=== PATIENT | female | born 1940 | race Caucasian/White ===

== ENCOUNTER → 2020-12-03 15:58 | Outpatient (BNVA) | payer MEDICARE, OTHER, SELFPAY | PROVIDERS: Referring Provider Family Medicine; Visit Provider Orthopaedic Surgery | DX: M25.512 Pain in left shoulder (principal) | CPT/HCPCS: 73030 ==

== ENCOUNTER → 2021-01-22 12:26 | Outpatient (BNVA) | payer MEDICARE, OTHER, SELFPAY | PROVIDERS: PCP Electrodiagnostic Medicine; Visit Provider Internal Medicine Cardiovascular Disease | DX: Z20.822 Contact with and (suspected) exposure to COVID-19 (principal); R06.02 Shortness of breath | CPT/HCPCS: 87635 ==

== ENCOUNTER 2021-01-28 08:43 | Day surgery (SDC) | payer MEDICARE, OTHER, SELFPAY ==
[2021-01-22 12:17] LABS: Basophils # 0.1 10^3/uL (0.0-0.1); Basophils % 0.9 %; Eosinophils # 0.4 10^3/uL (0.0-0.8); Eosinophils % 7.6 %; Hematocrit 35.2 % (37.0-47.0); Hemoglobin 11.7 g/dL (11.5-15.3); Lymphocytes # 2.1 10^3/uL (0.8-4.8); Lymphocytes % 36.1 %; Mean Corpuscular HGB Conc 33.2 g/dL (30.0-36.0); Mean Corpuscular Hemoglobin 31.9 pg (28.0-34.0); Mean Corpuscular Volume 95.9 fL (81-99); Mean Platelet Volume 9.9 fL (7.4-10.4); Monocytes # 0.6 10^3/uL (0.2-0.9); Monocytes % 9.5 %; Neutrophils # 2.66 10^3/uL (1.8-7.7); Neutrophils % 45.6 %; Nucleated Red Blood Cells % 0 %; Platelet Count 256 10^3/cmm (130-400); Red Blood Count 3.67 10^6/uL (4.1-5.3); Red Cell Distribution Width 11.5 % (12.1-15.1); White Blood Count 5.8 10^3/uL (4.0-10.0)
[2021-01-22 12:53] LABS: Anion Gap 11.4 (5-19); Blood Urea Nitrogen 22 mg/dL (8-23); Carbon Dioxide 28 mmol/L (22-29); Chloride 103 mmol/L (98-107); Glucose 218 mg/dL (65-115); Osmolality Calculated 296 mOsm/kg (285-295); Potassium 4.4 mmol/L (3.5-5.1); Sodium 138 mmol/L (136-145)
[2021-01-28] VITALS (28 sets, daily range): BP systolic 130–201; BP diastolic 60–89; PULSE 52–72; RESP 6–29; TEMP 36.9–37.1; O2SAT 97–100; BMI 30.2
--- NOTE | 2021-01-28 10:00 | XACV_ITS ---
Ht: 163 cm Wt: 80 kg BSA: 1.92 m2 Gender: Female : 1940 Any Known Allergies: No known allergies Exam Priority: Routine Procedure(s): Procedure Description: Diagnostic procedure Procedure Description: Right Heart Catheterization Procedure Description: O2 saturation Procedure Description: Coronary Angiography Conclusions 1. Right heart cathPulmonary capillary wedge pressure 5 mmHgPA mean 17 mmHgRV 27/-1 mean of 13 mmHgRA 5/3 mean of 2 mmHgNormal right and left side pressure rather patient is on dry sideNo step-off notedCardiac index 3.4 L/min meter squareCardiac output 6.35 L/minHigh cardiac output and index. 2. Indication for 3. left and right heart cath: Unexplained 4. shortness of breath despite of 5. medical optimization. Recommendations * Return to inpatient for close monitoring and routine cath care. * Risk factor modification for secondary prevention. Diagnostic RX Recommendation: medical therapy and/or counseling Pressures Phase:Rest AO : 159 / 80 ( 113 ) @ 6:12:00 AM RV : 27 / 0 / @ 6:58:00 AM PA : 27 / 11 ( 17 ) @ 6:56:00 AM RA : a wave = v wave = mean = 2 @ 6:59:00 AM a wave = v wave = mean = 4 @ 7:00:00 AM O2 Content Phase:Rest PA : O2 Content O2: 78.0 @ 6:56:00 AM Saturations Phase:Rest AO : 94 @ 6:12:00 AM RA : 73 @ 7:00:00 AM RV : 70 @ 6:59:00 AM PA : 78 @ 6:56:00 AM Cardiac Output Phase:Rest Dick : 6 @ 6:12:00 AM Dick Cardiac Index: 3 @ 6:12:00 AM Clinical Evaluation EBL: 5mL-10mL Procedural Details Procedure Consent Obtained. Pre-Procedure Time Out. Identified patient by full name and date of as verbalized by the patient/guarantor. Does the consent match the physician's order: Yes. Accurate & Complete Informed Consent: Yes. Inpatient/Outpatient History & Physical on Chart: Yes. If H&P is completed, is and addenduem needed: Yes; If yes, is the addendum complete: Yes. Visualize and Verify Site with Patient/Guarantor: N/A. Relevant Radiology Images available: Yes. Pre-op teaching completed and patient verbalized understanding. The risks, benefits, and alternatives of sedation and/or procedure were discussed by physician. The patient agrees to continue. Procedure started. Current Diagnosis : Chest Pain. [facility] Clinical Fraility Score: 3: Managing Well. Handle Sewer Indications: New Onset Angina. Chest Pain Symptom Assessment: Typical Angina Symptoms. Correct patient, site and procedure confirmed by cath team. Current diagnosis: Chest Pain. PERRLA. 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 Lungs clear x 5 lobes. IV Site on Arrival: 20 gauge in the left anticubital. IV Fluids: 0.9% NaCl at KVO. 0 mL infused prior to field laborer. Pre Procedural Pulses: bilateral dorsalis pedis was 3+. Pre Procedural Pulses: bilateral posterior tibial was 3+. Pre Procedural Pulses: bilateral radial was 3+. right groin was prepped with chloroprep then draped in the usual sterile fashion. right radial was prepped with chloroprep then draped in the usual sterile fashion. Baseline sample Acquired. HR: 68 BPM. Physician notified. Physician arrived. Physician scrubbed in. Immediate Pre-Procedure Time Out. Correct Patient: Yes; Correct Procedure: Yes; Correct Site: Yes; Correct Patient Position: Yes; Correct Supplies: Yes; Dried Flammable Prep: Yes; Blood Products Available: N/A;. Lidocaine 1% infiltrated to the right radial. Arterial access obtained. The family has been updated that we are starting the procedure and the patient is tolerating it well. A 5 [place] TIG catheter in over wire. Multiple views taken of left coronary artery. Catheter redirected to the RCA. Multiple views taken of right coronary artery. Catheter redirected to the LCA. Multiple views taken of left coronary artery. Catheter removed over the exchange wire. A 5 [place] Angled Pig catheter in over wire. Catheter removed over the exchange wire. Lidocaine 1% infiltrated to the right groin. Venous access obtained with a micropuncture set. wire unable to advance. wire and needle out. Sonia Irvin RT(R) was relieved by Anderson Baez RN, FIELD SERVICES DIRECTOR as monitoring person. [place] VIP catheter inserted. Oximetry samples were obtained. Normal venous range: 60-85%. Normal arterial range: 95-100%. Inventory is [place] XT .014 190cm Str. Guidewire. [place] wire inserted through the VIP swan for support. Anderson Baez RN, FIELD SERVICES DIRECTOR was relieved by RT Tony(R) as monitoring person. swan and wire out. [place] VIP catheter inserted. [place] out. TR band placed. Hemostasis obtained. A TR Band was successful obtaining hemostatsis at the Right Radial artery insertion site. A Suture was successful obtaining hemostatsis at the Right Femoral vein insertion site. Post Procedure: Pulses reassessed and unchanged. PERRLA. 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 No VTE prophylaxis required. Medication's Wasted: Lidocaine 1% = 10 mL. Medication's Wasted: Other = Hydralazine 10 mg. Total IV fluids: 250 mL. Medication's Wasted: Heparin = 1000 units. Complications: None. Post-op diagnosis: Normal Coronaries. Estimated blood loss: 5mL-10mL. Procedure completed. Patient transferred by bed to 1st floor. Vital chart was stopped. Procedure started. Access Site Site: Right Radial artery Sheath Size: 6 Fr Hemostasis Method: TR Band Hemostasis Success: Successful Site: Right Femoral vein Sheath Size: 8 Fr Hemostasis Method: Suture Hemostasis Success: Successful Procedure Medications Start: 10:53 AM Stop: 10:53 AM Medication: Versed Amount: 1 mg Route: I.V. Start: 10:53 AM Stop: 10:53 AM Medication: Fentanyl Amount: 50 mcg Route: I.V. Start: 10:54 AM Stop: 10:54 AM Medication: Hydralazine Amount: 10 mg Route: I.V. Start: 10:55 AM Stop: 10:55 AM Medication: 0.9% Saline Amount: 250 ml Route: I.V. bolus Start: 11:02 AM Stop: 11:02 AM Medication: Versed Amount: 1 mg Route: I.V. Start: 11:06 AM Stop: 11:06 AM Medication: Nitrogylcerin Amount: 200 mcg Route: I.A. Start: 11:14 AM Stop: 11:14 AM Medication: Versed 1 mg and Fentanyl 25 mcg Amount: 1 Route: I.V. Start: 11:30 AM Stop: 11:30 AM Medication: Versed 1 mg and Fentanyl 25 mcg Amount: 1 Route: I.V. Start: 11:10 AM Stop: 11:10 AM Medication: Heparin Amount: 5000 units Route: I.V. I, the attending physician, have reviewed and verified all procedure medications. Yes, all medications given per verbal order History/Risk Factors Hypertension: Yes Dyslipidemia: No Peripheral Arterial Disease (PAD): No Myocardial Infarction (VT): No Obesity: No Renal Disease: No Tobacco Use: Never Prior Interventions PCI: No CABG: No Valve Surgery: No Report Signatures Finalized by Jonatan Ogden MD on 02/04/2021 04:14 PM
[2021-01-28] MEDS: diphenhydrAMINE 50 mg Capsule PO (10:10)
--- NOTE | 2021-01-28 10:38 | W.PM.OPSFHP ---
Same Day Surgery H&P Indication for Procedure/HPI DATE OF PROCEDURE: January 28, 2021 CHIEF COMPLAINT/INDICATIONFOR SURGICAL PROCEDURE: Unexplained shortness of breath with chest pressure upon mild exertion PREOP DIAGNOSIS: Angina equivalent PLANNED PROCEDRUE: Operation Date: 01/28/21 10:00 Proposed Procedures p right Cardiac Catheterization 90625 R07.9(Right) - Jonatan Ogden MD 80-year-old female past medical history significant for labile hypertension with normal ejection fraction on echo and trace MR COLES can barely walk 50 feet before she has to sit down and catch her breath every time she moves. She says this is hindering her lifestyle. She has not been that short of breath in her life. She had a stress test in the past which did not show any significant disease however it was long time ago. She would not like to do another stress test as she think that it does not reveal anything on her. She think that she is continuously deteriorating. It is the reason patient has been scheduled for left and right heart cath for unexplained shortness of breath along with chest pressure upon mild exertion. Patient has been explained all risk benefit and alternative for the procedure. Patient has been explained the risk of conscious sedation, urgent emergent bypass, major minor bleed, stroke, arrhythmia and worse case scenario . She is a good candidate for DAPT. She would like to proceed with the test. 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 Medications/Allergies* Home Medications Medication Instructions Recorded Confirmed Type Lactobacillus acidophilus 100 mmu cells PO DAILY 12/19/20 12/19/20 History aspirin 81 mg tablet,delayed 81 mg PO DAILY 12/19/20 12/19/20 History release coenzyme Q10 100 mg capsule 100 mg PO DAILY 12/19/20 12/19/20 History fluticasone propionate 50 2 spray INTRANASAL DAILY 12/19/20 12/19/20 History mcg/actuation nasal spray,suspension hydralazine 10 mg tablet 10 mg PO BID PRN 12/19/20 12/19/20 History levothyroxine 50 mcg tablet 50 mcg PO DAILY 12/19/20 12/19/20 History pantoprazole 40 mg tablet,delayed 40 mg PO DAILY 12/19/20 12/19/20 History release pravastatin 40 mg tablet 40 mg PO DAILY 12/19/20 12/19/20 History tizanidine 2 mg tablet 2 mg PO Q8H PRN 12/19/20 12/19/20 History Allergies/Adverse Reactions Allergy/AdvReac Type Severity Reaction Status Date / Time No Known Allergies Allergy Verified 01/28/21 09:41 Current Medications: Generic Name Dose Route Start Last Admin Trade Name Freq PRN Reason Stop Dose Admin Sodium Chloride 1,000 mls @ 50 mls/hr 01/28/21 09:00 01/28/21 10:10 Sodium Chloride 0.9% IV 01/29/21 04:59 Not Given .Q20H ONE Pertinent History/Comorbid Conditions* Medical History (Updated 12/23/20 @ 20:24 by Jonatan Ogden MD) Chest pain Hypertension Shortness of Breath Family History (Updated 12/19/20 @ 14:47 by Rosanna Ludwig RN) Diabetes CAD (coronary artery disease) Hyperlipidemia Family history of premature coronary artery disease Lung disease Cancer Hypertension Stroke Denies family history of Dementia Psychiatric illness Anesthesia complication Bleeding disorder Social History Smoking and tobacco status: never smoked Alcohol intake: never Pertinent Exam Findings alert, oriented x 3, clear to auscultation bilaterally, regular rate & rhythm and operative site marked Conscious Sedation Assessment PATIENT ASSESSED PRIOR TO SEDATION, WITH NO CHANGE NOTED: Yes AIRWAY EVAL/ANESTHESIA PLAN: ASA II, Risks, benefits & alternatives of sedation and/or procedure discussed and Patient agrees to continue as planned Recommendations Surgery/Procedure today Coding Level of Care Code Acute Superintendent System Operation for Abdoulaye Meehan
== END 2021-01-28 18:27 | disposition home or self-care (01) ==
LOC: CCL 08:49 → CSU 12:08
PROVIDERS: PCP Electrodiagnostic Medicine; Visit Provider Internal Medicine Cardiovascular Disease
DX: R07.89 Other chest pain (principal); R06.02 Shortness of breath; Z79.82 Long term (current) use of aspirin; Z82.49 Family history of ischemic heart disease and other diseases of the circulatory system; Z83.3 Family history of diabetes mellitus
CPT/HCPCS: 36415; 80048; 85025; 93456; C1751; C1769; C1887; C1894; J0360; J1644; J2250; J3010; J3490; J7030; Q0163; Q9967

== ENCOUNTER 2021-02-04 13:31 | Outpatient (CLI) | payer MEDICARE, OTHER, SELFPAY ==
--- NOTE | 2021-02-04 13:44 | XRR_ITS ---
PROCEDURE INFORMATION: Exam: XR Chest Exam date and time: 02/04/2021 1:46 PM Age: 80 years old Clinical indication: Acute abdominal pain. Acute diverticulitis. TECHNIQUE: Imaging protocol: XR of the chest Views: 1 view. COMPARISON: No relevant prior studies available. FINDINGS: Lungs: There are possible clustered nodules at the lateral left base. No pulmonary consolidation. Pleural spaces: No pleural effusion. No pneumothorax. Heart/Mediastinum: The heart is enlarged. No gross evidence of pneumomediastinum. Bones/joints: Right shoulder hardware is incompletely visualized. No gross fracture. IMPRESSION: 1. There are possible clustered nodules at the lateral left base. Recommend CT chest to better characterize. 2. Cardiomegaly. PROCEDURE INFORMATION: Exam: XR Abdomen Exam date and time: 02/04/2021 1:46 PM Age: 80 years old Clinical indication: Acute abdominal pain. Acute diverticulitis. TECHNIQUE: Imaging protocol: XR of the abdomen. Views: 2 Views. Upright and supine views. COMPARISON: No relevant prior studies available. FINDINGS: There are dilated loops of small bowel in the mid abdomen that could reflect partial small bowel obstruction. Ileus is a consideration. No gross free intraperitoneal air. No portal venous gas is seen. The liver appears enlarged. XR/XR acute abdomen series 83415 IMPRESSION: 1. There are dilated loops of small bowel in the mid abdomen that could reflect partial small bowel obstruction. Ileus is a consideration. Consider CT abdomen and pelvis with oral and intravenous contrast to further assess. 2. The liver appears enlarged.
== END 2021-02-04 13:32 | disposition home or self-care (01) ==
PROVIDERS: PCP Electrodiagnostic Medicine; Visit Provider Electrodiagnostic Medicine
DX: K57.92 Diverticulitis of intestine, part unspecified, without perforation or abscess without bleeding (principal); R10.9 Unspecified abdominal pain; R16.0 Hepatomegaly, not elsewhere classified
CPT/HCPCS: 74022

== ENCOUNTER → 2021-02-05 11:56 | Outpatient (BNVA) | payer MEDICARE, OTHER, SELFPAY | PROVIDERS: PCP Electrodiagnostic Medicine; Visit Provider Nurse Practitioner Family | DX: I10 Essential (primary) hypertension (principal); R06.02 Shortness of breath | CPT/HCPCS: 80048 ==

== ENCOUNTER 2021-02-06 14:36 | Emergency (ER) | payer MEDICARE, OTHER, SELFPAY ==
[2021-02-06 14:38] VITALS: BP 150/86; PULSE 69; RESP 18; TEMP 36.2; O2SAT 99; BMI 29.3
--- NOTE | 2021-02-06 15:20 | CTR_ITS ---
PROCEDURE INFORMATION: Exam: CT Abdomen And Pelvis With Contrast Exam date and time: 02/06/2021 4:40 PM Age: 80 years old Clinical indication: Constipation; Abdominal pain; Prior surgery; Surgery type: Appy, hyst; Additional info: Abdominal pain/possible sbo TECHNIQUE: Imaging protocol: Computed tomography of the abdomen and pelvis with contrast. Radiation optimization: All CT scans at this facility use at least one of these dose optimization techniques: automated exposure control; mA and/or kV adjustment per patient size (includes targeted exams where dose is matched to clinical indication); or iterative reconstruction. Contrast material: VISI 320; Contrast volume: 95 ml; Contrast route: INTRAVENOUS (IV); COMPARISON: CR XR acute abdomen series [id number] 02/04/2021 1:58 PM RADIATION DOSE METRICS: Total DLP (mGy-cm): 1485.96 FINDINGS: Liver: Normal. No mass. Gallbladder and bile ducts: Normal. No calcified stones. No ductal dilation. Pancreas: Normal. No ductal dilation. Spleen: Normal. No splenomegaly. Adrenal glands: Normal. No mass. Kidneys and ureters: Normal. No hydronephrosis. Stomach and bowel: Scattered diverticulosis coli. Scattered mildly dilated small bowel loops with nonspecific pattern and appearance. In the right lower quadrant some of the small bowel loops are mildly thickened and edematous, best seen on axial series 2, image 56 and coronal image 43. Negative for bowel wall pneumatosis. Appendix: Appendectomy. Intraperitoneal space: Small free fluid in the pelvis. Negative for pneumoperitoneum. Vasculature: Mesenteric vasculature is patent. Lymph nodes: Unremarkable. No enlarged lymph nodes. Urinary bladder: Unremarkable as visualized. Reproductive: Hysterectomy. Bones/joints: Unremarkable. No acute fracture. Soft tissues: Unremarkable. CT/CT abdomen pelvis w con* [id number] IMPRESSION: 1. Nonspecific mildly edematous small bowel wall thickening in the right lower quadrant representing a nonspecific enteritis pattern. 2. Small bowel loops proximal to this region are mildly dilated potentially representing ileus or pseudo-obstruction pattern. Radiation Dose CTDIVOL = (mGy): DLP = 1485.96 (mGy-cm)
--- NOTE | 2021-02-06 16:46 | ED_ITS ---
HPI - Abdominal Pain General: Chief Complaint: Abdominal Pain Stated Complaint: POSS BOWEL BLOCKAGE/SENT BY DR CARPENTER Time Seen by Provider: 02/06/21 16:25 Source: patient and family (son) Mode of arrival: ambulatory Limitations: no limitations History of Present Illness: HPI narrative: Patient is an 80-year-old female who presents to the emergency department with lower abdominal pain of about 1 weeks duration. She has been constipated and has tried MiraLAX and Dulcolax but with little improvement. She went to see her primary care provider who asked her to come to the emergency department for evaluation of possible bowel obstruction. The patient states that she is having abdominal distention as well as the pain. She has some nausea but denies any vomiting. MD elicited complaint: abdominal pain Pertinent past history: constipation Onset (ago): week(s) (1) Pain Consistency: constant Location: Other (Lower abdomen) Severity: severe Quality: cramping Radiation: none Migration to: no migration Exacerbating factors: nothing Relieving factors: nothing Associated Symptoms: Reports change in bowel habits and nausea; Denies anorexia, belching, bloating, chills, coffee ground emesis, constipation, GI cramping, diarrhea, dyspepsia, dysuria, excessive flatus, fever(s), heartburn, hematochezia, hematuria, hematemesis, fecal incontinence, loose stools, melena, poor appetite, syncope and vomiting Review of Systems General: Reports: 10 or more systems reviewed and unremarkable except in HPI and below Const: Denies: fever(s) or chills Eyes: Denies: change in vision or blurry vision ENMT: Denies: throat pain, enlarged tonsils, odynophagia, hoarseness, mouth pain or swelling of lips/tongue Card: Denies: syncope Resp: Denies: dyspnea, productive cough or non-productive cough GI: Reports: nausea and change in bowel habits; Denies: vomiting, hematemesis, coffee ground emesis, heartburn, diarrhea, constipation, bloating, GI cramping, belching, excessive flatus, fecal incontinence, hematochezia or melena : Denies: dysuria or hematuria Musc: Denies: neck pain, back pain or extremity swelling Skin/Breast: Denies: rash, pruritus or erythema Neuro: Denies: headache(s), numbness in extremities or weakness in extremities Endo: Denies: polyuria, polydipsia or tired all the time PFSH ED PFSH: Medical History (Reviewed 02/06/21 @ 23:34 by Ximena Landin MD, [facility] [place]) Chest pain Hypertension Shortness of Breath Family History (Reviewed 02/06/21 @ 23:34 by Ximena Landin MD, [facility] [place]) Other CAD (coronary artery disease) Cancer Diabetes Family history of premature coronary artery disease Hyperlipidemia Hypertension Lung disease Stroke Denies family history of Dementia Psychiatric illness Anesthesia complication Bleeding disorder Social History (Reviewed 02/06/21 @ 23:34 by Ximena Landin MD, [facility] [place]) Smoking and tobacco status: never smoked Alcohol intake: never Physical Exam Const: COMMON NORMALS: no acute distress, average body habitus, patient oriented x3, no limitations, healthy appearing, alert and well nourished HENMT: COMMON NORMALS: normocephalic, atraumatic and moist oral mucous membranes HEAD & SCALP: normocephalic and atraumatic Eye: COMMON NORMALS: Equal, round and reactive pupils present, EOMs intact bilaterally, conjunctivae normal and no scleral icterus CONJUNCTIVA: Yes conjunctivae normal PUPIL: Yes Equal, round and reactive pupils present Neck/C-Spine: COMMON NORMALS: no meningeal signs and no JVD Resp: COMMON NORMALS: normal respiratory effort, No retractions, No use of accessory muscles, clear to auscultation bilaterally and percussion normal AUSCULTATION: clear to auscultation bilaterally PERCUSSION: percussion normal Cardio: COMMON NORMALS: no JVD, regular rate, regular rhythm, S1 normal heart sound present, S2 normal heart sound present, No gallops present (Cardio), No clicks present (Cardio), No murmurs present (Cardio), No rub (Cardio) and Peripheral pulses 2+ throughout RATE: regular rate RHYTHM: regular rhythm HEART SOUNDS: S1 normal heart sound present, S2 normal heart sound present and Murmur heart sound present PERIPHERAL PULSES: Peripheral pulses 2+ throughout GI: COMMON NORMALS: Soft to palpation, No hepatosplenomegaly present, no masses and no bruits INSPECTION: Yes abdominal distension (mild) AUSCULTATION: Yes Hyperactive bowel sounds present PALPATION: Yes Soft to palpation, Yes Tenderness to palpation present (GI) and Yes No hepatosplenomegaly present Extremity: COMMON NORMALS: normal to inspection, full ROM, capillary refill normal, no calf tenderness and no pedal edema Neuro: COMMON NORMALS: patient oriented x3 SENSORIUM/ORIENTATION: Yes alert MENINGEAL SIGNS: Yes no meningeal signs Skin: COMMON NORMALS: no rashes or lesions noted, no wounds, turgor normal, no jaundice, no petechiae and no mottling GENERAL SKIN EXAM: no rashes or lesions noted and turgor normal Course Reevaluation(s): Reevaluation #1: Discussed her lab and imaging findings with her. CT scan suggestive of right lower quadrant enteritis and she has ileus but no obvious obstruction. I do not think at this time she needs further evaluation or hospital admission and will be managed conservatively. She is asked to advance her diet slowly and to start with clear liquid diets today. She is given strong instructions to return for worsening distention, vomiting, worsening pain or any concerns. She voiced understanding and she is in agreement with the plan. Time: 18:56 Vital Signs: Vital signs: Vital Signs Temperature 97.2 F L 02/06/21 14:38 Pulse Rate 56 L 02/06/21 19:10 Respiratory Rate 16 02/06/21 19:10 Blood Pressure 142/68 02/06/21 19:10 Pulse Oximetry 97 02/06/21 19:10 MDM - Abdominal Pain MDM Narrative: Medical decision making narrative: 80-year-old female patient who came to the emergency department with concerns of a bowel obstruction. She has been constipated and has abdominal distention and pain. Evaluation in the emergency department was negative for obstruction but showed enteritis and ile us. She will be managed conservatively but is to return for any concerns. Medical Records: Attestation: I reviewed the patient's medical records. Lab Data: Attestation: I reviewed the patient's lab results. Labs: Lab Results 02/06/21 02/06/21 02/06/21 Range/Units 17:05 17:05 17:05 WBC 6.2 (4.0-10.0) 10^3/ uL RBC 3.84 L (4.1-5.3) 10^6/u L Hgb 12.1 (11.5-15.3) g/dL Hct 36.3 L (37.0-47.0) % MCV 94.5 (81-99) fL MCH 31.5 (28.0-34.0) pg MCHC 33.3 (30.0-36.0) g/dL RDW 12.0 L (12.1-15.1) % Plt Count 311 (130-400) 10^3/c mm MPV 9.7 (7.4-10.4) fL Neut % (Auto) 55.3 % Lymph % (Auto) 29.3 % [place] % (Auto) 9.9 % Eos % (Auto) 4.4 % Baso % (Auto) 0.6 % Neut # (Auto) 3.41 (1.8-7.7) 10^3/u L Lymph # (Auto) 1.8 (0.8-4.8) 10^3/u L [place] # (Auto) 0.6 (0.2-0.9) 10^3/u L Eos # (Auto) 0.3 (0.0-0.8) 10^3/u L Baso # (Auto) 0.0 (0.0-0.1) 10^3/u L Nucleated RBC % (a uto) 0 % Nucleated RBCs # 0.0 /100WBC Sodium 139 (136-145) mmol/L Potassium 4.0 (3.5-5.1) mmol/L Chloride 102 (98-107) mmol/L Carbon Dioxide 26 (22-29) mmol/L Anion Gap 15.0 (5-19) BUN 19 (8-23) mg/dL Creatinine 1.1 H (0.5-0.9) mg/dL GFR Calculation Not Reportable Glucose 83 (65-115) mg/dL Calculated Osmolal ity 289 (285-295) mOsm/k g Lactic Acid 1.3 (0.5-2.2) mmol/L Calcium 8.6 (8.5-10.5) mg/dL Total Bilirubin 0.5 (0.15-1.2) mg/dL AST 13 (0-32) U/L ALT 9 (0-33) U/L Alkaline Phosphata se 79 (35-105) IU/L Total Protein 7.1 (6.6-8.7) g/dL Albumin 4.1 (3.5-5.2) g/dL Globulin 3.0 (1.3-4.6) g/dL Lipase 15 (13-60) U/L Imaging Data ^: CT Abd/Pel: Attestation: I personally reviewed and interpreted this imaging study as follows: Radiologist's impression: [facility] [address] [place] [address] CT Scan Report Signed Patient: Zoila Brantley #: [id number] : 8Acct#:[id number] Age/Sex: 80 / FADM Date: 02/06/21 Loc: ERRoom/Bed: Attending Dr: Ordering Provider/Ordering MD: Colette Pineda Date of Service: 02/06/21 Procedure(s): CT abdomen pelvis w con* [id number] Accession Number(s): [id number] Report Number: [id number] PROCEDURE INFORMATION: Exam: CT Abdomen And Pelvis With Contrast Exam date and time: 02/06/2021 4:40 PM Age: 80 years old Clinical indication: Constipation; Abdominal pain; Prior surgery; Surgery type: Appy, hyst; Additional info: Abdominal pain/possible sbo TECHNIQUE: Imaging protocol: Computed tomography of the abdomen and pelvis with contrast. Radiation optimization: All CT scans at this facility use at least one of these dose optimization techniques: automated exposure control; mA and/or kV adjustment per patient size (includes targeted exams where dose is matched to clinical indication); or iterative reconstruction. Contrast material: VISI 320; Contrast volume: 95 ml; Contrast route: INTRAVENOUS (IV); COMPARISON: CR XR acute abdomen series [id number] 02/04/2021 1:58 PM RADIATION DOSE METRICS: Total DLP (mGy-cm): 1485.96 FINDINGS: Liver: Normal. No mass. Gallbladder and bile ducts: Normal. No calcified stones. No ductal dilation. Pancreas: Normal. No ductal dilation. Spleen: Normal. No splenomegaly. Adrenal glands: Normal. No mass. Kidneys and ureters: Normal. No hydronephrosis. Stomach and bowel: Scattered diverticulosis coli. Scattered mildly dilated small bowel loops with nonspecific pattern and appearance. In the right lower quadrant some of the small bowel loops are mildly thickened and edematous, best seen on axial series 2, image 56 and coronal image 43. Negative for bowel wall pneumatosis. Appendix: Appendectomy. Intraperitoneal space: Small free fluid in the pelvis. Negative for pneumoperitoneum. Vasculature: Mesenteric vasculature is patent. Lymph nodes: Unremarkable. No enlarged lymph nodes. Urinary bladder: Unremarkable as visualized. Reproductive: Hysterectomy. Bones/joints: Unremarkable. No acute fracture. Soft tissues: Unremarkable. CT/CT abdomen pelvis w con* [id number] IMPRESSION: 1. Nonspecific mildly edematous small bowel wall thickening in the right lower quadrant representing a nonspecific enteritis pattern. 2. Small bowel loops proximal to this region are mildly dilated potentially representing ileus or pseudo-obstruction pattern. Radiation Dose CTDIVOL = (mGy): DLP = 1485.96 (mGy-cm) Dictated By:Shyam Ratliff Signed By:Denise Ratliffigned Date/Time:02/06/211737 DD/ 36 Discharge Plan Discharge Patient Disposition: Home Clinical Impression: Enteritis, Ileus Condition: Stable Prescriptions: Continued pravastatin 40 mg tablet 40 mg PO BEDTIME RF: 0 levothyroxine 50 mcg tablet 50 mcg PO DAILY@07 RF: 0 coenzyme Q10 [Co Q-10] 100 mg capsule 100 mg PO BEDTIME RF: 0 pantoprazole 40 mg tablet,delayed release (DR/EC) 40 mg PO BEDTIME RF: 0 tizanidine 2 mg tablet 2 mg PO TID PRN (Reason: Muscle Spasm) RF: 0 aspirin [Adult Aspirin Regimen] 81 mg tablet,delayed release (DR/EC) 81 mg PO BEDTIME RF: 0 valsartan 80 mg tablet 80 mg PO DAILY Qty: 90 RF: 2 metronidazole 500 mg Tablet 500 mg PO TID RF: 0 Cipro 500 mg Tablet 500 mg PO BID RF: 0 valsartan-hydrochlorothiazide 80-12.5 mg tablet 1 tab PO BID RF: 0 Dulcolax (bisacodyl) 5 mg Tablet,Delayed Release (Dr/Ec) 5 - 10 mg PO PRN RF: 0 ipratropium bromide 21 mcg (0.03 %) spray,non-aerosol 2 spray INTRANASAL TID PRN (Reason: Nasal Congestion) RF: 0 acidophilus-pectin, citrus 100 million cell-10 mg Capsule 1 cap PO BEDTIME RF: 0 Discharge Orders: Discharge ED (Routine); Ordered 02/06/21 Ordered By: Ximena Landin Referrals: Efe Carpenter DO [Primary Care Provider] - 1-3 days Discharge Diet: Advance as tolerated and Clear Liquid Discharge Activity: Increase activity as tolerated Patient Instructions: Gastroenteritis (ED), Ileus (ED) Activity Restrictions/Additional Instructions: Return for any new or worsening symptoms. Follow-up with Dr. Carpenter within 3 days. I would like you to have a repeat CT scan done in at least 2 weeks to see if the inflammation in your colon has resolved. Continue clear liquid diet today and gradually advance your diet like we discussed. If you notice your abdomen getting more distended, or you start to vomit, or you have any concerns please return to be evaluated. 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
--- NOTE | 2021-02-06 17:08 | PC.PHAR ---
PT STATES SHE TAKES CARE OF HER OWN MEDICATIONS-PT BROUGHT IN HER MEDICATION BOTTLES-PT STATES SHE HASNT PICKED UP HER PLAIN VALSARTAN 80MG WRITTEN ON 02/05/21- PT STATES SHE HASNT BEEN TAKING VALSARTAN-[facility]Z FILLED 1 TAB BID-PT HAD WROTE ON LABEL TO TAKE 1 TAB QAM AND 1/2 AT HS BUT PT STATES SHE HASNT BEEN TAKING PT STATES SHE LAST TOOK THE ONE TAB BID BUT NOT TAKEN FOR 3-4 DAYS-
[2021-02-06 17:13] LABS: Basophils % 0.6 %; Eosinophils # 0.3 10^3/uL (0.0-0.8); Eosinophils % 4.4 %; Hematocrit 36.3 % (37.0-47.0); Hemoglobin 12.1 g/dL (11.5-15.3); Lymphocytes # 1.8 10^3/uL (0.8-4.8); Lymphocytes % 29.3 %; Mean Corpuscular HGB Conc 33.3 g/dL (30.0-36.0); Mean Corpuscular Hemoglobin 31.5 pg (28.0-34.0); Mean Corpuscular Volume 94.5 fL (81-99); Mean Platelet Volume 9.7 fL (7.4-10.4); Monocytes # 0.6 10^3/uL (0.2-0.9); Monocytes % 9.9 %; Neutrophils # 3.41 10^3/uL (1.8-7.7); Neutrophils % 55.3 %; Nucleated Red Blood Cells % 0 %; Platelet Count 311 10^3/cmm (130-400); Red Blood Count 3.84 10^6/uL (4.1-5.3); White Blood Count 6.2 10^3/uL (4.0-10.0)
[2021-02-06] MEDS: iodixanol 320 mg/mL 100mL Btl IV (17:25)
[2021-02-06 17:54] LABS: Lactic Sepsis W/Reflex 1.3 mmol/L (0.5-2.2)
[2021-02-06 18:07] LABS: Alanine Aminotransferase 9 U/L (0-33); Albumin Level 4.1 g/dL (3.5-5.2); Alkaline Phosphatase 79 IU/L (35-105); Aspartate Amino Transferase 13 U/L (0-32); Blood Urea Nitrogen 19 mg/dL (8-23); Calcium 8.6 mg/dL (8.5-10.5); Carbon Dioxide 26 mmol/L (22-29); Chloride 102 mmol/L (98-107); Glucose 83 mg/dL (65-115); Lipase 15 U/L (13-60); Osmolality Calculated 289 mOsm/kg (285-295); Sodium 139 mmol/L (136-145); Total Bilirubin 0.5 mg/dL (0.15-1.2); Total Protein 7.1 g/dL (6.6-8.7)
[2021-02-06 18:28] VITALS: BP 157/77; PULSE 55; RESP 16; O2SAT 94
[2021-02-06 19:10] VITALS: BP 142/68; PULSE 56; RESP 16; O2SAT 97
== END 2021-02-06 19:10 | disposition home or self-care (01) ==
PROVIDERS: Physician Assistant; Emergency Provider Family Medicine; PCP Electrodiagnostic Medicine
DX: K52.89 Other specified noninfective gastroenteritis and colitis (principal); Z79.82 Long term (current) use of aspirin; I10 Essential (primary) hypertension
CPT/HCPCS: 74177; 80053; 83605; 83690; 85025; 99284; Q9967

== ENCOUNTER 2021-02-18 11:17 | Outpatient (CLI) | payer MEDICARE, OTHER, SELFPAY ==
--- NOTE | 2021-02-18 11:47 | CT_ITS ---
WS: [id number] CT ABDOMEN AND PELVIS WITH CONTRAST HISTORY: ENTERITIS, DIVERTICULITIS, ACUTE, ABDOMINAL PAIN TECHNIQUE: Imaging performed of the abdomen and pelvis with IV contrast. Single phase imaging of the abdomen. Coronal and sagittal reformats are submitted. All CT scans at [facility] use at least one of these dose optimization techniques: automated exposure control; mA and/or kV adjustment per patient size (includes targeted exams where dose is matched to clinical indication); or iterativ e reconstruction. IV CONTRAST: Visipaque 320; 95 mL IV. Oral contrast: Yes. DLP: 1132.06 mGycm COMPARISON: 02/06/2021 Lower thorax: Lung bases are clear. Mild enlargement of the heart. No hiatal hernia. Liver/biliary system: Normal size with no intrahepatic dilatation. Gallbladder: Normal. No gallstones or wall thickening. No pericholecystic fluid. Pancreas: Normal. Spleen: Normal. Adrenal glands: Normal. Right kidney: Mildly prominent renal pelvis. Small extrarenal pelvis and probable parapelvic cysts. U reter is not dilated. Left kidney: Mildly prominent renal pelvis. No obstruction. There is an extrarenal pelvis. Aorta: Mild atherosclerosis with no aneurysm. Lymphadenopathy: None. Free fluid: None. GI tract: Previously described inflammation or wall thickening involving the distal small bowel has r esolved. The appendix is been removed. Cecum is mildly dilated and fluid-filled. There are a few scat tered diverticula in the descending and sigmoid colon without acute diverticulitis. Abdominal wall: 10 mm ventral abdominal wall hernia containing fat. Pelvis: No free fluid or adenopathy. Urinary bladder is well distended. Prior hysterectomy. Bones: Unremarkable. CT/CT abdomen pelvis w con* [id number] IMPRESSION: 1. Interval resolution of the small bowel enteritis and ileus. 2. No soft tissue masses or adenopathy identified. 3. No evidence for acute diverticulitis. 4. No adenopathy.
--- NOTE | 2021-02-18 11:47 | CT_ITS ---
WS: [id number] CT CHEST WITHOUT INTRAVENOUS CONTRAST HISTORY: LEFT LOWER LOBE PULMONARY NODULE TECHNIQUE: Contiguous 5 mm axial imaging performed on the thorax. Coronal and sagittal reformats are submitted. All CT scans at [facility] use at least one of these dose optimization techniq ues: automated exposure control; mA and/or kV adjustment per patient size (includes targeted exams wh ere dose is matched to clinical indication); or iterative reconstruction. CONTRAST: None DLP: 842.58 mGycm COMPARISON: 02/04/2021. Lungs and central airway: Mildly hyperexpanded lungs. Mild biapical pleural thickening and fibrosis. Benign granuloma at the LEFT apex. No pulmonary nodular mass or pneumonia. Pleura: Normal. No pleural effusion. Heart and pericardium: Mild cardiomegaly with no pericardial effusion. Mediastinum and elena: No mediastinum or hilar adenopathy. Vessels: Mild atherosclerosis aorta. No aneurysm. Normal size pulmonary artery. Chest wall and lower neck: No soft tissue masses. Upper abdomen: Small hiatal hernia. No adrenal mass. Osseous structures: Increase in thoracic kyphosis. Advanced degenerative disc disease at T6-7. CT/CT chest wo con [id number] IMPRESSION: 1. No pulmonary nodule identified. No abnormality noted at the LEFT lung base. 2. Mild biapical pleural thickening and scarring with fibrosis. 3. Mild cardiomegaly. 4. Mild atherosclerosis aorta.
[2021-02-18] MEDS: iohexol 300 mg/mL 50 mL Btl PO (11:49)
[2021-02-18] MEDS: iodixanol 320 mg/mL 100mL Btl IV (13:21)
== END 2021-02-18 11:18 | disposition home or self-care (01) ==
PROVIDERS: PCP Electrodiagnostic Medicine; Visit Provider Electrodiagnostic Medicine
DX: K52.9 Noninfective gastroenteritis and colitis, unspecified (principal); R10.9 Unspecified abdominal pain; K57.92 Diverticulitis of intestine, part unspecified, without perforation or abscess without bleeding; I70.0 Atherosclerosis of aorta; I51.7 Cardiomegaly
CPT/HCPCS: 71250; 74177; Q9967

== ENCOUNTER 2021-03-11 10:44 | Outpatient (CLI) | payer MEDICARE, SELFPAY ==
[2021-03-11 11:32] LABS: Basophils # 0.1 10^3/uL (0.0-0.1); Basophils % 1.2 %; Eosinophils # 0.3 10^3/uL (0.0-0.8); Hematocrit 36.7 % (37.0-47.0); Hemoglobin 12.2 g/dL (11.5-15.3); Lymphocytes # 1.9 10^3/uL (0.8-4.8); Lymphocytes % 38.9 %; Mean Corpuscular HGB Conc 33.2 g/dL (30.0-36.0); Mean Corpuscular Hemoglobin 31.6 pg (28.0-34.0); Mean Corpuscular Volume 95.1 fL (81-99); Mean Platelet Volume 10.6 fL (7.4-10.4); Monocytes # 0.4 10^3/uL (0.2-0.9); Monocytes % 8.8 %; Neutrophils # 2.14 10^3/uL (1.8-7.7); Neutrophils % 43.7 %; Nucleated Red Blood Cells % 0 %; Platelet Count 262 10^3/cmm (130-400); Red Blood Count 3.86 10^6/uL (4.1-5.3); Red Cell Distribution Width 11.9 % (12.1-15.1); White Blood Count 4.9 10^3/uL (4.0-10.0)
[2021-03-12 15:38] LABS: Alternaria Alternata (M6) Ige <0.10 kU/L; Alternaria Class 0; Bermuda Class 0; Bermuda Grass (G2) Ige <0.10 kU/L; Cat Dander (E1) Ige <0.10 kU/L; Cat Dander Class 0; Common Ragweed (Short) (W1) Ig <0.10 kU/L; D. Farinae Class 0; Dermatophagoides Class 0; Dermatophagoides Farinae (D2) <0.10 kU/L; Dermatophagoides Pteronyssinus <0.10 kU/L; Dog Dander (E5) Ige <0.10 kU/L; Dog Dander Class 0; Elm (T8) Ige <0.10 kU/L; Elm Class 0; English Plantain (W9) Ige <0.10 kU/L; English Plantain Class 0; House Dust (Greer) (H1) Ige <0.10 kU/L; House Dust (Hollister- Stier) <0.10 kU/L; House Dust Class 0; Immunoglobulin E 211 kU/L (<OR=114); Immunoglobulin E 216 kU/L (<OR=114); Johnson Grass (G10) Ige <0.10 kU/L; Johnson Grass Cl 0; June Grass Class 0; June Grass(Kentucky Blue) (G8) <0.10 kU/L; Lamb'S Quarters (Goose Foot) <0.10 kU/L; Lamb'S Quarters Class 0; Maple (Box Elder) (T1) Ige <0.10 kU/L; Maple Class 0; Meadow Fescue (G4) Ige <0.10 kU/L; Meadow Fescue Class 0; Mucor Racemosus Class 0; Oak (T7) Ige <0.10 kU/L; Oak Class 0; Orchard Grass (Cocksfoot) (G3) <0.10 kU/L; Penicillium Class 0; Penicillium Notatum (M1) Ige <0.10 kU/L; Perennial Rye Grass (G5) Ige <0.10 kU/L; Perennial Rye Grass Class 0; Ragweeed Class 0; Rough Marsh Elder (W16) Ige <0.10 kU/L; Rough Marsh Elder Class 0; Sweet Vernal Class 0; Sweet Vernal Grass (G1) Ige <0.10 kU/L; Timothy Grass (G6) Ige <0.10 kU/L; Timothy Grass Class 0
[2021-03-13 17:37] LABS: Aspergillus Fumigatus, Igg Ab, 15.1 mg/L (<=102)
== END 2021-03-11 10:45 | disposition home or self-care (01) ==
LOC: LAB 10:51
PROVIDERS: PCP Electrodiagnostic Medicine; Visit Provider Internal Medicine Pulmonary Disease
DX: R06.02 Shortness of breath (principal)
CPT/HCPCS: 36415; 82785; 85025; 86003

== ENCOUNTER → 2021-03-14 10:52 | Outpatient (BNVA) | payer MEDICARE, SELFPAY | PROVIDERS: PCP Electrodiagnostic Medicine; Visit Provider Internal Medicine Pulmonary Disease | DX: Z01.812 Encounter for preprocedural laboratory examination (principal); Z20.822 Contact with and (suspected) exposure to COVID-19 | CPT/HCPCS: 87635 ==

== ENCOUNTER 2021-03-19 13:41 | Outpatient (CLI) | payer MEDICARE, OTHER, SELFPAY ==
--- NOTE | 2021-03-19 14:26 | PFTS_ITS ---
Date of Study:03/19/21 Date of Dictation: MECHANICS: Forced vital capacity (FVC) is normal. Forced expiratory volume in one second (FEV1) is normal. FEV1/FVC is normal. FLOW VOLUME LOOP: Normal. LUNG VOLUMES: Total lung capacity (TLC) is normal. Residual volume (RV) is mildly reduced. DIFFUSING CAPACITY FOR CARBON MONOXIDE: Mildly reduced. INTERPRETATION: The postbronchodilator spirometry is normal. There is no significant postbronchodilator response. There is mild reduction of residual volume. Gas exchange (DLCO) is mildly reduced. MTDD
== END 2021-03-19 13:42 | disposition home or self-care (01) ==
LOC: RT 13:43
PROVIDERS: PCP Electrodiagnostic Medicine; Visit Provider Internal Medicine Pulmonary Disease
DX: R06.02 Shortness of breath (principal)
CPT/HCPCS: 94060; 94726; 94729; J7611

== ENCOUNTER → 2021-04-24 08:52 | Outpatient (BNVA) | payer MEDICARE, OTHER, SELFPAY | PROVIDERS: PCP Electrodiagnostic Medicine; Visit Provider Internal Medicine Rheumatology | DX: M19.90 Unspecified osteoarthritis, unspecified site (principal); M25.641 Stiffness of right hand, not elsewhere classified; M25.642 Stiffness of left hand, not elsewhere classified; Z79.899 Other long term (current) drug therapy; Z11.59 Encounter for screening for other viral diseases; Z11.1 Encounter for screening for respiratory tuberculosis; R05 Cough; J98.4 Other disorders of lung; R76.8 Other specified abnormal immunological findings in serum | CPT/HCPCS: 36415; 72040; 73130; 73630; 82306; 82565; 85651; 86140; 86160; 86162; 86235; 86255; 86376; 86431; 86480; 86704; 86803; 87340; 99204 ==

== ENCOUNTER 2021-04-24 12:46 | Outpatient (CLI) | payer MEDICARE, OTHER, SELFPAY ==
--- NOTE | 2021-04-24 13:02 | XR_ITS ---
WS: [id number] Left foot, 3 views, 04/24/2021 Clinical Data: Z79.899 - Other [facility] (current) drug therapy Comparison: None. Findings: No fractures or dislocations are seen. No bone destruction or erosion is noted. The joint spaces and soft tissues are normal. 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
--- NOTE | 2021-04-24 13:02 | XR_ITS ---
WS: [id number] Right hand, 3 views, 04/24/2021 Clinical Data: Z79.899 - Other [facility] (current) drug therapy Comparison: None. Findings: No fractures or dislocations are seen. The soft tissues are unremarkable. There is osteoa rthritis of the right second and third PIP joints of the hand. 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
--- NOTE | 2021-04-24 13:02 | XR_ITS ---
WS: [id number] Cervical spine, 3 views, 04/24/2021 Clinical Data: Z79.899 - Other group home (current) drug therapy Comparison: None. Findings: No compression fractures are seen. There is degenerative disc narrowing C3-C4, C4-C5, C5-C6 and C6-C7.Areas osteoarthritic spurring from C4 through C7. There is no prevertebral soft tissue swe lling. The odontoid is unremarkable. The soft tissues of the neck and the lung apices are normal. XR/XR cervical spine 3V* [id number] Impression: 1. Multilevel degenerative disc disease. 2. Multilevel osteoarthritis.
--- NOTE | 2021-04-24 13:02 | XR_ITS ---
WS: [id number] Right foot, 3 views, 04/24/2021 Clinical Data: Z79.899 - Other long-term (current) drug therapy Comparison: None. Findings: No fractures or dislocations are seen. No bone destruction or erosion is noted. The joint spaces and soft tissues are normal. XR/XR foot RT min 3V* [id number] Impression: Negative right foot.
--- NOTE | 2021-04-24 13:02 | XR_ITS ---
WS: [id number] Left hand, 3 views, 04/24/2021 Clinical Data: Z79.899 - Other longterm (current) drug therapy Comparison: None. Findings: No fractures or dislocations are seen. The soft tissues are unremarkable. There is minimal osteoarthr itis of the left second and third PIP joints of the hand. No periarticular demineralization or calcif ications are seen. XR/XR hand LT min 3V* [id number] Impression: Minimal osteoarthritis of the left second and third PIP joints of the hand.
[2021-04-24 15:15] LABS: Hepatitis B Core AB, Total Non-Reactive (Nonreactive); Hepatitis B Surface Antigen Non-Reactive (Nonreactive); Hepatitis C Virus Antibody Non-Reactive (Nonreactive)
[2021-04-24 15:30] LABS: Erythrocyte Sedimentation Rate 27 mm/hr (0-15)
[2021-04-24 15:53] LABS: C Reactive Protein 1.3 mg/L (0.0-4.9)
[2021-04-24 16:07] LABS: 25 Hydroxy Vitamin D 22 ng/mL (30-100)
[2021-04-25 12:16] LABS: COMPLEMENT COMPONENT C3C 140 mg/dL; COMPLEMENT COMPONENT C4C 26 mg/dL; Cyclic Citrullinated Peptide <16 UNITS
[2021-04-25 13:27] LABS: CENTROMERE B ANTIBODY <1.0 NEG AI (<1.0 NEG); COMPLEMENT, TOTAL (CH50) >60 U/mL (31-60); JO-1 ANTIBODY <1.0 NEG AI (<1.0 NEG); RNP ANTIBODY <1.0 NEG AI (<1.0 NEG); SCL-70 ANTIBODY <1.0 NEG AI (<1.0 NEG); SJOGREN'S ANTIBODY (SS-A) <1.0 NEG AI (<1.0 NEG); SM ANTIBODY <1.0 NEG AI (<1.0 NEG); SS-B <1.0 NEG AI (<1.0 NEG)
[2021-04-25 17:51] LABS: THYROID PEROXIDASE ANTIBODIES 1 IU/mL (<9)
[2021-04-26 12:46] LABS: ANA SCREEN, IFA NEGATIVE (NEGATIVE)
[2021-04-26 13:16] LABS: Quantiferon Mitogen 8.36 IU/mL; Quantiferon Nil 0.01 IU/mL; Quantiferon Plus TB1 0.01 IU/mL; Quantiferon Plus TB2 0.01 IU/mL; Quantiferon TB Gold NEGATIVE (NEGATIVE)
[2021-05-01 14:43] LABS: DNA AB (DS) CRITHIDIA,IFA NEGATIVE (NEGATIVE)
== END 2021-04-24 12:47 | disposition home or self-care (01) ==
PROVIDERS: PCP Electrodiagnostic Medicine; Visit Provider Internal Medicine Rheumatology
DX: M19.90 Unspecified osteoarthritis, unspecified site (principal); Z79.899 Other long term (current) drug therapy; R76.8 Other specified abnormal immunological findings in serum; Z11.59 Encounter for screening for other viral diseases; Z11.1 Encounter for screening for respiratory tuberculosis
CPT/HCPCS: 36415; 72040; 73130; 73630; 82306; 82565; 85651; 86140; 86160; 86162; 86235; 86255; 86376; 86431; 86480; 86704; 86803; 87340

== ENCOUNTER 2021-07-24 18:34 | Emergency (ER) | payer MEDICARE, OTHER, SELFPAY ==
[2021-07-24 19:20] VITALS: BP 178/90; PULSE 82; RESP 16; TEMP 37.3; O2SAT 99; BMI 29.5
--- NOTE | 2021-07-24 20:56 | W.ED.ABDPA2 ---
HPI - Abdominal Pain General: Chief Complaint: Abdominal Pain Stated Complaint: ADB Pain Time Seen by Provider: 07/24/21 20:30 History of Present Illness: HPI narrative: 81-year-old female comes in today with complaints of lower abdominal pain. Patient does have a history of diverticulitis. Patient feels that she may be having another bout of diverticulitis. Patient appears well. Patient appears in mild pain. Patient also has a history of hyperlipidemia, GERD, hypertension, and inflammatory arthritis. Review of Systems General: Reports: 10 or more systems reviewed and unremarkable except in HPI and below GI: Reports: abdominal pain PFSH ED PFSH: Medical History Chest pain Generalized anxiety disorder Hypertension Inflammatory arthritis Joint pain Restrictive airway disease Shortness of Breath Thyroid disease Surgical History History of appendectomy History of hysterectomy History of repair of rotator cuff Family History Other CAD (coronary artery disease) Cancer Diabetes Family history of premature coronary artery disease Hyperlipidemia Hypertension Lung disease Stroke Denies family history of Rheumatoid arthritis Lupus Dementia Psychiatric illness Chronic kidney disease (CKD) Anesthesia complication Bleeding disorder Social History Smoking and tobacco status: never smoked Second hand smoke exposure: Yes Smoking risk assessment/counseling performed?: Yes Alcohol intake: never Lives independently: Yes Household members: none Marital status: / service: No Current occupational status: employed and retired Current occupation: part-time at [employer] Pets and animals: Yes History of recent travel: No Current gender identity: Female Physical Exam Const: COMMON NORMALS: no acute distress and patient oriented x3 GENERAL APPEARANCE: cooperative HENMT: COMMON NORMALS: normocephalic, TM's normal bilaterally and Normal external nose present HEAD & SCALP: normal to inspection and normocephalic NOSE: Normal external nose present TYMPANIC MEMBRANE: TM's normal bilaterally MOUTH: Normal oral and palatal mucosa present Eye: GENERAL EYE: appearance normal, both eyes and all related structures Neck/C-Spine: COMMON NORMALS: full ROM Chest: COMMONS NORMALS: normal inspection of the chest Resp: COMMON NORMALS: normal respiratory effort EFFORT & INSPECTION: Yes able to speak in complete sentences Cardio: COMMON NORMALS: regular rate and regular rhythm RATE: regular rate RHYTHM: regular rhythm GI: COMMON NORMALS: Soft to palpation PALPATION: Yes Soft to palpation and Yes Tenderness to palpation present (GI) (Suprapubic) : COMMON NORMALS: Yes no CVA tenderness BLADDER/KIDNEY EXAM: Yes no CVA tenderness Back/Pelvis: COMMON NORMALS: no CVA tenderness and thoracic and lumbar spine normal to inspection Extremity: COMMON NORMALS: normal to inspection Neuro: COMMON NORMALS: patient oriented x3 and moves all extremities Psych: COMMON NORMALS: mental status grossly normal and cooperative Skin: COMMON NORMALS: no rashes or lesions noted GENERAL SKIN EXAM: no rashes or lesions noted Course Vital Signs: Vital signs: Vital Signs Temperature 99.2 F 07/24/21 19:20 Pulse Rate 82 07/24/21 19:20 Respiratory Rate 16 07/24/21 19:20 Blood Pressure 178/90 07/24/21 19:20 Pulse Oximetry 99 07/24/21 19:20 MDM - Abdominal Pain MDM Narrative: Medical decision making narrative: Patient comes in with lower abdominal pain. Patient been ill for about 2 days. Patient denies any fever or diarrhea or blood in stool. Patient reports mild nausea but no vomiting. On exam abdomen is soft with some tenderness in the suprapubic area. Vital signs were normal. Differential diagnosis includes but not limited to cystitis, diverticulitis, bowel obstruction. Laboratory values were unremarkable for CBC, patient did have some mild elevation in her AST and ALT and a little bit elevation in her lipase. Glucose was 177. And creatinine was 1.3 which seems to be in patient's normal range. I feel the liver enzymes probably are due to reactivity to the the diverticulitis which was noted on the CT scan. Patient will be placed on Cipro 500 twice a day for 7 days and Flagyl twice a day for 7 days. Patient was recommended to drink plenty of water with medications and to follow-up with primary care. Patient stated understanding and agreed to plan. Lab Data: Labs: Lab Results 07/24/21 07/24/21 07/24/21 Range/Units 21:08 21:08 21:19 WBC 8.9 (4.0-10.0) 10^3/ uL RBC 3.91 L (4.1-5.3) 10^6/u L Hgb 12.1 (11.5-15.3) g/dL Hct 37.0 (37.0-47.0) % MCV 94.6 (81-99) fl MCH 30.9 (28.0-34.0) pg MCHC 32.7 (30.0-36.0) g/dL RDW 11.7 L (12.1-15.1) % Plt Count 325 (130-400) 10^3/c mm MPV 10.2 (7.4-10.4) fL Neut % (Auto) 60.4 % Lymph % (Auto) 25.2 % Stafford % (Auto) 10.9 % Eos % (Auto) 2.4 % Baso % (Auto) 0.8 % Neut # (Auto) 5.37 (1.8-7.7) 10^3/u L Lymph # (Auto) 2.2 (0.8-4.8) 10^3/u L Stafford # (Auto) 1.0 H (0.2-0.9) 10^3/u L Eos # (Auto) 0.2 (0.0-0.8) 10^3/u L Baso # (Auto) 0.1 (0.0-0.1) 10^3/u L Nucleated RBC % (a uto) 0 % Nucleated RBCs # 0.0 /100WBC Sodium 138 (136-145) mmol/L Potassium 4.0 (3.5-5.1) mmol/L Chloride 101 (98-107) mmol/L Carbon Dioxide 26 (22-29) mmol/L Anion Gap 15.0 (5-19) BUN 22 (8-23) mg/dL Creatinine 1.3 H (0.5-0.9) mg/dL GFR Calculation Not Reportable Glucose 177 H (65-115) mg/dL Calculated Osmolal ity 294 (285-295) mOsm/k g Calcium 9.1 (8.5-10.5) mg/dL Total Bilirubin 0.3 (0.15-1.2) mg/dL AST 34 H (0-32) U/L ALT 41 H (0-33) U/L Alkaline Phosphata se 54 (35-105) IU/L Total Protein 7.6 (6.6-8.7) g/dL Albumin 4.3 (3.5-5.2) g/dL Globulin 3.3 (1.3-4.6) g/dL Lipase 109 H (13-60) U/L Urine Color Yellow (Yellow) Urine Appearance Clear (CLEAR) Urine pH 5 (5-7) Ur Specific Gravit y 1.015 (1.005-1.030) Urine Protein Neg (Negative) Urine Glucose (UA) 2+ H (Normal) Urine Ketones Negative (Negative) Urine Blood Neg (Negative) Urine Nitrate Negative (Negative) Urine Bilirubin Neg (Negative) Urine Urobilinogen Norm (Negative) mg/dL Ur Leukocyte Khushi ase Negative (Negative) Discharge Plan Discharge Patient Disposition: Home Clinical Impression: Diverticulitis Condition: Stable Prescriptions: New Cipro 500 mg tablet 500 mg PO BID Qty: 14 RF: 0 metronidazole 500 mg tablet 500 mg PO BID Qty: 14 RF: 0 No Action metronidazole 500 mg tablet 500 mg PO TID 7 Days Qty: 21 RF: 0 levothyroxine 50 mcg tablet 50 mcg PO DAILY@07 RF: 0 coenzyme Q10 [Co Q-10] 100 mg capsule 100 mg PO BEDTIME RF: 0 pantoprazole 40 mg tablet,delayed release (DR/EC) 40 mg PO BEDTIME RF: 0 tizanidine 2 mg tablet 2 mg PO TID PRN (Reason: Muscle Spasm) RF: 0 aspirin [Adult Aspirin Regimen] 81 mg tablet,delayed release (DR/EC) 81 mg PO BEDTIME RF: 0 valsartan 80 mg tablet 80 mg PO DAILY Qty: 90 RF: 2 acetaminophen [Tylenol] 325 mg capsule 650 mg PO QID PRNRF: 0 prednisone 10 mg tablet See Rx Instructions PO .COMPLEX PRNRF: 0 fenofibrate 160 mg tablet 160 mg PO DAILY RF: 0 cholecalciferol (vitamin D3) 50 mcg (2,000 unit) capsule 100 mcg PO DAILY RF: 0 montelukast [Singulair] 10 mg tablet 10 mg PO DAILY 90 Days Qty: 90 RF: 3 leflunomide [Arava] 10 mg tablet 10 mg PO DAILY Qty: 30 RF: 3 valsartan 40 mg tablet 40 mg PO DAILY Qty: 30 RF: 3 acidophilus-pectin, citrus 100 million cell-10 mg Capsule 1 cap PO BEDTIME RF: 0 Discharge Orders: Discharge ED (Routine); Ordered 07/24/21 Ordered By: Flaco Lee Referrals: Efe Carpenter DO [Primary Care Provider] - Discharge Diet: Usual diet Discharge Activity: Increase activity as tolerated Patient Instructions: Diverticulitis (ED), Opioid Safety Activity Restrictions/Additional Instructions: Home and rest. Take antibiotics as directed for the next 5 to 7 days. If you are much improved after 5 days you can stop the antibiotic. Avoid foods with husks, seeds and nuts. Do this until all symptoms have cleared. Return to the ER for uncontrolled pain, high fever, or significant amount of blood in stool. Follow-up with primary care in 1 week. Coding Level of Care Code ED Electrical Machinist for Abdoulaye Fwd Exam Comprehensive
[2021-07-24 21:17] LABS: Basophils # 0.1 10^3/uL (0.0-0.1); Basophils % 0.8 %; Eosinophils # 0.2 10^3/uL (0.0-0.8); Eosinophils % 2.4 %; Hemoglobin 12.1 g/dL (11.5-15.3); Lymphocytes # 2.2 10^3/uL (0.8-4.8); Lymphocytes % 25.2 %; Mean Corpuscular HGB Conc 32.7 g/dL (30.0-36.0); Mean Corpuscular Hemoglobin 30.9 pg (28.0-34.0); Mean Corpuscular Volume 94.6 fl (81-99); Mean Platelet Volume 10.2 fL (7.4-10.4); Monocytes % 10.9 %; Neutrophils # 5.37 10^3/uL (1.8-7.7); Neutrophils % 60.4 %; Nucleated Red Blood Cells % 0 %; Platelet Count 325 10^3/cmm (130-400); Red Blood Count 3.91 10^6/uL (4.1-5.3); Red Cell Distribution Width 11.7 % (12.1-15.1); White Blood Count 8.9 10^3/uL (4.0-10.0)
[2021-07-24 21:33] LABS: Add Urine Microscopic? NO; Charge for UA Resulting for Rev
[2021-07-24 21:34] LABS: Alanine Aminotransferase 41 U/L (0-33); Albumin Level 4.3 g/dL (3.5-5.2); Alkaline Phosphatase 54 IU/L (35-105); Aspartate Amino Transferase 34 U/L (0-32); Blood Urea Nitrogen 22 mg/dL (8-23); Calcium 9.1 mg/dL (8.5-10.5); Carbon Dioxide 26 mmol/L (22-29); Chloride 101 mmol/L (98-107); Globulin 3.3 g/dL (1.3-4.6); Glucose 177 mg/dL (65-115); Lipase 109 U/L (13-60); Osmolality Calculated 294 mOsm/kg (285-295); Sodium 138 mmol/L (136-145); Total Bilirubin 0.3 mg/dL (0.15-1.2); Total Protein 7.6 g/dL (6.6-8.7)
[2021-07-24 21:49] LABS: Bilirubin Urine Neg (Negative); Blood Urine Neg (Negative); Glucose Urine UA 2+ (Normal); Ketones Urine Negative (Negative); Leukocyte Esterase Urine Negative (Negative); Nitrate Urine Negative (Negative); Protein Urine Neg (Negative); Specific Gravity, Urine 1.015 (1.005-1.030); Urine Appearance Clear (CLEAR); Urine Color Yellow (Yellow); Urobilinogen Urine Norm (Negative); pH Urine 5 (5-7)
[2021-07-24] MEDS: sodium chloride 0.9% 500 ML 999 ML IV (21:51)
--- NOTE | 2021-07-24 22:31 | CTR_ITS ---
PROCEDURE INFORMATION: Exam: CT Abdomen And Pelvis With Contrast Exam date and time: 07/24/2021 10:31 PM Age: 81 years old Clinical indication: Abdominal pain; Localized; Lower; Prior surgery; Surgery type: Appy, hyst; Additional info: Abd pain, HX of diveritcultis TECHNIQUE: Imaging protocol: Computed tomography of the abdomen and pelvis with contrast. Contrast material: VISI 320; Contrast volume: 95 ml; Contrast route: INTRAVENOUS (IV); COMPARISON: CT abdomen pelvis w con* [id number] 02/18/2021 1:13 PM RADIATION DOSE METRICS: Total DLP (mGy-cm): 1470.34 FINDINGS: Liver: Normal. No mass. Gallbladder and bile ducts: Normal. No calcified stones. No ductal dilation. Pancreas: Normal. No ductal dilation. Spleen: Normal. No splenomegaly. Adrenal glands: Normal. No mass. Kidneys and ureters: Normal. No hydronephrosis. Stomach and bowel: Diverticulosis coli. Suspect mild inflammatory changes around the mid sigmoid colon region in the right pelvis with a segmental area of bowel wall thickening about 6 cm in length. Prominent, enlarged diverticulum of thickened sigmoid colon best seen on coronal image 24. Appendix: No evidence of appendicitis. Intraperitoneal space: No free intraperitoneal air. No intraperitoneal fluid collection. Vasculature: Unremarkable. No abdominal aortic aneurysm. Lymph nodes: Unremarkable. No enlarged lymph nodes. Urinary bladder: Unremarkable as visualized. Reproductive: Hysterectomy. Bones/joints: Unremarkable. No acute fracture. Soft tissues: Unremarkable. CT/CT abdomen pelvis w con* [id number] IMPRESSION: Acute sigmoid diverticulitis. Radiation Dose CTDIVOL = (mGy): DLP = 1470.34 (mGy-cm)
[2021-07-24] MEDS: iodixanol 320 mg/mL 100mL Btl IV (22:43)
[2021-07-24] MEDS: metroNIDAZOLE 500 MG Tablet PO (23:48)
[2021-07-24] MEDS: ciprofloxacin 500 mg Tablet PO (23:48)
== END 2021-07-24 23:54 | disposition home or self-care (01) ==
PROVIDERS: Emergency Medicine; Emergency Provider Nurse Practitioner Family; PCP Electrodiagnostic Medicine
DX: K57.92 Diverticulitis of intestine, part unspecified, without perforation or abscess without bleeding (principal); Z79.82 Long term (current) use of aspirin; I10 Essential (primary) hypertension; Z77.22 Contact with and (suspected) exposure to environmental tobacco smoke (acute) (chronic)
CPT/HCPCS: 74177; 80053; 81003; 83690; 85025; 96360; 99283; J7040; Q9967

== ENCOUNTER 2021-08-04 09:25 | Inpatient (IN) | payer MEDICARE, OTHER, SELFPAY ==
[2021-08-04] VITALS (11 sets, daily range): BP systolic 100–176; BP diastolic 61–98; PULSE 74–90; RESP 14–24; TEMP 36.9–37.4; O2SAT 92–95; BMI 28.5
--- NOTE | 2021-08-04 09:35 | ECG_ITS ---
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[id number] Requested By: Leo Tsai Order Number: [id number] Reading MD: Measurements Intervals [place] Rate: 82 P: 52 KS: 142 QRS: -62 QRSD: 122 T: -9 QT: 397 QTc: 465 Interpretive Statements SINUS RHYTHM RIGHT BUNDLE BRANCH BLOCK [120+ ms QRS DURATION, UPRIGHT V1, 40+ ms S IN I/aVL/V4/V5/V6] LEFT ANTERIOR FASCICULAR BLOCK [QRS AXIS <= -45, QR IN I, RS IN II] POSSIBLE SEPTAL MYOCARDIAL INFARCTION , OF INDETERMINATE AGE [30 ms Q WAVE IN V1/V2] MODERATE T-WAVE ABNORMALITY, CONSIDER LATERAL ISCHEMIA [-0.1+ mV T-WAVE IN I/aVL/V5/V6] No previous ECG available for comparison [email or web address]
--- NOTE | 2021-08-04 09:35 | XRR_ITS ---
PROCEDURE INFORMATION: Exam: XR Chest Exam date and time: 08/04/2021 9:35 AM Age: 81 years old Clinical indication: Cough and dyspnea; Patient HX: History--sob, cough, dehydrated for 1 week; Additional info: Dyspnea/cough TECHNIQUE: Imaging protocol: XR of the chest. Views: 1 view. COMPARISON: CT chest con [id number] 02/18/2021 1:09 PM FINDINGS: Lungs: Unremarkable. No consolidation. Pleural spaces: Unremarkable. No pleural effusion. No pneumothorax. Heart/Mediastinum: Unremarkable. No cardiomegaly. Bones/joints: The patient is status post right total shoulder arthroplasty. XR/XR chest 1V portable [id number] IMPRESSION: No evidence of active cardiopulmonary disease.
[2021-08-04 10:18] LABS: ABG PCO2 32.9 mmHg (35-45); ABG PH Result 7.45 (7.35-7.45); Alveolar-Arterial Oxygen Gradi 4.1 mmHg (5-10); Arterial Blood Gas Hematocrit 41.1 % (37-47); Base Excess ABG -0.2 mmol/L (-2.0-2.0); Blood Gas Allen Test Pos; Blood Gas Sample Site Radial, left; Blood Gas Sample Type Arterial; Carboxyhemoglobin 0.6 %THgb (0.4-20.1); Ionized Calcium Level - ABG 1.2 mmol/L (1.1-1.4); Oxygen Device ROOM AIR; Oxygen Saturation ABG 96.5; PO2 ABG 75.9 mmHg (80.0-100.0); Potassium Level - ABG 3.9 mmol/L (3.5-5.0); Total Hemoglobin 13.4 g/dL (12-16)
--- NOTE | 2021-08-04 10:19 | W.ED.GENADLT ---
Documented by User: TOM Lux 08/05/21 07:22 HPI - General Adult General: Chief complaint: Shortness of Breath/Dyspnea Stated complaint: SOB, LIMITED INTAKE, SENT BY PCP Time Seen by Provider: 08/04/21 09:28 History of Present Illness: HPI narrative: Patient is an 81-year-old female comes to the ED with fatigue, shortness of breath and diarrhea. Patient was seen here in the ED on July 24 and diagnosed with diverticulitis. She was stable for discharge and was sent home with a prescription for Flagyl and Cipro. She has completed her antibiotic prescriptions and was still having some mild abdominal pain, diarrhea and nausea. Her PCP then continued her prescription for Cipro and Flagyl for another 7 days. She is currently taking those antibiotics. She states that her abdominal pain has improved greatly. She says she has about 3-4 episodes of diarrhea today still. She currently feels very fatigued and gets short of breath and tired quickly when she is up and active. She reports having poor oral intake and says that she has not had much of an appetite and nothing tastes good to her. She feels very dehydrated. She says she is only really been able to eat some cottage cheese and mashed potatoes. Denies any fever, chills, emesis, chest pain, blood in the stool, constipation, dysuria or hematuria. Associated symptoms: Reports dyspnea and nausea; Deny chest pain, headache(s), rash, palpitations or vomiting Review of Systems Const: Reports: fatigue; Denies: fever(s) or chills Eyes: Denies: change in vision or eye discomfort ENMT: Denies: throat pain, odynophagia, nasal discharge or nasal congestion Card: Denies: chest pain, palpitations, edema, swelling of feet/ankles, dyspnea on exertion or orthopnea Resp: Reports: dyspnea; Denies: productive cough or non-productive cough GI: Reports: nausea and diarrhea; Denies: abdominal pain, vomiting, constipation or hematochezia : Denies: flank pain, dysuria or hematuria Musc: Denies: neck pain, back pain or extremity swelling Skin/Breast: Denies: rash or new lesions Neuro: Denies: headache(s), numbness in extremities or weakness in extremities PFS ED PFSH: Medical History Chest pain Generalized anxiety disorder Hypertension Inflammatory arthritis Joint pain Restrictive airway disease Shortness of Breath Thyroid disease Surgical History History of appendectomy History of hysterectomy History of repair of rotator cuff Family History Other CAD (coronary artery disease) Cancer Diabetes Family history of premature coronary artery disease Hyperlipidemia Hypertension Lung disease Stroke Denies family history of Rheumatoid arthritis Lupus Dementia Psychiatric illness Chronic kidney disease (CKD) Anesthesia complication Bleeding disorder Social History Smoking and tobacco status: never smoked Second hand smoke exposure: Yes Smoking risk assessment/counseling performed?: Yes Alcohol intake: never Lives independently: Yes Household members: none Marital status: / service: No Current occupational status: employed and retired Current occupation: part-time at [employer] Pets and animals: Yes History of recent travel: No Current gender identity: Female Physical Exam Const: COMMON NORMALS: no acute distress, patient oriented x3, healthy appearing and alert GENERAL APPEARANCE: cooperative and comfortable HENMT: COMMON NORMALS: normocephalic HEAD & SCALP: normocephalic MOUTH: moist mucous membranes abnormal Details: parched THROAT: posterior oropharynx normal and uvula midline Eye: COMMON NORMALS: Equal, round and reactive pupils present and conjunctivae normal CONJUNCTIVA: Yes conjunctivae normal PUPIL: Yes Equal, round and reactive pupils present Neck/C-Spine: COMMON NORMALS: supple GENERAL: Yes normal visual inspection Resp: COMMON NORMALS: normal respiratory effort, No retractions, No use of accessory muscles and clear to auscultation bilaterally AUSCULTATION: clear to auscultation bilaterally Cardio: COMMON NORMALS: regular rate, regular rhythm, S1 normal heart sound present, S2 normal heart sound present, No gallops present (Cardio), No clicks present (Cardio), No murmurs present (Cardio) and Peripheral pulses 2+ throughout RATE: regular rate RHYTHM: regular rhythm HEART SOUNDS: S1 normal heart sound present and S2 normal heart sound present PERIPHERAL PULSES: Peripheral pulses 2+ throughout GI: COMMON NORMALS: Normal to inspection, nondistended, normoactive bowel sounds present, Soft to palpation and no masses PALPATION: Yes Soft to palpation and Yes Tenderness to palpation present (GI) Details: LLQ (Mild tenderness upon deep palpation.) : COMMON NORMALS: Yes no CVA tenderness BLADDER/KIDNEY EXAM: Yes no CVA tenderness Back/Pelvis: COMMON NORMALS: no CVA tenderness Extremity: COMMON NORMALS: normal to inspection Neuro: COMMON NORMALS: patient oriented x3 and moves all extremities SENSORIUM/ORIENTATION: Yes alert Skin: GENERAL SKIN EXAM: dry skin Course Vital Signs: Vital signs: Vital Signs Temperature 99.5 F 08/05/21 04:05 Pulse Rate 76 08/05/21 04:05 Respiratory Rate 18 08/05/21 04:05 Blood Pressure 119/72 08/05/21 04:05 Pulse Oximetry 92 08/05/21 04:05 [facility] - General Adult Lab Data: Attestation: I reviewed the patient's lab results. Labs: Lab Results 08/04/21 08/04/21 08/04/21 02:45 10:07 10:46 WBC RBC Hgb Hct MCV MCH MCHC RDW Plt Count MPV Neut % (Auto) Lymph % (Auto) Alexander % (Auto) Eos % (Auto) Baso % (Auto) Neut # (Auto) Lymph # (Auto) Alexander # (Auto) Eos # (Auto) Baso # (Auto) Nucleated RBC % (a uto) Nucleated RBCs # D-Dimer Specimen Type Arterial Sample Site Radial, left ABG pH 7.45 (7.35-7.45) ABG pCO2 32.9 mmHg L mmHg (35-45) ABG pO2 75.9 mmHg L mmHg (80.0-100.0) ABG HCO3 23.0 mmol/L mmol/ L (22-26) ABG O2 Saturation 96.5 ABG Base Excess -0.2 mmol/L mmol/ L (-2.0-2.0) Sim Test Pos A-a O2 Gradient 4.1 mmHg L mmHg (5-10) Hematocrit 41.1 % % (37-47) Hgb O2 Saturation 96.0 % % (95-100) Carboxyhemoglobin 0.6 %THgb %THgb (0.4-20.1) Methemoglobin 0.0 % L % (0.4-1.5) Total Hemoglobin 13.4 g/dL g/dL (12-16) Sodium 139.0 mmol/L mmol /L (131-143) Potassium 3.9 mmol/L mmol/L (3.5-5.0) Glucose 203.0 mg/dL H mg/ dL (70-115) Ionized Calcium 1.2 mmol/L mmol/L (1.1-1.4) O2 Delivery Device Room air FiO2 21.0 % % Link Trainer Teacher ID Cakk Chloride Carbon Dioxide Anion Gap BUN Creatinine GFR Calculation Calculated Osmolal ity Lactic Acid Cancelled Calcium Total Bilirubin AST ALT Alkaline Phosphata se Creatine Kinase Troponin T Baselin e Troponin T [address] [place] Troponin T Troponin T Hi Sens 6Hr 283.4 ng/L H ng/L (0-10) Troponin T Hi Sens 6Hr Delta TNP Total Protein Albumin Globulin 08/04/21 08/04/21 08/04/21 10:46 10:46 10:46 WBC 5.3 10^3/uL 10^3/ uL (4.0-10.0) RBC 3.72 10^6/uL L 10 ^6/uL (4.1-5.3) Hgb 11.4 g/dL L g/dL (11.5-15.3) Hct 35.1 % L % (37.0-47.0) MCV 94.4 fl fl (81-99) MCH 30.6 pg pg (28.0-34.0) MCHC 32.5 g/dL g/dL (30.0-36.0) RDW 11.8 % L % (12.1-15.1) Plt Count 302 10^3/cmm 10^3 /cmm (130-400) MPV 9.6 fL fL (7.4-10.4) Neut % (Auto) 51.9 % % Lymph % (Auto) 27.8 % % Alexander % (Auto) 14.6 % % Eos % (Auto) 4.2 % % Baso % (Auto) 1.1 % % Neut # (Auto) 2.75 10^3/uL 10^3 /uL (1.8-7.7) Lymph # (Auto) 1.5 10^3/uL 10^3/ uL (0.8-4.8) Alexander # (Auto) 0.8 10^3/uL 10^3/ uL (0.2-0.9) Eos # (Auto) 0.2 10^3/uL 10^3/ uL (0.0-0.8) Baso # (Auto) 0.1 10^3/uL 10^3/ uL (0.0-0.1) Nucleated RBC % (a uto) 0 % % Nucleated RBCs # 0.0 /100WBC /100W BC D-Dimer Specimen Type Sample Site ABG pH ABG pCO2 ABG pO2 ABG HCO3 ABG O2 Saturation ABG Base Excess Sim Test A-a O2 Gradient Hematocrit Hgb O2 Saturation Carboxyhemoglobin Methemoglobin Total Hemoglobin Sodium Cancelled Potassium Cancelled Glucose Cancelled Ionized Calcium O2 Delivery Device FiO2 Link Trainer Teacher ID Chloride Cancelled Carbon Dioxide Cancelled Anion Gap Cancelled BUN Cancelled Creatinine Cancelled GFR Calculation Cancelled Calculated Osmolal ity Cancelled Lactic Acid Calcium Cancelled Total Bilirubin Cancelled AST Cancelled ALT Cancelled Alkaline Phosphata se Cancelled Creatine Kinase Cancelled Troponin T Baselin e Cancelled Troponin T [address] [place] Troponin T Troponin T Hi Sens 6Hr Troponin T Hi Sens 6Hr Delta Total Protein Cancelled Albumin Cancelled Globulin Cancelled 08/04/21 08/04/21 08/04/21 12:05 12:05 12:05 WBC RBC Hgb Hct MCV MCH MCHC RDW Plt Count MPV Neut % (Auto) Lymph % (Auto) Alexander % (Auto) Eos % (Auto) Baso % (Auto) Neut # (Auto) Lymph # (Auto) Alexander # (Auto) Eos # (Auto) Baso # (Auto) Nucleated RBC % (a uto) Nucleated RBCs # D-Dimer Specimen Type Sample Site ABG pH ABG pCO2 ABG pO2 ABG HCO3 ABG O2 Saturation ABG Base Excess Sim Test A-a O2 Gradient Hematocrit Hgb O2 Saturation Carboxyhemoglobin Methemoglobin Total Hemoglobin Sodium 139 mmol/L mmol/L (136-145) Potassium 4.3 mmol/L mmol/L (3.5-5.1) Glucose 126 mg/dL H mg/dL (65-115) Ionized Calcium O2 Delivery Device FiO2 Link Trainer Teacher ID Chloride 104 mmol/L mmol/L (98-107) Carbon Dioxide 25 mmol/L mmol/L (22-29) Anion Gap 14.3 (5-19) BUN 20 mg/dL mg/dL (8-23) Creatinine 1.4 mg/dL H mg/dL (0.5-0.9) GFR Calculation Not Reportable Calculated Osmolal ity 292 mOsm/kg mOsm/ kg (285-295) Lactic Acid 0.9 mmol/L mmol/L (0.5-2.2) Calcium 8.7 mg/dL mg/dL (8.5-10.5) Total Bilirubin 0.3 mg/dL mg/dL (0.15-1.2) AST 24 U/L U/L (0-32) ALT 17 U/L U/L (0-33) Alkaline Phosphata se 47 IU/L IU/L (35-105) Creatine Kinase 157 U/L U/L (26-192) Troponin T Baselin e 164 ng/L H* ng/L (0-10) Troponin T [address] [place] Troponin T Troponin T Hi Sens 6Hr Troponin T Hi Sens 6Hr Delta Total Protein 6.5 g/dL L g/dL (6.6-8.7) Albumin 3.9 g/dL g/dL (3.5-5.2) Globulin 2.6 g/dL g/dL (1.3-4.6) 08/04/21 08/04/21 12:05 14:08 WBC RBC Hgb Hct MCV MCH MCHC RDW Plt Count MPV Neut % (Auto) Lymph % (Auto) Alexander % (Auto) Eos % (Auto) Baso % (Auto) Neut # (Auto) Lymph # (Auto) Alexander # (Auto) Eos # (Auto) Baso # (Auto) Nucleated RBC % (a uto) Nucleated RBCs # D-Dimer 8.37 ug/mIFEU H u g/mIFEU (0-0.59) Specimen Type Sample Site ABG pH ABG pCO2 ABG pO2 ABG HCO3 ABG O2 Saturation ABG Base Excess Sim Test A-a O2 Gradient Hematocrit Hgb O2 Saturation Carboxyhemoglobin Methemoglobin Total Hemoglobin Sodium Potassium Glucose Ionized Calcium O2 Delivery Device FiO2 Link Trainer Teacher ID Chloride Carbon Dioxide Anion Gap BUN Creatinine GFR Calculation Calculated Osmolal ity Lactic Acid Calcium Total Bilirubin AST ALT Alkaline Phosphata se Creatine Kinase Troponin T Baselin e Troponin T [address] [place] 150.1 ng/L H ng/L (0-10) Delta Troponin T -13.9 ABS# L ABS# (0-10) Troponin T Hi Sens 6Hr Troponin T Hi Sens 6Hr Delta Total Protein Albumin Globulin Imaging Data^: CXR: Attestation: I personally reviewed and interpreted this imaging study as follows: Radiologist's impression: [facility] [address] [place] [address]. [place] [address] XRay Report Signed Patient: Zoila Brantley Unit #: [id number] : 1940 Age/Sex: 81 / F ADM Date: 08/04/21 Loc: ER Room/Bed: Attending Dr: Ordering Provider/Ordering MD: Leo Santiago DO Date of Service: 08/04/21 Procedure(s): XR chest 1V portable [id number] Accession Number(s): [id number] Report Number: [id number] PROCEDURE INFORMATION: Exam: XR Chest Exam date and time: 08/04/2021 9:35 AM Age: 81 years old Clinical indication: Cough and dyspnea; Patient HX: History--sob, cough, dehydrated for 1 week; Additional info: Dyspnea/cough TECHNIQUE: Imaging protocol: XR of the chest. Views: 1 view. COMPARISON: CT chest wo con [id number] 02/18/2021 1:09 PM FINDINGS: Lungs: Unremarkable. No consolidation. Pleural spaces: Unremarkable. No pleural effusion. No pneumothorax. Heart/Mediastinum: Unremarkable. No cardiomegaly. Bones/joints: The patient is status post right total shoulder arthroplasty. XR/XR chest 1V portable [id number] IMPRESSION: No evidence of active cardiopulmonary disease. Dictated By: Simon Rubalcava Signed By: Simon Rubalcava Signed Date/Time: 08/04/21 1033 DD/ 1032 CT Abd/Pel: Attestation: I personally reviewed and interpreted this imaging study as follows: Radiologist's impression: [facility] [address] [place] [address]. [place] [address] CT Scan Report Signed Patient: Zoila Brantley Unit #: [id number] : 1940 Age/Sex: 81 / F ADM Date: 08/04/21 Loc: ER Room/Bed: Attending Dr: Ordering Provider/Ordering MD: Jessie Graham Date of Service: 08/04/21 Procedure(s): CT abdomen pelvis w con* [id number] Accession Number(s): [id number] Report Number: [id number] WS: [id number] CT ABDOMEN PELVIS TECHNIQUE: Contrast-enhanced CT of the abdomen and pelvis with coronal and sagittal reformatted images. CLINICAL INFORMATION: abdominal pain LLQ, diarrhea, Nausea COMPARISON: July 24, 2021 DLP: 1335.[address] scans at [facility] use at least one of these dose optimization techniques: automated exposure control; mA and/or kV adjustment per patient size (includes targeted exams where dose is matched to clinical indication); or iterative reconstruction. FINDINGS: Again seen are inflammatory changes with thickening involving the sigmoid colon consistent with acute diverticulitis. This appears slightly improved but persistent compared to previous. No drainable fluid collections or abscess. Mild diffuse fatty infiltration of the liver. Normal portal vein and splenic vein. Lung bases are well aerated. Normal GE junction. Fatty atrophy of the pancreas. Adrenal glands are normal. Normal renal parenchymal enhancement. No hydronephrosis. Prominent renal pelvises bilaterally unchanged. Aortic calcification. Normal caliber abdominal aorta. Small fat-containing umbilical hernia. Prior hysterectomy. CT/CT abdomen pelvis w con* [id number] IMPRESSION: 1. Mild persistent acute sigmoid diverticulitis with slightly improved wall thickening compared to previous. 2. No drainable abscess or fluid collection. 3. Diffuse fatty infiltration of the liver. 4. No other significant changes from previous. Dictated By: Landon Vieira MD Signed By: Landon Vieira MD Signed Date/Time: 08/04/21 1318 DD/ 1306 EKG Data^: EKG 1: Attestation: I personally reviewed and interpreted this EKG as follows: EKG interpretation date: 08/04/21 EKG interpretation time: 10:25 Computer generated interpretation: Chest X-Ray 08/04/21 09:35 IMPRESSION: No evidence of active cardiopulmonary disease. Abdomen/Pelvis CT 08/04/21 11:06 IMPRESSION: 1. Mild persistent acute sigmoid diverticulitis with slightly improved wall thickening compared to previous. 2. No drainable abscess or fluid collection. 3. Diffuse fatty infiltration of the liver. 4. No other significant changes from previous. Chest CTA 08/04/21 14:06 IMPRESSION: There are extensive bilateral pulmonary artery emboli. There is linear opacification in the right middle lobe which extends to the pleura. This may represent atelectasis and/or infarct.Clinical correlation is advised. THIS REPORT CONTAINS FINDINGS THAT MAY BE CRITICAL TO PATIENT CARE. The findings were verbally communicated via telephone conference with JESSIE GRAHAM at 3:46 PM CDT on 08/04/2021. The findings were acknowledged and understood. Radiation Dose CTDIVOL = (mGy): DLP = 614.75 (mGy-cm) Sinus rhythm, 82 bpm, no ST segment elevation or depression seen. EKG 2: Attestation: I personally reviewed and interpreted this EKG as follows: EKG interpretation date: 08/04/21 EKG interpretation time: 11:36 Interpretation: Sinus rhythm, 79 bpm, no ST segment elevation or depression seen. Computer generated interpretation: Chest X-Ray 08/04/21 09:35 IMPRESSION: No evidence of active cardiopulmonary disease. Abdomen/Pelvis CT 08/04/21 11:06 IMPRESSION: 1. Mild persistent acute sigmoid diverticulitis with slightly improved wall thickening compared to previous. 2. No drainable abscess or fluid collection. 3. Diffuse fatty infiltration of the liver. 4. No other significant changes from previous. Chest CTA 08/04/21 14:06 IMPRESSION: There are extensive bilateral pulmonary artery emboli. There is linear opacification in the right middle lobe which extends to the pleura. This may represent atelectasis and/or infarct.Clinical correlation is advised. THIS REPORT CONTAINS FINDINGS THAT MAY BE CRITICAL TO PATIENT CARE. The findings were verbally communicated via telephone conference with JESSIE GRAHAM at 3:46 PM CDT on 08/04/2021. The findings were acknowledged and understood. Radiation Dose CTDIVOL = (mGy): DLP = 614.75 (mGy-cm) Discharge Plan Discharge Patient Disposition: Admitted As Inpatient Admit Provider: Jonatan Hanna Clinical Impression: Pulmonary embolism Condition: Stable Sign Out Sign Out Data: Patient Sign Out occurred on 08/04/21 at 16:24. Patient's care was discussed, and care was transferred from to Leo Santiago DO. Coding Level of Care Code ED [employer] Work[employer] for Chg Fwd Exam Comprehensive Documented by User: Leo Santiago DO 08/05/21 06:22 HPI - General Adult General: Chief complaint: Shortness of Breath/Dyspnea Stated complaint: SOB, LIMITED INTAKE, SENT BY PCP Time Seen by Provider: 08/04/21 09:28 History of Present Illness: HPI narrative: 81-year-old female first seen by PA. On July 24 she was seen here treated for diverticulitis. In follow-up for PCP continue to [facility]. On follow-up today she is markedly short of breath and having chest discomfort. She was referred here for further evaluation. She is not been having any fever. Onset (ago): week(s) Location: chest Radiation: non-radiation Severity: moderate Quality: aching Pain Consistency: constant Exacerbating factors: none Associated symptoms: Reports chest pain, cough, diaphoresis, dyspnea, malaise, nausea and short of breath; Deny confusion, decreased appetite, fevers/chills, headache(s), rash, palpitations, seizures, syncope, vomiting or weakness Treatments prior to arrival: none Review of Systems Const: Reports: malaise and diaphoresis ENMT: Denies: throat pain, ear or mastoid pain, nasal discharge or nasal congestion Card: Reports: chest pain; Denies: palpitations or syncope Resp: Reports: dyspnea GI: Reports: nausea; Denies: vomiting : Denies: flank pain, difficulty voiding, dysuria, urinary frequency or urinary urgency Skin/Breast: Denies: rash Neuro: Denies: headache(s) or confusion PFSH ED PFSH: Medical History Chest pain Generalized anxiety disorder Hypertension Inflammatory arthritis Joint pain Restrictive airway disease Shortness of Breath Thyroid disease Surgical History History of appendectomy History of hysterectomy History of repair of rotator cuff Family History Other CAD (coronary artery disease) Cancer Diabetes Family history of premature coronary artery disease Hyperlipidemia Hypertension Lung disease Stroke Denies family history of Rheumatoid arthritis Lupus Dementia Psychiatric illness Chronic kidney disease (CKD) Anesthesia complication Bleeding disorder Social History Smoking and tobacco status: never smoked Second hand smoke exposure: Yes Smoking risk assessment/counseling performed?: Yes Alcohol intake: never Lives independently: Yes Household members: none Marital status: / service: No Current occupational status: employed and retired Current occupation: part-time at [employer] Pets and animals: Yes History of recent travel: No Current gender identity: Female Physical Exam Const: COMMON NORMALS: no acute distress GENERAL APPEARANCE: cooperative and comfortable ORIENTATION/CONSCIOUSNESS: Yes awake, Yes oriented to person, Yes oriented to place and Yes oriented to time HENMT: COMMON NORMALS: normocephalic, atraumatic and hearing grossly normal bilaterally HEAD & SCALP: normocephalic and atraumatic Neck/C-Spine: COMMON NORMALS: full ROM, no lymphadenopathy, supple and no JVD Resp: EFFORT & INSPECTION: Yes tachypneic AUSCULTATION: rales and wheezes Cardio: COMMON NORMALS: no JVD, regular rate, regular rhythm and No murmurs present (Cardio) RATE: regular rate RHYTHM: regular rhythm GI: COMMON NORMALS: Soft to palpation and No hepatosplenomegaly present AUSCULTATION: Yes normoactive bowel sounds PALPATION: Yes Soft to palpation, No Tenderness to palpation present (GI), No Guarding due to palpation present (GI) and Yes No hepatosplenomegaly present Extremity: COMMON NORMALS: normal to inspection, capillary refill normal, no clubbing, cyanosis or edema, no calf tenderness and no pedal edema Neuro: SENSORIUM/ORIENTATION: Yes oriented to person, Yes oriented to place and Yes oriented to time Skin: COMMON NORMALS: no rashes or lesions noted GENERAL SKIN EXAM: no rashes or lesions noted Course Vital Signs: Vital signs: Vital Signs Temperature 99.5 F 08/05/21 04:05 Pulse Rate 76 08/05/21 04:05 Respiratory Rate 18 08/05/21 04:05 Blood Pressure 119/72 08/05/21 04:05 Pulse Oximetry 92 08/05/21 04:05 MDM - General Adult MDM Narrative: Medical decision making narrative: Think patient is rather have a PE load noted on the CTA. She is significantly hypoxic with any activities. At rest just a few liters will keep her in the low 90s but with any movement she desats into the 80s. We will put her on heparin and admit her to the hospital. Discussed with the patient as well hospitalist. Echocardiogram was done and there is some concern about abnormality in the a sending thoracic cord further imaging to be ordered. Lab Data: Labs: Lab Results 08/04/21 08/04/21 08/04/21 02:45 10:07 10:46 WBC RBC Hgb Hct MCV MCH MCHC RDW Plt Count MPV Neut % (Auto) Lymph % (Auto) Alexander % (Auto) Eos % (Auto) Baso % (Auto) Neut # (Auto) Lymph # (Auto) Alexander # (Auto) Eos # (Auto) Baso # (Auto) Nucleated RBC % (a uto) Nucleated RBCs # D-Dimer Specimen Type Arterial Sample Site Radial, left ABG pH 7.45 (7.35-7.45) ABG pCO2 32.9 mmHg L mmHg (35-45) ABG pO2 75.9 mmHg L mmHg (80.0-100.0) ABG HCO3 23.0 mmol/L mmol/ L (22-26) ABG O2 Saturation 96.5 ABG Base Excess -0.2 mmol/L mmol/ L (-2.0-2.0) Sim Test Pos A-a O2 Gradient 4.1 mmHg L mmHg (5-10) Hematocrit 41.1 % % (37-47) Hgb O2 Saturation 96.0 % % (95-100) Carboxyhemoglobin 0.6 %THgb %THgb (0.4-20.1) Methemoglobin 0.0 % L % (0.4-1.5) Total Hemoglobin 13.4 g/dL g/dL (12-16) Sodium 139.0 mmol/L mmol /L (131-143) Potassium 3.9 mmol/L mmol/L (3.5-5.0) Glucose 203.0 mg/dL H mg/ dL (70-115) Ionized Calcium 1.2 mmol/L mmol/L (1.1-1.4) O2 Delivery Device Room air FiO2 21.0 % % Link Trainer Teacher ID Cakk Chloride Carbon Dioxide Anion Gap BUN Creatinine GFR Calculation Calculated Osmolal ity Lactic Acid Cancelled Calcium Total Bilirubin AST ALT Alkaline Phosphata se Creatine Kinase Troponin T Baselin e Troponin T [address] [place] Troponin T Troponin T Hi Sens 6Hr 283.4 ng/L H ng/L (0-10) Troponin T Hi Sens 6Hr Delta TNP Total Protein Albumin Globulin 08/04/21 08/04/21 08/04/21 10:46 10:46 10:46 WBC 5.3 10^3/uL 10^3/ uL (4.0-10.0) RBC 3.72 10^6/uL L 10 ^6/uL (4.1-5.3) Hgb 11.4 g/dL L g/dL (11.5-15.3) Hct 35.1 % L % (37.0-47.0) MCV 94.4 fl fl (81-99) MCH 30.6 pg pg (28.0-34.0) MCHC 32.5 g/dL g/dL (30.0-36.0) RDW 11.8 % L % (12.1-15.1) Plt Count 302 10^3/cmm 10^3 /cmm (130-400) MPV 9.6 fL fL (7.4-10.4) Neut % (Auto) 51.9 % % Lymph % (Auto) 27.8 % % Alexander % (Auto) 14.6 % % Eos % (Auto) 4.2 % % Baso % (Auto) 1.1 % % Neut # (Auto) 2.75 10^3/uL 10^3 /uL (1.8-7.7) Lymph # (Auto) 1.5 10^3/uL 10^3/ uL (0.8-4.8) Alexander # (Auto) 0.8 10^3/uL 10^3/ uL (0.2-0.9) Eos # (Auto) 0.2 10^3/uL 10^3/ uL (0.0-0.8) Baso # (Auto) 0.1 10^3/uL 10^3/ uL (0.0-0.1) Nucleated RBC % (a uto) 0 % % Nucleated RBCs # 0.0 /100WBC /100W BC D-Dimer Specimen Type Sample Site ABG pH ABG pCO2 ABG pO2 ABG HCO3 ABG O2 Saturation ABG Base Excess Sim Test A-a O2 Gradient Hematocrit Hgb O2 Saturation Carboxyhemoglobin Methemoglobin Total Hemoglobin Sodium Cancelled Potassium Cancelled Glucose Cancelled Ionized Calcium O2 Delivery Device FiO2 Link Trainer Teacher ID Chloride Cancelled Carbon Dioxide Cancelled Anion Gap Cancelled BUN Cancelled Creatinine Cancelled GFR Calculation Cancelled Calculated Osmolal ity Cancelled Lactic Acid Calcium Cancelled Total Bilirubin Cancelled AST Cancelled ALT Cancelled Alkaline Phosphata se Cancelled Creatine Kinase Cancelled Troponin T Baselin e Cancelled Troponin T [address] [place] Troponin T Troponin T Hi Sens 6Hr Troponin T Hi Sens 6Hr Delta Total Protein Cancelled Albumin Cancelled Globulin Cancelled 08/04/21 08/04/21 08/04/21 12:05 12:05 12:05 WBC RBC Hgb Hct MCV MCH MCHC RDW Plt Count MPV Neut % (Auto) Lymph % (Auto) Alexander % (Auto) Eos % (Auto) Baso % (Auto) Neut # (Auto) Lymph # (Auto) Alexander # (Auto) Eos # (Auto) Baso # (Auto) Nucleated RBC % (a uto) Nucleated RBCs # D-Dimer Specimen Type Sample Site ABG pH ABG pCO2 ABG pO2 ABG HCO3 ABG O2 Saturation ABG Base Excess Sim Test A-a O2 Gradient Hematocrit Hgb O2 Saturation Carboxyhemoglobin Methemoglobin Total Hemoglobin Sodium 139 mmol/L mmol/L (136-145) Potassium 4.3 mmol/L mmol/L (3.5-5.1) Glucose 126 mg/dL H mg/dL (65-115) Ionized Calcium O2 Delivery Device FiO2 Link Trainer Teacher ID Chloride 104 mmol/L mmol/L (98-107) Carbon Dioxide 25 mmol/L mmol/L (22-29) Anion Gap 14.3 (5-19) BUN 20 mg/dL mg/dL (8-23) Creatinine 1.4 mg/dL H mg/dL (0.5-0.9) GFR Calculation Not Reportable Calculated Osmolal ity 292 mOsm/kg mOsm/ kg (285-295) Lactic Acid 0.9 mmol/L mmol/L (0.5-2.2) Calcium 8.7 mg/dL mg/dL (8.5-10.5) Total Bilirubin 0.3 mg/dL mg/dL (0.15-1.2) AST 24 U/L U/L (0-32) ALT 17 U/L U/L (0-33) Alkaline Phosphata se 47 IU/L IU/L (35-105) Creatine Kinase 157 U/L U/L (26-192) Troponin T Baselin e 164 ng/L H* ng/L (0-10) Troponin T 120 Min [place] Troponin T Troponin T Hi Sens 6Hr Troponin T Hi Sens 6Hr Delta Total Protein 6.5 g/dL L g/dL (6.6-8.7) Albumin 3.9 g/dL g/dL (3.5-5.2) Globulin 2.6 g/dL g/dL (1.3-4.6) 08/04/21 08/04/21 12:05 14:08 WBC RBC Hgb Hct MCV MCH MCHC RDW Plt Count MPV Neut % (Auto) Lymph % (Auto) Alexander % (Auto) Eos % (Auto) Baso % (Auto) Neut # (Auto) Lymph # (Auto) Alexander # (Auto) Eos # (Auto) Baso # (Auto) Nucleated RBC % (a uto) Nucleated RBCs # D-Dimer 8.37 ug/mIFEU H u g/mIFEU (0-0.59) Specimen Type Sample Site ABG pH ABG pCO2 ABG pO2 ABG HCO3 ABG O2 Saturation ABG Base Excess Sim Test A-a O2 Gradient Hematocrit Hgb O2 Saturation Carboxyhemoglobin Methemoglobin Total Hemoglobin Sodium Potassium Glucose Ionized Calcium O2 Delivery Device FiO2 Link Trainer Teacher ID Chloride Carbon Dioxide Anion Gap BUN Creatinine GFR Calculation Calculated Osmolal ity Lactic Acid Calcium Total Bilirubin AST ALT Alkaline Phosphata se Creatine Kinase Troponin T Baselin e Troponin T 120 Min [place] 150.1 ng/L H ng/L (0-10) Delta Troponin T -13.9 ABS# L ABS# (0-10) Troponin T Hi Sens 6Hr Troponin T Hi Sens 6Hr Delta Total Protein Albumin Globulin EKG Data^: EKG 1: Computer generated interpretation: Chest X-Ray 08/04/21 09:35 IMPRESSION: No evidence of active cardiopulmonary disease. Abdomen/Pelvis CT 08/04/21 11:06 IMPRESSION: 1. Mild persistent acute sigmoid diverticulitis with slightly improved wall thickening compared to previous. 2. No drainable abscess or fluid collection. 3. Diffuse fatty infiltration of the liver. 4. No other significant changes from previous. Chest CTA 08/04/21 14:06 IMPRESSION: There are extensive bilateral pulmonary artery emboli. There is linear opacification in the right middle lobe which extends to the pleura. This may represent atelectasis and/or infarct.Clinical correlation is advised. THIS REPORT CONTAINS FINDINGS THAT MAY BE CRITICAL TO PATIENT CARE. The findings were verbally communicated via telephone conference with JESSIE GRAHAM at 3:46 PM CDT on 08/04/2021. The findings were acknowledged and understood. Radiation Dose CTDIVOL = (mGy): DLP = 614.75 (mGy-cm) EKG 2: Computer generated interpretation: Chest X-Ray 08/04/21 09:35 IMPRESSION: No evidence of active cardiopulmonary disease. Abdomen/Pelvis CT 08/04/21 11:06 IMPRESSION: 1. Mild persistent acute sigmoid diverticulitis with slightly improved wall thickening compared to previous. 2. No drainable abscess or fluid collection. 3. Diffuse fatty infiltration of the liver. 4. No other significant changes from previous. Chest CTA 08/04/21 14:06
[2021-08-04 10:56] LABS: Basophils # 0.1 10^3/uL (0.0-0.1); Basophils % 1.1 %; Eosinophils # 0.2 10^3/uL (0.0-0.8); Eosinophils % 4.2 %; Hematocrit 35.1 % (37.0-47.0); Hemoglobin 11.4 g/dL (11.5-15.3); Lymphocytes # 1.5 10^3/uL (0.8-4.8); Lymphocytes % 27.8 %; Mean Corpuscular HGB Conc 32.5 g/dL (30.0-36.0); Mean Corpuscular Hemoglobin 30.6 pg (28.0-34.0); Mean Corpuscular Volume 94.4 fl (81-99); Mean Platelet Volume 9.6 fL (7.4-10.4); Monocytes # 0.8 10^3/uL (0.2-0.9); Monocytes % 14.6 %; Neutrophils # 2.75 10^3/uL (1.8-7.7); Neutrophils % 51.9 %; Nucleated Red Blood Cells % 0 %; Platelet Count 302 10^3/cmm (130-400); Red Blood Count 3.72 10^6/uL (4.1-5.3); Red Cell Distribution Width 11.8 % (12.1-15.1); White Blood Count 5.3 10^3/uL (4.0-10.0)
--- NOTE | 2021-08-04 10:57 | PC.PHAR ---
PT STATES SHE TAKES CARE OF HER OWN MEDICATIONS-PT STATES SHE HASNT TAKEN THE CIPRO 500MG,METRONIDAZOLE 500MG OR DICYCLOMINE 10MG SINCE Wednesday07/31/21-PT STATES SHE DOESNT TAKE PREDNISONE 10MG NOT EVEN PRN EXT MED HISTORY SHOWS LAST FILLED ON 04/24/21-PT STATES MONSTER WAS DCED PT STATES SHE HASNT TAKEN FOR A MONTH TO A MONTH AND A HALF-NOTES ARE MADE IN THE PHARMACY COMMENTS-PT STATES SHE THINKS THIS IS ALL THE MEDICATIONS SHE TAKES
[2021-08-04] MEDS: ondansetron 2 mg/ML SDV 2 mL 4 MG IVP (11:00)
[2021-08-04] MEDS: sodium chloride 0.9% 1,000 ML 999 ML IV ×2 (11:00→16:32)
--- NOTE | 2021-08-04 11:06 | CT_ITS ---
WS: [id number] CT ABDOMEN PELVIS TECHNIQUE: Contrast-enhanced CT of the abdomen and pelvis with coronal and sagittal reformatted image s. CLINICAL INFORMATION: abdominal pain LLQ, diarrhea, Nausea COMPARISON: July 24, 2021 DLP: 1335.[address] scans at [facility] use at least one of these dose optimization techniques: automated e xposure control; mA and/or kV adjustment per patient size (includes targeted exams where dose is matc hed to clinical indication); or iterative reconstruction. FINDINGS: Again seen are inflammatory changes with thickening involving the sigmoid colon consistent with acute diverticulitis. This appears slightly improved but persistent compared to previous. No drainable flu id collections or abscess. Mild diffuse fatty infiltration of the liver. Normal portal vein and splenic vein. Lung bases are wel l aerated. Normal GE junction. Fatty atrophy of the pancreas. Adrenal glands are normal. Normal renal parenchymal enhancement. No hy dronephrosis. Prominent renal pelvises bilaterally unchanged. Aortic calcification. Normal caliber ab dominal aorta. Small fat-containing umbilical hernia. Prior hysterectomy. CT/CT abdomen pelvis w con* [id number] IMPRESSION: 1. Mild persistent acute sigmoid diverticulitis with slightly improved wall th ickening compared to previous. 2. No drainable abscess or fluid collection. 3. Diffuse fatty infiltration of the liver. 4. No other significant changes from previous.
--- NOTE | 2021-08-04 11:35 | ECG_ITS ---
[facility] Test Date: 2021-08-04 Pat Name: Zoila Brantley Department: Room: Gender: Female Group Therapy Counselor: : 1940 Requested By: Leo Tsai Order Number: [id number] Reading MD: Measurements Intervals [place] Rate: 79 P: 36 CT: 139 QRS: -58 QRSD: 127 T: -11 QT: 407 QTc: 469 Interpretive Statements SINUS RHYTHM RIGHT BUNDLE BRANCH BLOCK [120+ ms QRS DURATION, UPRIGHT V1, 40+ ms S IN I/aVL/V4/V5/V6] LEFT ANTERIOR FASCICULAR BLOCK [QRS AXIS <= -45, QR IN I, RS IN II] POSSIBLE SEPTAL MYOCARDIAL INFARCTION , OF INDETERMINATE AGE [30 ms Q WAVE IN V1/V2] MODERATE T-WAVE ABNORMALITY, CONSIDER LATERAL ISCHEMIA [-0.1+ mV T-WAVE IN I/aVL/V5/V6] Compared to ECG 08/04/2021 10:01:52 No significant changes [id number]
[2021-08-04 12:35] LABS: Lactic Sepsis W/Reflex 0.9 mmol/L (0.5-2.2)
[2021-08-04 12:36] LABS: Alanine Aminotransferase 17 U/L (0-33); Albumin Level 3.9 g/dL (3.5-5.2); Alkaline Phosphatase 47 IU/L (35-105); Anion Gap 14.3 (5-19); Aspartate Amino Transferase 24 U/L (0-32); Blood Urea Nitrogen 20 mg/dL (8-23); Calcium 8.7 mg/dL (8.5-10.5); Carbon Dioxide 25 mmol/L (22-29); Chloride 104 mmol/L (98-107); Creatine Phosphokinase 157 U/L (26-192); Globulin 2.6 g/dL (1.3-4.6); Glucose 126 mg/dL (65-115); Osmolality Calculated 292 mOsm/kg (285-295); Potassium 4.3 mmol/L (3.5-5.1); Sodium 139 mmol/L (136-145); Total Bilirubin 0.3 mg/dL (0.15-1.2); Total Protein 6.5 g/dL (6.6-8.7)
[2021-08-04] MEDS: iodixanol 320 mg/mL 100mL Btl IV ×2 (12:52→15:01)
[2021-08-04 12:54] LABS: Troponin(5th) Baseline 164 ng/L (0-10)
[2021-08-04] MEDS: aspirin 81 mg Chew Tablet 324 MG PO (13:45)
--- NOTE | 2021-08-04 13:48 | PC.NURSE ---
THIS NURSE CAME IN TO GIVE MEDICATION. PATIENT ASKED FOR BEDSIDE COMMODE. PLACED IN PATENT'S ROOM. PATIENT COMPLAINS OF SMALL TINGS OF PAIN SUBSTERNALLY AND SHOULDER PAIN. PATIENT RATES PAIN A 2/10. PATIENT CONNECTED TO FITTER WELDER.
[2021-08-04 13:58] LABS: D Dimer 8.37 ug/mIFEU (0-0.59)
--- NOTE | 2021-08-04 14:06 | CTR_ITS ---
PROCEDURE INFORMATION: Exam: CTA Chest With Contrast Exam date and time: 08/04/2021 2:06 PM Age: 81 years old Clinical indication: Shortness of breath; Additional info: SOB TECHNIQUE: Imaging protocol: Computed tomographic angiography of the chest with contrast. 3D rendering (Not supervised by radiologist): MIP and/or 3D reconstructed images were created by the technologist. Radiation optimization: All CT scans at this facility use at least one of these dose optimization techniques: automated exposure control; mA and/or kV adjustment per patient size (includes targeted exams where dose is matched to clinical indication); or iterative reconstruction. Contrast material: VISI; Contrast volume: 70 ml; Contrast route: INTRAVENOUS (IV); COMPARISON: CT chest [facility] [id number] 02/18/2021 1:09 PM RADIATION DOSE METRICS: Total DLP (mGy-cm): 614.75 FINDINGS: Pulmonary arteries: There are emboli in the bilateral upper and lower lobe pulmonary arteries and also the lingular pulmonary artery. No central pulmonary artery embolus. Aorta: Unremarkable. No aortic aneurysm. No aortic dissection. Lungs: There is linear opacification in the right middle lobe which extends to the pleura. There is lung emphysema. No dominant lung mass. Pleural spaces: Unremarkable. No pneumothorax. No pleural effusion. Heart: Unremarkable. No cardiomegaly. No pericardial effusion. Lymph nodes: Unremarkable. No enlarged lymph nodes. Bones/joints: Unremarkable. No acute fracture. Soft tissues: Unremarkable. CT/CT angio chest PE protcl [id number] IMPRESSION: There are extensive bilateral pulmonary artery emboli. There is linear opacification in the right middle lobe which extends to the pleura. This may represent atelectasis and/or infarct.Clinical correlation is advised. THIS REPORT CONTAINS FINDINGS THAT MAY BE CRITICAL TO PATIENT CARE. The findings were verbally communicated via telephone conference with JESSIE GRAHAM at 3:46 PM CDT on 08/04/2021. The findings were acknowledged and understood. Radiation Dose CTDIVOL = (mGy): DLP = 614.75 (mGy-cm)
[2021-08-04 14:47] LABS: Troponin 5 2HR 150.1 ng/L (0-10); Troponin 5 2HR Delta -13.9 ABS# (0-10)
--- NOTE | 2021-08-04 15:35 | ECG_ITS ---
[facility] Test Date: 2021-08-04 Pat Name: Zoila Brantley Department: Room: 254 Gender: Female Portfolio Consultant: : 1940 Requested By: Leo Tsai Order Number: [id number] Linus MD: Himanshu Taylor M.D. Measurements Intervals [place] Rate: 77 P: 57 SC: 155 QRS: -62 QRSD: 126 T: -13 QT: 422 QTc: 478 Interpretive Statements SINUS RHYTHM RIGHT BUNDLE BRANCH BLOCK [120+ ms QRS DURATION, UPRIGHT V1, 40+ ms S IN I/aVL/V4/V5/V6] LEFT ANTERIOR FASCICULAR BLOCK [QRS AXIS <= -45, QR IN I, RS IN II] MODERATE T-WAVE ABNORMALITY, CONSIDER LATERAL ISCHEMIA [-0.1+ mV T-WAVE IN I/aVL/V5/V6] Compared to ECG 08/04/2021 11:25:19 Myocardial infarct finding no longer present T-wave abnormality still present Possible ischemia still present Electronically Signed On 08-06-2021 23:36:28 CDT by Himanshu Taylor M.D. [id number]
[2021-08-04] MEDS: heparin 5,000 unit/mL INJ 1 mL 4000 UNIT IVP (16:38)
--- NOTE | 2021-08-04 16:38 | USCV_ITS ---
Zoila Brantley Age: 81 Gender: F : 1940 Exam Date: 08/04/2021 16:50 Ordering Phys: Leo Santiago DO Technologist: IRINEO Exam Location: [facility] [place] Indication: PE/ RT HEART STRAIN BP: 175 / 70 HR: 75 Rhythm: Sinus Technical Quality: Adequate MEASUREMENTS (Male / Female) Normal Values 2D ECHO LV Diastolic Diameter PLAX 3.0 cm 4.2 - 5.9 / 3.9 - 5.3 cm LV Systolic Diameter PLAX 1.9 cm LV Chamber Size 3.1 cm IVS Diastolic Thickness 0.8 cm 0.6 - 1.0 / 0.6 - 0.9 cm IVS Systolic Thickness 1.5 cm LVPW Diastolic Thickness 1.0 cm 0.6 - 1.0 / 0.6 - 0.9 cm LVPW Systolic Thickness 1.4 cm RV Chamber Size 3.3 cm LVOT Diameter 2.1 cm LV Ejection Fraction 2D Teich 67.4 % LV Ejection Fraction MOD 2C 91.4 % LV Ejection Fraction 2C AL 93.0 % LA Diameter 2.8 cm LA Width 2.8 cm LA Height 3.6 cm RA Width 2.6 cm RA Height 3.3 cm Aorta at Sinotubular Diameter 3.0 cm M-MODE LV Diastolic Diameter MM 3.0 cm 4.2 - 5.9 / 3.9 - 5.3 cm LV Systolic Diameter MM 1.5 cm LV Ejection Fraction MM Teich 82.7 % IVS Diastolic Thickness MM 1.4 cm 0.6 - 1.0 / 0.6 - 0.9 cm IVS Systolic Thickness MM 1.5 cm LVPW Diastolic Thickness MM 1.4 cm 0.6 - 1.0 / 0.6 - 0.9 cm LVPW Systolic Thickness MM 1.6 cm Aortic Annulus Diameter 3.7 cm LA Ao Ratio MM 0.9 MV E Point Septal Separation 0.6 cm DOPPLER AV Peak Velocity 130.0 cm/s LVOT Peak Velocity 113.0 cm/s AV Area Cont Eq vti 3.1 cm squared AV Area Cont Eq pk 2.9 cm squared MV Area PHT 3.5 cm squared Mitral E to A Ratio 0.7 MV E' Velocity 77.0 cm/s TR Peak Velocity 312.0 cm/s TR Peak Gradient 38.9 mmHg TR Mean Velocity 217.8 cm/s TR Mean Gradient 22.6 mmHg TR Velocity Time Integral 99.2 cm TV Peak E Velocity 63.0 cm/s Right Atrial Pressure 5.0 mmHg Pulmonary Artery Systolic Pressu 43.9 mmHg PV Peak Velocity 67.0 cm/s RV Acceleration Time 0.1 s RV Ejection Time 0.4 s RV AcT/ET 0.3 FINDINGS Left Ventricle Normal left ventricular cavity size. Normal left ventricular systolic function. No regional wall motion abnormalities. Left ventricular ejection fraction is estimated at 65 %. Grade I/IV diastolic dysfunction (abnormal relaxation filling pattern), normal to mildly elevated filling pressures. Right Ventricle Normal right ventricular size. Normal right ventricular systolic pressure. Mild pulmonary hypertension, RVSP 43.9 mmHg. No right ventricular strain noted. Right Atrium The right atrium is normal in size. Left Atrium The left atrium is normal in size. Mitral Valve Moderately thickened mitral valve. Moderate mitral annular calcification. No mitral valve stenosis. No mitral valve regurgitation. Aortic Valve Severe aortic valve calcification. Not aortic valve stenosis, mean gradient 3.4 mmHg, CRISTEL 3.1 cm squared. Trace aortic valve regurgitation. Tricuspid Valve Mild tricuspid valve regurgitation. Pulmonic Valve Structurally normal pulmonic valve without significant stenosis. There is no pulmonic regurgitation. Pericardium Normal pericardium without effusion. Aorta There appeared to be echogenic mass noted in the ascending aorta could it be atheroma, thrombus or possible artifact. Further discoloration with CT angiogram of ascending aorta advised.. CONCLUSIONS 1-Normal left ventricular cavity size. Normal left ventricular systolic function. No regional wall motion abnormalities. Left ventricular ejection fraction is estimated at 65 %. Grade I/IV diastolic dysfunction (abnormal relaxation filling pattern), normal to mildly elevated filling pressures. 2-Normal right ventricular size. Normal right ventricular systolic pressure. Mild pulmonary hypertension, RVSP 43.9 mmHg. No right ventricular strain noted. 3-Severe aortic valve calcification. Not aortic valve stenosis, mean gradient 3.4 mmHg, CRISTEL 3.1 cm squared. Trace aortic valve regurgitation. 4-Moderately thickened mitral valve. Moderate mitral annular calcification. No mitral valve stenosis. No mitral valve regurgitation. 5-Mild tricuspid valve regurgitation. 6-There appeared to be echogenic mass noted in the ascending aorta could it be atheroma, thrombus or possible artifact. Further discoloration with CT angiogram of ascending aorta advised.. 7-There is no pericardial effusion. 8-Right atrial pressure is around 5 mm of mercury. 9-There are no prior echocardiogram studies to compare. Jonatan Ogden MD (Electronically Signed) Final Date: 04 August 2021 17:56 S
--- NOTE | 2021-08-04 18:06 | PM.HP ---
Providers/Chief Complaint Admitting Physician: Jonatan Hanna MD Primary Care Provider: Efe Carpenter DO Chief Complaint: SOB, LIMITED INTAKE, SENT BY PCP History of Present Illness Zoila Brantley is a 81 year old female who presented to the hospital with chief complaint of shortness of breath. Patient is stating that she went to [place] on 2 consecutive weekends which is roughly around 7-[address] one way. When she returned home she start experiencing shortness of breath all of a sudden without any chest pain however before that her left leg was cramping and she noticed some pain around her calf muscles as well. For these complaints she decided to come to the hospital for further evaluation. No syncopal events diarrhea chest pain fever or diarrhea. She is vaccinated for COVID-19. Diagnostics in the ER revealed acute pulmonary embolism, no right heart strain as per the echo, I have requested BNP, no active chest pain, hemodynamically stable, she was started on heparin, venous Dopplers pending Initially she was requiring oxygen in the ER ADITYA secondary to dehydration patient was clinically dehydrated Review of Systems Const: Reports: chills and body aches Eyes: Denies: change in vision ENMT: Denies: throat pain Card: Denies: chest pain Resp: Reports: dyspnea and non-productive cough GI: Denies: abdominal pain : Denies: flank pain Musc: Denies: neck pain Skin/Breast: Denies: rash Neuro: Denies: headache(s) Psych: Denies: anxiety Endo: Denies: polyuria Vargas/Lymph: Denies: easy bruising All/Imm: Denies: urticaria Medications/Allergies Home Medications Medication Instructions Recorded Confirmed Last Taken Type aspirin 81 mg tablet,delayed 81 mg PO BEDTIME 12/19/20 08/04/21 08/03/21 History release coenzyme Q10 100 mg capsule 100 mg PO BEDTIME 12/19/20 08/04/21 01/27/21 20:30 History levothyroxine 50 mcg tablet 50 mcg PO DAILY@12/19/20 08/04/21 08/04/21 07:00 History pantoprazole 40 mg tablet,delayed 40 mg PO BEDTIME 12/19/20 08/04/21 01/27/21 20:30 History release tizanidine 2 mg tablet 2 mg PO BEDTIME 12/19/20 08/04/21 08/03/21 History cholecalciferol (vitamin D3) 50 100 mcg PO DAILY cap 05/27/21 08/04/21 Unknown History mcg (2,000 unit) capsule fenofibrate 160 mg tablet 160 mg PO BEDTIME 05/27/21 08/04/21 Unknown History ciprofloxacin HCl [Cipro] 500 mg PO BID #14 tab 07/24/21 08/04/21 07/31/21 Rx Arava 10 mg PO BEDTIME 08/04/21 08/04/21 08/03/21 History Probiotic 1 cap PO BEDTIME 08/04/21 08/04/21 Unknown History acetaminophen [Tylenol Extra 1,000 mg PO Q4H PRN 08/04/21 08/04/21 Unknown History Strength] albuterol sulfate 2 puff INHALATION Q6H PRN 08/04/21 08/04/21 Unknown History cyanocobalamin (vitamin B-12) 1,000 mcg IM Q30D 08/04/21 08/04/21 Unknown History dicyclomine 10 mg PO TID PRN 08/04/21 08/04/21 07/31/21 History metronidazole 500 mg PO TID 08/04/21 08/04/21 07/31/21 History valsartan 40 mg PO BEDTIME 08/04/21 08/04/21 08/03/21 History valsartan 80 mg PO BEDTIME 08/04/21 08/04/21 08/03/21 History Allergies Allergy/AdvReac Type Severity Reaction Status Date / Time amoxicillin Allergy ALGY-Rash Verified 08/04/21 09:56 hydroxychloroquine AdvReac Intermediate dizzy and Verified 08/04/21 09:56 lightheaded and groggy Sulfa (Sulfonamide AdvReac Intermediate pt states Verified 08/04/21 09:56 Antibiotics) 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 cant remember reaction 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 PFSH Acute PFSH: Medical History Chest pain Generalized anxiety disorder Hypertension Inflammatory arthritis Joint pain Restrictive airway disease Shortness of Breath Thyroid disease Surgical History History of appendectomy History of hysterectomy History of repair of rotator cuff Family History Other CAD (coronary artery disease) Cancer Diabetes Family history of premature coronary artery disease Hyperlipidemia Hypertension Lung disease Stroke Denies family history of Rheumatoid arthritis Lupus Dementia Psychiatric illness Chronic kidney disease (CKD) Anesthesia complication Bleeding disorder Social History Smoking and tobacco status: never smoked Second hand smoke exposure: Yes Smoking risk assessment/counseling performed?: Yes Alcohol intake: never Lives independently: Yes Household members: none Marital status: / service: No Current occupational status: employed and retired Current occupation: part-time at [employer] Pets and animals: Yes History of recent travel: No Current gender identity: Female Vitals/I&O/Wt Last Vital Signs Temp 98.7 F 08/04/21 11:34 Pulse 81 08/04/21 16:42 Resp 24 H 08/04/21 16:42 BP 175/70 08/04/21 16:42 Pulse Ox 94 08/04/21 16:42 Weight last 48 hrs Weight 75.296 kg Physical Exam Narrative: EXAM NARRATIVE: early female, appears stated age Did require oxygen for short amount of time Otherwise doing well on room air for now No active chest pain Does get short of breath on ambulation Complaining of left leg pain S1, S2 sinus rhythm Abdomen soft Bilateral breath sounds no adventitious rhonchi or crackles EOMI, PERRLA No neurological deficits No joint swelling Homans sign positive of left leg Data : 08/05/21 02:45 08/05/21 02:45 A&P Assessment and plan (1) Pulmonary embolism: Status: Acute (2) Restrictive airway disease: Status: Acute (3) Inflammatory arthritis: Status: Acute Additional A&P Information Provoked Pulmonary embolism Start Heparin Gtt Echo w/o right heart strain Home o2 eval at discharge Venous doppler CTA positive for PE ADITYA due to use of ARBs on hold keep ivf for preload support Restrictive lung dz hold leflunomide Full code Consis Carb diet mod sliding sclae DVT ppx heparin gtt Attestations Medical Necessity Statement*: less than 2 midnight hosp stay obs admit Time Spent in Patient Care: Greater than 35 minutes Coding Level of Care Code Acute 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
[2021-08-04 20:13] LABS: Partial Thromboplastin Time 31.2 SECONDS (23.9-36.7)
[2021-08-04] MEDS: sodium chloride 0.9% 1,000 ML 75 ML IV (20:31)
[2021-08-04] MEDS: pantoprazole DR 40 mg Tablet PO (20:32)
[2021-08-04] MEDS: aspirin 81 mg EC Tablet PO (20:32)
[2021-08-04] MEDS: tizanidine 4 mg Tablet 2 MG PO (20:32)
[2021-08-04] MEDS: heparin drip 25,000 UNIT/500 ML PREMIX 21.08 UNIT IV (20:49)
[2021-08-04 21:36] LABS: Glucose Point of Care 98 mg/dL (70-110)
[2021-08-05] VITALS (8 sets, daily range): BP systolic 116–155; BP diastolic 59–84; PULSE 74–92; RESP 17–20; TEMP 37.1–37.6; O2SAT 92–94
[2021-08-05 02:55] LABS: Basophils # 0.1 10^3/uL (0.0-0.1); Basophils % 1.1 %; Eosinophils # 0.2 10^3/uL (0.0-0.8); Eosinophils % 3.1 %; Hematocrit 31.4 % (37.0-47.0); Hemoglobin 10.4 g/dL (11.5-15.3); Lymphocytes # 1.7 10^3/uL (0.8-4.8); Lymphocytes % 25.8 %; Mean Corpuscular HGB Conc 33.1 g/dL (30.0-36.0); Mean Corpuscular Hemoglobin 31.2 pg (28.0-34.0); Mean Corpuscular Volume 94.3 fl (81-99); Mean Platelet Volume 9.3 fL (7.4-10.4); Monocytes # 0.8 10^3/uL (0.2-0.9); Monocytes % 12.4 %; Neutrophils % 57.1 %; Nucleated Red Blood Cells % 0 %; Platelet Count 280 10^3/cmm (130-400); Red Blood Count 3.33 10^6/uL (4.1-5.3); Red Cell Distribution Width 11.6 % (12.1-15.1); White Blood Count 6.5 10^3/uL (4.0-10.0)
[2021-08-05 03:10] LABS: Partial Thromboplastin Time 67.6 SECONDS (23.9-36.7)
[2021-08-05 03:14] LABS: Alanine Aminotransferase 13 U/L (0-33); Albumin Level 3.1 g/dL (3.5-5.2); Alkaline Phosphatase 41 IU/L (35-105); Anion Gap 13.1 (5-19); Aspartate Amino Transferase 21 U/L (0-32); Blood Urea Nitrogen 16 mg/dL (8-23); Calcium 7.8 mg/dL (8.5-10.5); Carbon Dioxide 21 mmol/L (22-29); Chloride 109 mmol/L (98-107); Globulin 2.7 g/dL (1.3-4.6); Glucose 169 mg/dL (65-115); Osmolality Calculated 293 mOsm/kg (285-295); Potassium 4.1 mmol/L (3.5-5.1); Sodium 139 mmol/L (136-145); Total Bilirubin 0.2 mg/dL (0.15-1.2); Total Protein 5.8 g/dL (6.6-8.7)
[2021-08-05 03:21] LABS: Troponin 5 6HR 283.4 ng/L (0-10)
--- NOTE | 2021-08-05 05:59 | PC.NURSE ---
Patient admitted to unit with minimal c/o pain to left leg. VSS, Heparin drip started. No needs at this time. Room clutter free, call light in reach, will continue to monitor until report and handoff to oncoming nurse at shift change.
[2021-08-05] MEDS: levothyroxine 50 mcg Tablet PO (06:13)
[2021-08-05 06:47] LABS: Glucose Point of Care 138 mg/dL (70-110)
[2021-08-05 08:17] LABS: NT Pro B Type Natriuretic Pept 4295 pg/mL (0-450)
[2021-08-05] MEDS: sodium chloride 0.9% 1,000 ML 75 ML IV ×2 (09:11→21:39)
[2021-08-05 09:45] LABS: Partial Thromboplastin Time 71.6 SECONDS (23.9-36.7)
[2021-08-05 11:40] LABS: Glucose Point of Care 139 mg/dL (70-110)
[2021-08-05] MEDS: acetaminophen 500 mg Tablet 1000 MG PO (11:51)
--- NOTE | 2021-08-05 11:51 | PC.NURSE ---
Pt complaining of pain in left ankle. Patient rated pain 7 on 0-10 scale. This nurse offered to give PRN morphine, pt refused and was agreeable to taking Tylenol. Teaching done on pain management at this time.
--- NOTE | 2021-08-05 13:23 | P.PN_ITS ---
Subjective Subjective: Interval history: Patient was seen and examined this morning, complaining of left leg pain Could not participate for physical therapy Endorsing weakness and lethargy stating she is not ready to go home, she lives alone I am waiting for venous Doppler studies currently she is on heparin drip which will be transitioned to Eliquis this morning Vitals/I&O/Wt Last Vital Signs Temp 98.7 F 08/05/21 11:44 Pulse 81 08/05/21 11:44 Resp 17 08/05/21 11:44 BP 147/72 08/05/21 11:44 Pulse Ox 94 08/05/21 11:44 08/04/21 08/05/21 08/05/21 22:59 06:59 14:59 Intake Total 1999 1070 / 1070 Output Total 600 / 600 Balance 1999 -600 / 1400 1070 / 1070 Weight last 48 hrs Weight 75.296 kg Weight 75.296 kg Physical Exam Narrative: EXAM NARRATIVE: Patient lying comfortably saturating well on room air EOMI, PERRLA Endorsing fatigue and lethargy Abdomen soft No active stridor or wheezing tender To palpate swelling of left calf muscle noticed EOMI, PERRLA No neurological deficits Clinically does look dehydrated Data : 08/05/21 02:45 08/05/21 02:45 A&P Assessment and plan (1) Pulmonary embolism: Status: Acute (2) Restrictive airway disease: Status: Acute (3) Inflammatory arthritis: Status: Acute (4) Weakness: Status: Acute (5) ADITYA (acute kidney injury): Status: Acute Additional A&P Information Provoked pulmonary embolism Symptomatic PE no right heart strain Not requiring oxygen Complaining of lethargy and fatigue Lower COVID-19 Patient is vaccinated Did not participate with physical therapy, she lives alone, complaining of left leg pain Start muscle relaxant gave her 1 dose of fentanyl today Awaiting venous Doppler studies PT evaluation ADITYA secondary to ARB and dehydration continue IV fluids Inflammatory arthritis history: Disease modifying agents currently on hold Full code Consistent carb diet DVT prophylaxis Eliquis 10 mg twice a day will suffice Attestations Medical Necessity Statement*: Charge her tomorrow once her left leg pain is better Time Spent in Patient Care: 16 - 35 minutes Coding Level of Care Code Acute 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
[2021-08-05 15:01] LABS: SARS Covid-2 Antigen Negative (Negative)
[2021-08-05 17:05] LABS: Glucose Point of Care 126 mg/dL (70-110)
--- NOTE | 2021-08-05 19:19 | USCV_ITS ---
Zoila Brantley Age: 81 Gender: F : 1940 Exam Date: 08/05/2021 06:39 Ordering Phys: Jonatan Hanna MD Technologist: Jackelin Anand [place]am [place] [facility] [place]: PE HISTORY: Pulmonary embolism. PROCEDURES: Venous duplex imaging was performed in bilateral lower extremities. The following venous structures were evaluated: common femoral vein, profunda vein, proximal portion of the greater saphenous vein, superficial femoral vein, and the popliteal vein. In addition, the posterior tibial and peroneal trunk were evaluated. FINDINGS: Normal 2-D Doppler and augmentation and compressibility throughout the lower extremity venous structures. Additional imaging through the proximal calf veins also reveals no thrombus. Limited evaluation of the greater saphenous vein is patent with no thrombus.. CONCLUSIONS No evidence of right lower extremity DVT. No evidence of left lower extremity DVT. Landon Vieira MD (Electronically Signed) Final Date: 05 August 2021 15:26 S
[2021-08-05 20:47] LABS: Glucose Point of Care 157 mg/dL (70-110)
[2021-08-05] MEDS: aspirin 81 mg EC Tablet PO (20:58)
[2021-08-05] MEDS: apixaban 5 mg Tablet 10 MG PO (20:58)
[2021-08-05] MEDS: tizanidine 4 mg Tablet 2 MG PO (20:58)
[2021-08-05] MEDS: pantoprazole DR 40 mg Tablet PO (20:59)
[2021-08-06] VITALS (7 sets, daily range): BP systolic 138–170; BP diastolic 75–85; PULSE 75–88; RESP 16–18; TEMP 36.9–37.4; O2SAT 92–96
[2021-08-06] MEDS: levothyroxine 50 mcg Tablet PO (06:04)
[2021-08-06 06:22] LABS: Blood Urea Nitrogen 15 mg/dL (8-23); Calcium 7.6 mg/dL (8.5-10.5); Carbon Dioxide 22 mmol/L (22-29); Chloride 108 mmol/L (98-107); Glucose 113 mg/dL (65-115); Osmolality Calculated 290 mOsm/kg (285-295); Sodium 139 mmol/L (136-145)
[2021-08-06 06:27] LABS: Anion Gap 13.4 (5-19); Potassium 4.4 mmol/L (3.5-5.1)
[2021-08-06 06:32] LABS: Glucose Point of Care 108 mg/dL (70-110)
[2021-08-06] MEDS: apixaban 5 mg Tablet 10 MG PO ×2 (08:11→20:48)
--- NOTE | 2021-08-06 09:38 | CT_ITS ---
WS: [id number] NONCONTRAST CT LEFT HIP. TECHNIQUE: Noncontrast CT left hip with coronal and sagittal reformatted images. CLINICAL INFORMATION: hip pian COMPARISON: None. DLP: 1431.[address] scans at [facility] use at least one of these dose optimization techniques: automated e xposure control; mA and/or kV adjustment per patient size (includes targeted exams where dose is matc hed to clinical indication); or iterative reconstruction. FINDINGS: Left hip is normal in appearance. Mild degenerative arthritis left hip with joint space narrowing. No rmal femoral neck and proximal femoral shaft. Normal pubic rami. Mild degenerative arthritis left sac roiliac joint. Partially visualized known sigmoid diverticulitis. No inguinal lymphadenopathy. CT/CT hip LT wo con* [id number] IMPRESSION: 1. Mild degenerative arthritis left hip. No acute fractures. 2. Normal proximal femoral shaft. 3. No left inguinal lymphadenopathy. 4. Acute sigmoid diverticulitis. This was described on the recent CT.
--- NOTE | 2021-08-06 09:38 | CT_ITS ---
WS: [id number] CT LUMBAR SPINE TECHNIQUE: Noncontrast CT of the lumbar spine with coronal and sagittal reformatted images. CLINICAL INFORMATION: sciatica COMPARISON: None. DLP: 2020.[address] scans at [facility] use at least one of these dose optimization techniques: automated e xposure control; mA and/or kV adjustment per patient size (includes targeted exams where dose is matc hed to clinical indication); or iterative reconstruction. FINDINGS: Normal lumbar alignment. No acute compression. No high-grade central canal stenosis. L1-L2: Normal. L2-L3: Mild annular bulging with mild central canal stenosis. Slight impingement on the subarticular recess bilaterally. Foramen are patent. Mild facet arthropathy. L3-L4: Mild annular bulging. Mild facet arthropathy. Spinal canal and foramen are patent. L4-L5: Mild annular bulging with mild central canal stenosis. Impingement traversing L5 nerve roots. Mild facet arthropathy ligamentum flavum hypertrophy. L5-S1: Mild annular bulging eccentric to the left. Impingement traversing left S1 nerve root. Recomme nd correlation left S1 nerve root symptoms. Foramen are patent. Visualized pelvic bony structures: Normal. Paravertebral soft tissues: Normal. CT/CT lumbar spine wo con* [id number] IMPRESSION: 1. Mild lumbar curve. No acute compression. No high-grade central canal stenos is. 2. Annular bulging L5-S1 eccentric to the left impinges the traversing left S1 nerve root. Recommend correlation left S1 nerve root symptoms. 3. Mild central canal stenosis L2-3 and L4-5 with impingement on the subarticu lar recess bilaterally. 4. Annular bulging L4-5 with mild central canal stenosis and impingement trave rsing left greater than right L5 nerve roots.
[2021-08-06 11:22] LABS: Glucose Point of Care 114 mg/dL (70-110)
[2021-08-06] MEDS: sodium chloride 0.9% 1,000 ML 75 ML IV (11:24)
--- NOTE | 2021-08-06 12:20 | PM.PN ---
Subjective Subjective: Interval history: Patient is stating that her pain is radiating from her back and shooting down towards her toes and she is describing as shooting electric sensation Requested lumbar CT scan but did show S1 nerve compression Start her on Decadron She will need outpatient Ortho follow-up I also requested CT scan of her hip to rule out osteoarthritis Her creatinine has not improved and I'm giving her Eliquis 10 mg twice a day I would like to her kidney function to return back to normal before I send her out on gabapentin, Eliquis and Medrol pack Like to keep her here one more day continue IV fluid hydration Patient lives alone high risk to be discharged No DVT Vitals/I&O/Wt Last Vital Signs Temp 98.4 F 08/06/21 11:33 Pulse 83 08/06/21 11:33 Resp 17 08/06/21 11:33 BP 170/85 08/06/21 11:33 Pulse Ox 94 08/06/21 11:33 08/05/21 08/06/21 08/06/21 22:59 06:59 14:59 Intake Total 935 / 2645 240 / 2885 1120 / 1120 Balance 935 / 2645 240 / 2885 1120 / 1120 Weight last 48 hrs Weight 75.296 kg Physical Exam Narrative: EXAM NARRATIVE: Patient laying supine limited range of motion because of sciatica S1, S2 sinus rhythm Clinical looks dehydrated Abdomen soft Bilateral breath sound without adventitious rhonchi or crackles Saturating well on room air No neurological deficits EOMI, PERRLA No vascular compromise of lower extremities No audible stridor or wheezing No joint swelling She does have calf tenderness of left side Data : 08/05/21 02:45 08/06/21 05:17 A&P Assessment and plan (1) ADITYA (acute kidney injury): Status: Acute (2) Weakness: Status: Acute (3) Pulmonary embolism: Status: Acute (4) Inflammatory arthritis: Status: Acute (5) Sciatica: Status: Acute Additional A&P Information Acute provoked symptomatic pulmonary embolism Sciatica ADITYA Dehydration Hypocalcemia Patient lives alone I would like to keep her here one more day hydrate her with IV fluids Once her kidney function is normal we'll discharge her home on Eliquis 10 mg twice a day for 5 days and then 5 mg twice a day for provoked PE for at least 3 months then she will need another evaluation by her PCP, since it is an provoked episode For her sciatica added Decadron along gabapentin today, counseled to keep doing some kind of activities to avoid staying in the bed, she can resume her work but avoid heavy 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
[2021-08-06] MEDS: dexamethasone 10 mg/mL INJ IVP (13:59)
[2021-08-06] MEDS: gabapentin 100 mg Capsule PO ×3 (14:01→20:48)
[2021-08-06] MEDS: ondansetron 2 mg/ML SDV 2 mL 4 MG IVP (14:21)
[2021-08-06 17:03] LABS: Glucose Point of Care 159 mg/dL (70-110)
[2021-08-06 19:34] LABS: Glucose Point of Care 229 mg/dL (70-110)
[2021-08-06] MEDS: tizanidine 4 mg Tablet 2 MG PO (20:48)
[2021-08-06] MEDS: pantoprazole DR 40 mg Tablet PO (20:48)
[2021-08-06] MEDS: aspirin 81 mg EC Tablet PO (20:48)
[2021-08-07] VITALS: BP 115/71; PULSE 65; RESP 17; TEMP 36.6; O2SAT 94
[2021-08-07] MEDS: sodium chloride 0.9% 1,000 ML 75 ML IV (00:16)
[2021-08-07 00:23] LABS: Glucose Point of Care 208 mg/dL (70-110)
[2021-08-07 04:00] VITALS: BP 146/82; PULSE 62; RESP 17; TEMP 36.4; O2SAT 95
[2021-08-07 05:27] LABS: Anion Gap 14.4 (5-19); Blood Urea Nitrogen 17 mg/dL (8-23); Calcium 7.9 mg/dL (8.5-10.5); Carbon Dioxide 21 mmol/L (22-29); Chloride 109 mmol/L (98-107); Glucose 163 mg/dL (65-115); Osmolality Calculated 295 mOsm/kg (285-295); Potassium 4.4 mmol/L (3.5-5.1); Sodium 140 mmol/L (136-145)
[2021-08-07] MEDS: levothyroxine 50 mcg Tablet PO (06:00)
[2021-08-07 06:26] LABS: Glucose Point of Care 153 mg/dL (70-110)
[2021-08-07 08:00] VITALS: BP 171/89; PULSE 69; RESP 17; TEMP 36.6; O2SAT 96
[2021-08-07] MEDS: apixaban 5 mg Tablet 10 MG PO (08:18)
[2021-08-07] MEDS: gabapentin 100 mg Capsule PO (08:18)
[2021-08-07 08:29] VITALS: PULSE 80; RESP 16; O2SAT 95
[2021-08-07 11:45] VITALS: BP 140/80; PULSE 75; RESP 17; TEMP 36.7; O2SAT 97
[2021-08-07 12:27] LABS: Glucose Point of Care 213 mg/dL (70-110)
[2021-08-07 13:42] VITALS: O2SAT 94; O2SAT 95
--- NOTE | 2021-08-07 13:52 | P.DS_ITS ---
Discharge Providers Date of Admission: 08/05/21 15:38 Date of Discharge: August 07, 2021 Attending Provider at Admission: Jonatan Hanna MD Attending Provider at Discharge: Jonatan Hanna MD Primary Care Provider: Efe Carpenter DO Diagnoses at Discharge Discharge Diagnosis (1) ADITYA (acute kidney injury): Status: Acute (2) Weakness: Status: Acute (3) Pulmonary embolism: Status: Acute (4) Inflammatory arthritis: Status: Acute (5) Sciatica: Status: Acute Reason for Visit Reason for Visit: SOB, LIMITED INTAKE, SENT BY PCP Hospital Course Hospital Course 81-year-old female who presented to the hospital with chief complaint of worsening shortness of breath. Her symptoms started few days before her presentation to the ER, she was diagnosed with pulm embolism. This was an provoked episode of pulmonary embolism. Patient went to [place] with her son on 2 consecutive weekends. She started noticing back pain, tenderness in left calf muscle. Venous Dopplers ruled out DVT however CTA showed pulmonary embolism, without right heart strain, BNP 4000, her troponins were also above 100, she was initially put on heparin which was transitioned to Eliquis. Patient lives alone, PT evaluation did deem her stable to go home at the time of discharge. She is saturating well on room air will be discharged home after home O2 eval. Patient could not participate for physical therapy because of sciatica lumbar and hip CT scan is correlating with the clinical findings she will be prescribed gabapentin, steroids. She was instructed to keep on doing her daily activities and avoid complete bedrest. She can follow-up outpatient with Dr. Garcia. Physical Exam Narrative: EXAM NARRATIVE: Patient laying supine limited range of motion because of sciatica S1, S2 sinus rhythm Clinical looks dehydrated Abdomen soft Bilateral breath sound without adventitious rhonchi or crackles Saturating well on room air No neurological deficits EOMI, PERRLA No vascular compromise of lower extremities No audible stridor or wheezing No joint swelling Discharge Data Data Completed and Pending: Completed Studies During Hospitalization Category Date Time Status CT abdomen pelvis w con* [id number] Urge nt Cat Scan 08/04/21 11:[address] angio chest PE protcl [id number] Urge nt Cat Scan 08/04/21 14:[address] hip LT wo con* [id number] Routine Cat Scan 08/06/21 09:[address] lumbar spine w o con* [id number] Routi ne Cat Scan 08/06/21 09:38 Completed XR chest 1V mejia ble [id number] Stat Exams 08/04/21 09:35 [place] [id number] Routin e Ultrasound 08/05/21 19:19 Completed CV. echo complete * [id number] Routine Ultrasound 08/04/21 16:38 Completed Labs from last 24 hours 08/07/21 08/07/21 08/07/21 11:38 06:11 04:28 Sodium 140 Potassium 4.4 Chloride 109 H Carbon Dioxide 21 L Anion Gap 14.4 BUN 17 Creatinine 1.2 H GFR Calculation Not Reportable Glucose 163 H POC Glucose 213 H 153 H Calculated Osmolal ity 295 Calcium 7.9 L 08/07/21 08/06/21 08/06/21 00:19 19:27 16:45 Sodium Potassium Chloride Carbon Dioxide Anion Gap BUN Creatinine GFR Calculation Glucose POC Glucose 208 H 229 H 159 H Calculated Osmolal ity Calcium Vitals: Last Vital Signs Temp 98.1 F 08/07/21 11:45 Pulse 75 08/07/21 11:45 Resp 17 08/07/21 11:45 BP 140/80 08/07/21 11:45 Pulse Ox 94 08/07/21 13:42 Discharge Plan Discharge Patient Disposition: Home Condition: Stable Prescriptions: New gabapentin 100 mg Capsule 100 mg PO TID 30 Days Qty: 90 RF: 0 Eliquis 5 mg Tablet 10 mg PO BID@0900,2100 5 Days Qty: 20 RF: 0 Medrol (Cornelio) 4 mg tablets,dose pack See Rx Instructions .ROUTE .COMPLEX Qty: 21 RF: 0 cyanocobalamin (vitamin B-12) 1,000 mcg capsule 1,000 mcg PO DAILY Qty: 30 RF: 0 Eliquis 5 mg tablet 5 mg PO BID Qty: 120 RF: 1 Continued levothyroxine 50 mcg tablet 50 mcg PO DAILY@07 RF: 0 coenzyme Q10 [Co Q-10] 100 mg capsule 100 mg PO BEDTIME RF: 0 pantoprazole 40 mg tablet,delayed release (DR/EC) 40 mg PO BEDTIME RF: 0 tizanidine 2 mg tablet 2 mg PO BEDTIME RF: 0 aspirin [Adult Aspirin Regimen] 81 mg tablet,delayed release (DR/EC) 81 mg PO BEDTIME RF: 0 fenofibrate 160 mg tablet 160 mg PO BEDTIME RF: 0 cholecalciferol (vitamin D3) 50 mcg (2,000 unit) capsule 100 mcg PO DAILY RF: 0 ciprofloxacin HCl [Cipro] 500 mg tablet 500 mg PO BID Qty: 14 RF: 0 Probiotic 1 cap PO BEDTIME RF: 0 Tylenol Extra Strength 500 mg Tablet 1,000 mg PO Q4H PRN (Reason: Pain) RF: 0 cyanocobalamin (vitamin B-12) 1,000 mcg/mL solution 1,000 mcg IM Q30D RF: 0 albuterol sulfate 90 mcg/actuation HFA aerosol inhaler 2 puff INHALATION Q6H PRN (Reason: Shortness Of Breath) RF: 0 dicyclomine 10 mg capsule 10 mg PO TID PRN (Reason: Abdominal Pain) RF: 0 valsartan 80 mg tablet 80 mg PO BEDTIME RF: 0 Arava 10 mg tablet 10 mg PO BEDTIME RF: 0 valsartan 40 mg tablet 40 mg PO BEDTIME RF: 0 metronidazole 500 mg tablet 500 mg PO TID RF: 0 Discharge Orders: Discharge Order (Routine); Ordered 08/07/21 Ordered By: Jonatan Hanna Referrals: Isaiah Garcia DO [Physician] - 08/21/21 8:00 am Efe Carpenter DO [Primary Care Provider] - 08/14/21 11:00 am ([phone]) Discharge Diet: Cardiac Patient Instructions: Gabapentin (By mouth), Methylprednisolone (By mouth), Apixaban (By mouth), Opioid Safety Activity Restrictions/Additional Instructions: For your pulmonary embolism please take 10 mg twice a day Eliquis for 5 days and then take 5 mg twice a day for 3 months after 3 months you will need reevaluation whether you need to continue Eliquis or not You does have sciatica for which steroids and gabapentin has been prescribed please see orthopedics outpatient follow-up Discharge Attestations Time Spent in Discharge Care*: less than 30 min Quality Metrics Clinical Quality Measures During this hospital stay, did patient experience: None Coding Level of Care Code Acute g FW [place] note Diagnoses ADITYA (acute kidney injury) N17.9 Weakness R53.1 Pulmonary embolism I26.99 Inflammatory arthritis M19.90 Sciatica M54.30
--- NOTE | 2021-08-08 15:19 | PC.RESP ---
PULMONARY REHAB INFORMATION SENT TO PATIENT.
--- NOTE | 2021-08-12 08:44 | PC.SOCIAL ---
discharge follow up call made, spoke with patient. Patient was seen in the ED on 08-11 for increased hip pain. Patient reports she doesn't want to take the hydrocodone but has taken and gotten some relief. patient is taking vitamin b-12, gabapentin and eliquis as prescribed. patient is aware of importance of eliquis, she reports she can't afford the eliquis. patient has enough eliquis for today and tomorrow then has a follow up appointment with pcp on 08-14 and will discuss changing eliquis with him. if patient doesn't get eliquis changed she will call sports book writer back. patient also report she is having urinary incontinence. she will talk with her pcp and dr. lord about this.
== END 2021-08-07 15:32 | disposition home or self-care (01) | DRG 176 ==
LOC: ER 16:59 → MEDSURG 21:54
PROVIDERS: Physician Assistant; Admitting Provider Internal Medicine; Emergency Provider Family Medicine; PCP Electrodiagnostic Medicine; Visit Provider Internal Medicine
DX: I26.99 Other pulmonary embolism without acute cor pulmonale (principal); N17.9 Acute kidney failure, unspecified; R19.7 Diarrhea, unspecified; F41.1 Generalized anxiety disorder; I10 Essential (primary) hypertension; E86.0 Dehydration; J45.909 Unspecified asthma, uncomplicated; M19.90 Unspecified osteoarthritis, unspecified site; J98.4 Other disorders of lung; M54.30 Sciatica, unspecified side; E83.51 Hypocalcemia; Z79.01 Long term (current) use of anticoagulants; Z20.822 Contact with and (suspected) exposure to COVID-19; Z90.49 Acquired absence of other specified parts of digestive tract; Z90.710 Acquired absence of both cervix and uterus; Z82.49 Family history of ischemic heart disease and other diseases of the circulatory system; Z80.9 Family history of malignant neoplasm, unspecified; Z83.3 Family history of diabetes mellitus; Z80.1 Family history of malignant neoplasm of trachea, bronchus and lung; Z82.3 Family history of stroke; Z88.0 Allergy status to penicillin; Z88.2 Allergy status to sulfonamides; Z79.82 Long term (current) use of aspirin
CPT/HCPCS: 36415; 36416; 36600; 71045; 71275; 72131; 73700; 74177; 80048; 80051; 80053; 82330; 82550; 82805; 82962; 83605; 83880; 84484; 85025; 85378; 85730; 87426; 93005; 93306; 93970; 96361; 96372; 96374; 96375; 97116; 97161; 99285; G0378; J1100; J1644; J1815; J2405; J2920; J7030; Q9967

== ENCOUNTER 2021-08-11 08:43 | Emergency (ER) | payer MEDICARE, OTHER, SELFPAY ==
[2021-08-11] VITALS (7 sets, daily range): BP systolic 117–184; BP diastolic 61–90; PULSE 66–88; RESP 14–26; TEMP 36.3; O2SAT 93–98; BMI 28.5
--- NOTE | 2021-08-11 09:22 | ECG_ITS ---
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 Measurements Intervals [place] Rate: 82 P: 35 ME: 136 QRS: -60 QRSD: 120 T: -20 QT: 393 QTc: 462 Interpretive Statements SINUS RHYTHM RIGHT BUNDLE BRANCH BLOCK [120+ ms QRS DURATION, UPRIGHT V1, 40+ ms S IN I/aVL/V4/V5/V6] LEFT ANTERIOR FASCICULAR BLOCK [QRS AXIS <= -45, QR IN I, RS IN II] MODERATE T-WAVE ABNORMALITY, CONSIDER LATERAL ISCHEMIA [-0.1+ mV T-WAVE IN I/aVL/V5/V6] Compared to ECG 08/04/2021 15:10:33 No significant changes Electronically Signed On 08-11-2021 22:12:12 CDT by Narciso Perry M.D. [id number]
--- NOTE | 2021-08-11 09:22 | XR_ITS ---
WS: [id number] Exam: XR chest 1V portable [id number] Date/Time of Exam: 08/11/2021 9:24 AM Reason For Exam: dyspnea/cough Findings: The lungs are clear and fully expanded. Costophrenic angles are sharp. No infiltrates. Bronchovascula r relief appears normal. Cardiac silhouette is unremarkable. Bony elements are intact. Reverse right shoulder prosthesis partially visualized XR/XR chest 1V portable [id number] IMPRESSION: Unremarkable chest radiograph.
[2021-08-11 10:33] LABS: Basophils # 0.1 10^3/uL (0.0-0.1); Basophils % 0.3 %; Eosinophils % 0.1 %; Hematocrit 34.7 % (37.0-47.0); Hemoglobin 11.6 g/dL (11.5-15.3); Lymphocytes # 1.2 10^3/uL (0.8-4.8); Lymphocytes % 7.4 %; Mean Corpuscular HGB Conc 33.4 g/dL (30.0-36.0); Mean Corpuscular Hemoglobin 31.1 pg (28.0-34.0); Mean Platelet Volume 9.1 fL (7.4-10.4); Monocytes # 1.4 10^3/uL (0.2-0.9); Monocytes % 8.9 %; Neutrophils # 12.87 10^3/uL (1.8-7.7); Neutrophils % 82.3 %; Nucleated Red Blood Cells % 0 %; Platelet Count 499 10^3/cmm (130-400); Red Blood Count 3.73 10^6/uL (4.1-5.3); Red Cell Distribution Width 11.8 % (12.1-15.1); White Blood Count 15.7 10^3/uL (4.0-10.0)
[2021-08-11 10:52] LABS: Alanine Aminotransferase 11 U/L (0-33); Albumin Level 3.7 g/dL (3.5-5.2); Alkaline Phosphatase 50 IU/L (35-105); Anion Gap 17.5 (5-19); Aspartate Amino Transferase 13 U/L (0-32); Blood Urea Nitrogen 25 mg/dL (8-23); Calcium 8.8 mg/dL (8.5-10.5); Carbon Dioxide 25 mmol/L (22-29); Chloride 96 mmol/L (98-107); Globulin 3.7 g/dL (1.3-4.6); Glucose 131 mg/dL (65-115); Osmolality Calculated 284 mOsm/kg (285-295); Potassium 4.5 mmol/L (3.5-5.1); Sodium 134 mmol/L (136-145); Total Bilirubin 0.6 mg/dL (0.15-1.2); Total Protein 7.4 g/dL (6.6-8.7)
--- NOTE | 2021-08-11 11:22 | ECG_ITS ---
[facility] Test Date: 2021-08-11 Pat Name: Zoila Brantley Department: Room: Gender: Female Adjunct Teacher: : 1940 Requested By: Leo Tsai Order Number: [id number] Linus MD: Narciso Perry M.D. Measurements Intervals [place] Rate: 78 P: 25 AL: 140 QRS: -60 QRSD: 116 T: -24 QT: 396 QTc: 452 Interpretive Statements SINUS RHYTHM LEFT AXIS DEVIATION [QRS AXIS < -30] PATTERN CONSISTENT WITH PULMONARY DISEASE INCOMPLETE RIGHT BUNDLE BRANCH BLOCK [90+ ms QRS DURATION, TERMINAL R IN V1/V2, 40+ ms S IN I/aVL/V4/V5/V6] ST DEVIATION AND MODERATE T-WAVE ABNORMALITY, CONSIDER ANTEROLATERAL ISCHEMIA [-0.1+ mV T-WAVE IN V3-V6] Compared to ECG 08/11/2021 09:37:41 Left-axis deviation now present Incomplete right bundle-branch block now present Right bundle-branch block no longer present Left anterior fascicular block no longer present T-wave abnormality still present Possible ischemia still present Electronically Signed On 08-11-2021 22:22:14 CDT by Narciso Perry M.D. [id number]
[2021-08-11 11:28] LABS: Troponin(5th) Baseline 63 ng/L (0-10)
[2021-08-11 11:28] LABS: Add Urine Microscopic? NO; Charge for UA Resulting for Rev
--- NOTE | 2021-08-11 11:41 | ED_ITS ---
HPI - Chest Pain General: Chief Complaint: Chest Pain Stated Complaint: HIP PAIN/RECENT BLOOD CLOT COMPLICATIONS IN LUNGS Time Seen by Provider: 08/11/21 08:48 History of Present Illness: HPI narrative: 81-year-old female with a known history of DVT and PE who was recently seen in the hospital started on Eliquis and discharged home. She comes back in today complaining of hip pain as well as chest pain. No trauma. She was recently in the hospital and had imaging done on her left hip it was thought to be sciatica she was discharged home there is an incidental finding of diverticulitis for which she was given Flagyl and Cipro. She currently is on Eliquis for her DVT PE. She states she had not taken this morning but has been taking it regularly since it was prescribed. MD complaint: chest heaviness and chest discomfort Pertinent past history: other (Recent PE) Onset (ago): hour(s) Timing of current episode: episodic Onset: during rest Pain location: substernal Pain radiation: none Severity: mild Quality: heaviness Relieving factors: nothing Exacerbating factors: nothing Context: recent illness Associated symptoms: Reports dyspnea and nausea; Deny abdominal pain, diaphoresis, fever(s), leg edema, palpitations, sense of impending doom, syncope or vomiting Treatment prior to arrival: none Review of Systems Const: Denies: fever(s) or diaphoresis ENMT: Denies: throat pain, ear or mastoid pain, nasal discharge or nasal congestion Card: Denies: palpitations or syncope Resp: Reports: dyspnea GI: Reports: nausea; Denies: abdominal pain or vomiting : Denies: flank pain, difficulty voiding, dysuria, urinary frequency or urinary urgency Skin/Breast: Denies: rash or pruritus PFSH ED PFSH: Medical History Chest pain Generalized anxiety disorder Hypertension Inflammatory arthritis Joint pain Restrictive airway disease Shortness of Breath Thyroid disease Surgical History History of appendectomy History of hysterectomy History of repair of rotator cuff Family History Other CAD (coronary artery disease) Cancer Diabetes Family history of premature coronary artery disease Hyperlipidemia Hypertension Lung disease Stroke Denies family history of Rheumatoid arthritis Lupus Dementia Psychiatric illness Chronic kidney disease (CKD) Anesthesia complication Bleeding disorder Social History Smoking and tobacco status: never smoked Second hand smoke exposure: Yes Smoking risk assessment/counseling performed?: Yes Alcohol intake: never Lives independently: Yes Household members: none Marital status: / service: No Current occupational status: employed and retired Current occupation: part-time at [employer] Pets and animals: Yes History of recent travel: No Current gender identity: Female Physical Exam Const: COMMON NORMALS: no acute distress GENERAL APPEARANCE: cooperative and comfortable ORIENTATION/CONSCIOUSNESS: Yes awake, Yes oriented to person, Yes oriented to place and Yes oriented to time HENMT: COMMON NORMALS: normocephalic, atraumatic and hearing grossly normal bilaterally HEAD & SCALP: normocephalic and atraumatic Neck/C-Spine: COMMON NORMALS: no JVD Resp: COMMON NORMALS: normal respiratory effort, No retractions, No use of accessory muscles and clear to auscultation bilaterally AUSCULTATION: clear to auscultation bilaterally Cardio: COMMON NORMALS: no JVD, regular rate, regular rhythm and No murmurs present (Cardio) RATE: regular rate RHYTHM: regular rhythm GI: COMMON NORMALS: Soft to palpation and No hepatosplenomegaly present AUSCULTATION: Yes normoactive bowel sounds PALPATION: Yes Soft to palpation, No Tenderness to palpation present (GI), No Guarding due to palpation present (GI) and Yes No hepatosplenomegaly present Extremity: COMMON NORMALS: normal to inspection, capillary refill normal, no clubbing, cyanosis or edema, no calf tenderness and no pedal edema Neuro: SENSORIUM/ORIENTATION: Yes oriented to person, Yes oriented to place and Yes oriented to time Skin: COMMON NORMALS: no rashes or lesions noted GENERAL SKIN EXAM: no rashes or lesions noted Course Vital Signs: Vital signs: Vital Signs Temperature 97.3 F L 08/11/21 09:12 Pulse Rate 88 08/11/21 15:37 Respiratory Rate 14 08/11/21 15:37 Blood Pressure 148/88 08/11/21 15:37 Pulse Oximetry 93 08/11/21 15:37 MDM - Chest Pain MDM Narrative: Medical decision making narrative: Reviewed labs and imaging. Patient is nontachycardic nor is she hypoxic. She is still taking Eliquis regularly. Think the majority of her problem is sciatic pain she is referring a lot to some buttock pain with SI-like pain on the right side she previously had CT of the lumbar spine which showed questionable areas of impingement with some lumbar stenosis she is not having any evidence of cauda equina syndrome. We will discharge her home with prednisone hydrocodone she not been using any hydrocodone previously. However stop Medrol Dosepak, recheck with primary care doctor in 2 days. Lab Data: Labs: Lab Results 08/11/21 08/11/21 08/11/21 10:24 10:24 10:24 WBC 15.7 10^3/uL H 10 ^3/uL (4.0-10.0) RBC 3.73 10^6/uL L 10 ^6/uL (4.1-5.3) Hgb 11.6 g/dL g/dL (11.5-15.3) Hct 34.7 % L % (37.0-47.0) MCV 93.0 fl fl (81-99) MCH 31.1 pg pg (28.0-34.0) MCHC 33.4 g/dL g/dL (30.0-36.0) RDW 11.8 % L % (12.1-15.1) Plt Count 499 10^3/cmm H 10 ^3/cmm (130-400) MPV 9.1 fL fL (7.4-10.4) Neut % (Auto) 82.3 % % Lymph % (Auto) 7.4 % % [place] % (Auto) 8.9 % % Eos % (Auto) 0.1 % % Baso % (Auto) 0.3 % % Neut # (Auto) 12.87 10^3/uL H 1 0^3/uL (1.8-7.7) Lymph # (Auto) 1.2 10^3/uL 10^3/ uL (0.8-4.8) [place] # (Auto) 1.4 10^3/uL H 10^ 3/uL (0.2-0.9) Eos # (Auto) 0.0 10^3/uL 10^3/ uL (0.0-0.8) Baso # (Auto) 0.1 10^3/uL 10^3/ uL (0.0-0.1) Nucleated RBC % (a uto) 0 % % Nucleated RBCs # 0.0 /100WBC /100W BC Sodium 134 mmol/L L mmol /L (136-145) Potassium 4.5 mmol/L mmol/L (3.5-5.1) Chloride 96 mmol/L L mmol/ L (98-107) Carbon Dioxide 25 mmol/L mmol/L (22-29) Anion Gap 17.5 (5-19) BUN 25 mg/dL H mg/dL (8-23) Creatinine 1.1 mg/dL H mg/dL (0.5-0.9) GFR Calculation Not Reportable Glucose 131 mg/dL H mg/dL (65-115) Calculated Osmolal ity 284 mOsm/kg L mOs m/kg (285-295) Calcium 8.8 mg/dL mg/dL (8.5-10.5) Total Bilirubin 0.6 mg/dL mg/dL (0.15-1.2) AST 13 U/L U/L (0-32) ALT 11 U/L U/L (0-33) Alkaline Phosphata se 50 IU/L IU/L (35-105) Troponin T Baselin e 63 ng/L H ng/L (0-10) Troponin T 120 Min michelle Delta Troponin T Total Protein 7.4 g/dL g/dL (6.6-8.7) Albumin 3.7 g/dL g/dL (3.5-5.2) Globulin 3.7 g/dL g/dL (1.3-4.6) Urine Color Urine Appearance Urine pH Ur Specific Gravit y Urine Protein Urine Glucose (UA) Urine Ketones Urine Blood Urine Nitrate Urine Bilirubin Urine Urobilinogen Ur Leukocyte Khushi ase 08/11/21 08/11/21 11:20 12:24 WBC RBC Hgb Hct MCV MCH MCHC RDW Plt Count MPV Neut % (Auto) Lymph % (Auto) [place] % (Auto) Eos % (Auto) Baso % (Auto) Neut # (Auto) Lymph # (Auto) [place] # (Auto) Eos # (Auto) Baso # (Auto) Nucleated RBC % (a uto) Nucleated RBCs # Sodium Potassium Chloride Carbon Dioxide Anion Gap BUN Creatinine GFR Calculation Glucose Calculated Osmolal ity Calcium Total Bilirubin AST ALT Alkaline Phosphata se Troponin T Baselin e Troponin T 120 Min michelle 55.53 ng/L H ng/L (0-10) Delta Troponin T -7.47 ABS# L ABS# (0-10) Total Protein Albumin Globulin Urine Color Straw (Yellow) Urine Appearance Clear (CLEAR) Urine pH 7 (5-7) Ur Specific Gravit y 1.010 (1.005-1.030) Urine Protein Neg (Negative) Urine Glucose (UA) Norm (Normal) Urine Ketones Negative (Negative) Urine Blood Neg (Negative) Urine Nitrate Negative (Negative) Urine Bilirubin Neg (Negative) Urine Urobilinogen Norm mg/dL mg/dL (Negative) Ur Leukocyte Khushi ase Negative (Negative) Discharge Plan Discharge Patient Disposition: Home Clinical Impression: Sciatica Condition: Stable Prescriptions: New prednisone 20 mg tablet 20 mg PO BID 5 Days Qty: 10 RF: 0 hydrocodone-acetaminophen 5-325 mg tablet 1 tab PO Q6H PRN (Reason: pain) Qty: 25 RF: 0 Discontinued methylprednisolone [Medrol (Cornelio)] 4 mg tablets,dose pack See Rx Instructions .ROUTE .COMPLEX Qty: 21 RF: 0 No Action levothyroxine 50 mcg tablet 50 mcg PO DAILY@07 RF: 0 coenzyme Q10 [Co Q-10] 100 mg capsule 100 mg PO BEDTIME RF: 0 pantoprazole 40 mg tablet,delayed release (DR/EC) 40 mg PO BEDTIME RF: 0 tizanidine 2 mg tablet 2 mg PO BEDTIME RF: 0 aspirin [Adult Aspirin Regimen] 81 mg tablet,delayed release (DR/EC) 81 mg PO BEDTIME RF: 0 fenofibrate 160 mg tablet 160 mg PO BEDTIME RF: 0 cholecalciferol (vitamin D3) 50 mcg (2,000 unit) capsule 100 mcg PO DAILY RF: 0 ciprofloxacin HCl [Cipro] 500 mg tablet 500 mg PO BID Qty: 14 RF: 0 Probiotic 1 cap PO BEDTIME RF: 0 Tylenol Extra Strength 500 mg Tablet 1,000 mg PO Q4H PRN (Reason: Pain) RF: 0 cyanocobalamin (vitamin B-12) 1,000 mcg/mL solution 1,000 mcg IM Q30D RF: 0 albuterol sulfate 90 mcg/actuation HFA aerosol inhaler 2 puff INHALATION Q6H PRN (Reason: Shortness Of Breath) RF: 0 dicyclomine 10 mg capsule 10 mg PO TID PRN (Reason: Abdominal Pain) RF: 0 valsartan 80 mg tablet 80 mg PO BEDTIME RF: 0 Arava 10 mg tablet 10 mg PO BEDTIME RF: 0 valsartan 40 mg tablet 40 mg PO BEDTIME RF: 0 metronidazole 500 mg tablet 500 mg PO TID RF: 0 gabapentin 100 mg Capsule 100 mg PO TID 30 Days Qty: 90 RF: 0 cyanocobalamin (vitamin B-12) 1,000 mcg capsule 1,000 mcg PO DAILY Qty: 30 RF: 0 Eliquis 5 mg tablet 5 mg PO BID Qty: 120 RF: 1 Discharge Orders: Discharge ED (Routine); Ordered 08/11/21 Ordered By: Leo Santiago Referrals: Efe Carpenter DO [Primary Care Provider] - Discharge Diet: Usual diet Discharge Activity: Limit activity as instructed Patient Instructions: Opioid Safety Activity Restrictions/Additional Instructions: commercial lending relationship manager will make follow-up for your orthopedic back surgery surgeon. Coding Level of Care Code ED [employer] Fwd Exam Comprehensive
--- NOTE | 2021-08-11 11:42 | XR_ITS ---
WS: [id number] LUMBAR SPINE: 2 VIEWS TECHNIQUE: AP and lateral. HISTORY: pain COMPARISON: None available. Normal alignment of the lumbar vertebral bodies. No fracture. Pedicles are all identified. Disc space s are preserved. No loss of disc space or vertebral body height. SI joints are symmetric bilaterally. No soft tissue abnormalities. XR/XR lumbar spine 2-3V* [id number] IMPRESSION: 1. Normal lumbar alignment. 2. No lumbar fracture.
--- NOTE | 2021-08-11 11:42 | XR_ITS ---
WS: [id number] Exam: XR hip RT 1V wo/w pel [id number] Date/Time of Exam: 08/11/2021 11:55 AM Reason For Exam: pain No fracture or dislocation. The joint space is relatively well maintained. Normal soft tissues. XR/XR hip RT 1V wo/w pel [id number] IMPRESSION: 1. No fracture or other significant finding.
[2021-08-11 11:46] LABS: Bilirubin Urine Neg (Negative); Blood Urine Neg (Negative); Glucose Urine UA Norm (Normal); Ketones Urine Negative (Negative); Leukocyte Esterase Urine Negative (Negative); Nitrate Urine Negative (Negative); Protein Urine Neg (Negative); Urine Appearance Clear (CLEAR); Urine Color Straw (Yellow); Urobilinogen Urine Norm (Negative); pH Urine 7 (5-7)
[2021-08-11 13:35] LABS: Troponin 5 2HR 55.53 ng/L (0-10)
[2021-08-11 13:37] LABS: Troponin 5 2HR Delta -7.47 ABS# (0-10)
[2021-08-11] MEDS: morphine 4 mg/mL SDV 1 mL IVP (14:57)
[2021-08-11] MEDS: ketorolac 30 mg/mL INJ IVP (14:57)
[2021-08-11] MEDS: orphenadrine 30 mg/mL Inj 2 mL 60 MG IVP (14:57)
[2021-08-11] MEDS: dexamethasone 10 mg/mL INJ IVP (14:57)
[2021-08-11] MEDS: ondansetron 2 mg/ML SDV 2 mL 4 MG IVP (14:58)
== END 2021-08-11 15:37 | disposition home or self-care (01) ==
PROVIDERS: Emergency Provider Family Medicine; PCP Electrodiagnostic Medicine
DX: M54.30 Sciatica, unspecified side (principal); Z79.01 Long term (current) use of anticoagulants; Z79.82 Long term (current) use of aspirin; I10 Essential (primary) hypertension; Z77.22 Contact with and (suspected) exposure to environmental tobacco smoke (acute) (chronic)
CPT/HCPCS: 36415; 71045; 72100; 73501; 80053; 81003; 84484; 85025; 93005; 96374; 96375; 99284; J1100; J1885; J2270; J2360; J2405

== ENCOUNTER 2021-08-16 04:36 | Emergency (ER) | payer MEDICARE, OTHER, SELFPAY ==
[2021-08-16 04:45] VITALS: BP 172/77; PULSE 90; RESP 18; TEMP 36.6; O2SAT 95; BMI 27.9
--- NOTE | 2021-08-16 06:10 | CTR_ITS ---
PROCEDURE INFORMATION: Exam: CT Head Without Contrast Exam date and time: 08/16/2021 6:10 AM Age: 81 years old Clinical indication: Injury or trauma; Fall; Blunt trauma (contusions or hematomas) TECHNIQUE: Imaging protocol: Computed tomography of the head without contrast. Radiation optimization: All CT scans at this facility use at least one of these dose optimization techniques: automated exposure control; mA and/or kV adjustment per patient size (includes targeted exams where dose is matched to clinical indication); or iterative reconstruction. COMPARISON: CR XR cervical spine 3V* [id number] 04/24/2021 1:28 PM RADIATION DOSE METRICS: Total DLP (mGy-cm): 807.84 FINDINGS: Brain: There is mild parenchymal atrophy and chronic small vessel disease. No acute infarct or hemorrhage. Cerebral ventricles: No ventriculomegaly. Paranasal sinuses: Mucous retention cyst in the right sphenoid sinus. Mastoid air cells: Visualized mastoid air cells are clear. Bones/joints: No calvarial or skull base fracture. Soft tissues: Unremarkable. CT/CT head wo con* [id number] IMPRESSION: 1. No calvarial or skull base fracture. 2. No acute infarct or hemorrhage. 3. Mild parenchymal atrophy and chronic small vessel disease. Radiation Dose CTDIVOL = (mGy): DLP = 807.84 (mGy-cm)
--- NOTE | 2021-08-16 06:10 | CTR_ITS ---
PROCEDURE INFORMATION: Exam: CT Maxillofacial Without Contrast Exam date and time: 08/16/2021 6:10 AM Age: 81 years old Clinical indication: Injury or trauma; Fall; Blunt trauma (contusions or hematomas); Forehead TECHNIQUE: Imaging protocol: Computed tomography images of the face without contrast. Radiation optimization: All CT scans at this facility use at least one of these dose optimization techniques: automated exposure control; mA and/or kV adjustment per patient size (includes targeted exams where dose is matched to clinical indication); or iterative reconstruction. COMPARISON: CT head wo con* [id number] 08/16/2021 7:10 AM RADIATION DOSE METRICS: Total DLP (mGy-cm): 724.12 FINDINGS: Orbital cavity: Orbits are normal. Globes are unremarkable. Bones/joints: No fracture. Paranasal sinuses: Rate sphenoid mucous retention cyst. Soft tissues: Unremarkable. Other findings: The examination is limited by patient motion. CT/CT facial bones wo con* [id number] IMPRESSION: 1. The examination is limited by patient motion. 2. No fracture. Radiation Dose CTDIVOL = (mGy): DLP = 724.12 (mGy-cm)
--- NOTE | 2021-08-16 06:10 | XRR_ITS ---
PROCEDURE INFORMATION: Exam: XR Pelvis Exam date and time: 08/16/2021 6:10 AM Age: 81 years old Clinical indication: Injury or trauma; Fall; Blunt trauma (contusions or hematomas); Bilateral; Pelvic region; Additional info: Ap and lateral TECHNIQUE: Imaging protocol: XR pelvis. Views: 1 or 2 view. COMPARISON: CR XR hip RT 1V wo/w pel [id number] 08/11/2021 12:23 PM FINDINGS: Bones/joints: Unremarkable. No acute fracture. Soft tissues: Unremarkable. XR/XR pelvis 1-2V* [id number] IMPRESSION: No acute findings.
--- NOTE | 2021-08-16 06:26 | CTR_ITS ---
PROCEDURE INFORMATION: Exam: CT Cervical Spine Without Contrast Exam date and time: 08/16/2021 6:26 AM Age: 81 years old Clinical indication: Injury or trauma; Fall; Blunt trauma TECHNIQUE: Imaging protocol: Computed tomography images of the cervical spine without contrast. Radiation optimization: All CT scans at this facility use at least one of these dose optimization techniques: automated exposure control; mA and/or kV adjustment per patient size (includes targeted exams where dose is matched to clinical indication); or iterative reconstruction. COMPARISON: CR XR cervical spine 3V* [id number] 04/24/2021 1:28 PM RADIATION DOSE METRICS: Total DLP (mGy-cm): 590.11 FINDINGS: Bones/joints: There is normal vertebral body alignment. There are normal vertebral body heights. Discs/Spinal canal/Neural foramina: Craniocervical articulation is normal. Atlantodental interval and prevertebral soft tissues are normal. Severe intervertebral disc space narrowing at C3-C7. Lungs: Lung apices are normal. Soft tissues: Unremarkable. CT/CT cervical spin wo con* [id number] IMPRESSION: Severe degenerative disc disease but no fracture. Radiation Dose CTDIVOL = (mGy): DLP = 590.11 (mGy-cm)
--- NOTE | 2021-08-16 06:39 | W.ED.GENADLT ---
HPI - General Adult General: Chief complaint: Fall Stated complaint: BACK PAIN, FALL Time Seen by Provider: 08/16/21 06:10 History of Present Illness: HPI narrative: Patient is a 81-year-old female with history of Eliquis for VTE presents emergency room after an episode of fall. Patient recently was recently seen for similar episode of fall this week. Patient says that she was walking in the kitchen when she slipped and fell. Patient complains of neck pain and back pain that improved with opiates. Patient had minor bruises on the right side of her face. Patient denies LOC, associated chest pain shortness breath, palpitation or lightheadedness at this time. Onset:2 hrs ago Duration:2 hrs Location:home Severity:moderate Review of Systems Narrative: Constitutional: No fever, no chills. HEENT: No vision changes, +neck pain, +multiple R sided facial bruises CV: No chest pain, no palpitations PULM: no cough, no dyspnea. GI: No abdominal pain, no N/V/D. : No dysuria MSKEL: +lower back pain and glute pain SKIN: No new rashes, no lesions. NEURO: No headache, no focal weakness. HEME: No visible bruises PSYCH: Normal mood PFSH ED PFSH: Medical History Chest pain Generalized anxiety disorder Hypertension Inflammatory arthritis Joint pain Restrictive airway disease Shortness of Breath Thyroid disease Surgical History History of appendectomy History of hysterectomy History of repair of rotator cuff Family History Other CAD (coronary artery disease) Cancer Diabetes Family history of premature coronary artery disease Hyperlipidemia Hypertension Lung disease Stroke Denies family history of Rheumatoid arthritis Lupus Dementia Psychiatric illness Chronic kidney disease (CKD) Anesthesia complication Bleeding disorder Social History Smoking and tobacco status: never smoked Second hand smoke exposure: Yes Smoking risk assessment/counseling performed?: Yes Alcohol intake: never Lives independently: Yes Household members: none Marital status: / service: No Current occupational status: employed and retired Current occupation: part-time at [employer] Pets and animals: Yes History of recent travel: No Current gender identity: Female Female Reproductive History: Date of last menstrual period: 02/06/21 Physical Exam Narrative: EXAM NARRATIVE: Head: +two spots of R sided V2/V1 bruises Eyes: PERRL, conjunctiva without injection ENT: Mucous membrane moist NECK: Supple, ROM intact, +paraspinal cervical tenderness LUNGS: LCTAB, no crackles/rhonchi CV: RRR ABDOMEN: Soft, nontender in all quadrants EXTREMITY: +mild paraspinal lower lumbar tenderness SKIN: No rash or erythema NEURO: Awake and alert, no focal motor deficits PSYCH: Normal mood and affect : +L>R glute tenderness to palpation without any signs of infection Course Vital Signs: Vital signs: Vital Signs Temperature 99.4 F 08/16/21 07:40 Pulse Rate 76 08/16/21 09:15 Respiratory Rate 14 08/16/21 09:15 Blood Pressure 123/61 08/16/21 09:15 Pulse Oximetry 94 08/16/21 09:15 MDM - General Adult MDM Narrative: Medical decision making narrative: Patient is a 81-year-old female who presents the emergency room after an episode of fall. Patient is on Eliquis for VTE. On exam, patient has right-sided facial bruise, mild paraspinal cervical and lumbar tenderness. Imaging studies are negative today. Patient received Tylenol, lidocaine for pain. Patient is able to ambulate without any difficulty. Patient tolerated p.o. in the emergency room. At this present time, I do not suspect any neurological or cardiac causes for patient's fall. Disposition: Discharge. Patient counseled regarding diagnostic impression, treatment plan. Patient given ED strict return precautions to return for continuation, worsening, or development of new symptoms. Instructed to f/u w/ PCP regarding symptoms today. Patient verbalized understanding. Imaging Data^: Other Imaging: Radiologist's impression: [address] [id number] Scan ReportSigned Patient: Zoila Brantley #: [id number]: 8Acct#:[id number]/Sex: 81 / FADM Date: 08/16/21Loc: ERRoom/Bed:Attending Dr: Ordering Provider/Ordering MD: Marnie Coe MD Date of Service: 08/16/21 Procedure(s): CT cervical spin wo con* [id number] Accession Number(s): [id number] Report Number: [id number] PROCEDURE INFORMATION: Exam: CT Cervical Spine Without Contrast Exam date and time: 08/16/2021 6:26 AM Age: 81 years old Clinical indication: Injury or trauma; Fall; Blunt trauma TECHNIQUE: Imaging protocol: Computed tomography images of the cervical spine without contrast. Radiation optimization: All CT scans at this facility use at least one of these dose optimization techniques: automated exposure control; mA and/or kV adjustment per patient size (includes targeted exams where dose is matched to clinical indication); or iterative reconstruction. COMPARISON: CR XR cervical spine 3V* [id number] 04/24/2021 1:28 PM RADIATION DOSE METRICS: Total DLP (mGy-cm): 590.11 FINDINGS: Bones/joints: There is normal vertebral body alignment. There are normal vertebral body heights. Discs/Spinal canal/Neural foramina: Craniocervical articulation is normal. Atlantodental interval and prevertebral soft tissues are normal. Severe intervertebral disc space narrowing at C3-C7. Lungs: Lung apices are normal. Soft tissues: Unremarkable. CT/CT cervical spin wo con* [id number] IMPRESSION: Severe degenerative disc disease but no fracture. Radiation Dose CTDIVOL = (mGy): DLP = 590.11 (mGy-cm) Dictated By:George Llanes By:George Llanes Date/Time:08/16/21 0846DD/ [address] [id number] Scan ReportSigned Patient: Zoila Brantley #: [id number]: 1938cct#:[id number]/Sex: 81 / FADM Date: 08/16/21Loc: ERRoom/Bed:Attending Dr: Ordering Provider/Ordering MD: Marnie Coe MD Date of Service: 08/16/21 Procedure(s): CT head wo con* [id number] Accession Number(s): [id number] Report Number: [id number] PROCEDURE INFORMATION: Exam: CT Head Without Contrast Exam date and time: 08/16/2021 6:10 AM Age: 81 years old Clinical indication: Injury or trauma; Fall; Blunt trauma (contusions or hematomas) TECHNIQUE: Imaging protocol: Computed tomography of the head without contrast. Radiation optimization: All CT scans at this facility use at least one of these dose optimization techniques: automated exposure control; mA and/or kV adjustment per patient size (includes targeted exams where dose is matched to clinical indication); or iterative reconstruction. COMPARISON: CR XR cervical spine 3V* [id number] 04/24/2021 1:28 PM RADIATION DOSE METRICS: Total DLP (mGy-cm): 807.84 FINDINGS: Brain: There is mild parenchymal atrophy and chronic small vessel disease. No acute infarct or hemorrhage. Cerebral ventricles: No ventriculomegaly. Paranasal sinuses: Mucous retention cyst in the right sphenoid sinus. Mastoid air cells: Visualized mastoid air cells are clear. Bones/joints: No calvarial or skull base fracture. Soft tissues: Unremarkable. CT/CT head wo con* [id number] IMPRESSION: 1. No calvarial or skull base fracture. 2. No acute infarct or hemorrhage. 3. Mild parenchymal atrophy and chronic small vessel disease. Radiation Dose CTDIVOL = (mGy): DLP = 807.84 (mGy-cm) Dictated By:George Llanes By:George Llanes Date/Time:08/16/2143DD/ [address] [id number] Scan ReportSigned Patient: Zoila Brantley #: [id number]: 8Acct#:[id number]/Sex: 81 / FADM Date: 08/16/21Loc: ERRoom/Bed:Attending Dr: Ordering Provider/Ordering MD: Marnie Coe MD Date of Service: 08/16/21 Procedure(s): CT facial bones wo con* [id number] Accession Number(s): [id number] Report Number: [id number] PROCEDURE INFORMATION: Exam: CT Maxillofacial Without Contrast Exam date and time: 08/16/2021 6:10 AM Age: 81 years old Clinical indication: Injury or trauma; Fall; Blunt trauma (contusions or hematomas); Forehead TECHNIQUE: Imaging protocol: Computed tomography images of the face without contrast. Radiation optimization: All CT scans at this facility use at least one of these dose optimization techniques: automated exposure control; mA and/or kV adjustment per patient size (includes targeted exams where dose is matched to clinical indication); or iterative reconstruction. COMPARISON: CT head wo con* [id number] 08/16/2021 7:10 AM RADIATION DOSE METRICS: Total DLP (mGy-cm): 724.12 FINDINGS: Orbital cavity: Orbits are normal. Globes are unremarkable. Bones/joints: No fracture. Paranasal sinuses: Rate sphenoid mucous retention cyst. Soft tissues: Unremarkable. Other findings: The examination is limited by patient motion. CT/CT facial bones wo con* [id number] IMPRESSION: 1. The examination is limited by patient motion. 2. No fracture. Radiation Dose CTDIVOL = (mGy): DLP = 724.12 (mGy-cm) Dictated By:George Llanes By:George Llanes Date/Time:08/16/21 0848DD/ [address] [id number] ReportSigned Patient: Zoila Brantley #: [id number]: [id number]#:[id number]/Sex: 81 / FADM Date: 08/16/21Loc: ERRoom/Bed:Attending Dr: Ordering Provider/Ordering MD: Marnie Coe MD Date of Service: 08/16/21 Procedure(s): XR pelvis 1-2V* [id number] Accession Number(s): [id number] Report Number: [id number] PROCEDURE INFORMATION: Exam: XR Pelvis Exam date and time: 08/16/2021 6:10 AM Age: 81 years old Clinical indication: Injury or trauma; Fall; Blunt trauma (contusions or hematomas); Bilateral; Pelvic region; Additional info: Ap and lateral TECHNIQUE: Imaging protocol: XR pelvis. Views: 1 or 2 view. COMPARISON: CR XR hip RT 1V wo/w pel [id number] 08/11/2021 12:23 PM FINDINGS: Bones/joints: Unremarkable. No acute fracture. Soft tissues: Unremarkable. XR/XR pelvis 1-2V* [id number] IMPRESSION: No acute findings. Dictated By:Michele Rubalcava By:Michele Rubalcava Date/Time:08/16/21926DD/ 5 Discharge Plan Discharge Patient Disposition: Home Clinical Impression: Fall Condition: Stable Prescriptions: No Action levothyroxine 50 mcg tablet 50 mcg PO DAILY@07 RF: 0 coenzyme Q10 [Co Q-10] 100 mg capsule 200 mg PO BEDTIME RF: 0 pantoprazole 40 mg tablet,delayed release (DR/EC) 40 mg PO BEDTIME RF: 0 tizanidine 2 mg tablet 2 mg PO BEDTIME RF: 0 aspirin [Adult Aspirin Regimen] 81 mg tablet,delayed release (DR/EC) 81 mg PO BEDTIME RF: 0 fenofibrate 160 mg tablet 160 mg PO BEDTIME RF: 0 cholecalciferol (vitamin D3) 50 mcg (2,000 unit) capsule 100 mcg PO DAILY RF: 0 Probiotic 3 billion cell Capsule 3,000 mmu cells PO DAILY Qty: 0 RF: 0 acetaminophen [Tylenol Extra Strength] 500 mg Tablet 1,000 mg PO Q4H PRN (Reason: Pain) RF: 0 cyanocobalamin (vitamin B-12) 1,000 mcg/mL solution 1,000 mcg IM Q30D RF: 0 albuterol sulfate 90 mcg/actuation HFA aerosol inhaler 2 puff INHALATION Q6H PRN (Reason: Shortness Of Breath) RF: 0 valsartan 80 mg tablet 80 mg PO BEDTIME RF: 0 valsartan 40 mg tablet 40 mg PO BEDTIME RF: 0 Eliquis 5 mg tablet 5 mg PO BID Qty: 120 RF: 1 gabapentin 300 mg Capsule 300 mg PO TID RF: 0 Discharge Orders: Discharge ED (Routine); Ordered 08/16/21 Ordered By: Marnie Coe Referrals: Efe Carpenter DO [Primary Care Provider] - Discharge Diet: Advance as tolerated Discharge Activity: Resume usual activity Patient Instructions: Opioid Safety Activity Restrictions/Additional Instructions: Come back to the emergency room if having new or concerning complaints. Coding Level of Care Code ED Homogenizer Operator for Chg Fwd
[2021-08-16] MEDS: lidocaine 5% Patch 1 PATCH TOPICAL (07:01)
[2021-08-16] MEDS: acetaminophen 500 mg Tablet 1000 MG PO (07:01)
[2021-08-16 07:40] VITALS: BP 142/71; PULSE 84; RESP 19; TEMP 37.4; O2SAT 91
[2021-08-16 08:04] VITALS: BP 142/75; PULSE 83; RESP 17; O2SAT 95
[2021-08-16 09:15] VITALS: BP 123/61; PULSE 76; RESP 14; O2SAT 94
== END 2021-08-16 09:17 | disposition home or self-care (01) ==
PROVIDERS: Emergency Provider Emergency Medicine; PCP Electrodiagnostic Medicine
DX: M54.9 Dorsalgia, unspecified (principal); W01.0XXA Fall on same level from slipping, tripping and stumbling without subsequent striking against object, initial encounter; Z79.01 Long term (current) use of anticoagulants; Z79.82 Long term (current) use of aspirin; I10 Essential (primary) hypertension; Z77.22 Contact with and (suspected) exposure to environmental tobacco smoke (acute) (chronic)
CPT/HCPCS: 70450; 70486; 72125; 72170; 99284

== ENCOUNTER 2021-08-16 20:51 | Inpatient (IN) | payer MEDICARE, OTHER, SELFPAY ==
[2021-08-16 20:56] VITALS: BP 185/108; PULSE 92; RESP 18; TEMP 37.2; O2SAT 96; BMI 27.4
--- NOTE | 2021-08-16 21:02 | W.ED.BACK ---
Documented by User: WALTER Jefferson 08/16/21 23:26 HPI - Back Pain/Injury General: Chief Complaint: Back Pain/Injury Stated Complaint: BACK PAIN Time Seen by Provider: 08/16/21 21:01 History of Present Illness: HPI Narrative: 81-year-old female comes in today with injury sustained to the back and right arm. Patient reports that this morning she had fallen and was evaluated in the ER. Since then she has had back pain and has been unable to use her right arm due to pain. Patient is very guarded with any movement to the arm. Patient has a history of a venous thrombosis with use of Eliquis for treatment. Patient also has a history of sciatica, hypertension, and right shoulder replacement. Patient reports that she is unable to care for herself at home. Patient reports she lives alone. Son came in and reports that he is unable to help care for his mother due to his health issues. Review of Systems General: Reports: 10 or more systems reviewed and unremarkable except in HPI and below Musc: Reports: other (Right shoulder pain and limited movement. Low back pain) PFSH ED PFSH: Medical History Chest pain Generalized anxiety disorder Hypertension Inflammatory arthritis Joint pain Restrictive airway disease Shortness of Breath Thyroid disease Surgical History History of appendectomy History of hysterectomy History of repair of rotator cuff Family History Other CAD (coronary artery disease) Cancer Diabetes Family history of premature coronary artery disease Hyperlipidemia Hypertension Lung disease Stroke Denies family history of Rheumatoid arthritis Lupus Dementia Psychiatric illness Chronic kidney disease (CKD) Anesthesia complication Bleeding disorder Social History Smoking and tobacco status: never smoked Second hand smoke exposure: Yes Smoking risk assessment/counseling performed?: Yes Alcohol intake: never Lives independently: Yes Household members: none Marital status: / service: No Current occupational status: employed and retired Current occupation: part-time at [employer] Pets and animals: Yes History of recent travel: No Current gender identity: Female Female Reproductive History: Date of last menstrual period: 02/06/21 Physical Exam Const: COMMON NORMALS: no acute distress and patient oriented x3 GENERAL APPEARANCE: cooperative HENMT: COMMON NORMALS: normocephalic, TM's normal bilaterally and Normal external nose present HEAD & SCALP: normal to inspection and normocephalic NOSE: Normal external nose present TYMPANIC MEMBRANE: TM's normal bilaterally MOUTH: Normal oral and palatal mucosa present THROAT: posterior oropharynx normal Eye: GENERAL EYE: appearance normal, both eyes and all related structures Neck/C-Spine: COMMON NORMALS: full ROM Lymph: LYMPHATIC: no lymphadenopathy noted Chest: COMMONS NORMALS: normal inspection of the chest Resp: COMMON NORMALS: normal respiratory effort EFFORT & INSPECTION: Yes able to speak in complete sentences Cardio: COMMON NORMALS: regular rate and regular rhythm RATE: regular rate RHYTHM: regular rhythm GI: COMMON NORMALS: Soft to palpation AUSCULTATION: Yes Hypoactive bowel sounds present PALPATION: Yes Soft to palpation and Yes Tenderness to palpation present (GI) : COMMON NORMALS: Yes no CVA tenderness BLADDER/KIDNEY EXAM: Yes no CVA tenderness Back/Pelvis: COMMON NORMALS: no CVA tenderness and thoracic and lumbar spine normal to inspection Extremity: NARRATIVE EXTREMITY EXAM: Patient has severe pain with any movement of the right upper extremity. Neuro: COMMON NORMALS: patient oriented x3 and moves all extremities Psych: COMMON NORMALS: mental status grossly normal and cooperative Skin: COMMON NORMALS: no rashes or lesions noted GENERAL SKIN EXAM: no rashes or lesions noted Course ED course: 2219, discussed with son patient's condition. Son reports that last week she had been in the hospital for a DVT and pulmonary embolism in which she was started on Eliquis. Patient was discharged from home and since being at home she has been having some lower back pain. Patient was seen on Wednesday in the emergency room for her back pain and was started on some hydrocodone and some prednisone. Patient had followed up with her primary care on Wednesday and started on Percocet patient developed hives from the Percocet and since then they have been using the Percocet sparingly due to the hives. Patient has been given diphenhydramine occasionally for the hives. This morning patient attempted to get up out of bed without assistance and fell to the floor. Patient was brought into the ER and evaluated and released to home for continued care with her son. The son reports he is having difficulty being able to manage his mother's pain and her care at home due to his own health problems. Son reports that his mother had been doing well up until this week. Vital Signs: Vital signs: Vital Signs Temperature 99.0 F 08/16/21 20:56 Pulse Rate 85 08/17/21 01:37 Respiratory Rate 18 08/17/21 01:37 Blood Pressure 170/81 08/17/21 01:37 Pulse Oximetry 95 08/17/21 01:37 MDM - Back Pain/Injury MDM Narrative: Medical decision making narrative: Patient was seen in [facility] by ambulance due to inability to get up out of bed and severe back pain. On exam patient has pain to the right shoulder and is unable to move arm due to the pain, patient also reports significantly severe low back pain across her hip. Respirations are even lungs are clear to auscultation. Vital signs are normal except for elevated blood pressure. Patient is alert and responds appropriately to questions. Differential diagnosis includes lumbar fracture, UTI, sepsis, humeral fracture. X-ray of the humerus indicated no fracture. White blood cell count was 28,000. Creatinine was up to 1.5 from the normal 1.1, blood glucose is 354, potassium was 5.6, chest x-ray was normal, urinalysis was unremarkable, CT of the abdomen pelvis was unremarkable. CT of the lumbar spine noted some free air in the L5 area recommending a MRI for further evaluation. I reviewed this with who will assume care of patient for admission. We will start vancomycin for concerns of possible abscess of the spine. Lab Data: Labs: Lab Results 08/16/21 08/16/21 08/16/21 21:33 21:33 21:33 WBC 28.9 10^3/uL H 10 ^3/uL (4.0-10.0) RBC 3.68 10^6/uL L 10 ^6/uL (4.1-5.3) Hgb 11.5 g/dL g/dL (11.5-15.3) Hct 35.4 % L % (37.0-47.0) MCV 96.2 fl fl (81-99) MCH 31.3 pg pg (28.0-34.0) MCHC 32.5 g/dL g/dL (30.0-36.0) RDW 12.3 % % (12.1-15.1) Plt Count 456 10^3/cmm H 10 ^3/cmm (130-400) MPV 9.7 fL fL (7.4-10.4) Neut % (Auto) 94.4 % % Lymph % (Auto) 1.9 % % [place] % (Auto) 2.4 % % Eos % (Auto) 0.0 % % Baso % (Auto) 0.4 % % Neut # (Auto) 27.27 10^3/uL H 1 0^3/uL (1.8-7.7) Lymph # (Auto) 0.6 10^3/uL L 10^ 3/uL (0.8-4.8) [place] # (Auto) 0.7 10^3/uL 10^3/ uL (0.2-0.9) Eos # (Auto) 0.0 10^3/uL 10^3/ uL (0.0-0.8) Baso # (Auto) 0.1 10^3/uL 10^3/ uL (0.0-0.1) Nucleated RBC % (a uto) 0 % % Nucleated RBCs # 0.0 /100WBC /100W BC Sodium 131 mmol/L L mmol /L (136-145) Potassium 5.6 mmol/L H mmol /L (3.5-5.1) Chloride 92 mmol/L L mmol/ L (98-107) Carbon Dioxide 25 mmol/L mmol/L (22-29) Anion Gap 19.6 H (5-19) BUN 49 mg/dL H mg/dL (8-23) Creatinine 1.5 mg/dL H mg/dL (0.5-0.9) GFR Calculation Not Reportable Glucose 354 mg/dL H mg/dL (65-115) Calculated Osmolal ity 299 mOsm/kg H mOs m/kg (285-295) Lactic Acid Calcium 9.2 mg/dL mg/dL (8.5-10.5) Total Bilirubin 0.7 mg/dL mg/dL (0.15-1.2) AST 10 U/L U/L (0-32) ALT 9 U/L U/L (0-33) Alkaline Phosphata se 84 IU/L IU/L (35-105) Creatine Kinase 66 U/L U/L (26-192) Total Protein 7.5 g/dL g/dL (6.6-8.7) Albumin 3.1 g/dL L g/dL (3.5-5.2) Globulin 4.4 g/dL g/dL (1.3-4.6) Urine Color Urine Appearance Urine pH Ur Specific Gravit y Urine Protein Urine Glucose (UA) Urine Ketones Urine Blood Urine Nitrate Urine Bilirubin Urine Urobilinogen Ur Leukocyte Khushi ase Urine RBC Urine WBC Ur Squamous Epith Cells Amorphous Sediment Urine Bacteria 08/16/21 08/16/21 22:08 23:10 WBC RBC Hgb Hct MCV MCH MCHC RDW Plt Count MPV Neut % (Auto) Lymph % (Auto) [place] % (Auto) Eos % (Auto) Baso % (Auto) Neut # (Auto) Lymph # (Auto) [place] # (Auto) Eos # (Auto) Baso # (Auto) Nucleated RBC % (a uto) Nucleated RBCs # Sodium Potassium Chloride Carbon Dioxide Anion Gap BUN Creatinine GFR Calculation Glucose Calculated Osmolal ity Lactic Acid 1.5 mmol/L mmol/L (0.5-2.2) Calcium Total Bilirubin AST ALT Alkaline Phosphata se Creatine Kinase Total Protein Albumin Globulin Urine Color Yellow (Yellow) Urine Appearance Clear (CLEAR) Urine pH 5 (5-7) Ur Specific Gravit y 1.020 (1.005-1.030) Urine Protein Neg (Negative) Urine Glucose (UA) 4+ H (Normal) Urine Ketones 1+ H (Negative) Urine Blood 2+ H (Negative) Urine Nitrate Negative (Negative) Urine Bilirubin Neg (Negative) Urine Urobilinogen Norm mg/dL mg/dL (Negative) Ur Leukocyte Khushi ase Negative (Negative) Urine RBC 0-4 /hpf H /hpf (0-2) Urine WBC 0-4 /hpf H /hpf (0-5) Ur Squamous Epith Cells 0-4 /hpf H /hpf (0-5) Amorphous Sediment 1+ /hpf /hpf Urine Bacteria 1+ /hpf H /hpf (NONE) Discharge Plan Discharge Patient Disposition: Admitted As Inpatient Admit Provider: Alondra Cortes Clinical Impression: Lumbar radiculopathy, Leukocytosis Condition: Stable Coding Level of Care Code ED Power Operator for Chg Fwd Exam Comprehensive Documented by User: Waqas Reed DO 08/17/21 02:06 HPI - Back Pain/Injury General: Chief Complaint: Back Pain/Injury Stated Complaint: BACK PAIN Time Seen by Provider: 08/16/21 21:01 PFSH ED PFSH: Medical History Chest pain Generalized anxiety disorder Hypertension Inflammatory arthritis Joint pain Restrictive airway disease Shortness of Breath Thyroid disease Surgical History History of appendectomy History of hysterectomy History of repair of rotator cuff Family History Other CAD (coronary artery disease) Cancer Diabetes Family history of premature coronary artery disease Hyperlipidemia Hypertension Lung disease Stroke Denies family history of Rheumatoid arthritis Lupus Dementia Psychiatric illness Chronic kidney disease (CKD) Anesthesia complication Bleeding disorder Social History Smoking and tobacco status: never smoked Second hand smoke exposure: Yes Smoking risk assessment/counseling performed?: Yes Alcohol intake: never Lives independently: Yes Household members: none Marital status: / service: No Current occupational status: employed and retired Current occupation: part-time at [employer] Pets and animals: Yes History of recent travel: No Current gender identity: Female Course Consultations: Consultation #1: Sebastian Vital Signs: Vital signs: Vital Signs Temperature 99.0 F 08/16/21 20:56 Pulse Rate 85 08/17/21 01:37 Respiratory Rate 18 08/17/21 01:37 Blood Pressure 170/81 08/17/21 01:37 Pulse Oximetry 95 08/17/21 01:37 MDM - Back Pain/Injury MDM Narrative: Medical decision making narrative: This patient was originally seen by WALTER Moraes. I agree with his history, evaluation, and treatment. This patient will be admitted for elevated temperature, white blood cell count of 29 with left shift, acute kidney injury, and a CT of the lumbar spine concerning for disc protrusion with air present giving rise to the possibility of discitis versus abscess. She is covered with antibiotics after blood cultures. She will likely need an MRI. Lab Data: Labs: Lab Results 08/16/21 08/16/21 08/16/21 21:33 21:33 21:33 WBC 28.9 10^3/uL H 10 ^3/uL (4.0-10.0) RBC 3.68 10^6/uL L 10 ^6/uL (4.1-5.3) Hgb 11.5 g/dL g/dL (11.5-15.3) Hct 35.4 % L % (37.0-47.0) MCV 96.2 fl fl (81-99) MCH 31.3 pg pg (28.0-34.0) MCHC 32.5 g/dL g/dL (30.0-36.0) RDW 12.3 % % (12.1-15.1) Plt Count 456 10^3/cmm H 10 ^3/cmm (130-400) MPV 9.7 fL fL (7.4-10.4) Neut % (Auto) 94.4 % % Lymph % (Auto) 1.9 % % [place] % (Auto) 2.4 % % Eos % (Auto) 0.0 % % Baso % (Auto) 0.4 % % Neut # (Auto) 27.27 10^3/uL H 1 0^3/uL (1.8-7.7) Lymph # (Auto) 0.6 10^3/uL L 10^ 3/uL (0.8-4.8) [place] # (Auto) 0.7 10^3/uL 10^3/ uL (0.2-0.9) Eos # (Auto) 0.0 10^3/uL 10^3/ uL (0.0-0.8) Baso # (Auto) 0.1 10^3/uL 10^3/ uL (0.0-0.1) Nucleated RBC % (a uto) 0 % % Nucleated RBCs # 0.0 /100WBC /100W BC Sodium 131 mmol/L L mmol /L (136-145) Potassium 5.6 mmol/L H mmol /L (3.5-5.1) Chloride 92 mmol/L L mmol/ L (98-107) Carbon Dioxide 25 mmol/L mmol/L (22-29) Anion Gap 19.6 H (5-19) BUN 49 mg/dL H mg/dL (8-23) Creatinine 1.5 mg/dL H mg/dL (0.5-0.9) GFR Calculation Not Reportable Glucose 354 mg/dL H mg/dL (65-115) Calculated Osmolal ity 299 mOsm/kg H mOs m/kg (285-295) Lactic Acid Calcium 9.2 mg/dL mg/dL (8.5-10.5) Total Bilirubin 0.7 mg/dL mg/dL (0.15-1.2) AST 10 U/L U/L (0-32) ALT 9 U/L U/L (0-33) Alkaline Phosphata se 84 IU/L IU/L (35-105) Creatine Kinase 66 U/L U/L (26-192) Total Protein 7.5 g/dL g/dL (6.6-8.7) Albumin 3.1 g/dL L g/dL (3.5-5.2) Globulin 4.4 g/dL g/dL (1.3-4.6) Urine Color Urine Appearance Urine pH Ur Specific Gravit y Urine Protein Urine Glucose (UA) Urine Ketones Urine Blood Urine Nitrate Urine Bilirubin Urine Urobilinogen Ur Leukocyte Khushi ase Urine RBC Urine WBC Ur Squamous Epith Cells Amorphous Sediment Urine Bacteria 08/16/21 08/16/21 22:08 23:10 WBC RBC Hgb Hct MCV MCH MCHC RDW Plt Count MPV Neut % (Auto) Lymph % (Auto) [place] % (Auto) Eos % (Auto) Baso % (Auto) Neut # (Auto) Lymph # (Auto) [place] # (Auto) Eos # (Auto) Baso # (Auto) Nucleated RBC % (a uto) Nucleated RBCs # Sodium Potassium Chloride Carbon Dioxide Anion Gap BUN Creatinine GFR Calculation Glucose Calculated Osmolal ity Lactic Acid 1.5 mmol/L mmol/L (0.5-2.2) Calcium Total Bilirubin AST ALT Alkaline Phosphata se Creatine Kinase Total Protein Albumin Globulin Urine Color Yellow (Yellow) Urine Appearance Clear (CLEAR) Urine pH 5 (5-7) Ur Specific Gravit y 1.020 (1.005-1.030) Urine Protein Neg (Negative) Urine Glucose (UA) 4+ H (Normal) Urine Ketones 1+ H (Negative) Urine Blood 2+ H (Negative) Urine Nitrate Negative (Negative) Urine Bilirubin Neg (Negative) Urine Urobilinogen Norm mg/dL mg/dL (Negative) Ur Leukocyte Khushi ase Negative (Negative) Urine RBC 0-4 /hpf H /hpf (0-2) Urine WBC 0-4 /hpf H /hpf (0-5) Ur Squamous Epith Cells 0-4 /hpf H /hpf (0-5) Amorphous Sediment 1+ /hpf /hpf Urine Bacteria 1+ /hpf H /hpf (NONE) Discharge Plan Discharge Patient Disposition: Admitted As Inpatient Admit Provider: Alondra Cortes Clinical Impression: Lumbar radiculopathy, Leukocytosis Condition: Stable Coding Level of Care Code ED Power Operator for [place] Fwd Exam Comprehensive
--- NOTE | 2021-08-16 21:07 | XRR_ITS ---
PROCEDURE INFORMATION: Exam: XR Right Humerus Exam date and time: 08/16/2021 9:07 PM Age: 81 years old Clinical indication: Injury or trauma; Blunt trauma (contusions or hematomas); Arm, upper; Right; Prior surgery; Surgery date: 6+ months; Surgery type: Tsa; Patient HX: C/O rue pain after fall this am; Additional info: Fall injury TECHNIQUE: Imaging protocol: XR Right humerus. Views: 2 or more views. COMPARISON: CR XR shoulder RT min 2V* [id number] 12/03/2020 4:05 PM FINDINGS: Bones/joints: Reversed shoulder replacement. Acetabular and proximal humeral components appear intact with no obvious complication. Soft tissues: There are benign-appearing soft tissue calcifications. XR/[place] [id number] IMPRESSION: No acute findings.Non acute findings as described above.
--- NOTE | 2021-08-16 21:07 | CTR_ITS ---
PROCEDURE INFORMATION: Exam: CT Lumbar Spine Without Contrast Exam date and time: 08/16/2021 9:07 PM Age: 81 years old Clinical indication: Low back pain; Patient HX: C/O lbp since fall this am; Additional info: Injury, fall TECHNIQUE: Imaging protocol: Computed tomography images of the lumbar spine without contrast. Radiation optimization: All CT scans at this facility use at least one of these dose optimization techniques: automated exposure control; mA and/or kV adjustment per patient size (includes targeted exams where dose is matched to clinical indication); or iterative reconstruction. COMPARISON: CT lumbar spine wo con* [id number] 08/06/2021 10:22 AM RADIATION DOSE METRICS: Total DLP (mGy-cm): 2693.16 FINDINGS: Vertebrae: No acute fracture. Normal alignment. Multilevel facet arthropathy most prominent at the L4-L5 and L5-S1 levels. Multilevel small lumbar marginal osteophyte formations. L1-L2: No significant disc protrusion. No severe spinal canal stenosis. No significant neural foraminal narrowing. L2-L3: No significant disc protrusion. No severe spinal canal stenosis. No significant neural foraminal narrowing. L3-L4: No significant disc protrusion. No severe spinal canal stenosis. No significant neural foraminal narrowing. L4-L5: Minimal disc bulge. No severe spinal canal stenosis. No significant neural foraminal narrowing. L5-S1: There is heterogeneous density along the posterior aspect of the L5 vertebra, left greater than right extending to the L5-S1 level. Small foci of air are present posterior to this region of heterogeneous density. Left lateral recess is effaced. Soft tissues: Unremarkable. CT/CT lumbar spine wo con* [id number] IMPRESSION: There heterogeneous density along the posterior aspect of the L5 vertebra, left greater than right effacing the left lateral recess. This may represent a disc extrusion however is not optimally visualized. There are small foci of air posterior to this region of heterogeneous density. MRI of the lumbar spine is recommended for further evaluation. Radiation Dose CTDIVOL = (mGy): DLP = 2693.16 (mGy-cm)
[2021-08-16 21:41] LABS: Basophils # 0.1 10^3/uL (0.0-0.1); Basophils % 0.4 %; Hematocrit 35.4 % (37.0-47.0); Hemoglobin 11.5 g/dL (11.5-15.3); Lymphocytes # 0.6 10^3/uL (0.8-4.8); Lymphocytes % 1.9 %; Mean Corpuscular HGB Conc 32.5 g/dL (30.0-36.0); Mean Corpuscular Hemoglobin 31.3 pg (28.0-34.0); Mean Corpuscular Volume 96.2 fl (81-99); Mean Platelet Volume 9.7 fL (7.4-10.4); Monocytes # 0.7 10^3/uL (0.2-0.9); Monocytes % 2.4 %; Neutrophils # 27.27 10^3/uL (1.8-7.7); Neutrophils % 94.4 %; Nucleated Red Blood Cells % 0 %; Platelet Count 456 10^3/cmm (130-400); Red Blood Count 3.68 10^6/uL (4.1-5.3); Red Cell Distribution Width 12.3 % (12.1-15.1); White Blood Count 28.9 10^3/uL (4.0-10.0)
--- NOTE | 2021-08-16 21:56 | XRR_ITS ---
PROCEDURE INFORMATION: Exam: XR Chest Exam date and time: 08/16/2021 9:56 PM Age: 81 years old Clinical indication: Injury or trauma; Blunt trauma (contusions or hematomas); Patient HX: C/O weakness and cp after fall this am TECHNIQUE: Imaging protocol: XR of the chest. Views: 1 view. COMPARISON: CR XR chest 1V portable [id number] 08/11/2021 9:28 AM FINDINGS: Lungs: Unremarkable. No consolidation. Pleural spaces: Unremarkable. No pleural effusion. No pneumothorax. Heart/Mediastinum: There is calcified plaque in the aortic arch. No cardiomegaly. Bones/joints: Reversed right total shoulder replacement. Glenoid and proximal humeral components appear intact without obvious complication. There is evidence for prior right distal clavicle resection. XR/XR chest 1V portable [id number] IMPRESSION: No acute findings.Non acute findings as described above.
[2021-08-16 21:58] LABS: Alanine Aminotransferase 9 U/L (0-33); Albumin Level 3.1 g/dL (3.5-5.2); Alkaline Phosphatase 84 IU/L (35-105); Anion Gap 19.6 (5-19); Aspartate Amino Transferase 10 U/L (0-32); Blood Urea Nitrogen 49 mg/dL (8-23); Calcium 9.2 mg/dL (8.5-10.5); Carbon Dioxide 25 mmol/L (22-29); Chloride 92 mmol/L (98-107); Globulin 4.4 g/dL (1.3-4.6); Glucose 354 mg/dL (65-115); Osmolality Calculated 299 mOsm/kg (285-295); Potassium 5.6 mmol/L (3.5-5.1); Sodium 131 mmol/L (136-145); Total Bilirubin 0.7 mg/dL (0.15-1.2); Total Protein 7.5 g/dL (6.6-8.7)
--- NOTE | 2021-08-16 22:26 | CTR_ITS ---
PROCEDURE INFORMATION: Exam: CT Abdomen And Pelvis With Contrast Exam date and time: 08/16/2021 10:26 PM Age: 81 years old Clinical indication: Abdominal pain; Other: Zachary; Prior surgery; Surgery date: 6+ months; Surgery type: Appy, hyst; Patient HX: C/O lbp/flank pain after fall this am elev wbc; Additional info: Abd pain, elevated wbc's TECHNIQUE: Imaging protocol: Computed tomography of the abdomen and pelvis with contrast. Radiation optimization: All CT scans at this facility use at least one of these dose optimization techniques: automated exposure control; mA and/or kV adjustment per patient size (includes targeted exams where dose is matched to clinical indication); or iterative reconstruction. Contrast material: VISI 320; Contrast volume: 95 ml; Contrast route: INTRAVENOUS (IV); COMPARISON: CT abdomen pelvis w con* [id number] 08/04/2021 12:51 PM RADIATION DOSE METRICS: Total DLP (mGy-cm): 1856.56 FINDINGS: Liver: Normal. No mass. Gallbladder and bile ducts: Normal. No calcified stones. No ductal dilation. Pancreas: Normal. No ductal dilation. Spleen: Normal. No splenomegaly. Adrenal glands: Normal. No mass. Kidneys and ureters: Normal. No hydronephrosis. Stomach and bowel: There is diverticulosis of the colon without evidence of diverticulitis. Appendix: There has been an appendectomy. Intraperitoneal space: Unremarkable. No free air. No significant fluid collection. Vasculature: Unremarkable. No abdominal aortic aneurysm. Lymph nodes: Unremarkable. No enlarged lymph nodes. Urinary bladder: There is a Cortez catheter and air in the bladder. Reproductive: The uterus is not visualized, consistent with hysterectomy. Bones/joints: Please see the CT scan of the lumbar spine for description of the lumbar spine. Soft tissues: Tiny fat containing umbilical hernia. Other findings: Moderate stool burden. CT/CT abdomen pelvis w con* [id number] IMPRESSION: No acute intra-abdominal findings.Non acute findings as described above. Please see the CT scan of the lumbar spine for description of the lumbar spine. Radiation Dose CTDIVOL = (mGy): DLP = 1856.56 (mGy-cm)
[2021-08-16 22:30] LABS: Add Urine Microscopic? YES; Bilirubin Urine Neg (Negative); Blood Urine 2+ (Negative); Glucose Urine UA 4+ (Normal); Ketones Urine 1+ (Negative); Leukocyte Esterase Urine Negative (Negative); Nitrate Urine Negative (Negative); Protein Urine Neg (Negative); Urine Appearance Clear (CLEAR); Urine Color Yellow (Yellow); Urobilinogen Urine Norm (Negative); pH Urine 5 (5-7)
[2021-08-16 22:34] LABS: Add Urine Culture? No; Amorphous Sediment Urine 1+ /hpf; Bacteria Urine 1+ /hpf; RBC Urine 0-4 /hpf (0-2); Squamous Epithelial Cell Urine 0-4 /hpf (0-5); WBC Urine 0-4 /hpf (0-5)
[2021-08-16] MEDS: iodixanol 320 mg/mL 100mL Btl IV (22:39)
[2021-08-16 23:16] VITALS: RESP 18
[2021-08-16] MEDS: fentaNYL 50 mcg/mL INJ 2mL IVP (23:16)
[2021-08-16] MEDS: sodium chloride 0.9% 1,000 ML 999 ML IV (23:16)
--- NOTE | 2021-08-16 23:18 | P.HP_ITS ---
Providers/Chief Complaint Admitting Physician: Alondra Cortes Primary Care Provider: Efe Carpenter DO Chief Complaint: BACK PAIN History of Present Illness 81-year-old female with a past medical history significant for generalized anxiety disorder, hypertension, hypothyroidism, pulmonary embolism on Eliquis who is presenting to the hospital of she sustained a fall. This was associated with intractable back pain, Has been having bilateral lower extremity weakness. Recently seen in ER multiple times with similar complaints. Laboratory workup per hour showed a WBC of 28.9, hemoglobin 11.5, hematocrit of 35.4 and a platelet count of 456. Sodium 131, potassium 5.6, chloride 92, bicarb 25, BUN 49 and creatinine of 1.5. Was recent creatinine of 1.1 on 08/11. Urinalysis showed negative nitrites and leukocyte esterase. Extensive imaging studies in ER including CT of Head, maxillofacial, cervical spine and abdomen/pelvis all of which did not show any acute abnormality. Pelvic and humerus x-ray were also negative for acute fracture. CT of lumbar spine showed There heterogeneous density along the posterior aspect of the L5 vertebra, left greater than right effacing the left lateral recess. This may represent a disc extrusion however is not optimally visualized. There are small foci of air posterior to this region of heterogeneous density. Patient was started on vanco mycin and Primixin in ER. Review of Systems General: Reports: 10 or more systems reviewed and unremarkable except in HPI and below Medications/Allergies Home Medications Medication Instructions Recorded Confirmed Last Taken Type aspirin 81 mg tablet,delayed 81 mg PO BEDTIME 12/19/20 08/04/21 08/03/21 History release coenzyme Q10 100 mg capsule 100 mg PO BEDTIME 12/19/20 08/04/21 01/27/21 20:30 History levothyroxine 50 mcg tablet 50 mcg PO DAILY@07 12/19/20 08/04/21 08/04/21 07:00 History pantoprazole 40 mg tablet,delayed 40 mg PO BEDTIME 12/19/20 08/04/21 01/27/21 20:30 History release tizanidine 2 mg tablet 2 mg PO BEDTIME 12/19/20 08/04/21 08/03/21 History cholecalciferol (vitamin D3) 50 100 mcg PO DAILY cap 05/27/21 08/04/21 Unknown History mcg (2,000 unit) capsule fenofibrate 160 mg tablet 160 mg PO BEDTIME 05/27/21 08/04/21 Unknown History ciprofloxacin HCl [Cipro] 500 mg PO BID #14 tab 07/24/21 08/04/21 07/31/21 Rx Arava 10 mg PO BEDTIME 08/04/21 08/04/21 08/03/21 History Probiotic 1 cap PO BEDTIME 08/04/21 08/04/21 Unknown History Tylenol Extra Strength 1,000 mg PO Q4H PRN 08/04/21 08/04/21 Unknown History albuterol sulfate 2 puff INHALATION Q6H PRN 08/04/21 08/04/21 Unknown History cyanocobalamin (vitamin B-12) 1,000 mcg IM Q30D 08/04/21 08/04/21 Unknown History dicyclomine 10 mg PO TID PRN 08/04/21 08/04/21 07/31/21 History metronidazole 500 mg PO TID 08/04/21 08/04/21 07/31/21 History valsartan 40 mg PO BEDTIME 08/04/21 08/04/21 08/03/21 History valsartan 80 mg PO BEDTIME 08/04/21 08/04/21 08/03/21 History apixaban [Eliquis] 5 mg PO BID #120 tab 08/07/21 Unknown Rx cyanocobalamin (vitamin B-12) 1,000 mcg PO DAILY #30 cap 08/07/21 Unknown Rx gabapentin 100 mg PO TID 30 Days #90 cap 08/07/21 Unknown Rx hydrocodone-acetaminophen 1 tab PO Q6H PRN #25 tab 08/11/21 Unknown Rx Allergies Allergy/AdvReac Type Severity Reaction Status Date / Time amoxicillin Allergy ALGY-Rash Verified 08/04/21 09:56 oxycodone Allergy ALGY-Hives Verified 08/16/21 21:00 hydroxychloroquine AdvReac Intermediate dizzy and Verified 08/04/21 09:56 lightheaded and groggy Sulfa (Sulfonamide AdvReac Intermediate pt states Verified 08/04/21 09:56 Antibiotics) 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 cant 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 Acute PFSH: Medical History Chest pain Generalized anxiety disorder Hypertension Inflammatory arthritis Joint pain Restrictive airway disease Shortness of Breath Thyroid disease Surgical History History of appendectomy History of hysterectomy History of repair of rotator cuff Family History Other CAD (coronary artery disease) Cancer Diabetes Family history of premature coronary artery disease Hyperlipidemia Hypertension Lung disease Stroke Denies family history of Rheumatoid arthritis Lupus Dementia Psychiatric illness Chronic kidney disease (CKD) Anesthesia complication Bleeding disorder Social History Smoking and tobacco status: never smoked Second hand smoke exposure: Yes Smoking risk assessment/counseling performed?: Yes Alcohol intake: never Lives independently: Yes Household members: none Marital status: / service: No Current occupational status: employed and retired Current occupation: part-time at [employer] Pets and animals: Yes History of recent travel: No Current gender identity: Female Female Reproductive History: Date of last menstrual period: 02/06/21 Vitals/I&O/Wt Last Vital Signs Temp 98.8 F 08/17/21 04:00 Pulse 99 08/17/21 04:00 Resp 17 08/17/21 04:00 BP 162/78 08/17/21 04:00 Pulse Ox 90 08/17/21 04:00 08/16/21 08/17/21 08/17/21 22:59 06:59 14:59 Intake Total 1350 / 1350 Output Total 1150 / 1150 Balance 200 / 200 Weight last 48 hrs Weight 72.575 kg Physical Exam Narrative: EXAM NARRATIVE: General : Alert however drowsy HEENT : unremarkable CVS: RRR Chest; CTBL ABD soft nt nd Ext no edema Data : 08/16/21 21:33 08/16/21 21:33 Micro: Microbiology 08/16/21 23:10 Blood Culture - Preliminary Blood SPECIMEN COLLECTED 08/16/21 23:10 Blood Culture - Preliminary Blood SPECIMEN COLLECTED A&P Assessment and plan (1) Fall: Status: Acute (2) Lumbar radiculopathy: Status: Acute (3) Leukocytosis: Status: Acute Additional A&P Information Intractable back pain with L5 density Low suspicion of abscess Will obtain MRI lumbar spine to r/o Vancomycin pharmacy to dose Primixin as ordered Pain control PT consult May need ortho spine consult Leukocytosis WBC - 28.9 Possible steroid induced vs infectious Abx as above. Procalcitonin in am Acute Kidney injury / Hyperkalemia Creatinine 1.5 Repeat bmp Kayexalate 15g Monitor u/o Renal dosing Hx of Pulmonary embolism Resume anticoagulation if no procedure planned Will hold for now verify remaineder of home meds and resume in am DVT ppx Attestations Medical Necessity Statement*: Will require > 2 midnight stay in hospital Time Spent in Patient Care: Greater than 35 minutes (>than 50% of time spent in counselling and/or direct pt care on unit) . 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
[2021-08-16 23:20] LABS: Creatine Phosphokinase 66 U/L (26-192)
--- NOTE | 2021-08-16 23:33 | PC.PHAR ---
Vancomycin is dosed at 750mg IVPB every 48 hours to produce a predicted trough level of 15.63 (population based pharmacokinetic analysis).
[2021-08-16 23:34] LABS: Lactic Sepsis W/Reflex 1.5 mmol/L (0.5-2.2)
[2021-08-16] MEDS: vancomycin 750 MG in sodium chloride 0.9% 250 ML 250 MG IV (23:40)
[2021-08-16 23:54] VITALS: BP 190/104; PULSE 89; RESP 18; O2SAT 96
[2021-08-17] VITALS (16 sets, daily range): BP systolic 145–184; BP diastolic 78–96; PULSE 85–100; RESP 17–22; TEMP 36.4–38.4; O2SAT 90–96
--- NOTE | 2021-08-17 02:06 | PC.NURSE ---
Pt arrived to unit at 0150 from ED. IV to left AC noted to be infiltrated. Edema and pain. IV removed and covered with warm blanket and elevated on pillow.
[2021-08-17] MEDS: HYDROmorphone 1 mg/mL INJ 1 mL 0.5 MG IVP ×6 (02:51→23:52)
[2021-08-17] MEDS: sodium chloride 0.9% 1,000 ML 75 ML IV ×2 (05:46→19:48)
[2021-08-17] MEDS: pantoprazole DR 40 mg Tablet PO (07:55)
--- NOTE | 2021-08-17 10:57 | PC.NURSE ---
ROUNDING NOTE CHRISTINA JONES, ATTEMPTED PT REPOSITION - PT IMMEDIATELY ROLLS BACK TO LEFT SIDE - CONTINUES TO CRY OUT - BOTH DR SUBRAMANIAN AND SON PREVIOUSLY IN ROOM
--- NOTE | 2021-08-17 16:08 | PC.NURSE ---
REPOSITIONED REPOSITIONED PT WITH THIS NURSE AND CHARGE NURSE - SIDNEY HEDRICK - CONTINUES TO BE ALERT TO SELF, AND PLACE - CONTINUES TO MOAN OUT IN PAIN, YELL OUT AND APPEARS TO BE HALLUCINATING AT TIMES - SON AT SIDE - IV PAIN MEDS GIVEN THREE TIMES PER THIS NURSE
[2021-08-17 19:14] LABS: Potassium 4.7 mmol/L (3.5-5.1)
[2021-08-17] MEDS: enoxaparin 80 mg/0.8 mL Syringe 70 MG SUBCUT (19:49)
--- NOTE | 2021-08-17 20:18 | PM.PN ---
Subjective Subjective: Interval history: She is in some moderate to severe discomfort, moaning, trying to find antalgic positioning, reporting pain around her buttocks. Denies headache or photophobia. Denies vision changes. No chest pain or pressure, no trouble breathing. Denies bowel incontinence, has chronic urine incontinence which is mild as described by her son, has been somewhat worse recently. Denies groin anesthesia. Denies nausea vomiting or diarrhea. Denies dysuria. No rashes. Vitals/I&O/Wt Last Vital Signs Temp 101.1 F H 08/17/21 19:27 Pulse 100 08/17/21 19:27 Resp 18 08/17/21 19:53 BP 182/80 08/17/21 19:27 Pulse Ox 92 08/17/21 19:27 08/17/21 08/17/21 08/17/21 06:59 14:59 22:59 Intake Total 1350 / 1350 100 / 100 1100 / 1200 Output Total 1150 / 1150 Balance 200 / 200 100 / 100 1100 / 1200 Weight last 48 hrs Weight 72.575 kg Physical Exam Narrative: EXAM NARRATIVE: Accompanied by son at bedside. Uncomfortable, moaning, becomes easily lethargic with pain medication. Const: COMMON NORMALS: no acute distress ORIENTATION/CONSCIOUSNESS: Yes Other orientation findings (Does appear to have some mild alteration mental status, but easily arousabl) OTHER: Oriented, provides ROS, follows commands. HENMT: COMMON NORMALS: oropharynx normal Neck/C-Spine: COMMON NORMALS: no meningeal signs and no JVD Resp: COMMON NORMALS: normal respiratory effort and clear to auscultation bilaterally AUSCULTATION: clear to auscultation bilaterally Cardio: COMMON NORMALS: no JVD, regular rhythm, S1 normal heart sound present, S2 normal heart sound present and No murmurs present (Cardio) RHYTHM: regular rhythm HEART SOUNDS: S1 normal heart sound present and S2 normal heart sound present GI: COMMON NORMALS: Normal to inspection, nondistended, normoactive bowel sounds present, Soft to palpation and non-tender PALPATION: Yes Soft to palpation Extremity: COMMON NORMALS: no joint enlargement and no pedal edema NARRATIVE EXTREMITY EXAM: Antalgic positioning on the left side Neuro: COMMON NORMALS: moves all extremities MENINGEAL SIGNS: Yes no meningeal signs SENSORY EXAM: Yes extremities (Symmetrical, denies diminished sensation) and Normal double simultaneous stimulation for sensation; No sensory level loss detected Skin: COMMON NORMALS: no rashes or lesions noted GENERAL SKIN EXAM: no rashes or lesions noted Data : 08/16/21 21:33 08/17/21 18:39 Micro: Microbiology 08/16/21 23:10 Blood Culture - Preliminary Blood Gram positive cocci 08/16/21 23:10 Blood Culture - Preliminary Blood SPECIMEN COLLECTED A&P Assessment and plan (1) Discitis of lumbosacral region: Discussed with her son as per admission expressed concern of discitis, possibility of paraspinal abscess as expressed on admission. This was thought to be possibly less likely, but appears possibly more likely given she is spiking fever, as well as leukocytosis. Pending investigation by MRI. In case localized collection identified, once IR available tomorrow consider obtaining microbiologic sample. Given microbiology sample may be delayed, given she is currently febrile we are repeating blood culture to see if we can catch an organism. Son states that they were planning to follow-up with Dr. Garcia in office given persistent sciatica symptoms. He is noted not editor publications today, but please consult with him tomorrow morning. Discussed with her son transfer to higher level care facility may be required in case needed specialties cannot be consulted here. Monitor for any signs of epidural abscess. Continue vancomycin, Primaxin. Requested TLSO brace. Continue pain control as well. Status: Acute (2) Fall: Will eventually need PT Status: Acute (3) Lumbar radiculopathy: Status: Acute (4) Leukocytosis: Sepsis with leukocytosis 20.9, this evening fever one 1.1. Blood cultures collected. Continue vancomycin, Primaxin. Assess suspicious lesion at posterior aspect of lumbosacral vertebrae. Per report also has been complaining of right shoulder pain. Monitor shoulder for any changes and consider additional shoulder imaging. Status: Acute (5) Hyperkalemia: Resolved. Continue to hold losartan. Status: Acute (6) ADITYA (acute kidney injury): Receiving fluid challenge. Recheck renal function. Avoid NSAIDs. Hold valsartan. Status: Acute Additional A&P Information Right shoulder pain: History of shoulder arthroplasty. Recent fall. Humerus x-ray. Unremarkable. No tenderness on palpation. No erythema. Moving her arm spontaneously. Continue monitor shoulder for any changes. Additional work-up of sepsis as above. Hx of Pulmonary embolism Resume anticoagulation if no procedure planned Will hold for now Attestations Medical Necessity Statement*: Continue admission for assessment management of suspected discitis, possible paraspinal abscess, sepsis. 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
[2021-08-18] VITALS (9 sets, daily range): BP systolic 142–174; BP diastolic 72–97; PULSE 78–98; RESP 16–19; TEMP 36.4–37.6; O2SAT 92–95
[2021-08-18] MEDS: HYDROmorphone 1 mg/mL INJ 1 mL 0.5 MG IVP (03:59)
[2021-08-18 05:40] LABS: Basophils % 0.2 %; Eosinophils % 0.1 %; Hematocrit 30.7 % (37.0-47.0); Hemoglobin 9.9 g/dL (11.5-15.3); Lymphocytes # 0.7 10^3/uL (0.8-4.8); Lymphocytes % 4.1 %; Mean Corpuscular HGB Conc 32.2 g/dL (30.0-36.0); Mean Corpuscular Hemoglobin 30.9 pg (28.0-34.0); Mean Corpuscular Volume 95.9 fl (81-99); Mean Platelet Volume 9.5 fL (7.4-10.4); Monocytes # 0.7 10^3/uL (0.2-0.9); Monocytes % 4.1 %; Neutrophils # 14.68 10^3/uL (1.8-7.7); Neutrophils % 89.8 %; Nucleated Red Blood Cells % 0 %; Platelet Count 307 10^3/cmm (130-400); Red Cell Distribution Width 12.6 % (12.1-15.1); White Blood Count 16.4 10^3/uL (4.0-10.0)
[2021-08-18 06:07] LABS: Anion Gap 20.2 (5-19); Blood Urea Nitrogen 35 mg/dL (8-23); Calcium 8.4 mg/dL (8.5-10.5); Carbon Dioxide 19 mmol/L (22-29); Chloride 102 mmol/L (98-107); Glucose 238 mg/dL (65-115); Magnesium 2.2 mg/dL (1.7-2.3); Osmolality Calculated 300 mOsm/kg (285-295); Potassium 4.2 mmol/L (3.5-5.1); Sodium 137 mmol/L (136-145)
--- NOTE | 2021-08-18 07:07 | MR_ITS ---
WS: [id number] MRI LUMBAR SPINE NONCONTRAST HISTORY: r/o abscess COMPARISON: CT lumbar spine 08/06/2021, 08/16/2021. TECHNIQUE: Sagittal and axial multisequence imaging is submitted. Increased in the cervical lordosis and thoracic kyphosis and thoracolumbar scoliosis. Posterior lumbar alignment is normal. Mild disc space narrowing and desiccation throughout the lumbar spine. Conus terminates normally at L1. There is an abnormal collection centered posterior to the L5 S2 disc. This is the lumbar canal extend ing over length of 4.0 cm and posterior diameter of 1.4 cm. Intermediate signal on all sequences. The re is compression upon the nerve roots in the thecal sac. This collection extends superiorly along th e posterior epidural space with significant encroachment into the thecal sac. This posterior epidural collection extends over length of 12.6 cm the superior L1 vertebral body. There is compression and a nterior displacement of the conus in the nerve roots. There may be a small component anteriorly in th e epidural space. Significant compression of the nerve roots anteriorly by this epidural collection. This is a multiloc ulated and multilevel collection. 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 On the sagittal STIR sequence is a large amount of edema in the soft tissues posteriorly and abnormal fluid collection measuring 2.6 x 1.7 cm to the RIGHT of the L5 spinous process. Additional abnormal signal involving several of the facet joints along the RIGHT lateral thecal sac. MR/MR lumbar spine wo con* [id number] IMPRESSION: 1. Significant abnormal appearance of the lumbar spine. 2. Intermediate, mixed posterior epidural collection throughout the lumbar spi ne. Collection extends from L1 to the L5-S1 disc space. There is compression up on the nerve roots and deformity of the nerve roots. No IV contrast was given f or this examination. I favor this is probably epidural blood may be from recent trauma or injections. Differential includes hematoma and abscess. None of thes e changes were noted on the prior CT of 08/06/2021. 3. There is additional extensive soft tissue injury along the RIGHT lateral maya mbar spine extending to surround the facet joints. Most focal collection just t o the RIGHT of the L5 spinous process measures 2.6 x 1.7 cm. Abscess versus hem atoma. Notified Dr. Mathur at 08/18/2021 11:20 AM. Unable to notify the physician. Rashel luna left on his answering service.
[2021-08-18] MEDS: pantoprazole DR 40 mg Tablet PO (08:29)
[2021-08-18] MEDS: morphine 4 mg/mL SDV 1 mL 1 MG IVP ×3 (09:57→19:06)
[2021-08-18] MEDS: haloperidol inj 5 mg/mL INJ 1 mL IM (09:57)
[2021-08-18] MEDS: sodium chloride 0.9% 1,000 ML 75 ML IV (11:19)
[2021-08-18] MEDS: lanolin oint 7 gm 1 APPLIC TOPICAL (12:13)
[2021-08-18] MEDS: enoxaparin 80 mg/0.8 mL Syringe 70 MG SUBCUT ×2 (12:13→22:37)
[2021-08-18 12:34] LABS: Procalcitonin 1.94 ng/mL (0-0.5); Thyroid Stimulating Hormone 0.39 uIU/mL (0.27-4.20)
[2021-08-18 12:45] LABS: Iron 17 ug/dL (37-145); Percent Saturation 12.1 % (20-50); Total Iron Binding Capacity 140 mcg/dl; Unsaturated Iron Binding 123 ug/dL (112-347)
--- NOTE | 2021-08-18 13:47 | PC.PT ---
Attempted fitting of TLSO brace. Patient unable to tolerate upright sitting or standing for application of brace. Patient currently is not transferring or standing. Patient remains supine in bed with minimal activity. As pain is controlled and patient becomes mobile, will attempt brace fitting as directed.
[2021-08-18] MEDS: gabapentin 300 mg Capsule PO ×2 (14:02→20:40)
--- NOTE | 2021-08-18 15:07 | P.PN_ITS ---
Subjective Subjective: Interval history: Hospital course, labs appreciated. Examination Comfortably in bed. Awake alert mildly lethargic after getting Haldol and morphine for MRI. Son at bedside. States patient is having less back pain than yesterday. Does not have any bowel accidents but did have some bowel or bladder accident at home. Denies foot drop. Denies nausea vomiting, headache. Vitals/I&O/Wt Last Vital Signs Temp 99.0 F 08/18/21 11:56 Pulse 98 08/18/21 11:56 Resp 16 08/18/21 13:48 BP 152/87 08/18/21 11:56 Pulse Ox 92 08/18/21 11:56 08/18/21 08/18/21 08/18/21 06:59 14:59 22:59 Intake Total 100 / 1400 1680 / 1680 Output Total 850 / 1125 Balance -750 / 275 1680 / 1680 Weight last 48 hrs Weight 72.575 kg Physical Exam Narrative: EXAM NARRATIVE: General: No acute distress, lethargic, AO x2-3, having complete conversation HEENT: PERRLA, pupils bilaterally equal and reactive Chest: Normal vesicular breath sounds, no added sounds, equal good air entry bilaterally CVS: S1-S2 regular, soft ejection systolic murmur at aortic area 1/6 with radiation to carotids, no tachycardia, no gallops, no rubs Abdomen: Soft, nontender, no organomegaly, bowel sounds present Neuro: No focal deficits, no facial deformity, AO x3, power 5/5 in all limbs, positive straight leg test Data : 08/18/21 05:17 08/18/21 05:17 Micro: Microbiology 08/16/21 23:10 Blood Culture - Preliminary Blood Staphylococcus aureus 08/18/21 05:20 Blood Culture - Preliminary Blood SPECIMEN COLLECTED 08/18/21 05:17 Blood Culture - Preliminary Blood SPECIMEN COLLECTED 08/16/21 23:10 Blood Culture - Preliminary Blood NEGATIVE TO DATE A&P Assessment and plan (1) Staphylococcus aureus bacteremia: Status: Acute (2) Epidural abscess: Status: Acute (3) Discitis of lumbosacral region: Status: Acute (4) Lumbar radiculopathy: Status: Acute (5) ADITYA (acute kidney injury): Status: Acute (6) Fall: Status: Acute (7) Hyperkalemia: Resolved. Continue to hold losartan. Status: Acute Additional A&P Information Back pain: Discitis of lumbosacral region: MRI results appreciated. Positive for fluid collection hematoma versus abscess. We will consult Dr. Garcia from orthopedics for further evaluation and possible washout. Continue with vancomycin and imipenem. We will try to get trough from 15-20. Consult pharmacy for dose adjustment as per creatinine clearance. Checks every 4 hours to rule out saddle anesthesia and foot drop. Gram-positive bacteremia: Blood cultures +3 bottles staph aureus Check MRSA swab. Repeat blood cultures. Echocardiogram results appreciated. We will consult ID for further recommendations. ADITYA: Baseline creatinine seems to be from 1.1-1.3. Creatinine at baseline today. Medical reconsider for nephrotoxic drugs. Continue to hold LORI and ARB's. Gentle IV hydration with normal saline at 75 cc an hour. Right shoulder pain: History of shoulder arthroplasty. Recent fall. Humerus x- ray. Unremarkable. No tenderness on palpation. No erythema. Moving her arm spontaneously. Continue monitor shoulder for any changes. Additional work-up of sepsis as above. Hx of Pulmonary embolism Continue with Eliquis 1 mg/kg body weight q. 12 hourly. Restrictive lung disease: Hold leflunomide for now. Full code. Cardiac diet. Full dose Lovenox will help with DVT prophylaxis. Protonix for PUD prophylaxis. PT/OT evaluation. Attestations Medical Necessity Statement*: Requires further hospitalization for Staphylococcus bacteremia, discitis, possible epidural abscess Time Spent in Patient Care: Greater than 35 minutes (>than 50% of time spent in counselling and/or direct pt care on unit) . 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
[2021-08-18] MEDS: vancomycin 1,000 MG in sodium chloride 0.9% 250 ML 250 MG IV (16:38)
--- NOTE | 2021-08-18 16:40 | P.CONIM_ITS ---
Documented by User: TOM Wong 08/18/21 16:56 Providers/Reason For Consult Consulting Physician/Specialty*: Orthopedic spine Reason for Consult*: Back pain and leg weakness Attending Physician: Shayne Coon MD Primary Care Provider: Efe Carpenter DO History of Present Illness History of Present Illness Zoila Brantley is a 81 year old female who was evaluated in room 279 bed 2 with family present. Her son was present and is a power of family law attorney. He provides most of the history for his mother. He states that approximately 2 weeks ago she was placed on Eliquis for PEs. Since that event she has had progressing back and leg pain. He reports checking on her at home due to her back pain contacting her primary care physician who placed her on Percocet but she had a reaction to the Percocet he had given her Benadryl and she was inst ructed to follow-up in the emergency room. Approximately 2 weeks ago her symptoms have began. 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 He states that approximately August 05 she had complained of not being able to control her urine upon checking on her he noticed complete saturation of her linens. She became continually more weak in her legs. He reports her falling on August 16 which is when he presented to the emergency room. She is underwent testing Dr. Garcia was consulted on 08/18/2021 for her problems. Upon evaluation in the room today reports continued back pain continued leg weakness she has a Cortez catheter present. He reports she has been drinking soda, Ensure and has had some breakfast. She continues to report back and leg pain with right slightly worse than left. Pain has been constant over the last week but progressively over the last 2 weeks. She describes sharp stabbing pain in her back and legs. She is reported progressive weakness stayed about the same in both legs. She reports having sensation of when the catheter was inserted into the bladder. She is very somnolent from the pain medication she is received which is morphine. She reports extensive right shoulder pain right arm pain she reports having a shoulder replacement approximately 9 years ago on the right arm which is her dom inant extremity. She states that pain has been present since the fall on Wednesday. Is been sharp stabbing constant nature any movement makes it much worse she is not found much other than rest to make it better. Denies any elbow or wrist pain. Extensive review of the patient's past medical history, surgical history, allergies, medications, social history, family history and review of systems was completed Review of Systems General: Reports: 10 or more systems reviewed and unremarkable except in HPI and below Meds/Allergies Home Medications and Allergies Home Medications Medication Instructions Recorded Confirmed Last Taken Type aspirin 81 mg tablet,delayed 81 mg PO BEDTIME 12/19/20 08/17/21 08/03/21 History release coenzyme Q10 100 mg capsule 200 mg PO BEDTIME 12/19/20 08/17/21 01/27/21 20:30 History levothyroxine 50 mcg tablet 50 mcg PO DAILY@07 12/19/20 08/17/21 08/04/21 07:00 History pantoprazole 40 mg tablet,delayed 40 mg PO BEDTIME 12/19/20 08/17/21 01/27/21 20:30 History release tizanidine 2 mg tablet 2 mg PO BEDTIME 12/19/20 08/17/21 08/03/21 History cholecalciferol (vitamin D3) 50 100 mcg PO DAILY cap 05/27/21 08/17/21 Unknown History mcg (2,000 unit) capsule fenofibrate 160 mg tablet 160 mg PO BEDTIME 05/27/21 08/17/21 Unknown History acetaminophen [Tylenol Extra 1,000 mg PO Q4H PRN 08/04/21 08/17/21 Unknown History Strength] albuterol sulfate 2 puff INHALATION Q6H PRN 08/04/21 08/17/21 Unknown History cyanocobalamin (vitamin B-12) 1,000 mcg IM Q30D 08/04/21 08/17/21 08/13/21 History lactobacillus combination no.4 3,000 mmu cells PO DAILY #0 08/04/21 08/17/21 Unknown History [Probiotic] valsartan 40 mg PO BEDTIME 08/04/21 08/17/21 08/03/21 History valsartan 80 mg PO BEDTIME 08/04/21 08/17/21 08/03/21 History apixaban [Eliquis] 5 mg PO BID #120 tab 08/07/21 08/17/21 Unknown Rx gabapentin 300 mg PO TID 08/17/21 08/17/21 Unknown History Allergies Allergy/AdvReac Type Severity Reaction Status Date / Time amoxicillin Allergy ALGY-Rash Verified 08/04/21 09:56 oxycodone Allergy ALGY-Hives Verified 08/16/21 21:00 hydroxychloroquine AdvReac Intermediate dizzy and Verified 08/04/21 09:56 lightheaded and groggy Sulfa (Sulfonamide AdvReac Intermediate pt states Verified 08/04/21 09:56 Antibiotics) 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 Current Medications Current Medications Generic Name Dose Route Start Last Admin Trade Name Freq PRN Reason Stop Dose Admin Enoxaparin Sodium 70 mg 08/18/21 11:30 08/18/21 12:13 Enoxaparin 80 Mg/0.8 Ml Syringe SUBCUT 70 mg Q12H PJ Administration Gabapentin 300 mg 08/18/21 15:00 08/18/21 14:02 Gabapentin 300 Mg Capsule PO 300 mg TID PJ Administration Sodium Chloride 1,000 mls @ 75 mls/hr 08/17/21 02:30 08/18/21 11:19 Sodium Chloride 0.9% IV 75 mls/hr .[id number] PJ Administration Imipenem/Cilastatin Sodium 250 100 mls @ 200 mls/hr 08/17/21 08:00 08/18/21 14:53 mg/ Sodium Chloride IV Infused Q6H PJ Infusion Lanolin 1 applic 08/18/21 11:04 08/18/21 12:13 Lanolin Oint 7 Gm TOPICAL 1 appful PRN PRN Administration DRYNESS Morphine Sulfate 1 mg 08/18/21 11:45 08/18/21 13:48 Morphine 4 Mg/Ml Sdv 1 Ml IVP 1 mg Q4H PRN Administration SEVERE PAIN Pantoprazole Sodium 40 mg 08/17/21 09:00 08/18/21 08:[address] 40 Mg Tablet PO 40 mg DAILY PJ Administration PFSH Acute PFSH: Medical History Chest pain Generalized anxiety disorder Hypertension Inflammatory arthritis Joint pain Restrictive airway disease Shortness of Breath Thyroid disease Surgical History History of appendectomy History of hysterectomy History of repair of rotator cuff Family History Other CAD (coronary artery disease) Cancer Diabetes Family history of premature coronary artery disease Hyperlipidemia Hypertension Lung disease Stroke Denies family history of Rheumatoid arthritis Lupus Dementia Psychiatric illness Chronic kidney disease (CKD) Anesthesia complication Bleeding disorder Social History Smoking and tobacco status: never smoked Second hand smoke exposure: Yes Smoking risk assessment/counseling performed?: Yes Alcohol intake: never Lives independently: Yes Household members: none Marital status: / service: No Current occupational status: employed and retired Current occupation: part-time at [employer] Pets and animals: Yes History of recent travel: No Current gender identity: Female Female Reproductive History: Date of last menstrual period: 02/06/21 Vitals/I&O/Wt Last Vital Signs Temp 99.6 F 08/18/21 15:54 Pulse 86 08/18/21 15:54 Resp 16 08/18/21 15:54 BP 165/84 08/18/21 15:54 Pulse Ox 92 08/18/21 15:54 08/18/21 08/18/21 08/18/21 06:59 14:59 22:59 Intake Total 100 / 1400 1680 / 1680 Output Total 850 / 1125 Balance -750 / 275 1680 / 1680 Weight last 48 hrs Weight 160 lb Physical Exam Narrative: EXAM NARRATIVE: She is alert in no obvious distress. HEENT head normocephalic atraumatic, respiratory is unlabored, cardiovascular regular rate and rhythm abdomen is distended soft and nontender. Skin is clear warm feet are warm good cap refill. She wiggles all digits on both lower extremities she can dorsiflex and plantarflex both feet. She has 3 out of 5 strength in both lower extremities. She appears to fire in all motor groups but is weak. She is able to decipher sharp from dull sensation. Dorsalis pedis posterior pulses are palpable. Calves are supple no medial thigh tenderness. Negative logroll bilaterally. Digital rectal exam produced normal sphincter tone. Bilateral upper extremity examination she is markedly tender with palpation over the right shoulder from previous reverse shoulder replacement approximately 9 years ago. She is guarding her right shoulder and wrist. Hands are warm with good cap refill radial pulses are palpable. She is able to wiggle all digits but any movement of the right arm causes her intense pain. HENMT: COMMON NORMALS: normocephalic HEAD & SCALP: normocephalic Resp: COMMON NORMALS: normal respiratory effort Cardio: COMMON NORMALS: regular rate and regular rhythm RATE: regular rate RHYTHM: regular rhythm GI: COMMON NORMALS: Soft to palpation and non-tender PALPATION: Yes Soft to palpation Psych: COMMON NORMALS: cooperative Data Micro: Micro: Microbiology 08/16/21 23:10 Blood Culture - Pr eliminary Blood Staphylococcus aureus 08/18/21 05:20 Blood Culture - Pr eliminary Blood SPECIMEN [facility] 08/18/21 05:17 Blood Culture - Pr eliminary Blood SPECIMEN [facility] 08/16/21 23:10 Blood Culture - Pr eliminary Blood NEGATIVE TO ADELINE E A&P Assessment and plan (1) Epidural abscess: Status: Acute (2) Bilateral leg weakness: Her symptoms have been progressing since 08/05/2021. She has been on Eliquis and had a recent fall certainly the concerns of epidural hematoma is also present. She has progressive weakness in her legs she does have digital rectal tone. She has had a recent Ensure, soda and breakfast. I will discuss with Dr. Garcia's recommendations of treatment course. Status: Acute Coding Level of Care Code Acute Checkout Operator for [facility] Fwd Exam Detailed Diagnoses Epidural abscess G06.2 Bilateral leg weakness R29.898 Documented by User: Isaiah Garcia DO 08/18/21 18:08 Review of Systems General: Reports: 10 or more systems reviewed and unremarkable except in HPI and below Eyes: Denies: photophobia ENMT: Denies: enlarged tonsils Musc: Reports: other (Right shoulder pain and limited movement. Low back pain) All/Imm: Denies: acute wheezing Meds/Allergies Home Medications and Allergies Home Medications Medication Instructions Recorded Confirmed Last Taken Type aspirin 81 mg tablet,delayed 81 mg PO BEDTIME 12/19/20 08/17/21 08/03/21 History release coenzyme Q10 100 mg capsule 200 mg PO BEDTIME 12/19/20 08/17/21 01/27/21 20:30 History levothyroxine 50 mcg tablet 50 mcg PO DAILY@07 12/19/20 08/17/21 08/04/21 07:00 History pantoprazole 40 mg tablet,delayed 40 mg PO BEDTIME 12/19/20 08/17/21 01/27/21 20:30 History release tizanidine 2 mg tablet 2 mg PO BEDTIME 12/19/20 08/17/21 08/03/21 History cholecalciferol (vitamin D3) 50 100 mcg PO DAILY cap 05/27/21 08/17/21 Unknown History mcg (2,000 unit) capsule fenofibrate 160 mg tablet 160 mg PO BEDTIME 05/27/21 08/17/21 Unknown History acetaminophen [Tylenol Extra 1,000 mg PO Q4H PRN 08/04/21 08/17/21 Unknown History Strength] albuterol sulfate 2 puff INHALATION Q6H PRN 08/04/21 08/17/21 Unknown History cyanocobalamin (vitamin B-12) 1,000 mcg IM Q30D 08/04/21 08/17/21 08/13/21 History lactobacillus combination no.4 3,000 mmu cells PO DAILY #0 08/04/21 08/17/21 Un known History [Probiotic] valsartan 40 mg PO BEDTIME 08/04/21 08/17/21 08/03/21 History valsartan 80 mg PO BEDTIME 08/04/21 08/17/21 08/03/21 History apixaban [Eliquis] 5 mg PO BID #120 tab 08/07/21 08/17/21 Unknown Rx gabapentin 300 mg PO TID 08/17/21 08/17/21 Unknown History Allergies Allergy/AdvReac Type Severity Reaction Status Date / Time amoxicillin Allergy ALGY-Rash Verified 08/04/21 09:56 oxycodone Allergy ALGY-Hives Verified 08/16/21 21:00 hydroxychloroquine AdvReac Intermediate dizzy and Verified 08/04/21 09:56 lightheaded and groggy Sulfa (Sulfonamide AdvReac Intermediate pt states Verified 08/04/21 09:56 Antibiotics) 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 PFSH Acute PFSH: Medical History Chest pain Generalized anxiety disorder Hypertension Inflammatory arthritis Joint pain Restrictive airway disease Shortness of Breath Thyroid disease Surgical History History of appendectomy History of hysterectomy History of repair of rotator cuff Family History Other CAD (coronary artery disease) Cancer Diabetes Family history of premature coronary artery disease Hyperlipidemia Hypertension Lung disease Stroke Denies family history of Rheumatoid arthritis Lupus Dementia Psychiatric illness Chronic kidney disease (CKD) Anesthesia complication Bleeding disorder Social History Smoking and tobacco status: never smoked Second hand smoke exposure: Yes Smoking risk assessment/counseling performed?: Yes Alcohol intake: never Lives independently: Yes Household members: none Marital status: / service: No Current occupational status: employed and retired Current occupation: part-time at [employer] Pets and animals: Yes History of recent travel: No Current gender identity: Female Dietary Habits: Current diet type/program: regular Caffeine: Yes Consult Attestations Medical Necessity Statement: progressive worsening neurologic symptoms Coding Level of Care Code Acute Checkout Operator for [facility] Fwd Exam Detailed Diagnoses Epidural abscess G06.2 Bilateral leg weakness R29.898
--- NOTE | 2021-08-18 18:55 | MRR_ITS ---
PROCEDURE INFORMATION: Exam: MR Thoracic Spine Without Contrast Exam date and time: 08/18/2021 6:55 PM Age: 81 years old Clinical indication: Pain in thoracic spine; Additional info: Epidural abscess TECHNIQUE: Imaging protocol: Multiplanar magnetic resonance images of the thoracic spine without contrast. COMPARISON: MR cervical spin wo con* [id number] 08/18/2021 7:36 PM FINDINGS: Vertebrae: Spinal alignment is normal. Vertebral body height is maintained. Bone marrow signal intensity is normal. No edema. Epidural space: No epidural fluid collection. Spinal cord: The spinal cord is unremarkable. There is no abnormal signal or cord compression. Discs/Spinal canal/Neural foramina: There is no spinal canal stenosis. Soft tissues: Paraspinal soft tissues are unremarkable. MR/MR thoracic spin wo con* [id number] IMPRESSION: No acute findings. Radiation Dose CTDIVOL = (mGy): DLP = (mGy-cm)
--- NOTE | 2021-08-18 18:55 | MRR_ITS ---
PROCEDURE INFORMATION: Exam: MR Cervical Spine Without Contrast Exam date and time: 08/18/2021 6:55 PM Age: 81 years old Clinical indication: Neck pain; Additional info: Epidural abscess TECHNIQUE: Imaging protocol: Multiplanar magnetic resonance images of the cervical spine without contrast. COMPARISON: CT cervical spin wo con* [id number] 08/16/2021 7:15 AM FINDINGS: Vertebrae: Spinal alignment is normal. Vertebral body height is maintained. Spinal cord: The spinal cord is unremarkable. There is no abnormal signal or cord compression. Spinal epidural space: No epidural abscess. C2-C3: Normal disc. Mild bilateral facet spondylosis. No spinal canal or neural foraminal stenosis. C3-C4: Mild generalized disc bulge. Bilateral uncovertebral spondylosis. Mild bilateral facet spondylosis. No spinal canal or neural foraminal stenosis. C4-C5: Mild broad-based posterior osteophytic ridge and bilateral uncovertebral osteophytes. Mild bilateral facet spondylosis. No spinal canal or neural foraminal stenosis. C5-C6: Broad-based posterior osteophytic ridge and bilateral uncovertebral osteophytes. Bilateral facet spondylosis. Mild spinal stenosis. No neural foraminal stenosis. C6-C7: Mild broad-based posterior osteophytic ridge and bilateral uncovertebral osteophytes. Mild bilateral facet spondylosis. Mild spinal stenosis. No neural foraminal stenosis. C7-T1: No significant disc disease. No significant spinal stenosis. Other bones/joints: No bone marrow edema. Soft tissues: Unremarkable. Prevertebral and retropharyngeal spaces: There is mixed signal intensity fluid and edema in the retropharyngeal space. The retropharyngeal space is distended measuring up to 15 mm in anterior-posterior dimension at the level of C4. Vertebral arteries: Expected flow voids in the vertebral arteries. Other findings: The visible portion of the brain is normal. MR/MR cervical spin wo con* [id number] IMPRESSION: 1. Complex fluid in the retropharyngeal space, increased since 08/16/2021. Possible abscess or hematoma. 2. No epidural abscess. 3. Degenerative findings above. Radiation Dose CTDIVOL = (mGy): DLP = (mGy-cm)
--- NOTE | 2021-08-18 19:17 | PC.NURSE ---
Pt exiting unit at this time with EMS and son by side to MRI
[2021-08-18] MEDS: tizanidine 4 mg Tablet 2 MG PO (20:40)
--- NOTE | 2021-08-18 20:40 | PC.NURSE ---
Pt returned to unit at this time via EMS and son by side
[2021-08-19] VITALS (27 sets, daily range): BP systolic 113–186; BP diastolic 63–117; PULSE 85–119; RESP 13–25; TEMP 36.2–37.3; O2SAT 92–100
--- NOTE | 2021-08-19 | XR_ITS ---
WS: [id number] XR lumbar spine 1V [id number] REASON FOR EXAM: Decompression, irrigation and debridement FINDINGS: 2 frontal images of the lumbar spine in surgery. Probe placed at the L1-L2 level. Probe and tissue spreaders at L5-S1. XR/XR lumbar spine 1V [id number] IMPRESSION: Lumbar spine level localization as above.
--- NOTE | 2021-08-19 | SCC_ITS ---
Procedure Done: 1. Laminectomy L5 2. Irrigation and debridement of epidural abscess 12.7 seconds of fluoroscopic guidance, for a cumulative dose of 2.64 mGy, was provided to Dr. Garcia by the radiology department. C-arm images of the lumbar spine were saved for the patient's permanent record. [facility]
[2021-08-19] MEDS: morphine 4 mg/mL SDV 1 mL 1 MG IVP ×3 (01:29→15:12)
[2021-08-19] MEDS: TRAMadol 50 mg Tablet PO (02:27)
[2021-08-19 02:34] LABS: Basophils % 0.3 %; Eosinophils % 0.3 %; Hematocrit 28.8 % (37.0-47.0); Hemoglobin 9.3 g/dL (11.5-15.3); Lymphocytes # 0.8 10^3/uL (0.8-4.8); Lymphocytes % 5.1 %; Mean Corpuscular HGB Conc 32.3 g/dL (30.0-36.0); Mean Corpuscular Hemoglobin 30.6 pg (28.0-34.0); Mean Corpuscular Volume 94.7 fl (81-99); Mean Platelet Volume 10.1 fL (7.4-10.4); Monocytes # 0.6 10^3/uL (0.2-0.9); Monocytes % 3.5 %; Nucleated Red Blood Cells % 0 %; Platelet Count 256 10^3/cmm (130-400); Red Blood Count 3.04 10^6/uL (4.1-5.3); Red Cell Distribution Width 12.6 % (12.1-15.1); White Blood Count 15.6 10^3/uL (4.0-10.0)
[2021-08-19 03:14] LABS: C Reactive Protein 426.3 mg/L (0.0-4.9)
[2021-08-19 03:15] LABS: Alanine Aminotransferase 8 U/L (0-33); Albumin Level 1.9 g/dL (3.5-5.2); Alkaline Phosphatase 139 IU/L (35-105); Anion Gap 15.9 (5-19); Aspartate Amino Transferase 17 U/L (0-32); Blood Urea Nitrogen 37 mg/dL (8-23); Carbon Dioxide 20 mmol/L (22-29); Chloride 104 mmol/L (98-107); Globulin 3.5 g/dL (1.3-4.6); Glucose 282 mg/dL (65-115); Osmolality Calculated 301 mOsm/kg (285-295); Potassium 3.9 mmol/L (3.5-5.1); Sodium 136 mmol/L (136-145); Total Bilirubin 0.6 mg/dL (0.15-1.2); Total Protein 5.4 g/dL (6.6-8.7)
[2021-08-19] MEDS: sodium chloride 0.9% 1,000 ML 75 ML IV (04:56)
[2021-08-19] MEDS: levothyroxine 50 mcg Tablet PO (06:00)
[2021-08-19] MEDS: pantoprazole DR 40 mg Tablet PO ×2 (08:07→21:35)
[2021-08-19] MEDS: gabapentin 300 mg Capsule PO ×3 (08:08→21:35)
--- NOTE | 2021-08-19 09:59 | ANES.PREANE2 ---
Pre-Anesthetic Assessment Pre-Anesthetic Assessment: Height/Weight: Height 1.63 m Weight 72.575 kg Temp Pulse Resp BP Pulse Ox 99.1 F 97 17 168/83 92 08/19/21 08:00 08/19/21 08:00 08/19/21 08:00 08/19/21 08:00 08/19/21 08:00 Preop Diagnosis: Angina equivalent Proposed Procedure: Operation Date: 08/18/21 19:00 Proposed Procedures p Lumbar Spine Decompression(Not Applicable) - Isaiah H DO Radha Operation Date: 08/19/21 12:00 Proposed Procedures p Lumbar Spine Decompression(Not Applicable) - Isaiah H Radha DO Was Beta Emil taken within 24 hours: N/A Was Clonidine taken within 24 hours: N/A Social: Social History: No alcohol and No tobacco Exam: Pre-Anes Outpt Exam: alert, oriented x 3, clear to auscultation bilaterally and regular rate & rhythm Airway: Submandibular: WNL Cervical ROM: WNL MP: 2 Dentition: Chipped Pulmonary: Pulmonary: Asthma CV/HEM: CV/HEM: DVT (PE) and HTN Comments: Anticoagulation : : Chronic renal Insufficiency GI: GI: GERD Metabolic: Metabolic: Thyroid Musc/skel: Musc/skel: Lower Back Pain and Weakness Neuropsych: Comments: Epidural hematoma Anesthetic Plan: ASA status: 3 Anesthesia: General Risk of > 500 ml blood loss (7ml/kg in children): No Meds/Allergies Current Medications: Current Medications Generic Name Dose Route Start Last Admin Trade Name Freq PRN Reason Stop Dose Admin Enoxaparin Sodium 70 mg 08/18/21 11:30 08/18/21 22:37 Enoxaparin 80 Mg /0.8 Ml Syringe SUBCUT 70 mg Q12H PJ Administration Gabapentin 300 mg 08/18/21 15:00 08/19/21 08:08 Gabapentin 300 M g Capsule PO 300 mg TID PJ Administration Sodium Chloride 1,000 mls @ 75 ml s/hr 08/17/21 02:30 08/19/21 04:56 Sodium Chloride 0.9% IV 75 mls/hr .[id number] PJ Administration Imipenem/Cilastati n Sodium 250 100 mls @ 200 mls /hr 08/17/21 08:00 08/19/21 08:53 mg/ Sodium Chlor diana IV Infused Q6H PJ Infusion Vancomycin HCl 1,0 00 mg/ 250 mls @ 250 mls /hr 08/18/21 16:30 08/18/21 17:43 Sodium Chloride IV Infused Q24H PJ Infusion Lanolin 1 applic 08/18/21 11:04 08/18/21 12:13 Lanolin Oint 7 G m TOPICAL 1 appful PRN PRN Administration DRYNESS Levothyroxine Sodi um 50 mcg 08/19/21 07:00 08/19/21 06:00 Levothyroxine 50 Mcg Tablet PO 50 mcg DAILY@07 PJ Administration Morphine Sulfate 1 mg 08/18/21 11:45 08/19/21 05:40 Morphine 4 Mg/Ml Sdv 1 Ml IVP 1 mg Q4H PRN Administration SEVERE PAIN Non-Formulary Medi cation 160 mg 08/18/21 21:00 08/18/21 21:02 Fenofibrate PO Not Given BEDTIME PJ Pantoprazole Sodiu m 40 mg 08/17/21 09:00 08/19/21 08:[address] 40 Mg Tablet PO 40 mg DAILY PJ Administration Tizanidine HCl 2 mg 08/18/21 21:00 08/18/21 20:40 Tizanidine 4 Mg Tablet PO 2 mg BEDTIME PJ Administration Tramadol HCl 50 mg 08/18/21 11:45 08/19/21 02:27 Tramadol 50 Mg T ablet PO 50 mg Q6H PRN Administration MODERATE PAIN PFSH Anesthesia PFSH: Medical History Chest pain Generalized anxiety disorder Hypertension Inflammatory arthritis Joint pain Restrictive airway disease Shortness of Breath Thyroid disease Surgical History History of appendectomy History of hysterectomy History of repair of rotator cuff Family History Other CAD (coronary artery disease) Cancer Diabetes Family history of premature coronary artery disease Hyperlipidemia Hypertension Lung disease Stroke Denies family history of Rheumatoid arthritis Lupus Dementia Psychiatric illness Chronic kidney disease (CKD) Anesthesia complication Bleeding disorder Social History Smoking and tobacco status: never smoked Second hand smoke exposure: Yes Smoking risk assessment/counseling performed?: Yes Alcohol intake: never Lives independently: Yes Household members: none Marital status: / service: No Current occupational status: employed and retired Current occupation: part-time at [employer] Pets and animals: Yes History of recent travel: No Current gender identity: Female Female Reproductive History: Date of last menstrual period: 02/06/21 Data Anesthesia CBC & Chem 7: 08/19/21 01:58 08/19/21 01:58 Other Labs: Laboratory Results - last 48 hr 08/17/21 08/18/21 08/18/21 18:39 05:17 05:17 WBC 16.4 H RBC 3.20 L Hgb 9.9 L Hct 30.7 L MCV 95.9 MCH 30.9 MCHC 32.2 RDW 12.6 Plt Count 307 MPV 9.5 Neut % (Auto) 89.8 Lymph % (Auto) 4.1 Antelope % (Auto) 4.1 Eos % (Auto) 0.1 Baso % (Auto) 0.2 Neut # (Auto) 14.68 H Lymph # (Auto) 0.7 L Antelope # (Auto) 0.7 Eos # (Auto) 0.0 Baso # (Auto) 0.0 Nucleated RBC % (auto) 0 Nucleated RBCs # 0.0 Sodium 137 Potassium 4.7 4.2 Chloride 102 Carbon Dioxide 19 L Anion Gap 20.2 H BUN 35 H Creatinine 1.1 H GFR Calculation Not Reportable Glucose 238 H Calculated Osmolality 300 H Calcium 8.4 L Magnesium 2.2 Iron TIBC % Saturation Unsat Iron Binding Total Bilirubin AST ALT Alkaline Phosphatase C-Reactive Protein Total Protein Albumin Globulin Procalcitonin TSH 08/18/21 08/19/21 08/19/21 05:17 01:58 01:58 WBC 15.6 H RBC 3.04 L Hgb 9.3 L Hct 28.8 L MCV 94.7 MCH 30.6 MCHC 32.3 RDW 12.6 Plt Count 256 MPV 10.1 Neut % (Auto) 90.0 Lymph % (Auto) 5.1 Antelope % (Auto) 3.5 Eos % (Auto) 0.3 Baso % (Auto) 0.3 Neut # (Auto) 14.00 H Lymph # (Auto) 0.8 Antelope # (Auto) 0.6 Eos # (Auto) 0.0 Baso # (Auto) 0.0 Nucleated RBC % (auto) 0 Nucleated RBCs # 0.0 Sodium 136 Potassium 3.9 Chloride 104 Carbon Dioxide 20 L Anion Gap 15.9 BUN 37 H Creatinine 1.0 H GFR Calculation Not Reportable Glucose 282 H Calculated Osmolality 301 H Calcium 8.0 L Magnesium Iron 17 L TIBC 140 % Saturation 12.1 L Unsat Iron Binding 123 Total Bilirubin 0.6 AST 17 ALT 8 Alkaline Phosphatase 139 H C-Reactive Protein Total Protein 5.4 L Albumin 1.9 L Globulin 3.5 Procalcitonin 1.94 H TSH 0.39 08/19/21 01:58 WBC RBC Hgb Hct MCV MCH MCHC RDW Plt Count MPV Neut % (Auto) Lymph % (Auto) Antelope % (Auto) Eos % (Auto) Baso % (Auto) Neut # (Auto) Lymph # (Auto) Antelope # (Auto) Eos # (Auto) Baso # (Auto) Nucleated RBC % (auto) Nucleated RBCs # Sodium Potassium Chloride Carbon Dioxide Anion Gap BUN Creatinine GFR Calculation Glucose Calculated Osmolality Calcium Magnesium Iron TIBC % Saturation Unsat Iron Binding Total Bilirubin AST ALT Alkaline Phosphatase C-Reactive Protein 426.3 H Total Protein Albumin Globulin Procalcitonin TSH Micro: Microbiology 08/18/21 05:20 Blood Culture - Preliminary Blood NEGATIVE TO DATE 08/18/21 05:17 Blood Culture - Preliminary Blood NEGATIVE TO DATE 08/16/21 23:10 Blood Culture - Preliminary Blood Staphylococcus aureus Cardiac Studies: Echocardiogram 08/04/21
--- NOTE | 2021-08-19 10:04 | PC.CHAP ---
Pastoral Care Encounter/Spiritual Assessment Type of Contact [] Declined thread twister visit [] Patient/Family/Request visit [] Outpatient visit [] Follow-up visit [] Physician referral [] Code/Alert [x] Routine visit [] Staff referral [] Actively dying [] Patient sleeping [] Family support [] [] Out of room [] Palliative care [] [] Receiving care in room [] Pre-surgical visit [] Trauma [] Long length of stay [] ICU visit [] Other: Relational/Emotional Strength [x] Patient feels connected with others/family/visitors/staff [] Distress [] Loneliness/isolation [] Abandonment Spirituality of Patient [x] Person of Aleksandra [x] Attends Latter-Day of their Aleksandra [x] Believes in Prayer [x] Reads Bible or Lutheran materials [] There are Spiritual issues to be addressed Clinic Charge Nurse Interventions [x] Prayer [x] Active listening [x] Non-anxious presence [x] Spiritual/emotional support [] Crisis/trauma care [] Spiritual counseling [] Bereavement support [] Provided bereavement packet [] Provided Bible/devotional materials [] Provided toy/stuffed animal, coloring book to patient or family member [] Provided Communion [] Anointing/[place] [] Salvation [x] Completed spiritual assessment [] Other: Impact on Illness or Injury [] Angry [] Fearful [] Anxious [] Often cries [] Exhaustion [] Unable to work [] Unable to attend taoist [] Unable to walk/stand [] Unable to read [] Unable to drive [] Unable to eat/drink [] Unable to sleep [] Unable to be with family [] Patient intubated [] Other: Summary Pt's son present in room during visit and thread twister mainly spoke with him. Pt heavily sedated and also in pain. Preparing for surgery in about an hour. 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 Time spent with patient 15m
[2021-08-19] MEDS: sodium chloride 0.9% 1,000 ML 30 ML IV (12:17)
[2021-08-19] MEDS: vancomycin 1,000 MG SDV 1000 MG XX (13:00)
--- NOTE | 2021-08-19 13:50 | P.PN_ITS ---
Subjective Subjective: Interval history: Patient seen preoperatively today. Family at bedside. Complaining of back pain and nerve dryness. Patient n.p.o. for surgery in the afternoon today. Denies any nausea vomiting, headache. Discussed possible need of long-term antibiotics, possible retropharyngeal abscess. Son states patient has been having occasional episodes of difficulty in swallowing for last 10 days. Vitals/I&O/Wt Last Vital Signs Temp 98.4 F 08/19/21 13:45 Pulse 111 H 08/19/21 13:45 Resp 22 H 08/19/21 13:45 BP 113/87 08/19/21 13:45 Pulse Ox 97 08/19/21 13:45 08/18/21 08/19/21 08/19/21 22:59 06:59 14:59 Intake Total 350 / 2030 1247.5 / 3277.5 100 / 100 Output Total 150 / 150 250 / 400 104 / 104 Balance 200 / 1880 997.5 / 2877.5 -4 / -4 Physical Exam Narrative: EXAM NARRATIVE: General: No acute distress, lethargic, AO x2-3, having complete conversation HEENT: PERRLA, pupils bilaterally equal and reactive Chest: Normal vesicular breath sounds, no added sounds, equal good air entry bilaterally CVS: S1-S2 regular, soft ejection systolic murmur at aortic area 1/6 with radiation to carotids, no tachycardia, no gallops, no rubs Abdomen: Soft, nontender, no organomegaly, bowel sounds present Neuro: No focal deficits, no facial deformity, AO x3, power 5/5 in all limbs, positive straight leg test Data : 08/19/21 01:58 08/19/21 01:58 Micro: Microbiology 08/18/21 12:19 MRSA Culture - Final Nose 08/16/21 23:10 Blood Culture - Preliminary Blood Methicillin Resis Staph Aureus 08/18/21 05:20 Blood Culture - Preliminary Blood NEGATIVE TO DATE 08/18/21 05:17 Blood Culture - Preliminary Blood NEGATIVE TO DATE A&P Assessment and plan (1) Staphylococcus aureus bacteremia: Status: Acute (2) Epidural abscess: Status: Acute (3) Discitis of lumbosacral region: Status: Acute (4) Lumbar radiculopathy: Status: Acute (5) ADITYA (acute kidney injury): Status: Acute (6) Fall: Status: Acute (7) Hyperkalemia: Resolved. Continue to hold losartan. Status: Resolved (8) Pulmonary embolism: Status: Acute Additional A&P Information Back pain: Discitis/epidural abscess: Appreciate Dr. Garcia's recommendation. We will follow up over wound culture results. Neurochecks to rule out saddle anesthesia and foot drop. MRSA bacteremia: Blood cultures +3 bottles staph aureus Repeat blood cultures so far negative. ID recommendations appreciated. Stop Zosyn. Continue vancomycin. Trough level 17-20. Possible retropharyngeal collection: Case discussed with Dr. Oconnor from ENT who reviewed the CT scan. States patient does have small retropharyngeal collection most likely hematoma from multiple cervical osteophytes from possible laceration during fall. Recommends monitoring for now. States for now patient does not require any surgical interventions. ADITYA: Baseline creatinine seems to be from 1.1-1.3. Creatinine at baseline today. Medical reconciliation done for nephrotoxic drugs. Continue to hold LORI and ARB's. Gentle IV hydration with normal saline at 75 cc an hour. Right shoulder pain: History of shoulder arthroplasty. Recent fall. Humerus x- ray. Unremarkable. No tenderness on palpation. No erythema. Moving her arm s pontaneously. Continue monitor shoulder for any changes. Additional work-up of sepsis as above. Hx of Pulmonary embolism Continue with Eliquis 1 mg/kg body weight q. 12 hourly. Restrictive lung disease: Hold leflunomide for now. Full code. Cardiac diet. Full dose Lovenox will help with DVT prophylaxis. Protonix for PUD prophylaxis. PT/OT evaluation. Attestations Medical Necessity Statement*: Patient requires further hospitalization for management of MRSA bacteremia secondary to epidural abscess/discitis Time Spent in Patient Care: Greater than 35 minutes (>than 50% of time spent in counselling and/or direct pt care on unit) . Coding Level of Care Code Acute Laundry Bag Punch Operator for [facility] F[facility] Diagnoses Staphylococcus aureus bacteremia R78.81; B95.61 Epidural abscess G06.2 Discitis of lumbosacral region M46.47 Lumbar radiculopathy M54.16 ADITYA (acute kidney injury) N17.9 Fall W19.XXXA Hyperkalemia E87.5 Pulmonary embolism I26.99
--- NOTE | 2021-08-19 13:59 | PC.NURSE ---
1359 Dr Mathur notified that 2/3 bottles for blood cultures positive for MRSA. Nicola Candelaria RN
--- NOTE | 2021-08-19 14:06 | PM.OP ---
Operative Report Date of procedure: August 19, 2021 Pre-op Diagnosis: epidural abscess L5/S1 Post-op diagnosis: same Procedure Done: 1. Laminectomy L5 2. Irrigation and debridement of epidural abscess Surgeon: Isaiah Garcia Space Sciences Director: Anam Sams Space Sciences Director: The library clerical assistant, Anam Sams, AMANDA was needed for his expertise under the microscope. He was important and necessary throughout the procedure to complete in a safe and timely manner. He assisted with patient positioning prepping and draping tissue retraction suctioning of the operative field protection of the dural sac and tissue closure Anesthesia: General Estimated blood loss (mL): 5 Condition: stable Disposition: PACU Procedure: Patient was brought to the operative suite placed in the prone position after undergoing anesthesia. All areas impingement well-padded.. Patient was prepped and draped normal sterile fashion. Skin incision was made over the L5-S1 level. Retractors were placed subperiosteal dissection was made out to the facet on the left side. Then 1 subperiosteal dissection was performed the right side a stable amount of pus came out this tissue was debrided and cultures were taken from this space. Next attention was brought to performing the laminectomy. Rongeur was used to bite spinous process and then a high-speed drill was used to perform the laminectomy Kerrison rongeur was used to finish out the laminectomy along where the ligamentum flavum attached. Once the ligamentum flavum was peeled back and segment of pus came out this was irrigated and once the pus had slowed down was clear that there was no dura posteriorly and symptomatic of nerve roots were exposed. At that point would continue to irrigate and then decided to close the wound place bank powder. And then we decided not to perform the decompression and irrigation debridement of the upper levels due to the residents of the bacteria at this level. I felt that it was better for the patient to not have multiple levels of exposed nerve roots. Wound was closed in a layered fashion. Sterile dressings were applied and patient was transferred to the PACU in stable condition.
[2021-08-19] MEDS: ketorolac 30 mg/mL INJ IVP (14:31)
[2021-08-19] MEDS: neomycin-poly-bacitracin oint 28 gm 28 APPLIC (14:33)
[2021-08-19] MEDS: vancomycin 1,000 MG in sodium chloride 0.9% 250 ML 250 MG IV (15:13)
[2021-08-19] MEDS: docusate sodium 100 mg Capsule PO (17:33)
[2021-08-19] MEDS: apixaban 5 mg Tablet PO (17:33)
[2021-08-19] MEDS: aspirin 81 mg EC Tablet PO (21:35)
[2021-08-19] MEDS: tizanidine 4 mg Tablet 2 MG PO (21:35)
[2021-08-19] MEDS: losartan 50 mg Tablet PO (21:35)
[2021-08-19] MEDS: HYDROcodone-acetaminophen 5-325 mg Tablet PO (22:19)
[2021-08-19] MEDS: enoxaparin 80 mg/0.8 mL Syringe 70 MG SUBCUT (22:45)
[2021-08-20] VITALS (11 sets, daily range): BP systolic 129–180; BP diastolic 71–90; PULSE 74–92; RESP 16–20; TEMP 36.1–36.9; O2SAT 93–96
[2021-08-20] MEDS: metoprolol tartrate 25 mg Tablet PO ×3 (00:19→20:13)
[2021-08-20] MEDS: sodium chloride 0.9% 1,000 ML 75 ML IV ×2 (01:41→13:46)
[2021-08-20 02:37] LABS: Basophils # 0.1 10^3/uL (0.0-0.1); Basophils % 0.5 %; Hematocrit 29.7 % (37.0-47.0); Hemoglobin 9.6 g/dL (11.5-15.3); Lymphocytes # 0.5 10^3/uL (0.8-4.8); Lymphocytes % 2.9 %; Mean Corpuscular HGB Conc 32.3 g/dL (30.0-36.0); Mean Corpuscular Hemoglobin 30.8 pg (28.0-34.0); Mean Corpuscular Volume 95.2 fl (81-99); Mean Platelet Volume 10.1 fL (7.4-10.4); Monocytes # 0.5 10^3/uL (0.2-0.9); Monocytes % 2.8 %; Neutrophils # 16.63 10^3/uL (1.8-7.7); Neutrophils % 92.5 %; Nucleated Red Blood Cells % 0 %; Platelet Count 239 10^3/cmm (130-400); Red Blood Count 3.12 10^6/uL (4.1-5.3); Red Cell Distribution Width 12.7 % (12.1-15.1)
[2021-08-20 03:10] LABS: Alanine Aminotransferase 10 U/L (0-33); Alkaline Phosphatase 89 IU/L (35-105); Anion Gap 19.2 (5-19); Aspartate Amino Transferase 21 U/L (0-32); Blood Urea Nitrogen 55 mg/dL (8-23); Calcium 7.8 mg/dL (8.5-10.5); Carbon Dioxide 17 mmol/L (22-29); Chloride 103 mmol/L (98-107); Globulin 3.7 g/dL (1.3-4.6); Glucose 412 mg/dL (65-115); Osmolality Calculated 311 mOsm/kg (285-295); Potassium 5.2 mmol/L (3.5-5.1); Sodium 134 mmol/L (136-145); Total Bilirubin 0.9 mg/dL (0.15-1.2); Total Protein 5.7 g/dL (6.6-8.7)
[2021-08-20] MEDS: levothyroxine 50 mcg Tablet PO (06:18)
--- NOTE | 2021-08-20 06:20 | PC.NURSE ---
Noticed two different orders for Lovenox, one was for 40mg Q 24 hours and the other was 70mg Q 12 hours. Held the am dose of 40mg since she was given 70mg last evening. Dr. Garcia was at bedside, informed him of this. Per Dr. Garcia okay to discontinue the 40mg dose due to her history he said she will need the higher dose of Lovenox.
[2021-08-20] MEDS: HYDROcodone-acetaminophen 5-325 mg Tablet PO (06:43)
--- NOTE | 2021-08-20 07:07 | P.PN_ITS ---
Subjective Subjective: Interval history: pain controlled at this point Vitals/I&O/Wt Last Vital Signs Temp 97.9 F 08/20/21 04:00 Pulse 92 08/20/21 04:00 Resp 17 08/20/21 04:00 BP 146/74 08/20/21 04:00 Pulse Ox 95 08/20/21 04:00 08/19/21 08/20/21 08/20/21 22:59 06:59 14:59 Intake Total 1070 / 1625 645 / 2270 Output Total 700 / 804 Balance 1070 / 1521 -55 / 1466 Physical Exam Narrative: EXAM NARRATIVE: no changes from yesterday Data : 08/20/21 01:50 08/20/21 01:50 Micro: Microbiology 08/18/21 12:19 MRSA Culture - Final Nose 08/16/21 23:10 Blood Culture - Preliminary Blood Methicillin Resis Staph Aureus 08/18/21 05:20 Blood Culture - Preliminary Blood NEGATIVE TO DATE 08/18/21 05:17 Blood Culture - Preliminary Blood NEGATIVE TO DATE A&P Assessment and plan (1) Epidural abscess: POD#1 epidural abscess I+D Status: Acute Attestations Medical Necessity Statement*: per primary service Coding Level of Care Code Acute Window Unit Air Conditioning Mechanic for g Fwd Diagnoses Epidural abscess G06.2
--- NOTE | 2021-08-20 07:15 | PM.CONSULT ---
Providers/Reason For Consult Consulting Physician/Specialty*: Kailey Brock MD Reason for Consult*: MRSA septicemia, epidural abscess Attending Physician: Shayne Coon MD Primary Care Provider: Efe Carpenter DO History of Present Illness History of Present Illness Zoila Brantley is a 81 year old female with a past medical history outlined below, admitted on August 16, 2021 with chief complaints of fever, sepsis, progressively worsening back pain and lower extremity weakness which patient estimates has been going on for about 4 months now. Work-up has revealed MRSA bacteremia, CT and MRI of the spine with epidural abscess Large collection extending from L1-L5 S1 disc space Throughout the lumbar spine. With compression of the nerve roots and deformity of the nerve roots. Additional soft tissue injury along the right lateral lumbar spine extending into surround the facet joints. These changes are new since CT of 08/06/2021. Thoracic and cervical spine without any epidural abscess. However cervical spine MRI picked up a complex fluid in the retropharyngeal space, increased since August 16, 2021. On August 19, 2021 patient was taken to the OR with spine surgery and underwent laminectomy L5 and irrigation and debridement of the epidural abscess. Per operative notes and discussion with Dr. Garcia, upon peeling of the ligamentum flavum, pus was encountered, dura was compromised, nerve roots were exposed. Decompression and I&D of the upper level was subsequently deferred given anatomical complexity and high risk of introducing infection into nerves and CSF space. Patient was last noted to be febrile on August 17, 2021. Leukocytosis noted to be 28 upon admission, trending down to 18. In late July leukocytosis was at 15. Review of provider notes show that patient has been diagnosed with episodes of diverticulitis in 07/2021 and ileus and enteritis in February 2021. Most recent CT from 08/16 is without any acute intrabdominal collections. There is no h/o direct trauma or surgical intervnetions on the back. She denies any odynophagia, however on telling her specifically about potential collection in the retropharyngeal space, she relays that the right side of her neck, area around molar and right ear has been sore for at least 4 months. She did visit with her dentist and had some cleaning, however states no concerning findings were found on oral exam at the time. no h/o root dontrell treaments , tooth extraction or dental procedures. Review of Systems General: Reports: 10 or more systems reviewed and unremarkable except in HPI and below Const: Denies: fever(s), chills or body aches Eyes: Denies: change in vision, blurry vision or photophobia ENMT: Reports: hoarseness; Denies: throat pain, enlarged tonsils, odynophagia or nasal congestion Card: Denies: chest pain, palpitations, irregular heart rhythm, edema, swelling of feet/ankles, lightheadedness, pre-syncope, dyspnea on exertion or orthopnea Resp: Denies: dyspnea, productive cough, non-productive cough, wheezing, stridor, pain on inspiration, change in phlegm color, hemoptysis or chest congestion GI: Denies: abdominal pain, nausea, vomiting, hematemesis, coffee ground emesis, dysphagia, heartburn, diarrhea, constipation, GI cramping, change in stool character, hematochezia or melena : Denies: flank pain, difficulty voiding, dysuria, urinary frequency, urinary urgency, urinary hesitancy or hematuria Musc: Denies: neck pain, back pain, extremity pain, joint swelling, joint warmth or deformity Neuro: Denies: headache(s), numbness in extremities, weakness in extremities, sensory changes, difficulty walking, frequent falls, dizziness, vertigo, behavioral changes, Slurred speech present or seizure-like activity Psych: Denies: anxiety, depression, suicidal ideation or homicidal ideation Endo: Denies: polyuria, polydipsia, tired all the time, cold intolerance or hot flashes Vargas/Lymph: Denies: easy bruising or easy bleeding Meds/Allergies Home Medications and Allergies Home Medications Medication Instructions Recorded Confirmed Last Taken Type aspirin 81 mg tablet,delayed 81 mg PO BEDTIME 12/19/20 08/17/21 08/03/21 History release coenzyme Q10 100 mg capsule 200 mg PO BEDTIME 12/19/20 08/17/21 01/27/21 20:30 History levothyroxine 50 mcg tablet 50 mcg PO DAILY@07 12/19/20 08/17/21 08/04/21 07:00 History pantoprazole 40 mg tablet,delayed 40 mg PO BEDTIME 12/19/20 08/17/21 01/27/21 20:30 History release tizanidine 2 mg tablet 2 mg PO BEDTIME 12/19/20 08/17/21 08/03/21 History cholecalciferol (vitamin D3) 50 100 mcg PO DAILY cap 05/27/21 08/17/21 Unknown History mcg (2,000 unit) capsule fenofibrate 160 mg tablet 160 mg PO BEDTIME 05/27/21 08/17/21 Unknown History acetaminophen [Tylenol Extra 1,000 mg PO Q4H PRN 08/04/21 08/17/21 Unknown History Strength] albuterol sulfate 2 puff INHALATION Q6H PRN 08/04/21 08/17/21 Unknown History cyanocobalamin (vitamin B-12) 1,000 mcg IM Q30D 08/04/21 08/17/21 08/13/21 History lactobacillus combination no.4 3,000 mmu cells PO DAILY #0 08/04/21 08/17/21 Unknown History [Probiotic] valsartan 40 mg PO BEDTIME 08/04/21 08/17/21 08/03/21 History valsartan 80 mg PO BEDTIME 08/04/21 08/17/21 08/03/21 History apixaban [Eliquis] 5 mg PO BID #120 tab 08/07/21 08/17/21 Unknown Rx gabapentin 300 mg PO TID 08/17/21 08/17/21 Unknown History Allergies Allergy/AdvReac Type Severity Reaction Status Date / Time amoxicillin Allergy ALGY-Rash Verified 08/04/21 09:56 oxycodone Allergy ALGY-Hives Verified 08/16/21 21:00 hydroxychloroquine AdvReac Intermediate dizzy and Verified 08/04/21 09:56 lightheaded and groggy Sulfa (Sulfonamide AdvReac Intermediate pt states Verified 08/04/21 09:56 Antibiotics) 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 Current Medications Current Medications Generic Name Dose Route Start Last Admin Trade Name Freq PRN Reason Stop Dose Admin Amlodipine Besylate 10 mg 08/20/21 09:00 08/20/21 08:06 Amlodipine 10 Mg Tablet PO 10 mg DAILY PJ Administration Aspirin 81 mg 08/19/21 21:00 08/19/21 21:35 Aspirin 81 Mg Ec Tablet PO 81 mg BEDTIME PJ Administration Docusate Sodium 100 mg 08/19/21 18:00 08/20/21 17:56 Docusate Sodium 100 Mg Capsule PO 100 mg BID PJ Administration Enoxaparin Sodium 70 mg 08/18/21 11:30 08/19/21 22:45 Enoxaparin 80 Mg/0.8 Ml Syringe SUBCUT 70 mg Q12H PJ Administration Gabapentin 300 mg 08/18/21 15:00 08/20/21 13:46 Gabapentin 300 Mg Capsule PO 300 mg TID PJ Administration Sodium Chloride 1,000 mls @ 75 mls/hr 08/17/21 02:30 08/20/21 13:46 Sodium Chloride 0.9% IV 75 mls/hr .[id number] PJ Administration Vancomycin HCl 1,000 mg/ 250 mls @ 250 mls/hr 08/19/21 16:30 08/20/21 17:54 Sodium Chloride IV 250 mls/hr Q24H PJ Administration Imipenem/Cilastatin Sodium 250 100 mls @ 200 mls/hr 08/20/21 11:30 08/20/21 13:28 mg/ Sodium Chloride IV Infused Q6H PJ Infusion Protocol Ketorolac Tromethamine 30 mg 08/19/21 13:56 08/19/21 14:31 Ketorolac 30 Mg/Ml Inj IVP 30 mg Q6H PRN Administration BREAKTHROUGH PAIN Lanolin 1 applic 08/18/21 11:04 08/18/21 12:13 Lanolin Oint 7 Gm TOPICAL 1 appful PRN PRN Administration DRYNESS Levothyroxine Sodium 50 mcg 08/19/21 07:00 08/20/21 06:18 Levothyroxine 50 Mcg Tablet PO 50 mcg DAILY@07 PJ Administration Metoprolol Tartrate 25 mg 08/19/21 21:00 08/20/21 08:06 Metoprolol Tartrate 25 Mg Tablet PO 25 mg BID@0900,2100 PJ Administration Morphine Sulfate 1 mg 08/18/21 11:45 08/19/21 15:12 Morphine 4 Mg/Ml Sdv 1 Ml IVP 1 mg Q4H PRN Administration SEVERE PAIN Non-Formulary Medication 160 mg 08/18/21 21:00 08/19/21 21:36 Fenofibrate PO Not Given BEDTIME PJ Non-Formulary Medication 200 mg 08/19/21 21:00 08/19/21 21:36 Coenzyme Q10 [Co Q-10] PO Not Given BEDTIME PJ Non-Formulary Medication 3,000 mmu cells 08/20/21 09:00 08/20/21 08:24 Lactobacillus Combination No.4 [Probiotic] PO Not Given DAILY PJ Pantoprazole Sodium 40 mg 08/17/21 09:00 08/20/21 08:[address] 40 Mg Tablet PO 40 mg DAILY PJ Administration Tizanidine HCl 2 mg 08/18/21 21:00 08/19/21 21:35 Tizanidine 4 Mg Tablet PO 2 mg BEDTIME PJ Administration Tramadol HCl 50 mg 08/18/21 11:45 08/20/21 13:46 Tramadol 50 Mg Tablet PO 50 mg Q6H PRN Administration MODERATE PAIN Vitamin D 5,000 unit 08/20/21 09:00 08/20/21 08:06 Cholecalciferol (Vitamin D3) 5,000 Unit Tablet PO 5,000 unit DAILY PJ Administration PFSH Acute PFSH: Medical History Chest pain Generalized anxiety disorder Hypertension Inflammatory arthritis Joint pain Restrictive airway disease Shortness of Breath Thyroid disease Surgical History History of appendectomy History of hysterectomy History of repair of rotator cuff Family History Other CAD (coronary artery disease) Cancer Diabetes Family history of premature coronary artery disease Hyperlipidemia Hypertension Lung disease Stroke Denies family history of Rheumatoid arthritis Lupus Dementia Psychiatric illness Chronic kidney disease (CKD) Anesthesia complication Bleeding disorder Social History Smoking and tobacco status: never smoked Second hand smoke exposure: Yes Smoking risk assessment/counseling performed?: Yes Alcohol intake: never Lives independently: Yes Household members: none Marital status: / service: No Current occupational status: employed and retired Current occupation: part-time at [employer] Pets and animals: Yes History of recent travel: No Current gender identity: Female Female Reproductive History: Date of last menstrual period: 02/06/21 Vitals/I&O/Wt Last Vital Signs Temp 97.4 F L 08/20/21 18:00 Pulse 79 08/20/21 18:00 Resp 18 08/20/21 18:00 BP 180/90 08/20/21 18:00 Pulse Ox 93 08/20/21 18:00 08/20/21 08/20/21 08/20/21 06:59 14:59 22:59 Intake Total 645 / 2270 1326.35 / 1326.35 Output Total 700 / 804 Balance -55 / 1466 1326.35 / 1326.35 Physical Exam Narrative: EXAM NARRATIVE: General: Lying in bed in no acute distress, AO x3, reports some memory gaps, uses repetitive sentences, has just woken up from sleep HEENT: PERRLA, pupils bilaterally equal and reactive, pallors not present Chest: Normal vesicular breath sounds, no added sounds, equal good air entry bilaterally CVS: S1-S2 regular, no murmurs, no tachycardia, no gallops, no rubs Abdomen: Soft, nontender, no organomegaly, bowel sounds present Neuro: No focal deficits, no facial deformity, AO x3, power 5/5 in all limbs Extremities: Surgical drssing in [facility], not opened for exam Data Micro: Micro: Microbiology 08/20/21 15:30 Blood Culture - Pr eliminary Blood SPECIMEN [facility] 08/20/21 15:35 Blood Culture - Pr eliminary Blood SPECIMEN [facility] 08/19/21 12:32 Gram Stain - Final Other Source Wound Culture - Pr eliminary Staphylococcus aureus 08/19/21 12:45 Gram Stain - Final Back Wound Culture - Pr eliminary Staphylococcus aureus 08/18/21 05:20 Blood Culture - Pr eliminary Blood 08/18/21 12:19 MRSA Culture - Fin al Nose 08/16: Blood cx : MRSA s/t vancomycin GERTRUDIS 2, daptomycin GERTRUDIS 0.5, linezolid GERTRUDIS 4. 08/18: Blood cx : GPC in clusters 08/19: wound cx: MRSA Other Data: Attestation for Other Data: I personally reviewed and interpreted the following: Other data: Laboratory Results WBC 16.5 10^3/uL (4.0 -10.0) H 08/21/21 06:07 RBC 2.89 10^6/uL (4.1 -5.3) L 08/21/21 06:07 Hgb 8.7 g/dL (11.5-15 .3) L 08/21/21 06:07 Hct 28.4 % (37.0-47.0 ) L 08/21/21 06:07 MCV 98.3 fl (81-99) 08/21/21 06:07 MCH 30.1 pg (28.0-34. 0) 08/21/21 06:07 MCHC 30.6 g/dL (30.0-3 6.0) D 08/21/21 06:07 RDW 13.0 % (12.1-15.1 ) 08/21/21 06:07 Plt Count 239 10^3/cmm (130 -400) 08/21/21 06:07 MPV 10.3 fL (7.4-10.4 ) 08/21/21 06:07 Neut % (Auto) 90.6 % 08/21/21 06:07 Lymph % (Auto) 5.3 % 08/21/21 06:07 [place] % (Auto) 1.7 % 08/21/21 06:07 Eos % (Auto) 0.8 % 08/21/21 06:07 Baso % (Auto) 0.4 % 08/21/21 06:07 Neut # (Auto) 14.94 10^3/uL (1. 8-7.7) H 08/21/21 06:07 Lymph # (Auto) 0.9 10^3/uL (0.8- 4.8) 08/21/21 06:07 [place] # (Auto) 0.3 10^3/uL (0.2- 0.9) 08/21/21 06:07 Eos # (Auto) 0.1 10^3/uL (0.0- 0.8) 08/21/21 06:07 Baso # (Auto) 0.1 10^3/uL (0.0- 0.1) 08/21/21 06:07 Nucleated RBC % (a uto) 0 % 08/21/21 06:07 Nucleated RBCs # 0.0 /100WBC 08/21/21 06:07 ESR 6 mm/hr (0-15) 08/19/21 01:58 Sodium 139 mmol/L (136-1 45) 08/21/21 06:07 Potassium 4.6 mmol/L (3.5-5 .1) 08/21/21 06:07 Chloride 109 mmol/L (98-10 7) H 08/21/21 06:07 Carbon Dioxide 20 mmol/L (22-29) L 08/21/21 06:07 Anion Gap 14.6 (5-19) 08/21/21 06:07 BUN 55 mg/dL (8-23) H 08/21/21 06:07 Creatinine 1.3 mg/dL (0.5-0. 9) H 08/21/21 06:07 GFR Calculation Not Reportable 08/21/21 06:07 Glucose 191 mg/dL (65-115 ) H 08/21/21 06:07 POC Glucose 210 mg/dL (70-110 ) H 08/21/21 07:07 Estimat Average Gl ucose 189 08/21/21 06:07 Calculated Osmolal ity 308 mOsm/kg (285- 295) H 08/21/21 06:07 Lactic Acid 1.5 mmol/L (0.5-2 .2) 08/16/21 23:10 Calcium 8.2 mg/dL (8.5-10 .5) L 08/21/21 06:07 Magnesium 2.2 mg/dL (1.7-2. 3) 08/18/21 05:17 Iron 17 ug/dL (37-145) L 08/18/21 05:17 TIBC 140 mcg/dl 08/18/21 05:17 % Saturation 12.1 % (20-50) L 08/18/21 05:17 Unsat Iron Binding 123 ug/dL (112-34 7) 08/18/21 05:17 Total Bilirubin 0.5 mg/dL (0.15-1 .2) 08/21/21 06:07 AST 15 U/L (0-32) 08/21/21 06:07 ALT 9 U/L (0-33) 08/21/21 06:07 Alkaline Phosphata se 86 IU/L (35-105) 08/21/21 06:07 Creatine Kinase 121 U/L (26-192) 08/21/21 06:07 C-Reactive Protein 426.3 mg/L (0.0-4 .9) H 08/19/21 01:58 Total Protein 5.6 g/dL (6.6-8.7 ) L 08/21/21 06:07 Albumin 2.0 g/dL (3.5-5.2 ) L 08/21/21 06:07 Globulin 3.6 g/dL (1.3-4.6 ) 08/21/21 06:07 Procalcitonin 1.94 ng/mL (0-0.5 ) H 08/18/21 05:17 TSH 0.39 uIU/mL (0.27 -4.20) 08/18/21 05:17 Urine Color Yellow (Yellow) 08/16/21 22:08 Urine Appearance Clear (CLEAR) 08/16/21 22:08 Urine pH 5 (5-7) 08/16/21 22:08 Ur Specific Gravit y 1.020 (1.005-1.0 30) 08/16/21 22:08 Urine Protein Neg (Negative) 08/16/21 22:08 Urine Glucose (UA) 4+ (Normal) H 08/16/21 22:08 Urine Ketones 1+ (Negative) H 08/16/21 22:08 Urine Blood 2+ (Negative) H 08/16/21 22:08 Urine Nitrate Negative (Negati ve) 08/16/21 22:08 Urine Bilirubin Neg (Negative) 08/16/21 22:08 Urine Urobilinogen Norm mg/dL (Negat scott) 08/16/21 22:08 Ur Leukocyte Khushi ase Negative (Negati ve) 08/16/21 22:08 Urine RBC 0-4 /hpf (0-2) H 08/16/21 22:08 Urine WBC 0-4 /hpf (0-5) H 08/16/21 22:08 Ur Eosinophil Smea r 0 (0-0) 08/20/21 18:00 Ur Squamous Epith Cells 0-4 /hpf (0-5) H 08/16/21 22:08 Amorphous Sediment 1+ /hpf 08/16/21 22:08 Urine Bacteria 1+ /hpf (NONE) H 08/16/21 22:08 Urine Eosinophils No eosinophils se en 08/20/21 18:00 Ur Random Microalb umin 12 ug/dL (0-20) 08/20/21 18:00 Ur Random Sodium 33 mmol/L 08/20/21 18:00 Ur Random Potassiu m 28 mmol/L 08/20/21 18:00 Ur Random Chloride 27 mmol/L 08/20/21 18:00 Urine Creatinine 55 mg/dL (28-217) 08/20/21 18:00 Urine Creatinine 56 mg/dL (28-217) 08/20/21 18:00 Microalb/Creat Rat io 218 mg/dL (0-20) H 08/20/21 18:00 Vancomycin Trough 15.3 ug/mL (10-15 ) H 08/20/21 15:35 Impressions Humerus X-Ray 08/16/21 21:07 IMPRESSION: No acute findings.Non acute findings as described above. Lumbar Spine CT 08/16/21 21:07 IMPRESSION: There heterogeneous density along the posterior aspect of the L5 vertebra, left greater than right effacing the left lateral recess. This may represent a disc extrusion however is not optimally visualized. There are small foci of air posterior to this region of heterogeneous density. MRI of the lumbar spine is recommended for further evaluation. Radiation Dose CTDIVOL = (mGy): DLP = 2693.16 (mGy-cm) Chest X-Ray 08/16/21 21:56 IMPRESSION: No acute findings.Non acute findings as described above. Abdomen/Pelvis CT 08/16/21 22:26 IMPRESSION: No acute intra-abdominal findings.Non acute findings as described above. Please see the CT scan of the lumbar spine for description of the lumbar spine. Radiation Dose CTDIVOL = (mGy): DLP = 1856.56 (mGy-cm) Lumbar Spine MRI 08/18/21 07:07 IMPRESSION: 1. Significant abnormal appearance of the lumbar spine. 2. Intermediate, mixed posterior epidural collection throughout the lumbar spine. Collection extends from L1 to the L5-S1 disc space. There is compression upon the nerve roots and deformity of the nerve roots. No IV contrast was given for this examination. I favor this is probably epidural blood may be from recent trauma or injections. Differential includes hematoma and abscess. None of these changes were noted on the prior CT of 08/06/2021. 3. There is additional extensive soft tissue injury along the RIGHT lateral lumbar spine extending to surround the facet joints. Most focal collection just to the RIGHT of the L5 spinous process measures 2.6 x 1.7 cm. Abscess versus hematoma. Notified Dr. Mathur at 08/18/2021 11:20 AM. Unable to notify the physician. Message left on his answering service. Cervical Spine MRI 08/18/21 18:55 IMPRESSION: 1. Complex fluid in the retropharyngeal space, increased since 08/16/2021. Possible abscess or hematoma. 2. No epidural abscess. 3. Degenerative findings above. Radiation Dose CTDIVOL = (mGy): DLP = (mGy-cm) Thoracic Spine MRI 08/18/21 18:55 IMPRESSION: No acute findings. Radiation Dose CTDIVOL = (mGy): DLP = (mGy-cm) Lumbar Spine X-Ray 08/19/21 00:00 IMPRESSION: Lumbar spine level localization as above. Chest CT 08/20/21 18:27 IMPRESSION: No acute pulmonary abnormality. Radiation Dose CTDIVOL = (mGy): DLP = 1022.73 (mGy-cm) A&P Assessment and plan (1) Epidural abscess: Status: Acute (2) Septicemia: Status: Acute (3) Retropharyngeal abscess: Status: Acute Additional A&P Information Patient presenting with MRSA septicemia, + blood cx with MRSA, epidural abscess likely from bacteremic seeding No direct trauma, findings appear to be new since CT dated 08/06/21 Patient reports a h/o 3-4 months of increasing back pain and LE weakness Source of bacetremia not entirely clear, CT abd/ pelvis without any collections, though she has had recent episodes of diverticulitis. Incidentally noted collection in he retropharyngeal space on cervical MRI, may be an abscess, however would expect symptoms such as odynophagia, dysphagia, voice change to be more marked. Recommend ENT consult and evaluation to assess for drainage/sampling of contents of collection. Denies any dental procedures other than cleaning. 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 No localized joint swelling appreciated. TTE from 08/04 with thickened mitral valve, echogenic focus in ascending thoracic aorta, possible thrombus -- ?? mycotic aneursym vs infectious aortitis?? unable to perform CTA at this time for further characterization given worsening cr, recommend POPPY. s/p attempted I&D of lumbar abscess on 08/19,OR findings discussed with Dr. Garcia from spine surgery, partial I&D perfromed, higher levels not attempted due to risk of introducing infection into more levels. Extensive bony, soft tissue and dura changes encountered. OR cx with MRSA. Currently on iv Vancomycin for organism directed therapy, trough due today. Target level 18-20. Closely monitor renal function, cr trending up to 1.[address] chest to evaluate for pulmonary seeding Will follow Coding Level of Care Code Acute Electronic Drafter for Chg Fwd Diagnoses Epidural abscess G06.2 Septicemia A41.9 Retropharyngeal abscess J39.0
[2021-08-20] MEDS: pantoprazole DR 40 mg Tablet PO (08:06)
[2021-08-20] MEDS: amlodipine 10 mg Tablet PO (08:06)
[2021-08-20] MEDS: docusate sodium 100 mg Capsule PO ×2 (08:06→17:56)
[2021-08-20] MEDS: cholecalciferol (vitamin D3) 5,000 unit Tablet 5000 UNIT PO (08:06)
[2021-08-20] MEDS: gabapentin 300 mg Capsule PO ×3 (08:26→20:12)
--- NOTE | 2021-08-20 09:18 | PC.SOCIAL ---
IMM update IMM updated with son who is in the room with patient. Verbalized an understanding. Initialled,dated, timed, and placed in chart.
[2021-08-20] MEDS: insulin regular-human 10 UNIT in SYRINGE 1 EACH IVP (12:15)
[2021-08-20] MEDS: calcium gluconate 0.1 gm/mL 10% SDV 10mL 1 GM IVP (12:15)
[2021-08-20] MEDS: dextrose 50% syringe 50 mL IVP (12:15)
--- NOTE | 2021-08-20 12:50 | PC.NURSE ---
Dr. Coon notified at this time via telephone of patient noted to have increase jerks in extremities with movements. Vital signs charted and noted to be WNL for patient. No new orders received at this time. Will continue to monitor.
[2021-08-20 13:27] LABS: Erythrocyte Sedimentation Rate 6 mm/hr (0-15)
[2021-08-20] MEDS: TRAMadol 50 mg Tablet PO (13:46)
--- NOTE | 2021-08-20 14:03 | PM.PN ---
Subjective Subjective: Interval history: No acute events overnight. Underwent laminectomy and wound wash with orthopedics yesterday. Tolerated procedure well. On examination laying in bed. States pain is better. Anxious because of the disease. Son at bedside. Having occasional chills. Denies any bowel accidents. Denies any numbness in feet. States she is not feeling hungry, denies bloating or diarrhea. She seems to have a bulging in her soft palate which has been there for over couple of weeks gradually increasing but bothering today. Patient had not mentioned about the swelling before. States occasional discomfort and difficulty while swallowing. Denies dysphagia. We discussed in detail regarding the severity of infection, possible retropharyngeal abscess, possible need of long-term IV antibiotics for at least 6 months and treatment plans in detail. Yesterday postoperatively due to issues with transfer process patient received Eliquis, full dose Lovenox and losartan which were all supposed to be held. Vitals/I&O/Wt Last Vital Signs Temp 97.5 F L 08/20/21 12:00 Pulse 89 08/20/21 12:00 Resp 20 H 08/20/21 12:00 BP 152/71 08/20/21 12:00 Pulse Ox 95 08/20/21 12:00 08/19/21 08/20/21 08/20/21 22:59 06:59 14:59 Intake Total 1070 / 1625 645 / 2270 1126.35 / 1126.35 Output Total 700 / 804 Balance 1070 / 1521 -55 / 1466 1126.35 / 1126.35 Physical Exam Narrative: EXAM NARRATIVE: General: No acute distress, lethargic, AO x3, having complete conversation, anxious, dehydrated HEENT: PERRLA, pupils bilaterally equal and reactive Chest: Normal vesicular breath sounds, no added sounds, equal good air entry bilaterally CVS: S1-S2 regular, soft ejection systolic murmur at aortic area 1/6 with radiation to carotids, no tachycardia, no gallops, no rubs Abdomen: Soft, nontender, no organomegaly, bowel sounds present Neuro: No focal deficits, no facial deformity, AO x3, power 5/5 in all limbs, positive straight leg test Data : 08/20/21 01:50 08/20/21 01:50 Micro: Microbiology 08/19/21 12:32 Gram Stain - Final Other Source Wound Culture - Preliminary Staphylococcus aureus 08/19/21 12:45 Gram Stain - Final Back Wound Culture - Preliminary Staphylococcus aureus 08/18/21 05:20 Blood Culture - Preliminary Blood 08/18/21 12:19 MRSA Culture - Final Nose 08/16/21 23:10 Blood Culture - Preliminary Blood Methicillin Resis Staph Aureus A&P Assessment and plan (1) Staphylococcus aureus bacteremia: Status: Acute (2) Epidural abscess: Status: Acute (3) Discitis of lumbosacral region: Status: Acute (4) Lumbar radiculopathy: Status: Acute (5) ADITYA (acute kidney injury): Status: Acute (6) Fall: Status: Acute (7) Hyperkalemia: Resolved. Continue to hold losartan. Status: Resolved (8) Pulmonary embolism: Status: Acute Additional A&P Information Back pain: Discitis/epidural abscess: Appreciate Dr. Gracia's recommendation. Cultures consistent with GPC's. Neurochecks to rule out saddle anesthesia and foot drop. MRSA bacteremia: Repeat blood cultures from August 18 1 out of 3 bottles positive. Repeat blood cultures today. ID recommendations appreciated. Continue with imipenem and vancomycin. Trough level 17-20. Possible retropharyngeal collection: Case discussed with ENT again regarding over findings of magnolia purulence and concern for retropharyngeal abscess with soft palate swelling noticed today. Pulmonary consulted. Will see today. Switch diet to mechanical soft. ADITYA: Creatinine 1.3 today. Patient received losartan overnight. Medical reconciliation to be done for nephrotoxic drugs. Continue to hold LORI and ARB's. Gentle IV hydration with normal saline at 75 cc an hour. Hyperkalemia: Potassium again elevated today. Calcium gluconate, insulin 10 units with D50. Repeat at 3 PM. Right shoulder pain: History of shoulder arthroplasty. Recent fall. Humerus x-ray. Unremarkable. No tenderness on palpation. No erythema. Moving her arm spontaneously. Continue monitor shoulder for any changes. Additional work-up of sepsis as above. Hx of Pulmonary embolism Continue with Eliquis 1 mg/kg body weight q. 12 hourly. Will restart from 08/21 Restrictive lung disease: Hold leflunomide for now. Full code. Mechanical soft cardiac Full dose Lovenox will help with DVT prophylaxis. Protonix for PUD prophylaxis. PT/OT evaluation. Out of bed to chair. Discussed in detail with patient and patient's sons at bedside. We discussed the OR findings of severe purulence which had invaded to the dura with possible CSF leak at L5 level. We also discussed concerns for the same process going down to S1 as well with concerns for retropharyngeal abscess. We discussed orthopedic recommendations of prolonged IV antibiotics and if needed going back to the OR for further washout if patient has more neurological deficits. We discussed that unfortunately going for an extensive procedure right now as per Dr. Garcia's recommendations could lead to more extensive nerve injury along with even delayed healing because of possible CSF leak. We discussed possible transfer to a higher center with neurosurgeon. We also discussed most likely even at higher center patient would need to be IV antibiotics with monitoring like being done currently and if worsens neurologically then to go for a neurosurgical procedure. Both son and patient verbalized understanding. All the questions were answered. They state for now they would want to continue the current treatment and our aware of prolonged IV antibiotic course honorary to do what ever needed. Attestations Medical Necessity Statement*: Requires further hospitalization for management of MRSA bacteremia, epidural abscess, retropharyngeal abscess, ADITYA Time Spent in Patient Care: Greater than 35 minutes (>than 50% of time spent in counselling and/or direct pt care on unit). Coding Level of Care Code Acute Sustainable Design Coordinator for [facility] Fwd Diagnoses Staphylococcus aureus bacteremia R78.81; B95.61 Epidural abscess G06.2 Discitis of lumbosacral region M46.47 Lumbar radiculopathy M54.16 ADITYA (acute kidney injury) N17.9 Fall W19.XXXA Hyperkalemia E87.5 Pulmonary embolism I26.99
--- NOTE | 2021-08-20 14:47 | PC.NURSE ---
This nurse and COMMUNITY SPORTS COORDINATOR assisted patient from chair back to bed. Upon transfer patients legs were noted to become stiff. Once placed in bed and resting no issues were noted.
--- NOTE | 2021-08-20 15:05 | PC.NURSE ---
Drsg to back changed at this time due to drainage. Patient tolerated well.
--- NOTE | 2021-08-20 15:58 | PM.CONSULT ---
Providers/Reason For Consult Consulting Physician/Specialty*: Ezekiel Roque MD, Otolaryngology Reason for Consult*: Concern of oropharyngeal or peritonsillar abcess. Attending Physician: Shayne Coon MD Primary Care Provider: Efe Carpenter DO History of Present Illness History of Present Illness Zoila Brantley is a 81 year old female admitted with epidural abcess and septicemia positive for Staph aureus following dental cleaning.Question of peritonsillar abcess following drainage of epidural abcess. No painin throat at this time. No breathing difficulty. No problem opening her mouth. Review of Systems General: Reports: 10 or more systems reviewed and unremarkable except in HPI and below Meds/Allergies Home Medications and Allergies Home Medications Medication Instructions Recorded Confirmed Last Taken Type aspirin 81 mg tablet,delayed 81 mg PO BEDTIME 12/19/20 08/17/21 08/03/21 History release coenzyme Q10 100 mg capsule 200 mg PO BEDTIME 12/19/20 08/17/21 01/27/21 20:30 History levothyroxine 50 mcg tablet 50 mcg PO DAILY@07 12/19/20 08/17/21 08/04/21 07:00 History pantoprazole 40 mg tablet,delayed 40 mg PO BEDTIME 12/19/20 08/17/21 01/27/21 20:30 History release tizanidine 2 mg tablet 2 mg PO BEDTIME 12/19/20 08/17/21 08/03/21 History cholecalciferol (vitamin D3) 50 100 mcg PO DAILY cap 05/27/21 08/17/21 Unknown History mcg (2,000 unit) capsule fenofibrate 160 mg tablet 160 mg PO BEDTIME 05/27/21 08/17/21 Unknown History acetaminophen [Tylenol Extra 1,000 mg PO Q4H PRN 08/04/21 08/17/21 Unknown History Strength] albuterol sulfate 2 puff INHALATION Q6H PRN 08/04/21 08/17/21 Unknown History cyanocobalamin (vitamin B-12) 1,000 mcg IM Q30D 08/04/21 08/17/21 08/13/21 History lactobacillus combination no.4 3,000 mmu cells PO DAILY #0 08/04/21 08/17/21 Unknown History [Probiotic] valsartan 40 mg PO BEDTIME 08/04/21 08/17/21 08/03/21 History valsartan 80 mg PO BEDTIME 08/04/21 08/17/21 08/03/21 History apixaban [Eliquis] 5 mg PO BID #120 tab 08/07/21 08/17/21 Unknown Rx gabapentin 300 mg PO TID 08/17/21 08/17/21 Unknown History Allergies Allergy/AdvReac Type Severity Reaction Status Date / Time amoxicillin Allergy ALGY-Rash Verified 08/04/21 09:56 oxycodone Allergy ALGY-Hives Verified 08/16/21 21:00 hydroxychloroquine AdvReac Intermediate dizzy and Verified 08/04/21 09:56 lightheaded and groggy Sulfa (Sulfonamide AdvReac Intermediate pt states Verified 08/04/21 09:56 Antibiotics) she cant remember reaction dj former hand Current Medications Current Medications Generic Name Dose Route Start Last Admin Trade Name Freq PRN Reason Stop Dose Admin Amlodipine Besylate 10 mg 08/20/21 09:00 08/20/21 08:06 Amlodipine 10 Mg Tablet PO 10 mg DAILY PJ Administration Aspirin 81 mg 08/19/21 21:00 08/19/21 21:35 Aspirin 81 Mg Ec Tablet PO 81 mg BEDTIME PJ Administration Docusate Sodium 100 mg 08/19/21 18:00 08/20/21 08:06 Docusate Sodium 100 Mg Capsule PO 100 mg BID PJ Administration Enoxaparin Sodium 70 mg 08/18/21 11:30 08/19/21 22:45 Enoxaparin 80 Mg/0.8 Ml Syringe SUBCUT 70 mg Q12H PJ Administration Gabapentin 300 mg 08/18/21 15:00 08/20/21 13:46 Gabapentin 300 Mg Capsule PO 300 mg TID PJ Administration Sodium Chloride 1,000 mls @ 75 mls/hr 08/17/21 02:30 08/20/21 13:46 Sodium Chloride 0.9% IV 75 mls/hr .[id number] PJ Administration Vancomycin HCl 1,000 mg/ 250 mls @ 250 mls/hr 08/19/21 16:30 08/19/21 16:54 Sodium Chloride IV Infused Q24H PJ Infusion Imipenem/Cilastatin Sodium 250 100 mls @ 200 mls/hr 08/20/21 11:30 08/20/21 13:28 mg/ Sodium Chloride IV Infused Q6H PJ Infusion Protocol Ketorolac Tromethamine 30 mg 08/19/21 13:56 08/19/21 14:31 Ketorolac 30 Mg/Ml Inj IVP 30 mg Q6H PRN Administration BREAKTHROUGH PAIN Lanolin 1 applic 08/18/21 11:04 08/18/21 12:13 Lanolin Oint 7 Gm TOPICAL 1 appful PRN PRN Administration DRYNESS Levothyroxine Sodium 50 mcg 08/19/21 07:00 08/20/21 06:18 Levothyroxine 50 Mcg Tablet PO 50 mcg DAILY@07 PJ Administration Metoprolol Tartrate 25 mg 08/19/21 21:00 08/20/21 08:06 Metoprolol Tartrate 25 Mg Tablet PO 25 mg BID@0900,2100 PJ Administration Morphine Sulfate 1 mg 08/18/21 11:45 08/19/21 15:12 Morphine 4 Mg/Ml Sdv 1 Ml IVP 1 mg Q4H PRN Administration SEVERE PAIN Non-Formulary Medication 160 mg 08/18/21 21:00 08/19/21 21:36 Fenofibrate PO Not Given BEDTIME PJ Non-Formulary Medication 200 mg 08/19/21 21:00 08/19/21 21:36 Coenzyme Q10 [Co Q-10] PO Not Given BEDTIME PJ Non-Formulary Medication 3,000 mmu cells 08/20/21 09:00 08/20/21 08:24 Lactobacillus Combination No.4 [Probiotic] PO Not Given DAILY PJ Pantoprazole Sodium 40 mg 08/17/21 09:00 08/20/21 08:[address] 40 Mg Tablet PO 40 mg DAILY PJ Administration Tizanidine HCl 2 mg 08/18/21 21:00 08/19/21 21:35 Tizanidine 4 Mg Tablet PO 2 mg BEDTIME PJ Administration Tramadol HCl 50 mg 08/18/21 11:45 08/20/21 13:46 Tramadol 50 Mg Tablet PO 50 mg Q6H PRN Administration MODERATE PAIN Vitamin D 5,000 unit 08/20/21 09:00 08/20/21 08:06 Cholecalciferol (Vitamin D3) 5,000 Unit Tablet PO 5,000 unit DAILY PJ Administration PFSH Acute PFSH: Medical History Chest pain Generalized anxiety disorder Hypertension Inflammatory arthritis Joint pain Restrictive airway disease Shortness of Breath Thyroid disease Surgical History History of appendectomy History of hysterectomy History of repair of rotator cuff Family History Other CAD (coronary artery disease) Cancer Diabetes Family history of premature coronary artery disease Hyperlipidemia Hypertension Lung disease Stroke Denies family history of Rheumatoid arthritis Lupus Dementia Psychiatric illness Chronic kidney disease (CKD) Anesthesia complication Bleeding disorder Social History Smoking and tobacco status: never smoked Second hand smoke exposure: Yes Smoking risk assessment/counseling performed?: Yes Alcohol intake: never Lives independently: Yes Household members: none Marital status: / service: No Current occupational status: employed and retired Current occupation: part-time at [employer] Pets and animals: Yes History of recent travel: No Current gender identity: Female Female Reproductive History: Date of last menstrual period: 02/06/21 Vitals/I&O/Wt Last Vital Signs Temp 97.5 F L 08/20/21 12:00 Pulse 89 08/20/21 12:00 Resp 20 H 08/20/21 12:00 BP 152/71 08/20/21 12:00 Pulse Ox 95 08/20/21 12:00 08/20/21 08/20/21 08/20/21 06:59 14:59 22:59 Intake Total 645 / 2270 1326.35 / 1326.35 Output Total 700 / 804 Balance -55 / 1466 1326.35 / 1326.35 Physical Exam Narrative: EXAM NARRATIVE: Patient not in distress. Talking without hot potatoe voice.Able to open mouth widely and no evidence of trismus.Breathing easily. Const: COMMON NORMALS: no acute distress, average body habitus and patient oriented x3 GENERAL APPEARANCE: cooperative, comfortable, well kempt, well developed and anxious ORIENTATION/CONSCIOUSNESS: Yes awake HENMT: COMMON NORMALS: normocephalic, hearing grossly normal bilaterally, external ears normal and Normal external nose present HEAD & SCALP: normal to inspection and normocephalic FACE & SINUS: normal facial exam and face symmetric NOSE: Normal external nose present and Normal nares present EXTERNAL EAR: Yes external ears normal and Yes mastoids normal MOUTH: Normal oral and palatal mucosa present, lip normal, tongue normal and Normal salivary glands and ducts present THROAT: posterior oropharynx normal and uvula midline OTHER: No asymmetry of palatal or oropharyngeal tissues. No trismus. No bulging of peritonsillar soft tissues. No deviation towards or across midline. No erythema. Mild lateral tonsillar pillar discoloration consistent with mild ecchymosis. This could result from coughing hard. No bleeding. No exudates. Neck/C-Spine: COMMON NORMALS: full ROM, no lymphadenopathy, supple, no meningeal signs, no JVD and Thyroid normal GENERAL: Yes normal visual inspection and Yes trachea midline THYROID: Thyroid normal Lymph: LYMPHATIC: no lymphadenopathy noted Cardio: COMMON NORMALS: no JVD Neuro: COMMON NORMALS: patient oriented x3 MENINGEAL SIGNS: Yes no meningeal signs Psych: APPEARANCE: Yes well kempt Data Micro: Micro: Microbiology 08/20/21 15:30 Blood Culture - Pr eliminary Blood SPECIMEN [facility] 08/20/21 15:35 Blood Culture - Pr eliminary Blood SPECIMEN [facility] 08/19/21 12:32 Gram Stain - Final Other Source Wound Culture - Pr eliminary Staphylococcus aureus 08/19/21 12:45 Gram Stain - Final Back Wound Culture - Pr eliminary Staphylococcus aureus 08/18/21 05:20 Blood Culture - Pr eliminary Blood 08/18/21 12:19 MRSA Culture - Fin al Nose 08/16/21 23:10 Blood Culture - Pr eliminary Blood Methicillin Res is Staph Aureus A&P Assessment and plan (1) Feared condition not demonstrated: Assessment: No evidence of peritonsillar or oropharyngeal erythema or swelling. No evidence of peritonsillar abcess. Plan: No new suggestions or advice at this time. Status: Acute (2) Epidural abscess: Status: Acute (3) Staphylococcus aureus bacteremia: Status: Acute (4) Chronic cough: Status: Acute Coding Level of Care Code New Pt Acute Technical Account Executive for g Fwd Patient Type New History Expanded Problem Focused Exam Detailed Medical Decision Making Low Complexity Diagnoses Feared condition not demonstrated Z71.1 Epidural abscess G06.2 Staphylococcus aureus bacteremia R78.81; B95.61 Chronic cough R05
[2021-08-20 16:01] LABS: Blood Urea Nitrogen 59 mg/dL (8-23); Calcium 8.4 mg/dL (8.5-10.5); Carbon Dioxide 16 mmol/L (22-29); Chloride 102 mmol/L (98-107); Glucose 404 mg/dL (65-115); Osmolality Calculated 310 mOsm/kg (285-295); Sodium 133 mmol/L (136-145)
[2021-08-20 16:19] LABS: Vancomycin Trough 15.3 ug/mL (10-15)
[2021-08-20 16:20] LABS: Anion Gap 19.9 (5-19); Potassium 4.9 mmol/L (3.5-5.1)
--- NOTE | 2021-08-20 16:46 | ANE.PACU2 ---
Inpatient post-anesthesia follow up: Airway intact: Yes Vital signs: Temperature 97.5 F Pulse Rate [Monito r] 92 Pulse Rate 89 Respiratory Rate 20 Blood Pressure [Le ft Arm] 185/108 Blood Pressure 152/71 Pulse Oximetry 95 Oxygen Delivery Me thod Room Air Oxygen Flow Rate 3 Fraction of Inspir ed Oxygen Hydration adequate: Yes Nausea and vomiting: No Pain level: 3 Mental status: Baseline
[2021-08-20] MEDS: vancomycin 1,000 MG in sodium chloride 0.9% 250 ML 250 MG IV (17:54)
--- NOTE | 2021-08-20 18:27 | CTR_ITS ---
PROCEDURE INFORMATION: Exam: CT Chest Without Contrast; Diagnostic Exam date and time: 08/20/2021 6:27 PM Age: 81 years old Clinical indication: Shortness of breath; Patient HX: SOB. Currently on abx for MRSA. Had l5 laminectomy with epidural abscess debridement on 08/19/2021. History of pe. No contrast given due to current renal function. ; Additional info: Septic emboli TECHNIQUE: Imaging protocol: Diagnostic computed tomography of the chest without contrast. Radiation optimization: All CT scans at this facility use at least one of these dose optimization techniques: automated exposure control; mA and/or kV adjustment per patient size (includes targeted exams where dose is matched to clinical indication); or iterative reconstruction. COMPARISON: CT angio chest PE protcl [id number] 08/04/2021 2:57 PM RADIATION DOSE METRICS: Total DLP (mGy-cm): 1022.73 FINDINGS: Tubes, catheters and devices: Right shoulder prosthesis. Lungs: There is mild bilateral apical subpleural scarring. There is no consolidation. There is subsegmental atelectasis in the left lung. Pleural spaces: There is no pleural effusion or pneumothorax. Heart: Heart size is normal. There is no pericardial effusion. Aorta: There is mild aortic atherosclerotic disease. There is no aortic aneurysm. Other arteries: There is mild coronary artery calcification. Lymph nodes: There is no mediastinal or hilar lymphadenopathy. Intraperitoneal space: Visible structures in the upper abdomen are unremarkable. Bones/joints: Intrathecal gas noted, consistent with recent spinal surgery. No acute fracture. Soft tissues: The extrathoracic soft tissues are unremarkable. CT/CT chest con [id number] IMPRESSION: No acute pulmonary abnormality. Radiation Dose CTDIVOL = (mGy): DLP = 1022.73 (mGy-cm)
[2021-08-20 18:51] LABS: Creatinine Urine, Random 55 mg/dL (28-217); Microalbumin Random Urine 12 ug/dL (0-20)
[2021-08-20 18:54] LABS: Microalbum Creatinine Ratio Ur 218 mg/dL (0-20)
[2021-08-20 19:31] LABS: Potassium, Radom Urine 28 mmol/L; Urine Creatinine 56 mg/dL (28-217); Urine Random Chloride 27 mmol/L; Urine Random Sodium 33 mmol/L
[2021-08-20] MEDS: morphine 4 mg/mL SDV 1 mL 1 MG IVP (19:40)
[2021-08-20] MEDS: aspirin 81 mg EC Tablet PO (20:12)
[2021-08-20] MEDS: tizanidine 4 mg Tablet 2 MG PO (20:12)
[2021-08-20 20:54] LABS: Glucose Point of Care 369 mg/dL (70-110)
[2021-08-20 23:52] LABS: Eosinophil Urine No Eosinophils Seen; Urine Eosinophil Count 0 (0-0)
[2021-08-21] VITALS (10 sets, daily range): BP systolic 123–152; BP diastolic 74–82; PULSE 68–96; RESP 14–20; TEMP 36.4–36.8; O2SAT 92–98
[2021-08-21] MEDS: sodium chloride 0.9% 1,000 ML 75 ML IV ×2 (02:11→09:22)
[2021-08-21] MEDS: levothyroxine 50 mcg Tablet PO (06:02)
[2021-08-21 06:26] LABS: Basophils # 0.1 10^3/uL (0.0-0.1); Basophils % 0.4 %; Eosinophils # 0.1 10^3/uL (0.0-0.8); Eosinophils % 0.8 %; Hematocrit 28.4 % (37.0-47.0); Hemoglobin 8.7 g/dL (11.5-15.3); Lymphocytes # 0.9 10^3/uL (0.8-4.8); Lymphocytes % 5.3 %; Mean Corpuscular HGB Conc 30.6 g/dL (30.0-36.0); Mean Corpuscular Hemoglobin 30.1 pg (28.0-34.0); Mean Corpuscular Volume 98.3 fl (81-99); Mean Platelet Volume 10.3 fL (7.4-10.4); Monocytes # 0.3 10^3/uL (0.2-0.9); Monocytes % 1.7 %; Neutrophils # 14.94 10^3/uL (1.8-7.7); Neutrophils % 90.6 %; Nucleated Red Blood Cells % 0 %; Platelet Count 239 10^3/cmm (130-400); Red Blood Count 2.89 10^6/uL (4.1-5.3); White Blood Count 16.5 10^3/uL (4.0-10.0)
[2021-08-21 06:52] LABS: Alanine Aminotransferase 9 U/L (0-33); Alkaline Phosphatase 86 IU/L (35-105); Anion Gap 14.6 (5-19); Aspartate Amino Transferase 15 U/L (0-32); Blood Urea Nitrogen 55 mg/dL (8-23); Calcium 8.2 mg/dL (8.5-10.5); Carbon Dioxide 20 mmol/L (22-29); Chloride 109 mmol/L (98-107); Globulin 3.6 g/dL (1.3-4.6); Glucose 191 mg/dL (65-115); Osmolality Calculated 308 mOsm/kg (285-295); Potassium 4.6 mmol/L (3.5-5.1); Sodium 139 mmol/L (136-145); Total Bilirubin 0.5 mg/dL (0.15-1.2); Total Protein 5.6 g/dL (6.6-8.7)
[2021-08-21 07:23] LABS: Glucose Point of Care 210 mg/dL (70-110)
--- NOTE | 2021-08-21 07:30 | PM.PN ---
Subjective Subjective: Interval history: Infectious disease progress note noted to be more lethargic today, more somnolent, LE jerking movements noted by nursing staff intermittently cr improving 1.3 vanc trough 15 leukocytosis stable, afebrile, stable hemodynamics Ct chest without septic emboli. CT head pending today started on imipenem additionally for broader coverage for possible retropharyngeal abscess (reported allergy to amox/PCN) LAst + blood cx 08/18 : GPC clusters pending identification, likely to be MRSA Medications: Reviewed: Yes Vitals/I&O/Wt Last Vital Signs Temp 97.4 F L 08/20/21 18:00 Pulse 79 08/20/21 18:00 Resp 18 08/20/21 18:00 BP 180/90 08/20/21 18:00 Pulse Ox 93 08/20/21 18:00 08/20/21 08/20/21 08/20/21 06:59 14:59 22:59 Intake Total 645 / 2270 1326.35 / 1326.35 Output Total 700 / 804 Balance -55 / 1466 1326.35 / 1326.35 Physical Exam Narrative: EXAM NARRATIVE: General: Lethargic, more somnolent compared to previous exam HEENT: pupils bilaterally equal and reactive Chest: Normal vesicular breath sounds, no added sounds, equal good air entry bilaterally CVS: S1-S2 regular, no murmurs, no tachycardia, no gallops, no rubs Data : 08/21/21 06:07 08/21/21 06:07 Micro: Microbiology 08/20/21 15:30 Blood Culture - Preliminary Blood SPECIMEN COLLECTED 08/20/21 15:35 Blood Culture - Preliminary Blood SPECIMEN COLLECTED 08/19/21 12:32 Gram Stain - Final Other Source Wound Culture - Preliminary Staphylococcus aureus 08/19/21 12:45 Gram Stain - Final Back Wound Culture - Preliminary Staphylococcus aureus 08/18/21 05:20 Blood Culture - Preliminary Blood 08/18/21 12:19 MRSA Culture - Final Nose A&P Assessment and plan (1) Epidural abscess: Status: Acute (2) Septicemia: Status: Acute (3) Retropharyngeal abscess: Status: Acute (4) ADITYA (acute kidney injury): Status: Acute (5) Metabolic encephalopathy: Status: Acute Additional A&P Information Patient presenting with MRSA septicemia, + blood cx with MRSA, epidural abscess lumbar region likely from bacteremic seeding Source of bacteremia not entirely clear, CT chest abd/ pelvis without any collections Incidentally noted collection in the retropharyngeal space on cervical MRI, ENT eval noted, no gross lesions found on oral exam. Can continue course of imipenem for possible abscess as these may be polymicorbial in nature, shorter course 7-10 days. TTE from 08/04 with thickened mitral valve, echogenic focus in ascending thoracic aorta, possible thrombus -- ?? mycotic aneursym vs infectious aortitis?? unable to perform CTA at this time given ADITYA, recommend POPPY. s/p partial I&D of lumbar collection around L5 level on 08/19, further debridement not attempted to minimize risk of spreading infection. OR cx with MRSA. Evolving mental status changes may be relate dto metabolic encephalopathy from sepsis, pending CT head today, concern for possible seizures Anticipate a difficult and prolonged course of abx with clearing blood culture with partial source control, abx may not penetrate abscess cavities effectively enough. At least 6-8 weeks anticipated, however final duration remains dependent on evolving clinical picture, pending clinical studies and serial radiological improvement Currently on iv Vancomycin for organism directed therapy,trough at 15. Will change treatment to Daptomycin 8-10 mg/kg q24h from vancomycin given fluctuating renal function at this time. Check baseline CPK and trend weekly. HIV screening will follow Attestations Medical Necessity Statement*: MRSA septicemia, epidural abscess, ongoing need for iv abx, per admitting note Coding Level of Care Code Acute Manager Quality Compliance for [facility] Fwd Diagnoses Epidural abscess G06.2 Septicemia A41.9 Retropharyngeal abscess J39.0 ADITYA (acute kidney injury) N17.9 Metabolic encephalopathy G93.41
[2021-08-21 07:40] LABS: Creatine Phosphokinase 121 U/L (26-192)
[2021-08-21] MEDS: gabapentin 300 mg Capsule PO ×3 (08:24→20:58)
[2021-08-21] MEDS: docusate sodium 100 mg Capsule PO ×2 (08:24→17:22)
[2021-08-21] MEDS: metoprolol tartrate 25 mg Tablet PO ×2 (08:24→20:58)
[2021-08-21] MEDS: pantoprazole DR 40 mg Tablet PO (08:24)
[2021-08-21] MEDS: cholecalciferol (vitamin D3) 5,000 unit Tablet 5000 UNIT PO (08:24)
[2021-08-21] MEDS: DAPTOMYCIN IV (09:21)
[2021-08-21] MEDS: SODIUM CHLORIDE 0.9% IV (09:21)
--- NOTE | 2021-08-21 09:40 | CT_ITS ---
WS: [id number] CT head wo con* [id number] REASON FOR EXAM: Infection IV CONTRAST ADMINISTERED: None. TOTAL EXAM DLP: 1539.[address] scans at [facility] use at least one of these dose optimization techniques: automat ed exposure control; mA and/or kV adjustment per patient size (includes targeted exams where dose is matched to clinical indication); or iterative reconstruction. FINDINGS: There is no midline shift or other significant mass effect. No findings of intracranial hemorrhage and no extra-axial fluid collection. 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 No focal acute brain parenchymal abn ormality is identified in the cerebral hemispheres, cerebellar hemispheres, or the brainstem. Mild symmetric atrophy with a central predominance. No focal abnormality of the base of the skull. No change from the previous examination of 08/16/2021. CT/CT head wo con* [id number] IMPRESSION: No acute intracranial abnormality.
--- NOTE | 2021-08-21 09:41 | PC.NURSE ---
This nurse spoke with doctor at this time and patients communication this morning and swallowing food and medications. New orders received and placed at this time.
[2021-08-21] MEDS: amlodipine 10 mg Tablet PO (10:06)
[2021-08-21 10:35] LABS: Estmated Average Glucose 189; Hemoglobin A1C 8.2 % (4.0-6.0)
--- NOTE | 2021-08-21 11:14 | PC.NURSE ---
[facility] transfer department called this nurse at this time asking clinical questions and overall of patient. Facesheet faxed to [phone] at this time.
[2021-08-21 11:26] LABS: Glucose Point of Care 141 mg/dL (70-110)
[2021-08-21 11:55] LABS: HIV 1 & 2 Antibody Non-Reactive (Non-Reactiv); HIV 1 & 2 Antigen Non-Reactive (Non-Reactiv)
--- NOTE | 2021-08-21 13:37 | P.TS_ITS ---
Transfer Summary Providers Date of Admission: 08/17/21 00:43 Date of Discharge: 08/21/21 Attending Provider at Admission: Alondra Cortes Attending Provider at Transfer: Shayne Coon MD Consults: ENT: Dr. Roque Orthopedics: Dr. Garcia ID: Dr. Brock Primary Care Provider: Efe Carpenter DO Anticipated Date of Transfer: Anticipated date of transfer: 08/21/21 Receiving Facility & Provider: Receiving Provider: [Dr. Gonzalez] Receiving facility: [[facility]] Diagnoses at Discharge Discharge Diagnosis (1) Epidural abscess: Status: Acute (2) Septicemia: Status: Acute (3) Retropharyngeal abscess: Status: Acute (4) ADITYA (acute kidney injury): Status: Acute (5) Metabolic encephalopathy: Status: Acute (6) Staphylococcus aureus bacteremia: Status: Acute (7) Lumbar radiculopathy: Status: Acute Reason for Visit Reason for Visit: BACK PAIN Hospital Course Hospital Course Zoila Brantley is a 81 year old female with a past medical history with past medical history of hypertension, hyperlipidemia, hypothyroidism, CKD with baseline creatinine of 1.3-1.5, recent history of pulmonary embolism for which she was started on anticoagulation, admitted on August 16, 2021 with chief complaints of fever, sepsis, progressively worsening back pain and lower extremity weakness which patient estimates has been going on for about 4 months now. Work-up has revealed MRSA bacteremia, CT and MRI of the spine with epidural abscess Large collection extending from L1-L5 S1 disc space Throughout the lumbar spine. With compression of the nerve roots and deformity of the nerve roots. Additional soft tissue injury along the right lateral lumbar spine extending into surround the facet joints. These changes are new since CT of 08/06/2021. Thoracic and cervical spine without any epidural abscess. However cervical spine MRI picked up a complex fluid in the retropharyngeal space, in creased since August 16, 2021. On August 19, 2021 patient was taken to the OR with spine surgery and underwent laminectomy L5 and irrigation and debridement of the epidural abscess. Per operative notes and discussion with Dr. Garcia, upon peeling of the ligamentum flavum, pus was encountered, dura was compromised, nerve roots were exposed. Decompression and I&D of the upper level was subsequently deferred given anatomical complexity and high risk of introducing infection into nerves and CSF space. ENT was consulted and they deemed the retropharyngeal collection not to be an abscess and to be managed conservatively. Her diet was changed as per swallow evaluation. On review of recent echocardiogram from August 12 it was noted patient had an EF of 65% with grade 1 diastolic dysfunction, mild pulmonary hypertension with RVSP of 44, severe aortic calcification with aortic sclerosis along with a possible echogenic mass in ascending aorta which could possibly an atheroma, thrombus or mycotic aneurysm. ID was consulted. Patient's blood culture from admission was positive for MRSA which is similar to over cultures from soft tissue. Her repeat blood cultures from August 18 are also positive for MRSA while culture from have remained negative. It is believed patient will be difficult to clear bacteremia because of poor source control and will need more debridements. Antibiotics were changed from vancomycin to daptomycin. Her hospital stay was further complicated by patient developing acute kidney injury on CKD(baseline creatinine around 1.5) which was managed by medical reconciliation and IV fluids. On August 21 patient was complaining of more difficulty in swallowing and was found to have occasional jerking movements of bilateral lower limbs for which repeat CT head was done which ruled out any acute process though seizures or meningitis could not be ruled out given the extent epidural abscess. Patient was started on IV Keppra and EEG has been requested. Because of multifaceted treatment requirement, possible need of continuous EEG, neurosurgery transfer was sought to a higher center and has been accepted at [facility] by Dr. Gonzalez. Patient is awaiting bed. Physical Exam Narrative: EXAM NARRATIVE: General: No acute distress, lethargic, AO x3, positive, have a complete conversation, having occasional jerking movements of bilateral lower limb HEENT: PERRLA, pupils bilaterally equal and reactive Chest: Normal vesicular breath sounds, no added sounds, equal good air entry bilaterally CVS: S1-S2 regular, soft ejection systolic murmur at aortic area 1/6 with radiation to carotids, no tachycardia, no gallops, no rubs Abdomen: Soft, nontender, no organomegaly, bowel sounds present Neuro: No focal deficits, no facial deformity, AO x3, power 5/5 in all limbs, positive straight leg test, no foot drop, occasional bilateral jerking movements of lower limb TS Data Data Completed and Pending: Completed Studies During Hospitalization Category Date Time Status CT abdomen pelvis w con* [id number] Urge nt Cat Scan 08/16/21 22:[address] chest wo con 7 1250 Routine Cat Scan 08/20/21 18:[address] head wo con* 7 0450 Stat Cat Scan 08/21/21 09:[address] lumbar spine w o con* [id number] Urgen t Cat Scan 08/16/21 21:07 Completed XR chest 1V mejia ble [id number] Stat Exams 08/16/21 21:56 Completed XR humerus RT 730 60 Stat Exams 08/16/21 21:07 Completed XR lumbar spine 1 V [id number] Routine Exams 08/19/21 Completed MR cervical spin wo con* [id number] Stat MRI 08/18/21 18:55 Completed MR lumbar spine w o con* [id number] Routi ne MRI 08/18/21 07:07 Completed MR thoracic spin wo con* [id number] Stat MRI 08/18/21 18:55 Completed Pending at discharge Category Date Time Status EEG electroenceph alogram Routine Exams 08/21/21 10:23 Ordered Anaerobic Culture Routine Lab 08/19/21 12:32 Results Anaerobic Culture Routine Lab 08/19/21 12:45 Results Blood Culture Sta t Lab 08/16/21 23:10 Results Blood Culture Sta t Lab 08/17/21 20:18 Results Blood Culture Sta t Lab 08/20/21 15:30 Results Wound Culture and Gram Stain Routin e Lab 08/19/21 12:32 Results Wound Culture and Gram Stain Routin e Lab 08/19/21 12:45 Results Labs from last 24 hours 08/21/21 08/21/21 08/21/21 11:07 07:07 06:07 WBC RBC Hgb Hct MCV MCH MCHC RDW Plt Count MPV Neut % (Auto) Lymph % (Auto) [place] % (Auto) Eos % (Auto) Baso % (Auto) Neut # (Auto) Lymph # (Auto) [place] # (Auto) Eos # (Auto) Baso # (Auto) Nucleated RBC % (a uto) Nucleated RBCs # Sodium Potassium Chloride Carbon Dioxide Anion Gap BUN Creatinine GFR Calculation Glucose POC Glucose 141 H 210 H Estimat Average Gl ucose Hemoglobin A1c Calculated Osmolal ity Calcium Total Bilirubin AST ALT Alkaline Phosphata se Creatine Kinase 121 Total Protein Albumin Globulin Ur Eosinophil Smea r Urine Eosinophils Ur Random Microalb umin Ur Random Sodium Ur Random Potassiu m Ur Random Chloride Urine Creatinine Microalb/Creat Rat io Vancomycin Trough HIV 1&2 Ab & HIV 1 Ag HIV 1&2 Antibody 08/21/21 08/21/21 08/21/21 06:07 06:07 06:07 WBC 16.5 H RBC 2.89 L Hgb 8.7 L Hct 28.4 L MCV 98.3 MCH 30.1 MCHC 30.6 D RDW 13.0 Plt Count 239 MPV 10.3 Neut % (Auto) 90.6 Lymph % (Auto) 5.3 [place] % (Auto) 1.7 Eos % (Auto) 0.8 Baso % (Auto) 0.4 Neut # (Auto) 14.94 H Lymph # (Auto) 0.9 [place] # (Auto) 0.3 Eos # (Auto) 0.1 Baso # (Auto) 0.1 Nucleated RBC % (a uto) 0 Nucleated RBCs # 0.0 Sodium 139 Potassium 4.6 Chloride 109 H Carbon Dioxide 20 L Anion Gap 14.6 BUN 55 H Creatinine 1.3 H GFR Calculation Not Reportable Glucose 191 H POC Glucose Estimat Average Gl ucose 189 Hemoglobin A1c 8.2 H Calculated Osmolal ity 308 H Calcium 8.2 L Total Bilirubin 0.5 AST 15 ALT 9 Alkaline Phosphata se 86 Creatine Kinase Total Protein 5.6 L Albumin 2.0 L Globulin 3.6 Ur Eosinophil Smea r Urine Eosinophils Ur Random Microalb umin Ur Random Sodium Ur Random Potassiu m Ur Random Chloride Urine Creatinine Microalb/Creat Rat io Vancomycin Trough HIV 1&2 Ab & HIV 1 Ag HIV 1&2 Antibody 08/20/21 08/20/21 08/20/21 19:56 18:00 18:00 WBC RBC Hgb Hct MCV MCH MCHC RDW Plt Count MPV Neut % (Auto) Lymph % (Auto) [place] % (Auto) Eos % (Auto) Baso % (Auto) Neut # (Auto) Lymph # (Auto) [place] # (Auto) Eos # (Auto) Baso # (Auto) Nucleated RBC % (a uto) Nucleated RBCs # Sodium Potassium Chloride Carbon Dioxide Anion Gap BUN Creatinine GFR Calculation Glucose POC Glucose 369 H Estimat Average Gl ucose Hemoglobin A1c Calculated Osmolal ity Calcium Total Bilirubin AST ALT Alkaline Phosphata se Creatine Kinase Total Protein Albumin Globulin Ur Eosinophil Smea r 0 Urine Eosinophils No eosinophils se en Ur Random Microalb umin 12 Ur Random Sodium 33 Ur Random Potassiu m 28 Ur Random Chloride 27 Urine Creatinine 56 55 Microalb/Creat Rat io 218 H Vancomycin Trough HIV 1&2 Ab & HIV 1 Ag HIV 1&2 Antibody 08/20/21 08/20/21 08/20/21 15:35 15:35 15:35 WBC RBC Hgb Hct MCV MCH MCHC RDW Plt Count MPV Neut % (Auto) Lymph % (Auto) [place] % (Auto) Eos % (Auto) Baso % (Auto) Neut # (Auto) Lymph # (Auto) [place] # (Auto) Eos # (Auto) Baso # (Auto) Nucleated RBC % (a uto) Nucleated RBCs # Sodium 133 L Potassium 4.9 Chloride 102 Carbon Dioxide 16 L Anion Gap 19.9 H BUN 59 H Creatinine 1.7 H GFR Calculation Not Reportable Glucose 404 H POC Glucose Estimat Average Gl ucose Hemoglobin A1c Calculated Osmolal ity 310 H Calcium 8.4 L Total Bilirubin AST ALT Alkaline Phosphata se Creatine Kinase Total Protein Albumin Globulin Ur Eosinophil Smea r Urine Eosinophils Ur Random Microalb umin Ur Random Sodium Ur Random Potassiu m Ur Random Chloride Urine Creatinine Microalb/Creat Rat io Vancomycin Trough 15.3 H HIV 1&2 Ab & HIV 1 Ag Non-reactive HIV 1&2 Antibody Non-reactive Addt'l Data from Hospital Stay: Laboratory Results WBC 16.5 10^3/uL (4.0 -10.0) H 08/21/21 06:07 RBC 2.89 10^6/uL (4.1 -5.3) L 08/21/21 06:07 Hgb 8.7 g/dL (11.5-15 .3) L 08/21/21 06:07 Hct 28.4 % (37.0-47.0 ) L 08/21/21 06:07 MCV 98.3 fl (81-99) 08/21/21 06:07 MCH 30.1 pg (28.0-34. 0) 08/21/21 06:07 MCHC 30.6 g/dL (30.0-3 6.0) D 08/21/21 06:07 RDW 13.0 % (12.1-15.1 ) 08/21/21 06:07 Plt Count 239 10^3/cmm (130 -400) 08/21/21 06:07 MPV 10.3 fL (7.4-10.4 ) 08/21/21 06:07 Neut % (Auto) 90.6 % 08/21/21 06:07 Lymph % (Auto) 5.3 % 08/21/21 06:07 [place] % (Auto) 1.7 % 08/21/21 06:07 Eos % (Auto) 0.8 % 08/21/21 06:07 Baso % (Auto) 0.4 % 08/21/21 06:07 Neut # (Auto) 14.94 10^3/uL (1. 8-7.7) H 08/21/21 06:07 Lymph # (Auto) 0.9 10^3/uL (0.8- 4.8) 08/21/21 06:07 [place] # (Auto) 0.3 10^3/uL (0.2- 0.9) 08/21/21 06:07 Eos # (Auto) 0.1 10^3/uL (0.0- 0.8) 08/21/21 06:07 Baso # (Auto) 0.1 10^3/uL (0.0- 0.1) 08/21/21 06:07 Nucleated RBC % (a uto) 0 % 08/21/21 06:07 Nucleated RBCs # 0.0 /100WBC 08/21/21 06:07 ESR 6 mm/hr (0-15) 08/19/21 01:58 Sodium 139 mmol/L (136-1 45) 08/21/21 06:07 Potassium 4.6 mmol/L (3.5-5 .1) 08/21/21 06:07 Chloride 109 mmol/L (98-10 7) H 08/21/21 06:07 Carbon Dioxide 20 mmol/L (22-29) L 08/21/21 06:07 Anion Gap 14.6 (5-19) 08/21/21 06:07 BUN 55 mg/dL (8-23) H 08/21/21 06:07 Creatinine 1.3 mg/dL (0.5-0. 9) H 08/21/21 06:07 GFR Calculation Not Reportable 08/21/21 06:07 Glucose 191 mg/dL (65-115 ) H 08/21/21 06:07 POC Glucose 141 mg/dL (70-110 ) H 08/21/21 11:07 Estimat Average Gl ucose 189 08/21/21 06:07 Hemoglobin A1c 8.2 % (4.0-6.0) H 08/21/21 06:07 Calculated Osmolal ity 308 mOsm/kg (285- 295) H 08/21/21 06:07 Lactic Acid 1.5 mmol/L (0.5-2 .2) 08/16/21 23:10 Calcium 8.2 mg/dL (8.5-10 .5) L 08/21/21 06:07 Magnesium 2.2 mg/dL (1.7-2. 3) 08/18/21 05:17 Iron 17 ug/dL (37-145) L 08/18/21 05:17 TIBC 140 mcg/dl 08/18/21 05:17 % Saturation 12.1 % (20-50) L 08/18/21 05:17 Unsat Iron Binding 123 ug/dL (112-34 7) 08/18/21 05:17 Total Bilirubin 0.5 mg/dL (0.15-1 .2) 08/21/21 06:07 AST 15 U/L (0-32) 08/21/21 06:07 ALT 9 U/L (0-33) 08/21/21 06:07 Alkaline Phosphata se 86 IU/L (35-105) 08/21/21 06:07 Creatine Kinase 121 U/L (26-192) 08/21/21 06:07 C-Reactive Protein 426.3 mg/L (0.0-4 .9) H 08/19/21 01:58 Total Protein 5.6 g/dL (6.6-8.7 ) L 08/21/21 06:07 Albumin 2.0 g/dL (3.5-5.2 ) L 08/21/21 06:07 Globulin 3.6 g/dL (1.3-4.6 ) 08/21/21 06:07 Procalcitonin 1.94 ng/mL (0-0.5 ) H 08/18/21 05:17 TSH 0.39 uIU/mL (0.27 -4.20) 08/18/21 05:17 Urine Color Yellow (Yellow) 08/16/21 22:08 Urine Appearance Clear (CLEAR) 08/16/21 22:08 Urine pH 5 (5-7) 08/16/21 22:08 Ur Specific Gravit y 1.020 (1.005-1.0 30) 08/16/21 22:08 Urine Protein Neg (Negative) 08/16/21 22:08 Urine Glucose (UA) 4+ (Normal) H 08/16/21 22:08 Urine Ketones 1+ (Negative) H 08/16/21 22:08 Urine Blood 2+ (Negative) H 08/16/21 22:08 Urine Nitrate Negative (Negati ve) 08/16/21 22:08 Urine Bilirubin Neg (Negative) 08/16/21 22:08 Urine Urobilinogen Norm mg/dL (Negat scott) 08/16/21 22:08 Ur Leukocyte Khushi ase Negative (Negati ve) 08/16/21 22:08 Urine RBC 0-4 /hpf (0-2) H 08/16/21 22:08 Urine WBC 0-4 /hpf (0-5) H 08/16/21 22:08 Ur Eosinophil Smea r 0 (0-0) 08/20/21 18:00 Ur Squamous Epith Cells 0-4 /hpf (0-5) H 08/16/21 22:08 Amorphous Sediment 1+ /hpf 08/16/21 22:08 Urine Bacteria 1+ /hpf (NONE) H 08/16/21 22:08 Urine Eosinophils No eosinophils se en 08/20/21 18:00 Ur Random Microalb umin 12 ug/dL (0-20) 08/20/21 18:00 Ur Random Sodium 33 mmol/L 08/20/21 18:00 Ur Random Potassiu m 28 mmol/L 08/20/21 18:00 Ur Random Chloride 27 mmol/L 08/20/21 18:00 Urine Creatinine 55 mg/dL (28-217) 08/20/21 18:00 Urine Creatinine 56 mg/dL (28-217) 08/20/21 18:00 Microalb/Creat Rat io 218 mg/dL (0-20) H 08/20/21 18:00 Vancomycin Trough 15.3 ug/mL (10-15 ) H 08/20/21 15:35 HIV 1&2 Ab & HIV 1 Ag Non-reactive (No n-Reactiv) 08/20/21 15:35 HIV 1&2 Antibody Non-reactive (No n-Reactiv) 08/20/21 15:35 Impressions Humerus X-Ray 08/16/21 21:07 IMPRESSION: No acute findings.Non acute findings as described above. Lumbar Spine CT 08/16/21 21:07 IMPRESSION: There heterogeneous density along the posterior aspect of the L5 vertebra, left greater than right effacing the left lateral recess. This may represent a disc extrusion however is not optimally visualized. There are small foci of air posterior to this region of heterogeneous density. MRI of the lumbar spine is recommended for further evaluation. Radiation Dose CTDIVOL = (mGy): DLP = 2693.16 (mGy-cm) Chest X-Ray 08/16/21 21:56 IMPRESSION: No acute findings.Non acute findings as described above. Abdomen/Pelvis CT 08/16/21 22:26 IMPRESSION: No acute intra-abdominal findings.Non acute findings as described above. Please see the CT scan of the lumbar spine for description of the lumbar spine. Radiation Dose CTDIVOL = (mGy): DLP = 1856.56 (mGy-cm) Lumbar Spine MRI 08/18/21 07:07 IMPRESSION: 1. Significant abnormal appearance of the lumbar spine. 2. Intermediate, mixed posterior epidural collection throughout the lumbar spine. Collection extends from L1 to the L5-S1 disc space. There is compression upon the nerve roots and deformity of the nerve roots. No IV contrast was given for this examination. I favor this is probably epidural blood may be from recent trauma or injections. Differential includes hematoma and abscess. None of these changes were noted on the prior CT of 08/06/2021. 3. There is additional extensive soft tissue injury along the RIGHT lateral maya mbar spine extending to surround the facet joints. Most focal collection just to the RIGHT of the L5 spinous process measures 2.6 x 1.7 cm. Abscess versus hematoma. Notified Dr. Mathur at 08/18/2021 11:20 AM. Unable to notify the physician. Message left on his answering service. Cervical Spine MRI 08/18/21 18:55 IMPRESSION: 1. Complex fluid in the retropharyngeal space, increased since 08/16/2021. Possible abscess or hematoma. 2. No epidural abscess. 3. Degenerative findings above. Radiation Dose CTDIVOL = (mGy): DLP = (mGy-cm) Thoracic Spine MRI 08/18/21 18:55 IMPRESSION: No acute findings. Radiation Dose CTDIVOL = (mGy): DLP = (mGy-cm) Lumbar Spine X-Ray 08/19/21 00:00 IMPRESSION: Lumbar spine level localization as above. Chest CT 08/20/21 18:27 IMPRESSION: No acute pulmonary abnormality. Radiation Dose CTDIVOL = (mGy): DLP = 1022.73 (mGy-cm) Head CT 08/21/21 09:40 IMPRESSION: No acute intracranial abnormality. Echocardiogram: CONCLUSIONS 1-Normal left ventricular cavity size. Normal left ventricular systolic func tion. No regional wall motion abnormalities. Left ventricular ejection fraction is estimated at 65 %. Grade I/IV diastolic dysfunction (abnormal relaxation filling pattern), normal to mildly elevated filling pressures. 2-Normal right ventricular size. Normal right ventricular systolic pressure. Mild pulmonary hypertension, RVSP 43.9 mmHg. No right ventricular strain noted. 3-Severe aortic valve calcification. Not aortic valve stenosis, mean gradient 3.4 mmHg, CRISTEL 3.1 cm squared. Trace aortic valve regurgitation. 4-Moderately thickened mitral valve. Moderate mitral annular calcification. No mitral valve stenosis. No mitral valve regurgitation. 5-Mild tricuspid valve regurgitation. 6-There appeared to be echogenic mass noted in the ascending aorta could it be atheroma, thrombus or possible artifact. Further discoloration with CT angiogram of ascending aorta advised. 7-There is no pericardial effusion. 8-Right atrial pressure is around 5 mm of mercury. 9-There are no prior echocardiogram studies to compare. Microbiology 08/18/21 05:17 Blood Blood Culture - Preliminary Methicillin Resis Staph Aureus 08/18/21 05:20 Blood Blood Culture - Preliminary Methicillin Resis Staph Aureus 08/19/21 12:45 Back Gram Stain - Final 08/19/21 12:45 Back Wound Culture - Preliminary Methicillin Resis Staph Aureus 08/19/21 12:32 Other Source Gram Stain - Final 08/19/21 12:32 Other Source Wound Culture - Preliminary Methicillin Resis Staph Aureus 08/16/21 23:10 Blood Blood Culture - Preliminary Methicillin Resis Staph Aureus 08/16/21 23:10 Blood Blood Culture - Preliminary Methicillin Resis Staph Aureus 08/20/21 15:30 Blood Blood Culture - Preliminary SPECIMEN COLLECTED 08/20/21 15:35 Blood Blood Culture - Preliminary SPECIMEN COLLECTED 08/18/21 12:19 Nose MRSA Culture - Final Vitals: Last Vital Signs Temp 98.1 F 08/21/21 11:34 Pulse 68 08/21/21 11:34 Resp 14 08/21/21 11:34 BP 135/75 08/21/21 11:34 Pulse Ox 98 08/21/21 11:34 TS Medications Medications Home Medications aspirin 81 mg tablet,delayed release 81 mg PO BEDTIME 12/19/20 [History Confirmed 08/17/21] coenzyme Q10 100 mg capsule 200 mg PO BEDTIME 12/19/20 [History Confirmed 08/17/21] levothyroxine 50 mcg tablet 50 mcg PO DAILY@07 12/19/20 [History Confirmed 08/17/21] pantoprazole 40 mg tablet,delayed release 40 mg PO BEDTIME 12/19/20 [History Confirmed 08/17/21] tizanidine 2 mg tablet 2 mg PO BEDTIME 12/19/20 [History Confirmed 08/17/21] cholecalciferol (vitamin D3) 50 mcg (2,000 unit) capsule 100 mcg PO DAILY cap 05/27/21 [History Confirmed 08/17/21] fenofibrate 160 mg tablet 160 mg PO BEDTIME 05/27/21 [History Confirmed 08/17/21] acetaminophen [Tylenol Extra Strength] 1,000 mg PO Q4H PRN 08/04/21 [History Confirmed 08/17/21] albuterol sulfate 2 puff INHALATION Q6H PRN 08/04/21 [History Confirmed 08/17/21] cyanocobalamin (vitamin B-12) 1,000 mcg IM Q30D 08/04/21 [History Confirmed 08/17/21] lactobacillus combination no.4 [Probiotic] 3,000 mmu cells PO DAILY #0 08/04/21 [History Confirmed 08/17/21] valsartan 40 mg PO BEDTIME 08/04/21 [History Confirmed 08/17/21] valsartan 80 mg PO BEDTIME 08/04/21 [History Confirmed 08/17/21] apixaban [Eliquis] 5 mg PO BID #120 tab 08/07/21 [Rx Confirmed 08/17/21] gabapentin 300 mg PO TID 08/17/21 [History Confirmed 10/03/21] Active Medications Acetaminophen (Acetaminophen 325 Mg Tablet) 650 mg PO Q6H PRN PRN Reason: Mild/Mod Pain Or Temp >/= 101 Al Hydrox/Mg Hydrox/Simethicone (Vniq-Uhw-Zoyrkdnjm-Dimitri 30 Ml Udc) 30 ml PO Q4H PRN PRN Reason: INDIGESTION Albuterol Sulfate (Albuterol 8 Gm Mdi) 2 puff INHALATION Q6H PRN PRN Reason: Shortness Of Breath Amlodipine Besylate (Amlodipine 10 Mg Tablet) 10 mg PO DAILY [facility] Last Admin: 08/21/21 10:06 Dose: 10 mg Documented by: Aspirin (Aspirin 81 Mg Ec Tablet) 81 mg PO BEDTIME PJ Last Admin: 08/20/21 20:12 Dose: 81 mg Documented by: Dextrose (Dextrose 50% Syringe 50 Ml) 25 ml IVP ONCE PRN; Protocol PRN Reason: hypoglycemia protocol Dextrose (Dextrose 50% Syringe 50 Ml) 50 ml IVP PRN PRN; Protocol PRN Reason: hypoglycemia protocol Docusate Sodium (Docusate Sodium 100 Mg Capsule) 100 mg PO BID [facility] Last Admin: 08/21/21 08:24 Dose: 100 mg Documented by: Enoxaparin Sodium (Enoxaparin 80 Mg/0.8 Ml Syringe) 70 mg SUBCUT Q12H PJ Last Admin: 08/19/21 22:45 Dose: 70 mg Documented by: Gabapentin (Gabapentin 300 Mg Capsule) 300 mg PO TID [facility] Last Admin: 08/21/21 08:24 Dose: 300 mg Documented by: Glucagon (Glucagon 1 Mg/Ml Inj 1 Ml) 1 mg IM ONCE PRN; Protocol PRN Reason: Adult Acute Hypoglycemia Prot. Sodium Chloride (Sodium Chloride 0.9%) 1,000 mls @ 125 mls/hr IV .Q8H [facility] Last Admin: 08/21/21 09:22 Dose: 75 mls/hr Documented by: Imipenem/Cilastatin Sodium 250 (mg/ Sodium Chloride) 100 mls @ 200 mls/hr IV Q6H PJ; Protocol Last Infusion: 08/21/21 11:32 Dose: Infused Documented by: Dextrose (D5w) 500 mls @ 100 mls/hr IV ONCE PRN; Protocol PRN Reason: Adult Acute Hypoglycemia Prot Daptomycin 700 mg/ Sodium (Chloride) 100 mls @ 100 mls/hr IV Q24H [facility]; Protocol Last Infusion: 08/21/21 10:24 Dose: Infused Documented by: Levetiracetam 750 mg/ Sodium (Chloride) 107.5 mls @ 430 mls/hr IV Q12H [facility] Insulin Aspart (Insulin Aspart 100 Unit/1 Ml) 0 unit SUBCUT WM&BEDTIME [facility]; Protocol Last Admin: 08/21/21 11:40 Dose: 4 unit Documented by: Ketorolac Tromethamine (Ketorolac 30 Mg/Ml Inj) 30 mg IVP Q6H PRN PRN Reason: BREAKTHROUGH PAIN Last Admin: 08/19/21 14:31 Dose: 30 mg Documented by: Lanolin (Lanolin Oint 7 Gm) 1 applic TOPICAL PRN PRN PRN Reason: DRYNESS Last Admin: 08/18/21 12:13 Dose: 1 appful Documented by: Levothyroxine Sodium (Levothyroxine 50 Mcg Tablet) 50 mcg PO DAILY@07 [facility] Last Admin: 08/21/21 06:02 Dose: 50 mcg Documented by: Magnesium Hydroxide (Magnesium Hydroxide 30 Ml Udc) 30 ml PO Q4H PRN PRN Reason: Constipation/indigestion Metoprolol Tartrate (Metoprolol Tartrate 25 Mg Tablet) 25 mg PO BID@0900,2100 [facility] Last Admin: 08/21/21 08:24 Dose: 25 mg Documented by: Morphine Sulfate (Morphine 4 Mg/Ml Sdv 1 Ml) 1 mg IVP Q4H PRN PRN Reason: SEVERE PAIN Last Admin: 08/20/21 19:40 Dose: 1 mg Documented by: Non-Formulary Medication (Fenofibrate) 160 mg PO BEDTIME [facility] Last Admin: 08/20/21 20:13 Dose: Not Given Documented by: Non-Formulary Medication (Coenzyme Q10 [Co Q-10]) 200 mg PO BEDTIME [facility] Last Admin: 08/20/21 20:13 Dose: Not Given Documented by: Non-Formulary Medication (Lactobacillus Combination No.4 [Probiotic]) 3,000 mmu cells PO DAILY [facility] Last Admin: 08/21/21 09:24 Dose: Not Given Documented by: Ondansetron HCl (Ondansetron 2 Mg/Ml Sdv 2 Ml) 4 mg IVP Q8H PRN PRN Reason: vomiting, or N/V if npo Pantoprazole Sodium (Pantoprazole Dr 40 Mg Tablet) 40 mg PO DAILY [facility] Last Admin: 08/21/21 08:24 Dose: 40 mg Documented by: Tizanidine HCl (Tizanidine 4 Mg Tablet) 2 mg PO BEDTIME [facility] Last Admin: 08/20/21 20:12 Dose: 2 mg Documented by: Tramadol HCl (Tramadol 50 Mg Tablet) 50 mg PO Q6H PRN PRN Reason: MODERATE PAIN Last Admin: 08/20/21 13:46 Dose: 50 mg Documented by: Vitamin D (Cholecalciferol (Vitamin D3) 5,000 Unit Tablet) 5,000 unit PO DAILY [facility] Last Admin: 08/21/21 08:24 Dose: 5,000 unit Documented by: Discharge Plan Discharge Condition: Stable Prescriptions: No Action levothyroxine 50 mcg tablet 50 mcg PO DAILY@07 RF: 0 coenzyme Q10 [Co Q-10] 100 mg capsule 200 mg PO BEDTIME RF: 0 pantoprazole 40 mg tablet,delayed release (DR/EC) 40 mg PO BEDTIME RF: 0 tizanidine 2 mg tablet 2 mg PO BEDTIME RF: 0 aspirin [Adult Aspirin Regimen] 81 mg tablet,delayed release (DR/EC) 81 mg PO BEDTIME RF: 0 fenofibrate 160 mg tablet 160 mg PO BEDTIME RF: 0 cholecalciferol (vitamin D3) 50 mcg (2,000 unit) capsule 100 mcg PO DAILY RF: 0 Probiotic 3 billion cell Capsule 3,000 mmu cells PO DAILY Qty: 0 RF: 0 acetaminophen [Tylenol Extra Strength] 500 mg Tablet 1,000 mg PO Q4H PRN (Reason: Pain) RF: 0 cyanocobalamin (vitamin B-12) 1,000 mcg/mL solution 1,000 mcg IM Q30D RF: 0 albuterol sulfate 90 mcg/actuation HFA aerosol inhaler 2 puff INHALATION Q6H PRN (Reason: Shortness Of Breath) RF: 0 valsartan 80 mg tablet 80 mg PO BEDTIME RF: 0 valsartan 40 mg tablet 40 mg PO BEDTIME RF: 0 Eliquis 5 mg tablet 5 mg PO BID Qty: 120 RF: 1 gabapentin 300 mg Capsule 300 mg PO TID RF: 0 Discharge Orders: Transfer Out of Facility (Order); Ordered 08/21/21 Ordered By: Shayne Coon Patient Instructions: Opioid Safety Transfer Attestations Time Spent in Transfer Care*: greater than 30 min Specific Discharge Activities: Specific discharge activities: educating patient, educating and/or supporting family/caregiver, discussing with pcp/other providers, discussing with piano case maker/social workers/dc planners, documenting/other paperwork and evaluating patient/reviewing data Status at Transfer: Cognitive status at transfer: mildly impaired cognition , Behavioral status at transfer: can be uncooperative , Functional status at transfer: independent ambulation Overall status at transfer: patient is back to baseline Quality Metrics Clinical Quality Measures: During this hospital stay, did patient experience: None Coding Level of Care Code Acute Sustainability Executive Director for [facility] Fwd Diagnoses Epidural abscess G06.2 Septicemia A41.9 Retropharyngeal abscess J39.0 ADITYA (acute kidney injury) N17.9 Metabolic encephalopathy G93.41 Staphylococcus aureus bacteremia R78.81; B95.61 Lumbar radiculopathy M54.16
[2021-08-21] MEDS: TRAMadol 50 mg Tablet PO (14:21)
[2021-08-21] MEDS: morphine 4 mg/mL SDV 1 mL 1 MG IVP (15:06)
[2021-08-21 17:11] LABS: Glucose Point of Care 145 mg/dL (70-110)
[2021-08-21] MEDS: FUROsemide 20 mg Tablet PO (17:22)
[2021-08-21] MEDS: sodium chloride 0.9% 1,000 ML 50 ML IV (17:23)
[2021-08-21] MEDS: insulin lispro 100 unit/1 mL SUBCUT (17:23)
--- NOTE | 2021-08-21 18:01 | PM.MISC ---
Miscellaneous Note Purpose of Documentation: Electroencephalogram Note: ORDERING PHYSICIAN: Shayne Robles MD REASON FOR STUDY: Seizure-like movements of the legs. STUDY: This was a 21 channel digital electroencephalogram performed at bedside using the 10-20 international system of electrode placement. This study was non-sleep deprived and the patient was described as awake. Photic stimulation and hyperventilation were included. There was constant variable artifact from electrical apparatus, scalp contraction and possibly other sources FINDINGS: The background consisted of low voltage fast activity superimposed upon slowing in the delta range. The patient appeared to be active as there was movement artifact seen intermittently but no change in the background was seen after patient's movements. Open and closing of the eyes described with no significant changes. Photic stimulation did not significantly impact the background. Reportedly the spark plug tester encouraged the patient to hyperventilate for 1 minute but she did not comment on whether the patient complied. IMPRESSION: Diffuse low voltage and slow EEG suggesting diffuse encephalopathy. Because of brain dysfunction is not explained by this study. There were no epileptiform features to suggest underlying seizures. Duration of EE.4
--- NOTE | 2021-08-21 18:04 | PC.SLP ---
The pt was not able to participate in an INSEMINATOR evaluation at this time, due to decreased alertness.
[2021-08-21] MEDS: aspirin 81 mg EC Tablet PO (20:58)
[2021-08-21] MEDS: tizanidine 4 mg Tablet 2 MG PO (20:58)
[2021-08-21 21:02] LABS: Glucose Point of Care 139 mg/dL (70-110)
[2021-08-22] VITALS (10 sets, daily range): BP systolic 145–178; BP diastolic 66–102; PULSE 86–108; RESP 16–18; TEMP 36.4–37; O2SAT 90–98
[2021-08-22] MEDS: morphine 4 mg/mL SDV 1 mL 1 MG IVP ×2 (04:37→09:56)
[2021-08-22] MEDS: levothyroxine 50 mcg Tablet PO (06:05)
[2021-08-22 06:25] LABS: Glucose Point of Care 175 mg/dL (70-110)
[2021-08-22 07:44] LABS: Basophils % 0.3 %; Eosinophils # 0.1 10^3/uL (0.0-0.8); Hematocrit 25.7 % (37.0-47.0); Hemoglobin 8.1 g/dL (11.5-15.3); Lymphocytes # 0.8 10^3/uL (0.8-4.8); Mean Corpuscular HGB Conc 31.5 g/dL (30.0-36.0); Mean Corpuscular Hemoglobin 30.3 pg (28.0-34.0); Mean Corpuscular Volume 96.3 fl (81-99); Mean Platelet Volume 10.4 fL (7.4-10.4); Monocytes # 0.4 10^3/uL (0.2-0.9); Monocytes % 3.1 %; Neutrophils # 11.56 10^3/uL (1.8-7.7); Neutrophils % 88.3 %; Nucleated Red Blood Cells % 0 %; Platelet Count 236 10^3/cmm (130-400); Red Blood Count 2.67 10^6/uL (4.1-5.3); Red Cell Distribution Width 13.4 % (12.1-15.1); White Blood Count 13.1 10^3/uL (4.0-10.0)
[2021-08-22 08:13] LABS: Alanine Aminotransferase 7 U/L (0-33); Alkaline Phosphatase 81 IU/L (35-105); Anion Gap 20.4 (5-19); Aspartate Amino Transferase 16 U/L (0-32); Blood Urea Nitrogen 63 mg/dL (8-23); Carbon Dioxide 17 mmol/L (22-29); Chloride 108 mmol/L (98-107); Globulin 3.8 g/dL (1.3-4.6); Glucose 188 mg/dL (65-115); Osmolality Calculated 315 mOsm/kg (285-295); Potassium 4.4 mmol/L (3.5-5.1); Sodium 141 mmol/L (136-145); Total Bilirubin 0.5 mg/dL (0.15-1.2); Total Protein 5.8 g/dL (6.6-8.7)
[2021-08-22 08:20] LABS: Glucose Point of Care 187 mg/dL (70-110)
[2021-08-22] MEDS: insulin lispro 100 unit/1 mL SUBCUT ×3 (10:10→17:39)
[2021-08-22] MEDS: gabapentin 300 mg Capsule PO ×2 (10:11→15:43)
[2021-08-22] MEDS: metoprolol tartrate 25 mg Tablet PO (10:11)
[2021-08-22] MEDS: cholecalciferol (vitamin D3) 5,000 unit Tablet 5000 UNIT PO (10:11)
[2021-08-22] MEDS: docusate sodium 100 mg Capsule PO ×2 (10:11→17:39)
[2021-08-22] MEDS: pantoprazole DR 40 mg Tablet PO (10:11)
--- NOTE | 2021-08-22 10:34 | PC.SOCIAL ---
IMM Updated Updated pt's family on Pg 2 IMM. No questions voiced. Provided pt a copy. Initialed, dated, & timed copy in chart.
[2021-08-22] MEDS: enoxaparin 80 mg/0.8 mL Syringe 70 MG SUBCUT (10:40)
[2021-08-22 11:03] LABS: Procalcitonin 1.53 ng/mL (0-0.5)
[2021-08-22] MEDS: amlodipine 10 mg Tablet PO (11:07)
[2021-08-22 11:53] LABS: Glucose Point of Care 286 mg/dL (70-110)
[2021-08-22] MEDS: fentaNYL 12 mcg Patch 1 PATCH TRANSDERMA (13:43)
[2021-08-22 14:15] LABS: Reticulocyte % 0.7 % (0.5-2.0)
[2021-08-22 14:26] LABS: Iron 20 ug/dL (37-145); Percent Saturation 15.2 % (20-50); Total Iron Binding Capacity 131 mcg/dl; Unsaturated Iron Binding 111 ug/dL (112-347)
[2021-08-22 14:42] LABS: Vitamin B12 1265 pg/mL (232-1245)
[2021-08-22 17:22] LABS: Glucose Point of Care 159 mg/dL (70-110)
[2021-08-22 17:28] LABS: Folate Level 16.6 ng/mL (4.8-37.3)
--- NOTE | 2021-08-22 19:27 | PM.PN ---
Subjective Subjective: Interval history: NO acute events overnight. Today morning lying in bed, c/o back pain. Becoming more somnolent during the day. Able to swallow. Afebrile, hemodynamically stable. BCx from 08/20 positive today. Transitioned to Dapto yesterday. Creat slightly up. Urine output appropriate. Accepted at [facility] and . Could'nt go yesterday as awaiting beds. Vitals/I&O/Wt Last Vital Signs Temp 98.4 F 08/22/21 15:55 Pulse 98 08/22/21 15:55 Resp 18 08/22/21 15:55 BP 168/84 08/22/21 15:55 Pulse Ox 90 08/22/21 15:55 08/22/21 08/22/21 08/22/21 06:59 14:59 22:59 Intake Total 200 / 2475.75 1775 / 1775 100 / 1875 Output Total 1050 / 2350 550 / 550 Balance -850 / 125.75 1775 / 1775 -450 / 1325 Physical Exam Narrative: EXAM NARRATIVE: General: No acute distress, lethargic, AO x3, positive, have a complete conversation, having occasional jerking movements of bilateral lower limb HEENT: PERRLA, pupils bilaterally equal and reactive Chest: Normal vesicular breath sounds, no added sounds, equal good air entry bilaterally CVS: S1-S2 regular, soft ejection systolic murmur at aortic area 1/6 with radiation to carotids, no tachycardia, no gallops, no rubs Abdomen: Soft, nontender, no organomegaly, bowel sounds present Neuro: No focal deficits, no facial deformity, AO x3, power 5/5 in all limbs, positive straight leg test, no foot drop, occasional bilateral jerking movements of lower limb Data : 08/22/21 07:32 08/22/21 07:32 Micro: Microbiology 08/16/21 23:10 Blood Culture - Final Blood Methicillin Resis Staph Aureus 08/16/21 23:10 Blood Culture - Final Blood Methicillin Resis Staph Aureus 08/19/21 12:32 Gram Stain - Final Other Source Anaerobic Culture - Preliminary Wound Culture - Final Methicillin Resis Staph Aureus 08/19/21 12:45 Gram Stain - Final Back Anaerobic Culture - Preliminary Wound Culture - Final Methicillin Resis Staph Aureus 08/18/21 05:17 Blood Culture - Preliminary Blood Methicillin Resis Staph Aureus 08/18/21 05:20 Blood Culture - Preliminary Blood Methicillin Resis Staph Aureus 08/20/21 15:30 Blood Culture - Preliminary Blood Gram positive cocci 08/20/21 15:35 Blood Culture - Preliminary Blood NEGATIVE TO DATE A&P Assessment and plan (1) Epidural abscess: Status: Acute (2) Septicemia: Status: Acute (3) Retropharyngeal abscess: Status: Acute (4) ADITYA (acute kidney injury): Status: Acute (5) Metabolic encephalopathy: Status: Acute (6) Staphylococcus aureus bacteremia: Status: Acute (7) Lumbar radiculopathy: Status: Acute Additional A&P Information Back pain: Discitis/epidural abscess: Appreciate Dr. Garcia's recommendation. Cultures consistent with GPC's. Neurochecks to rule out saddle anesthesia and foot drop. MRSA bacteremia: Repeat blood cultures from August 18 1 out of 3 bottles positive. Repeat blood cultures today. ID recommendations appreciated. Continue with imipenem and vancomycin. Trough level 17-20. Possible retropharyngeal collection: Case discussed with ENT again regarding over findings of magnolia purulence and concern for retropharyngeal abscess with soft palate swelling noticed today. Pulmonary consulted. Will see today. Switch diet to mechanical soft. ADITYA: Creatinine 1.3 today. Patient received losartan overnight. Medical reconciliation to be done for nephrotoxic drugs. Continue to hold LORI and ARB's. Gentle IV hydration with normal saline at 75 cc an hour. Hyperkalemia: Potassium again elevated today. Calcium gluconate, insulin 10 units with D50. Repeat at 3 PM. Right shoulder pain: History of shoulder arthroplasty. Recent fall. Humerus x-ray. Unremarkable. No tenderness on palpation. No erythema. Moving her arm spontaneously. Continue monitor shoulder for any changes. Additional work-up of sepsis as above. Hx of Pulmonary embolism Continue with Eliquis 1 mg/kg body weight q. 12 hourly. Will restart from 08/21 Restrictive lung disease: Hold leflunomide for now. Full code. Mechanical soft cardiac Full dose Lovenox will help with DVT prophylaxis. Protonix for PUD prophylaxis. PT/OT evaluation. Out of bed to chair. Discussed in detail with patient and patient's sons at bedside. We discussed the OR findings of severe purulence which had invaded to the dura with possible CSF leak at L5 level. We also discussed concerns for the same process going down to S1 as well with concerns for retropharyngeal abscess. We discussed orthopedic recommendations of prolonged IV antibiotics and if needed going back to the OR for further washout if patient has more neurological deficits. We discussed that unfortunately going for an extensive procedure right now as per Dr. Garcia's recommendations could lead to more extensive nerve injury along with even delayed healing because of possible CSF leak. We discussed possible transfer to a higher center with neurosurgeon. We also discussed most likely even at higher center patient would need to be IV antibiotics with monitoring like being done currently and if worsens neurologically then to go for a neurosurgical procedure. Both son and patient verbalized understanding. All the questions were answered. They state for now they would want to continue the current treatment and our aware of prolonged IV antibiotic course honorary to do what ever needed. Plan for day: Transfer when bed available. C/w IVF at 50 cc/hr. SW eval. Liq diet for now. Daptomycin. Case d/w cardiology who state patient is not a good candidate for POPPY given retropharyngeal collection and would do better with cardiac MRI to r/o mycotic aneurysm. Monitor I/o, Neuro checks, Care d/w son and daughter in law at bedside. All questions were answered. Attestations Medical Necessity Statement*: Sepsis, MRSA bactermia, epidural abscess, somnolence, transfer to higher center Time Spent in Patient Care: Greater than 35 minutes (>than 50% of time spent in counselling and/or direct pt care on unit). Coding Level of Care Code Acute Interventional Cardiologist for [facility] Fwbridger Diagnoses Epidural abscess G06.2 Septicemia A41.9 Retropharyngeal abscess J39.0 ADITYA (acute kidney injury) N17.9 Metabolic encephalopathy G93.41 Staphylococcus aureus bacteremia R78.81; B95.61 Lumbar radiculopathy M54.16
--- NOTE | 2021-08-27 11:29 | PC.SOCIAL ---
discharge follow up call made, spoke with pts nurse Sara, at [facility]. she reports pt had a neck wash out yesterday and is scheduled to have an IVC filter placed today for dvt. She reports pt is doing well.
== END 2021-08-22 19:30 | disposition short-term general hospital (02) | DRG 981 ==
LOC: ER 08-17 00:42 → MEDSURG 08-17 01:20
PROVIDERS: Internal Medicine; Nurse Practitioner Family; Orthopaedic Surgery; Student in an Organized Health Care Education/Training Program; Admitting Provider Hospitalist; Emergency Provider Emergency Medicine; PCP Electrodiagnostic Medicine; Visit Provider Student in an Organized Health Care Education/Training Program
PROC: 0QB00ZZ Excision of Lumbar Vertebra, Open Approach (ICD-10-PCS; CPT 63005; principal; 2021-08-19 12:00)
DX: G06.1 Intraspinal abscess and granuloma (principal); A41.9 Sepsis, unspecified organism; G93.41 Metabolic encephalopathy; N17.9 Acute kidney failure, unspecified; M46.47 Discitis, unspecified, lumbosacral region; Z86.718 Personal history of other venous thrombosis and embolism; Z86.711 Personal history of pulmonary embolism; I12.9 Hypertensive chronic kidney disease with stage 1 through stage 4 chronic kidney disease, or unspecified chronic kidney disease; Z96.611 Presence of right artificial shoulder joint; F41.1 Generalized anxiety disorder; E03.9 Hypothyroidism, unspecified; E87.5 Hyperkalemia; R32 Unspecified urinary incontinence; B95.62 Methicillin resistant Staphylococcus aureus infection as the cause of diseases classified elsewhere; J98.4 Other disorders of lung; Z77.22 Contact with and (suspected) exposure to environmental tobacco smoke (acute) (chronic); Z79.82 Long term (current) use of aspirin; I35.0 Nonrheumatic aortic (valve) stenosis; M25.50 Pain in unspecified joint; Z91.81 History of falling
CPT/HCPCS: 36415; 36416; 70450; 70486; 71045; 71250; 72020; 72125; 72131; 72141; 72146; 72148; 72170; 73060; 74177; 76000; 80048; 80053; 80202; 81001; 82044; 82436; 82550; 82570; 82607; 82746; 82962; 83010; 83036; 83540; 83550; 83605; 83735; 84132; 84133; 84145; 84300; 84443; 85025; 85045; 85651; 85999; 86140; 87040; 87070; 87075; 87077; 87186; 87205; 87641; 87806; 92523; 92610; 96365; 96372; 96375; 97161; 97530; 99284; 99285; J0610; J0743; J0878; J1100; J1170; J1630; J1650; J1815; J1885; J1953; J2270; J2405; J2704; J2710; J3010; J3370; J3490; J7030; J7050; Q9967

== ENCOUNTER 2022-04-02 18:51 | Emergency (ER) | payer MEDICARE, OTHER, SELFPAY ==
--- NOTE | 2022-04-02 18:58 | ED_ITS ---
HPI - General Adult General: Chief complaint: General Medical Stated complaint: G TUBE DISLODGED Time Seen by Provider: 04/02/22 18:57 History of Present Illness: Ms. Brantley is an 82-year-old lady with complex past medical history with current G-tube who presents to the emergency de partment due to G-tube dislodgment. Apparently she was at nursing facility when she was being changed and her G-tube became caught on her close. She worn to the staff however it became dislodged prior to them being able to get it untangled. She did not have pain with this. She reports this happened about 1 hour prior to presentation. She does eat through her mouth sometimes but supplements with medications and nutrition through her G-tube. Otherwise she has been at her baseline health. No other specific changes in health, exacerbating, or alleviating factors identified. Onset (ago): minute(s) Review of Systems General: Reports: 10 or more systems reviewed and unremarkable except in HPI and below PFSH ED PFSH: Medical History Chest pain Chronic cough Discitis of lumbosacral region Fall Feared condition not demonstrated Generalized anxiety disorder Hyperkalemia Hypertension Inflammatory arthritis Joint pain Leukocytosis Lumbar radiculopathy Restrictive airway disease Shortness of Breath Thyroid disease Surgical History History of appendectomy History of hysterectomy History of repair of rotator cuff Family History Other CAD (coronary artery disease) Cancer Diabetes Family history of premature coronary artery disease Hyperlipidemia Hypertension Lung disease Stroke Denies family history of Rheumatoid arthritis Lupus Dementia Psychiatric illness Chronic kidney disease (CKD) Anesthesia complication Bleeding disorder Social History Smoking and tobacco status: never smoked Second hand smoke exposure: Yes Smoking risk assessment/counseling performed?: Yes Alcohol intake: never Lives independently: Yes Household members: none Marital status: / service: No Current occupational status: employed and retired Current occupation: part-time at [employer] Pets and animals: Yes History of recent travel: No Current gender identity: Female Female Reproductive History: Date of last menstrual period: 02/06/21 Physical Exam Const: COMMON NORMALS: alert GENERAL APPEARANCE: cooperative and well developed HENMT: COMMON NORMALS: normocephalic and atraumatic HEAD & SCALP: normocephalic and atraumatic Eye: COMMON NORMALS: conjunctivae normal CONJUNCTIVA: Yes conjunctivae normal SCLERA: sclerae normal Neck/C-Spine: COMMON NORMALS: supple GENERAL: Yes trachea midline Resp: COMMON NORMALS: normal respiratory effort EFFORT & INSPECTION: Yes able to speak in complete sentences Cardio: COMMON NORMALS: regular rate and regular rhythm RATE: regular rate RHYTHM: regular rhythm GI: COMMON NORMALS: Soft to palpation PALPATION: Yes Soft to palpation and No Tenderness to palpation present (GI) OTHER: Left upper quadrant G-tube site Extremity: GENERAL: Yes normal exam except as noted and No edema Neuro: COMMON NORMALS: moves all extremities SENSORIUM/ORIENTATION: Yes alert and No Orientation impaired Psych: COMMON NORMALS: mental status grossly normal and Normal thought process present THOUGHT PROCESS: Normal thought process present Procedures Feeding Tube Replacement Type of Tube: gastrostomy Insertion Site Prior to Procedure: clean Tube Used for Reinsertion: other Serbian Tube Size (F): 16 Balloon size (mL): 7 Verification of Placement: KUB and gastrografin injection Tube Secured by: tape/dressing Patient Tolerated Procedure: well Complications: local bleeding Course ED course: - Patient was seen and evaluated by me at bedside - Vital signs obtained - Initial evaluation notable for dislodged G-tube with G-tube site without bleeding. - Unfortunately there was a delay in obtaining satisfactory size G-tube. Initially I was unable to pass 16 Serbian however after placing smaller straight catheter sizes and serial dilation as well as analgesia I was able to pass a replacement 16 Serbian G-tube. X-ray imaging confirmed placement satisfactory. - Upon serial reexamination after treatment the patient was good, no pain. - Based on patient history, evaluation, and testing as interpreted the most likely cause of the patient's condition is dislodged G-tube with satisfactory replacement. - The results of ED evaluation were discussed with the patient including prescriptions and/or symptomatic cares (if applicable) including appropriate and responsible use, followup plan, and return precautions. The patient verbalized understanding and felt safe for discharge. - Patient discharged in satisfactory condition. Note: Click bubbles or prepopulated galeano in note writing are used for assistance with data collection and billing and are inherently more limited than narrative and other text portions of this note. Please use narrative for additional clinical history and defer to narrative/free test for any case of contradictory information. If information appears in only free text or click bubble it should be considered present or absent as reported. Please contact note contract technical writer for clarifications of clinical information or contradictory information. MDM is a brief summary, contradictory or erroneous seeming information should be clarified and full note should be reviewed. Vital Signs: Vital signs: Vital Signs Temperature 97.7 F 04/02/22 18:59 Pulse Rate 87 04/03/22 00:14 Respiratory Rate 14 04/03/22 00:14 Blood Pressure 174/72 04/03/22 00:14 Pulse Oximetry 97 04/03/22 00:14 MDM - General Adult Medical Decision Making 82-year-old lady presenting with dislodged G-tube. Mildly challenging replacement however successfully replaced. Discharged back to nursing facility. Medical Records I reviewed the patient's medical records. Lab Data I reviewed the patient's lab results. Radiology Impressions Abdomen X-Ray 04/02/22 22:13 IMPRESSION: 1. Percutaneous gastric tube tip in the stomach with contrast in the stomach without extravasation. 2. Inferior vena cava filter. COMMENTS: For patients with an IVC filter, recommend assessment for a management plan for the patient's IVC filter. If there is no established management plan, recommend referral to an interventional clinician on a nonemergent basis for evaluation. Discharge Plan Discharge Patient Disposition: Home Clinical Impression: Dislodged gastrostomy tube Condition: Stable Prescriptions: No Action levothyroxine 50 mcg tablet 50 mcg PO DAILY@07 0RF coenzyme Q10 [Co Q-10] 100 mg capsule 200 mg PO BEDTIME 0RF pantoprazole 40 mg tablet,delayed release (DR/EC) 40 mg PO BEDTIME 0RF tizanidine 2 mg tablet 2 mg PO BEDTIME 0RF aspirin [Adult Aspirin Regimen] 81 mg tablet,delayed release (DR/EC) 81 mg PO BEDTIME 0RF fenofibrate 160 mg tablet 160 mg PO BEDTIME 0RF cholecalciferol (vitamin D3) 50 mcg (2,000 unit) capsule 100 mcg PO DAILY 0RF valsartan 40 mg tablet See Rx Instructions .ROUTE .COMPLEX Qty: 90 1RF Dose Instruction: TAKE 1 TABLET BY MOUTH EVERY DAY, ADD TO 80MG TABLETS TO TOTAL 120MG DAILY Rx Instructions: TAKE 1 TABLET BY MOUTH EVERY DAY, ADD TO 80MG TABLETS TO TOTAL 120MG DAILY Probiotic 3 billion cell Capsule 3,000 mmu cells PO DAILY Qty: 0 0RF acetaminophen [Tylenol Extra Strength] 500 mg Tablet 1,000 mg PO Q4H PRN (Reason: Pain) 0RF cyanocobalamin (vitamin B-12) 1,000 mcg/mL solution 1,000 mcg IM Q30D 0RF albuterol sulfate 90 mcg/actuation HFA aerosol inhaler 2 puff INHALATION Q6H PRN (Reason: Shortness Of Breath) 0RF valsartan 80 mg tablet 80 mg PO BEDTIME 0RF Rx Instructions: WITH 40MG TO =120MG Eliquis 5 mg tablet 5 mg PO BID Qty: 120 1RF gabapentin 300 mg Capsule 300 mg PO TID 0RF Discharge Orders: Discharge ED (Routine); Ordered 04/02/22 Ordered By: Jeffry Gill Referrals: Efe Carpenter DO [Primary Care Provider] - Discharge Diet: Usual diet Discharge Activity: Increase activity as tolerated Patient Instructions: How to Use and Care for Your PEG Tube (ED) Activity Restrictions/Additional Instructions: Thank you for visiting the emergency department. You were seen evaluated for dislodgment of your G-tube. This was replaced with the same size. Please co ntinue to follow all care instructions. Follow-up with your primary care provider and regularly scheduled appointments. Return to the emergency department for anything that you are concerned about and feel needs emergency department evaluation. Coding Level of Care Code ED Tank Maker Wood for Abdoulaye Fwbridger Exam Comprehensive
[2022-04-02 18:59] VITALS: BP 199/82; PULSE 86; RESP 16; TEMP 36.5; O2SAT 100; BMI 22.7
[2022-04-02 20:11] VITALS: BP 196/94; PULSE 81; RESP 14; O2SAT 100
[2022-04-02] MEDS: morphine 4 mg/mL SDV 1 mL IM (21:56)
[2022-04-02 22:00] VITALS: BP 174/72; PULSE 87; RESP 14; O2SAT 97
--- NOTE | 2022-04-02 22:13 | XRR_ITS ---
PROCEDURE INFORMATION: Exam: XR Abdomen Exam date and time: 04/02/2022 10:24 PM Age: 82 years old Clinical indication: Device placement; Gi device; Peg tube; Prior surgery; Surgery type: Hysterectomy. Appy. Patient HX: Verify placement of new g tube. 30 ml of gastrograffin administered. ; Additional info: G tube replaced, gastrograffin check TECHNIQUE: Imaging protocol: XR of the abdomen. Views: Frontal supine view of the abdomen. 1 View. COMPARISON: CT abdomen pelvis w con* [id number] 08/16/2021 10:28 PM FINDINGS: Tubes, catheters and devices: Percutaneous gastric tube tip in the stomach with contrast in the stomach without extravasation. Gastrointestinal tract: See Tubes, catheters and devices finding. Vasculature: Inferior vena cava filter. Bones/joints: Unremarkable. XR/XR abdomen 1V* [id number] IMPRESSION: 1. Percutaneous gastric tube tip in the stomach with contrast in the stomach without extravasation. 2. Inferior vena cava filter. COMMENTS: For patients with an IVC filter, recommend assessment for a management plan for the patient's IVC filter. If there is no established management plan, recommend referral to an interventional clinician on a nonemergent basis for evaluation.
[2022-04-02] MEDS: diatrizoate meglumine 120 mL Sol PO (22:19)
[2022-04-02] MEDS: lidocaine 2% Urojet 20 mL TOPICAL (23:31)
--- NOTE | 2022-04-03 00:12 | PC.NURSE ---
Patient discharged and transported to [facility]. Report called to MARYSOL Amador. Patient transported via ambulance. G-tube replaced by physician. Dressing applied. C/D/I No IV inserted during visit.
[2022-04-03 00:14] VITALS: BP 174/72; PULSE 87; RESP 14; O2SAT 97
== END 2022-04-02 23:50 | disposition home or self-care (01) ==
PROVIDERS: Emergency Provider Emergency Medicine; PCP Electrodiagnostic Medicine
DX: Z43.1 Encounter for attention to gastrostomy (principal); Z79.01 Long term (current) use of anticoagulants; Z79.51 Long term (current) use of inhaled steroids; Z79.82 Long term (current) use of aspirin
CPT/HCPCS: 43762; 74018; 96372; 99283; J2270; Q9963

== ENCOUNTER → 2022-04-29 08:36 | Outpatient (BNVA) | payer MEDICARE, OTHER, SELFPAY | PROVIDERS: PCP Electrodiagnostic Medicine; Visit Provider Nurse Practitioner Family | DX: L89.150 Pressure ulcer of sacral region, unstageable (principal); T83.011A Breakdown (mechanical) of indwelling urethral catheter, initial encounter; X58.XXXA Exposure to other specified factors, initial encounter | CPT/HCPCS: 99203 ==

== ENCOUNTER 2022-06-05 17:52 | Emergency (ER) | payer MEDICARE, OTHER, SELFPAY ==
[2022-06-05] VITALS (8 sets, daily range): BP systolic 186–234; BP diastolic 107–127; PULSE 85–98; RESP 14–18; TEMP 36.6; O2SAT 97–100; BMI 27.4
--- NOTE | 2022-06-05 17:53 | CTR_ITS ---
PROCEDURE INFORMATION: Exam: CT Abdomen And Pelvis With Contrast Exam date and time: 06/05/2022 7:31 PM Age: 82 years old Clinical indication: Abdominal pain; Generalized; Prior surgery; Surgery type: Appy. Hysterectomy. Ivc filter. Peg tube. Indwelling catheter. Patient HX: C/O diffuse abd pain. TECHNIQUE: Imaging protocol: Computed tomography of the abdomen and pelvis with contrast. Sagittal and coronal reformatted images were created and reviewed. Radiation optimization: All CT scans at this facility use at least one of these dose optimization techniques: automated exposure control; mA and/or kV adjustment per patient size (includes targeted exams where dose is matched to clinical indication); or iterative reconstruction. Contrast material: OMNI 350; Contrast volume: 95 ml; Contrast route: INTRAVENOUS (IV); COMPARISON: CT abdomen pelvis w con* [id number] 08/16/2021 10:28 PM RADIATION DOSE METRICS: Total DLP (mGy-cm): 950.46 FINDINGS: Tubes, catheters and devices: Gastrostomy tube in the distal body of the stomach. Insert impression interval development of a small amount of fluid/edema in the presacral space. Lungs: Visualized lungs are clear. Pleural spaces: No pleural effusion. No pleural effusion. Heart: Stable moderate enlargement of the visualized portions of the heart. Visualized portions of the heart are unremarkable. Liver: The liver is unremarkable. Gallbladder and bile ducts: The gallbladder is unremarkable. No biliary ductal dilatation. Pancreas: Stable moderate atrophy of the pancreatic parenchyma. No pancreatic ductal dilatation. Multiple cystic foci in the pancreas, the largest in the tail of the pancreas measures 1.9 x 1.1 cm. Previously this measured 1.1 x 0.7 cm (series 3, image 25). Spleen: Calcified granuloma in the spleen. Adrenal glands: The right and left adrenal glands are unremarkable. Kidneys and ureters: The right and left kidneys are unremarkable. The right and left ureters are unremarkable. Stomach and bowel: Scattered diverticula in the sigmoid colon. No evidence for diverticulitis. No acute abnormality in the small bowel. Appendix: The appendix is visualized and is unremarkable. No findings to suggest acute appendicitis. Intraperitoneal space: No free intraperitoneal air. No ascites. No loculated fluid collections to suggest an abscess. Vasculature: Mild atherosclerotic changes in the visualized arteries. No evidence for aortic aneurysm or aortic dissection. Hepatic veins, portal veins, splenic vein, and SMV are patent. There is an inferior vena cava filter with the tip just below the level of the renal veins. Lymph nodes: No lymphadenopathy. Urinary bladder: The bladder is decompressed by a Cortez catheter. Increased density layering in the bladder, it is uncertain whether this represents a bladder stone or contrast from a prior radiographic study. Reproductive: Patient has had a previous hysterectomy. The ovaries are not definitely visualized, not an expected in a postmenopausal female. This may be due to ovarian atrophy. Alternatively, the patient may have had a previous bilateral oophorectomy. Bones/joints: Degenerative changes in the spine and hips. Soft tissues: No acute abnormality in the extra-abdominal soft tissues. CT/CT abdomen pelvis w con* [id number] IMPRESSION: 1. Gastrostomy tube in the distal body of the stomach. Insert impression interval development of a small amount of fluid/edema in the presacral space. 2. Multiple cystic foci in the pancreas, the largest in the tail of the pancreas has increased in size. Further evaluation with MRI of the pancreas without and with contrast on a nonemergent basis is recommended, if the patient has no contraindications. 3. Increased density layering in the bladder, it is uncertain whether this represents a bladder stone or contrast from a prior radiographic study. 4. Scattered diverticula in the sigmoid colon. No evidence for diverticulitis. 5. Incidental/nonacute findings are listed in the report. COMMENTS: For patients with an IVC filter, recommend assessment for a management plan for the patient's IVC filter. If there is no established management plan, recommend referral to an interventional clinician on a nonemergent basis for evaluation.
--- NOTE | 2022-06-05 18:21 | W.ED.GENADLT ---
HPI - General Adult General: Chief complaint: Abdominal Pain Stated complaint: abd pain Time Seen by Provider: 06/05/22 17:53 History of Present Illness: Patient is an 82-year-old female with history of chronic G-tube dependence, previous MRSA bacteremia from discitis, septic shoulder presenting to the emergency room for complaints of periumbilical abdominal pain from [facility]. Patient tells me that pain has been gone since 9 AM this morning. 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 Patient tells me that since 9 AM, the pain has been colicky intermittent. Patient denies any nausea/vomiting, fever/chills, diarrhea, melena or hematochezia. Patient chronically is Chapman dependent. Patient has had a G-tube placed in the last few months at an outside hospital. Patient denies any chest pain, shortness breath, palpitation, lightheadedness, cough, runny nose, sore throat. Patient denies any history of renal colic. Onset: 9am Duration:ongoing, intermittent to constant Location:[facility] Severity:moderate Associated symptoms: Deny chest pain, dyspnea, nausea, rash, palpitations or vomiting Review of Systems Const: Denies: fever(s) or chills Eyes: Denies: change in vision ENMT: Denies: mouth pain Card: Denies: chest pain or palpitations Resp: Denies: dyspnea or non-productive cough GI: Reports: abdominal pain; Denies: nausea, vomiting or diarrhea : Denies: dysuria Musc: Denies: extremity pain Skin/Breast: Denies: rash or new lesions Neuro: Denies: weakness in extremities Psych: Reports: other (Normal mood) Vargas/Lymph: Denies: easy bruising PFS ED PFSH: Medical History Chest pain Chronic cough Discitis of lumbosacral region Fall Feared condition not demonstrated Generalized anxiety disorder Hyperkalemia Hypertension Inflammatory arthritis Joint pain Leukocytosis Lumbar radiculopathy Malfunction of indwelling urinary catheter Restrictive airway disease Shortness of Breath Thyroid disease Surgical History History of appendectomy History of hysterectomy History of repair of rotator cuff Family History Mother , at age 71 Diabetes CAD (coronary artery disease) Stroke Cancer Skin Father , at age 65 Emphysema lung Other Family history of premature coronary artery disease Hyperlipidemia Hypertension Lung disease Denies family history of Rheumatoid arthritis Lupus Dementia Psychiatric illness Chronic kidney disease (CKD) Anesthesia complication Bleeding disorder Social History Smoking and tobacco status: never smoked Second hand smoke exposure: Yes Smoking risk assessment/counseling performed?: Yes Alcohol intake: never Caregiver/support person: Yes Household members: none Housing: [facility] Marital status: / service: No Current occupational status: retired Pets and animals: Yes History of recent travel: No Current gender identity: Female Female Reproductive History: Date of last menstrual period: 02/06/21 Physical Exam Const: COMMON NORMALS: alert HENMT: COMMON NORMALS: atraumatic HEAD & SCALP: atraumatic MOUTH: moist mucous membranes not abnormal Eye: COMMON NORMALS: EOMs intact bilaterally and conjunctivae normal CONJUNCTIVA: Yes conjunctivae normal Neck/C-Spine: COMMON NORMALS: full ROM and supple Resp: COMMON NORMALS: normal respiratory effort and clear to auscultation bilaterally AUSCULTATION: clear to auscultation bilaterally Cardio: COMMON NORMALS: regular rate RATE: regular rate GI: COMMON NORMALS: Soft to palpation PALPATION: Yes Soft to palpation OTHER: + Moderate periumbilical tenderness palpation TTP. NO guarding rebound, guarding, rigidity. No CVA tenderness to percussion. Neg Caban/Neg McBurney's point tenderness, no suprabupic tenderness to palpation. : OTHER: +Stage 2 presarcal wound well-healing/granulating Extremity: COMMON NORMALS: full ROM Neuro: SENSORIUM/ORIENTATION: Yes alert OTHER: +baseline lower extremity weakness Psych: COMMON NORMALS: speech normal SPEECH: Yes normal speech MOOD & AFFECT: Yes euthymic mood Course Vital Signs: Vital signs: Vital Signs Temperature 97.9 F 06/05/22 18:15 Pulse Rate 94 06/05/22 21:30 Respiratory Rate 16 06/05/22 21:30 Blood Pressure 234/114 06/05/22 21:30 Pulse Oximetry 100 06/05/22 21:[address] [facility] - General Adult Medical Decision Making 82-year-old female with a history of previous bacteremia from discitis and septic joint, chronic G-tube/chapman dependence presenting for [facility] for concerns of periumbilical abdominal pain since 9 AM. On exam, patient is hemodynamically stable without any guarding or rebound tenderness. Patient has mild periumbilical tenderness palpation. Patient is G-tube insertion site is dry clean and intact. Patient has an 18-gauge Chapman intact. Urine bag did not show any signs of pyuria. Hemoglobin 11.[address] abdomen pelvis showed presacral area of edema and pancreatic cystic lesions. Bedside evaluation of the wound did not show any signs of acute infection. I suspect it is well granulating healing wound. Patient is afebrile with a white count of 6.3. Unlikely to be acute presacral infection. Incidental findings of CT abd+pelvis discussed extensively with patient. Patient received a copy of the CT report with the documented findings. Patient is instructed to follow up urgently with specialists. I have instructed patient to follow-up closely with her primary care provider for further assessment of the presacral edema as well as the pancreatic cystic lesions. Today, patient was noted to have elevated blood pressure today, requiring multiple doses of amlodipine. Her son tells me that he is not able to schedule patient with his PCP and request for blood pressure medicine at this time. I have communicated all these findings with Deneen Yancey from [facility] who agrees with plan for close PCP followup and starting patient on a blood pressure medicine until patient is seen by her PCP. Patient reports feeling symptomatically improved after IVF and is now able to tolerate PO. Rx amlodipine for elevated BP Disposition: Discharge. Patient and son counseled regarding diagnostic impression, treatment plan. Patient and son given ED strict return precautions to return for continuation, worsening, or development of new symptoms. Instructed to f/u w/ PCP regarding symptoms today. Patient verbalized understanding. Lab Data : 06/05/22 18:41 06/05/22 18:41 Radiology Impressions Abdomen/Pelvis CT 06/05/22 17:53 IMPRESSION: 1. Gastrostomy tube in the distal body of the stomach. Insert impression interval development of a small amount of fluid/edema in the presacral space. 2. Multiple cystic foci in the pancreas, the largest in the tail of the pancreas has increased in size. Further evaluation with MRI of the pancreas without and with contrast on a nonemergent basis is recommended, if the patient has no contraindications. 3. Increased density layering in the bladder, it is uncertain whether this represents a bladder stone or contrast from a prior radiographic study. 4. Scattered diverticula in the sigmoid colon. No evidence for diverticulitis. 5. Incidental/nonacute findings are listed in the report. COMMENTS: For patients with an IVC filter, recommend assessment for a management plan for the patient's IVC filter. If there is no established management plan, recommend referral to an interventional clinician on a nonemergent basis for evaluation. ADDENDUM: 06/05/222102 The tip of the Chapman catheter abuts the bladder wall, however does not protrude through the bladder wall. Urgent results were discussed with MARNIE Sunshine on 06/05/2022 at 9:01 PM CDT. Laboratory Results WBC 6.3 10^3/uL (4.0-10.0) 06/05/22 18:41 RBC 3.55 10^6/uL (4.1-5.3) L 06/05/22 18:41 Hgb 11.3 g/dL (11.5-15.3) L 06/05/22 18:41 Hct 33.0 % (37.0-47.0) L 06/05/22 18:41 MCV 93.0 fl (81-99) 06/05/22 18:41 MCH 31.8 pg (28.0-34.0) 06/05/22 18:41 MCHC 34.2 g/dL (30.0-36.0) 06/05/22 18:41 RDW 11.9 % (12.1-15.1) L 06/05/22 18:41 Plt Count 358 10^3/cmm (130-400) 06/05/22 18:41 MPV 9.3 fL (7.4-10.4) 06/05/22 18:41 Neut % (Auto) 55.0 % 06/05/22 18:41 Lymph % (Auto) 31.3 % 06/05/22 18:41 Glenn % (Auto) 8.4 % 06/05/22 18:41 Eos % (Auto) 4.3 % 06/05/22 18:41 Baso % (Auto) 0.5 % 06/05/22 18:41 Neut # (Auto) 3.49 10^3/uL (1.8-7.7) 06/05/22 18:41 Lymph # (Auto) 2.0 10^3/uL (0.8-4.8) 06/05/22 18:41 Glenn # (Auto) 0.5 10^3/uL (0.2-0.9) 06/05/22 18:41 Eos # (Auto) 0.3 10^3/uL (0.0-0.8) 06/05/22 18:41 Baso # (Auto) 0.0 10^3/uL (0.0-0.1) 06/05/22 18:41 Nucleated RBC % (auto) 0 % 06/05/22 18:41 Nucleated RBCs # 0.0 /100WBC 06/05/22 18:41 Sodium 136 mmol/L (136-145) 06/05/22 18:41 Potassium 4.1 mmol/L (3.5-5.1) 06/05/22 18:41 Chloride 98 mmol/L (98-107) 06/05/22 18:41 Carbon Dioxide 27 mmol/L (22-29) 06/05/22 18:41 Anion Gap 15.1 (5-19) 06/05/22 18:41 BUN 14 mg/dL (8-23) 06/05/22 18:41 Creatinine 0.6 mg/dL (0.5-0.9) 06/05/22 18:41 GFR Calculation Not Reportable 06/05/22 18:41 Glucose 133 mg/dL (65-115) H 06/05/22 18:41 Calculated Osmolality 284 mOsm/kg (285-295) L 06/05/22 18:41 Lactate 0.8 mmol/L (0.5-2.2) 06/05/22 19:08 Calcium 9.2 mg/dL (8.5-10.5) 06/05/22 18:41 Total Bilirubin 0.2 mg/dL (0.15-1.2) 06/05/22 18:41 AST 28 U/L (0-32) 06/05/22 18:41 ALT 28 U/L (0-33) 06/05/22 18:41 Alkaline Phosphatase 130 IU/L (35-105) H 06/05/22 18:41 Total Protein 6.8 g/dL (6.6-8.7) 06/05/22 18:41 Albumin 3.4 g/dL (3.5-5.2) L 06/05/22 18:41 Globulin 3.4 g/dL (1.3-4.6) 06/05/22 18:41 Lipase 34 U/L (13-60) 06/05/22 18:41 Urine Color Yellow (Yellow) 06/05/22 19:00 Urine Appearance Clear (CLEAR) 06/05/22 19:00 Urine pH 6.5 (5-7) 06/05/22 19:00 Ur Specific [place] 1.015 (1.005-1.030) 06/05/22 19:00 Urine Protein Neg (Negative) 06/05/22 19:00 Urine Glucose (UA) Norm (Normal) 06/05/22 19:00 Urine Ketones 1+ (Negative) H 06/05/22 19:00 Urine Blood 3+ (Negative) H 06/05/22 19:00 Urine Nitrate Negative (Negative) 06/05/22 19:00 Urine Bilirubin Neg (Negative) 06/05/22 19:00 Urine Urobilinogen Neg mg/dL (Negative) 06/05/22 19:00 Ur Leukocyte Esterase Trace (Negative) H 06/05/22 19:00 Urine RBC 10-15 /hpf (0-2) H 06/05/22 19:00 Urine WBC 0-4 /hpf (0-5) H 06/05/22 19:00 Ur Squamous Epith Cells 0-4 /hpf (0-5) H 06/05/22 19:00 Amorphous Sediment Not Reportable 06/05/22 19:00 Urine Bacteria Not Reportable 06/05/22 19:00 Imaging Data Other Imaging: Radiologist's impression: [address] [place] [address] CT Scan Report Signed with Bob Patient: Zoila Brantley Unit #: [id number] : 1940 Age/Sex: 82 / F ADM Date: 06/05/22 Loc: ER Room/Bed: Attending Dr: Ordering Provider/Ordering MD: Marnie Coe MD Date of Service: 06/05/22 Procedure(s): CT abdomen pelvis w con* [id number] Accession Number(s): [id number] Report Number: [id number]/CT abdomen pelvis w con* [id number] The tip of the Chapman catheter abuts the bladder wall, however does not protrude through the bladder wall. ? Urgent results were discussed with MARNIE Sunshine on 06/05/2022 at 9:01 PM CDT. ? Addendum Dictated By: ?Gabi Fragoso MD Addendum Signed By: ?Gabi Fragoso MD Signed Date/Time: 06/05/222102 Addendum Cosigned By: ? PROCEDURE INFORMATION: Exam: CT Abdomen And Pelvis With Contrast Exam date and time: 06/05/2022 7:31 PM Age: 82 years old Clinical indication: Abdominal pain; Generalized; Prior surgery; Surgery type: Appy. Hysterectomy. Ivc filter. Peg tube. Indwelling catheter. Patient HX: C/O diffuse abd pain. TECHNIQUE: Imaging protocol: Computed tomography of the abdomen and pelvis with contrast.? Sagittal and coronal reformatted images were created and reviewed.? Radiation optimization: All CT scans at this facility use at least one of these dose optimization techniques: automated exposure control; mA and/or kV adjustment per patient size (includes targeted exams where dose is matched to clinical indication); or iterative reconstruction. Contrast material: OMNI 350; Contrast volume: 95 ml; Contrast route: INTRAVENOUS (IV);? COMPARISON: CT abdomen pelvis w con* [id number] 08/16/2021 10:28 PM RADIATION DOSE METRICS: Total DLP (mGy-cm): 950.46 FINDINGS: Tubes, catheters and devices: Gastrostomy tube in the distal body of the stomach. Insert impression interval development of a small amount of fluid/edema in the presacral space. Lungs: Visualized lungs are clear. Pleural spaces: No pleural effusion. No pleural effusion. Heart: Stable moderate enlargement of the visualized portions of the heart. Visualized portions of the heart are unremarkable. Liver: The liver is unremarkable. Gallbladder and bile ducts: The gallbladder is unremarkable. No biliary ductal dilatation. Pancreas: Stable moderate atrophy of the pancreatic parenchyma. No pancreatic ductal dilatation. Multiple cystic foci in the pancreas, the largest in the tail of the pancreas measures 1.9 x 1.1 cm. Previously this measured 1.1 x 0.7 cm (series 3, image 25). Spleen: Calcified granuloma in the spleen. Adrenal glands: The right and left adrenal glands are unremarkable. Kidneys and ureters: The right and left kidneys are unremarkable. The right and left ureters are unremarkable. Stomach and bowel: Scattered diverticula in the sigmoid colon. No evidence for diverticulitis. No acute abnormality in the small bowel. Appendix: The appendix is visualized and is unremarkable. No findings to suggest acute appendicitis. Intraperitoneal space: No free intraperitoneal air. No ascites. No loculated fluid collections to suggest an abscess. Vasculature: Mild atherosclerotic changes in the visualized arteries. No evidence for aortic aneurysm or aortic dissection. Hepatic veins, portal veins, splenic vein, and SMV are patent. There is an inferior vena cava filter with the tip just below the level of the renal veins. Lymph nodes: No lymphadenopathy. Urinary bladder: The bladder is decompressed by a Chapman catheter. Increased density layering in the bladder, it is uncertain whether this represents a bladder stone or contrast from a prior radiographic study. Reproductive: Patient has had a previous hysterectomy. The ovaries are not definitely visualized, not an expected in a postmenopausal female. This may be due to ovarian atrophy. Alternatively, the patient may have had a previous bilateral oophorectomy. Bones/joints: Degenerative changes in the spine and hips. Soft tissues: No acute abnormality in the extra-abdominal soft tissues. CT/CT abdomen pelvis w con* [id number] IMPRESSION: 1. Gastrostomy tube in the distal body of the stomach. Insert impression interval development of a small amount of fluid/edema in the presacral space. 2. Multiple cystic foci in the pancreas, the largest in the tail of the pancreas has increased in size. Further evaluation with MRI of the pancreas without and with contrast on a nonemergent basis is recommended, if the patient has no contraindications. 3. Increased density layering in the bladder, it is uncertain whether this represents a bladder stone or contrast from a prior radiographic study. 4. Scattered diverticula in the sigmoid colon. No evidence for diverticulitis. 5. Incidental/nonacute findings are listed in the report. ? COMMENTS: For patients with an IVC filter, recommend assessment for a management plan for the patient's IVC filter. If there is no established management plan, recommend referral to an interventional clinician on a nonemergent basis for evaluation. ? Dictated By: Gabi Fragoso MD Signed By: Gabi Fragoso MD Signed Date/Time: 06/05/222025 DD/ 30 Discharge Plan Discharge Patient Disposition: Home Clinical Impression: Abdominal pain Condition: Stable Prescriptions: New Pepcid 20 mg tablet 20 mg PO BID PRN (Reason: abdominal pain) 10 Days Qty: 20 0RF Maalox Advanced 1,000-60 mg tablet,chewable 1 tab PO TID PRN (Reason: abdominal pain) 7 Days Qty: 21 0RF amlodipine 10 mg tablet 10 mg PO DAILY 30 Days Qty: 30 0RF No Action levothyroxine 50 mcg tablet 50 mcg PO DAILY@07 0RF coenzyme Q10 [Co Q-10] 100 mg capsule 200 mg PO BEDTIME 0RF pantoprazole 40 mg tablet,delayed release (DR/EC) 40 mg PO BEDTIME 0RF tizanidine 2 mg tablet 2 mg PO BEDTIME 0RF aspirin [Adult Aspirin Regimen] 81 mg tablet,delayed release (DR/EC) 81 mg PO BEDTIME 0RF fenofibrate 160 mg tablet 160 mg PO BEDTIME 0RF cholecalciferol (vitamin D3) 50 mcg (2,000 unit) capsule 100 mcg PO DAILY 0RF valsartan 40 mg tablet See Rx Instructions .ROUTE .COMPLEX Qty: 90 1RF Dose Instruction: TAKE 1 TABLET BY MOUTH EVERY DAY, ADD TO 80MG TABLETS TO TOTAL 120MG DAILY Rx Instructions: TAKE 1 TABLET BY MOUTH EVERY DAY, ADD TO 80MG TABLETS TO TOTAL 120MG DAILY Probiotic 3 billion cell Capsule 3,000 mmu cells PO DAILY Qty: 0 0RF acetaminophen [Tylenol Extra Strength] 500 mg Tablet 1,000 mg PO Q4H PRN (Reason: Pain) 0RF cyanocobalamin (vitamin B-12) 1,000 mcg/mL solution 1,000 mcg IM Q30D 0RF albuterol sulfate 90 mcg/actuation HFA aerosol inhaler 2 puff INHALATION Q6H PRN (Reason: Shortness Of Breath) 0RF valsartan 80 mg tablet 80 mg PO BEDTIME 0RF Rx Instructions: WITH 40MG TO =120MG Eliquis 5 mg tablet 5 mg PO BID Qty: 120 1RF gabapentin 300 mg Capsule 300 mg PO TID 0RF Discharge Orders: Discharge ED (Routine); Ordered 06/05/22 Ordered By: Marnie Coe Referrals: Brandon Pereira DO [Primary Care Provider] - Discharge Diet: Advance as tolerated Discharge Activity: Increase activity as tolerated Patient Instructions: Abdominal Pain (ED), Hypertension (ED) Activity Restrictions/Additional Instructions: You need to follow-up with your primary care provider for further adjustment of your blood pressure. Your blood pressure puts you at risk for developing strokes and heart attack. Therefore it is very important for you to follow-up with this number to see if the numbers improve gradually. Because blood pressure adjustment is a gradual process, were not able to change it in 1 visit. Therefore please log your blood pressure and follow-up with your primary care provider in the next 72 hours for further adjustment of your blood pressures. Please come back if you have any worsening abdominal pain, fever or chills, nausea or vomiting, diarrhea, blood in the stool, inability hold down liquid or solids, or any new concerning complaints. Here's a copy of your CT report. Please follow up with the lesions of your pancreas and presacral edema [place] [address] CT Scan Report Signed with Bob Patient: Zoila Brantley Unit #: [id number] : 1940 Age/Sex: 82 / F ADM Date: 06/05/22 Loc: ER Room/Bed: Attending Dr: Ordering Provider/Ordering MD: Marnie Coe MD Date of Service: 06/05/22 Procedure(s): CT abdomen pelvis w con* [id number] Accession Number(s): [id number] Report Number: [id number]/CT abdomen pelvis w con* [id number] The tip of the Chapman catheter abuts the bladder wall, however does not protrude through the bladder wall. ? Urgent results were discussed with MARNIE Sunshine on 06/05/2022 at 9:01 PM CDT. ? Addendum Dictated By: ?Gabi Fargoso MD Addendum Signed By: ?Gabi Fragoso MD Signed Date/Time: 06/05/222102 Addendum Cosigned By: ? PROCEDURE INFORMATION: Exam: CT Abdomen And Pelvis With Contrast Exam date and time: 06/05/2022 7:31 PM Age: 82 years old Clinical indication: Abdominal pain; Generalized; Prior surgery; Surgery type: Appy. Hysterectomy. Ivc filter. Peg tube. Indwelling catheter. Patient HX: C/O diffuse abd pain. TECHNIQUE: Imaging protocol: Computed tomography of the abdomen and pelvis with contrast.? Sagittal and coronal reformatted images were created and reviewed.? Radiation optimization: All CT scans at this facility use at least one of these dose optimization techniques: automated exposure control; mA and/or kV adjustment per patient size (includes targeted exams where dose is matched to clinical indication); or iterative reconstruction. Contrast material: OMNI 350; Contrast volume: 95 ml; Contrast route: INTRAVENOUS (IV);? COMPARISON: CT abdomen pelvis w con* [id number] 08/16/2021 10:28 PM RADIATION DOSE METRICS: Total DLP (mGy-cm): 950.46 FINDINGS: Tubes, catheters and devices: Gastrostomy tube in the distal body of the stomach. Insert impression interval development of a small amount of fluid/edema in the presacral space. Lungs: Visualized lungs are clear. Pleural spaces: No pleural effusion. No pleural effusion. Heart: Stable moderate enlargement of the visualized portions of the heart. Visualized portions of the heart are unremarkable. Liver: The liver is unremarkable. Gallbladder and bile ducts: The gallbladder is unremarkable. No biliary ductal dilatation. Pancreas: Stable moderate atrophy of the pancreatic parenchyma. No pancreatic ductal dilatation. Multiple cystic foci in the pancreas, the largest in the tail of the pancreas measures 1.9 x 1.1 cm. Previously this measured 1.1 x 0.7 cm (series 3, image 25). Spleen: Calcified granuloma in the spleen. Adrenal glands: The right and left adrenal glands are unremarkable. Kidneys and ureters: The right and left kidneys are unremarkable. The right and left ureters are unremarkable. Stomach and bowel: Scattered diverticula in the sigmoid colon. No evidence for diverticulitis. No acute abnormality in the small bowel. Appendix: The appendix is visualized and is unremarkable. No findings to suggest acute appendicitis. Intraperitoneal space: No free intraperitoneal air. No ascites. No loculated fluid collections to suggest an abscess. Vasculature: Mild atherosclerotic changes in the visualized arteries. No evidence for aortic aneurysm or aortic dissection. Hepatic veins, portal veins, splenic vein, and SMV are patent. There is an inferior vena cava filter with the tip just below the level of the renal veins. Lymph nodes: No lymphadenopathy. Urinary bladder: The bladder is decompressed by a Chapman catheter. Increased density layering in the bladder, it is uncertain whether this represents a bladder stone or contrast from a prior radiographic study. Reproductive: Patient has had a previous hysterectomy. The ovaries are not definitely visualized, not an expected in a postmenopausal female. This may be due to ovarian atrophy. Alternatively, the patient may have had a previous bilateral oophorectomy. Bones/joints: Degenerative changes in the spine and hips. Soft tissues: No acute abnormality in the extra-abdominal soft tissues. CT/CT abdomen pelvis w con* [id number] IMPRESSION: 1. Gastrostomy tube in the distal body of the stomach. Insert impression interval development of a small amount of fluid/edema in the presacral space. 2. Multiple cystic foci in the pancreas, the largest in the tail of the pancreas has increased in size. Further evaluation with MRI of the pancreas without and with contrast on a nonemergent basis is recommended, if the patient has no contraindications. 3. Increased density layering in the bladder, it is uncertain whether this represents a bladder stone or contrast from a prior radiographic study. 4. Scattered diverticula in the sigmoid colon. No evidence for diverticulitis. 5. Incidental/nonacute findings are listed in the report. ? COMMENTS: For patients with an IVC filter, recommend assessment for a management plan for the patient's IVC filter. If there is no established management plan, recommend referral to an interventional clinician on a nonemergent basis for evaluation. ? Dictated By: Gabi Fragoso MD Signed By: Gabi Fragoso MD Signed Date/Time: 06/05/222025 DD/ 30 Coding Level of Care Code ED Sole Buffer for Chg Fwd Exam Comprehensive
[2022-06-05] MEDS: famotidine 20 mg/2 mL INJ IVP (18:39)
[2022-06-05] MEDS: sodium chloride 0.9% 500 ML IV (18:39)
[2022-06-05 18:46] LABS: Basophils % 0.5 %; Eosinophils # 0.3 10^3/uL (0.0-0.8); Eosinophils % 4.3 %; Hemoglobin 11.3 g/dL (11.5-15.3); Lymphocytes % 31.3 %; Mean Corpuscular HGB Conc 34.2 g/dL (30.0-36.0); Mean Corpuscular Hemoglobin 31.8 pg (28.0-34.0); Mean Platelet Volume 9.3 fL (7.4-10.4); Monocytes # 0.5 10^3/uL (0.2-0.9); Monocytes % 8.4 %; Neutrophils # 3.49 10^3/uL (1.8-7.7); Nucleated Red Blood Cells % 0 %; Platelet Count 358 10^3/cmm (130-400); Red Blood Count 3.55 10^6/uL (4.1-5.3); Red Cell Distribution Width 11.9 % (12.1-15.1); White Blood Count 6.3 10^3/uL (4.0-10.0)
--- NOTE | 2022-06-05 18:59 | PC.NURSE ---
Report to RENATO Robledo
[2022-06-05 19:12] LABS: Albumin Level 3.4 g/dL (3.5-5.2); Alkaline Phosphatase 130 IU/L (35-105); Anion Gap 15.1 (5-19); Aspartate Amino Transferase 28 U/L (0-32); Blood Urea Nitrogen 14 mg/dL (8-23); Calcium 9.2 mg/dL (8.5-10.5); Carbon Dioxide 27 mmol/L (22-29); Chloride 98 mmol/L (98-107); Creatinine Clr Calc Pharmacy 51.1122; Globulin 3.4 g/dL (1.3-4.6); Glucose 133 mg/dL (65-115); Lipase 34 U/L (13-60); Osmolality Calculated 284 mOsm/kg (285-295); Potassium 4.1 mmol/L (3.5-5.1); Sodium 136 mmol/L (136-145); Total Bilirubin 0.2 mg/dL (0.15-1.2); Total Protein 6.8 g/dL (6.6-8.7)
[2022-06-05 19:23] LABS: Alanine Aminotransferase 28 U/L (0-33)
[2022-06-05 19:33] LABS: Lactate (Lactic Acid level) 0.8 mmol/L (0.5-2.2)
[2022-06-05 19:34] LABS: Add Urine Microscopic? YES; Bilirubin Urine Neg (Negative); Blood Urine 3+ (Negative); Glucose Urine UA Norm (Normal); Ketones Urine 1+ (Negative); Leukocyte Esterase Urine Trace (Negative); Nitrate Urine Negative (Negative); Protein Urine Neg (Negative); Specific Gravity, Urine 1.015 (1.005-1.030); Squamous Epithelial Cell Urine 0-4 /hpf (0-5); Urine Appearance Clear (CLEAR); Urine Color Yellow (Yellow); Urobilinogen Urine Neg (Negative); WBC Urine 0-4 /hpf (0-5); pH Urine 6.5 (5-7)
[2022-06-05 19:35] LABS: Add Urine Culture? Yes
[2022-06-05] MEDS: iohexol 350 mg/mL 100 mL Btl IV (19:35)
[2022-06-05] MEDS: amlodipine 5 mg Tablet PO (20:57)
[2022-06-05] MEDS: amlodipine 10 mg Tablet PO (21:55)
== END 2022-06-05 22:56 | disposition home or self-care (01) ==
PROVIDERS: Emergency Provider Emergency Medicine; PCP Internal Medicine
DX: R10.9 Unspecified abdominal pain (principal); Z79.01 Long term (current) use of anticoagulants; Z79.82 Long term (current) use of aspirin; I10 Essential (primary) hypertension; Z77.22 Contact with and (suspected) exposure to environmental tobacco smoke (acute) (chronic)
CPT/HCPCS: 74177; 80053; 81001; 83605; 83690; 85025; 87086; 96361; 96374; 99285; J3490; J7040; Q9967

== ENCOUNTER → 2022-06-16 13:45 | Outpatient (BNVA) | payer MEDICARE, OTHER, SELFPAY | PROVIDERS: PCP Internal Medicine; Referring Provider Internal Medicine; Visit Provider Specialist | DX: R10.9 Unspecified abdominal pain (principal); R29.90 Unspecified symptoms and signs involving the nervous system | CPT/HCPCS: G0463 ==

== ENCOUNTER 2022-06-16 15:16 | Emergency (ER) | payer MEDICARE, OTHER, SELFPAY ==
[2022-06-16] VITALS (7 sets, daily range): BP systolic 153–170; BP diastolic 86–112; PULSE 88–101; RESP 15–18; TEMP 36.9; O2SAT 95–98; BMI 21.7
--- NOTE | 2022-06-16 17:57 | CTR_ITS ---
PROCEDURE INFORMATION: Exam: CT Abdomen And Pelvis Without Contrast Exam date and time: 06/16/2022 9:30 PM Age: 82 years old Clinical indication: Abdominal pain; Additional info: Abd pain TECHNIQUE: Imaging protocol: Computed tomography of the abdomen and pelvis without contrast. Radiation optimization: All CT scans at this facility use at least one of these dose optimization techniques: automated exposure control; mA and/or kV adjustment per patient size (includes targeted exams where dose is matched to clinical indication); or iterative reconstruction. COMPARISON: CT abdomen pelvis w con* [id number] 06/05/2022 7:31 PM RADIATION DOSE METRICS: Total DLP (mGy-cm): 533.01 FINDINGS: Tubes, catheters and devices: Stable PEG tube. Liver: Normal. No mass. Gallbladder and bile ducts: Normal. No calcified stones. No ductal dilation. Pancreas: Normal. No ductal dilation. Spleen: Calcified splenic granulomas. Adrenal glands: Normal. No mass. Kidneys and ureters: Normal. No hydronephrosis. Stomach and bowel: [id number]-[id number] retained feces in the rectum. Appendix: No evidence of appendicitis. Intraperitoneal space: Unremarkable. No free air. No significant fluid collection. Vasculature: Stable IVC filter. Calcification of the abdominal aorta and/or iliac arteries consistent with atherosclerotic vessel disease. Lymph nodes: Unremarkable. No enlarged lymph nodes. Urinary bladder: Stable Cortez balloon catheter in the urinary bladder. Reproductive: Stable hysterectomy. Bones/joints: Dextroscoliosis. Continued presacral edema which could be secondary to proctitis. Soft tissues: Unremarkable. CT/CT abdomen pelvis con [id number] IMPRESSION: 1. Stable IVC filter. 2. Stable Cortez balloon catheter in the urinary bladder. 3. Continued presacral edema which could be secondary to proctitis. 4. Qvzz-st-[id number] retained feces in the rectum. 5. Stable PEG tube. COMMENTS: For patients with an IVC filter, recommend assessment for a management plan for the patient's IVC filter. If there is no established management plan, recommend referral to an interventional clinician on a nonemergent basis for evaluation.
--- NOTE | 2022-06-16 18:28 | W.ED.ABDPA2 ---
HPI - Abdominal Pain General: Chief Complaint: Abdominal Pain Stated Complaint: Abd pain Time Seen by Provider: 06/16/22 17:47 Source: patient Mode of arrival: ambulatory Limitations: no limitations History of Present Illness: 82-year-old female states been having some abdominal pain over the last 2 weeks. States that the pains have been sharp in nature she was seen here roughly a week ago diagnosed with pancreatic lesion she has not followed up yet. She states that she been taking tramadol at home with minimal improvement in her pain states pain is sharp in nature diffuse rates it an 8 out of 10 no vomiting no diarrhea. Associated Symptoms: Denies chills, dysuria and fever(s) Related Data: Date of Last Menstrual Period: 02/06/21 Review of Systems Const: Denies: fever(s), chills, body aches or change in appetite Eyes: Denies: blurry vision or eye discomfort ENMT: Denies: throat pain or dental pain Card: Denies: chest pain Resp: Denies: dyspnea GI: Reports: abdominal pain : Denies: dysuria Musc: Denies: neck pain or back pain Skin/Breast: Denies: rash Neuro: Denies: headache(s) Psych: Denies: depression Vargas/Lymph: Denies: easy bruising All/Imm: Denies: urticaria PFSH ED PFSH: Medical History Chest pain Chronic cough Discitis of lumbosacral region Fall Feared condition not demonstrated Generalized anxiety disorder Hyperkalemia Hypertension Inflammatory arthritis Joint pain Leukocytosis Lumbar radiculopathy Malfunction of indwelling urinary catheter Restrictive airway disease Shortness of Breath Thyroid disease Surgical History History of appendectomy History of hysterectomy History of repair of rotator cuff Family History Mother , at age 71 Diabetes CAD (coronary artery disease) Stroke Cancer Skin Father , at age 65 Emphysema lung Other Family history of premature coronary artery disease Hyperlipidemia Hypertension Lung disease Denies family history of Rheumatoid arthritis Lupus Dementia Psychiatric illness Chronic kidney disease (CKD) Anesthesia complication Bleeding disorder Social History Smoking and tobacco status: never smoked Second hand smoke exposure: Yes Smoking risk assessment/counseling performed?: Yes Alcohol intake: never Caregiver/support person: Yes Household members: none Housing: [facility] Marital status: / service: No Current occupational status: retired Pets and animals: Yes History of recent travel: No Current gender identity: Female Female Reproductive History: Date of last menstrual period: 02/06/21 Physical Exam Const: COMMON NORMALS: no acute distress, patient oriented x3 and healthy appearing HENMT: COMMON NORMALS: normocephalic and atraumatic HEAD & SCALP: normocephalic and atraumatic Eye: COMMON NORMALS: Equal, round and reactive pupils present and EOMs intact bilaterally PUPIL: Yes Equal, round and reactive pupils present Neck/C-Spine: COMMON NORMALS: full ROM and supple Chest: COMMONS NORMALS: normal inspection of the chest and normal palpation of entire chest wall Resp: COMMON NORMALS: normal respiratory effort, No retractions, No use of accessory muscles and clear to auscultation bilaterally AUSCULTATION: clear to auscultation bilaterally Cardio: COMMON NORMALS: regular rate, regular rhythm and No murmurs present (Cardio) RATE: regular rate RHYTHM: regular rhythm GI: COMMON NORMALS: Normal to inspection, nondistended, normoactive bowel sounds present, Soft to palpation and no masses PALPATION: Yes Soft to palpation OTHER: diffuse tenderness Extremity: COMMON NORMALS: normal to inspection and full ROM Neuro: COMMON NORMALS: patient oriented x3, moves all extremities and no focal motor deficits Psych: COMMON NORMALS: mental status grossly normal, Normal thought process present and cooperative THOUGHT PROCESS: Normal thought process present Skin: COMMON NORMALS: no rashes or lesions noted and no wounds GENERAL SKIN EXAM: no rashes or lesions noted Course Vital Signs: Vital signs: Vital Signs Temperature 98.5 F 06/16/22 15:29 Pulse Rate 88 06/16/22 21:50 Respiratory Rate 16 06/16/22 21:50 Blood Pressure 170/91 06/16/22 21:50 Pulse Oximetry 98 06/16/22 21:50 Oxygen Delivery Me thod 06/16/22 18:01 MDM - Abdominal Pain Medical Decision Making Patient presents here with abdominal pain CT showed no acute findings possible proctitis we will discharge her on some fentanyl patches she is to follow-up with her PCP she return if worsening she understands agrees to plan. Lab Data : 06/16/22 18:50 06/16/22 18:50 Labs/Radiology: Radiology Impressions Abdomen/Pelvis CT 06/16/22 17:57 IMPRESSION: 1. Stable IVC filter. 2. Stable Cortez balloon catheter in the urinary bladder. 3. Continued presacral edema which could be secondary to proctitis. 4. Zoof-ch-biezwfmy retained feces in the rectum. 5. Stable PEG tube. COMMENTS: For patients with an IVC filter, recommend assessment for a management plan for the patient's IVC filter. If there is no established management plan, recommend referral to an interventional clinician on a nonemergent basis for evaluation. Laboratory Results WBC 8.6 10^3/uL (4.0-10.0) 06/16/22 18:50 RBC 3.90 10^6/uL (4.1-5.3) L 06/16/22 18:50 Hgb 12.2 g/dL (11.5-15.3) 06/16/22 18:50 Hct 37.5 % (37.0-47.0) 06/16/22 18:50 MCV 96.2 fl (81-99) 06/16/22 18:50 MCH 31.3 pg (28.0-34.0) 06/16/22 18:50 MCHC 32.5 g/dL (30.0-36.0) 06/16/22 18:50 RDW 12.6 % (12.1-15.1) 06/16/22 18:50 Plt Count 321 10^3/cmm (130-400) 06/16/22 18:50 MPV 9.2 fL (7.4-10.4) 06/16/22 18:50 Neut % (Auto) 70.7 % 06/16/22 18:50 Lymph % (Auto) 18.4 % 06/16/22 18:50 [place] % (Auto) 8.3 % 06/16/22 18:50 Eos % (Auto) 1.7 % 06/16/22 18:50 Baso % (Auto) 0.6 % 06/16/22 18:50 Neut # (Auto) 6.09 10^3/uL (1.8-7.7) 06/16/22 18:50 Lymph # (Auto) 1.6 10^3/uL (0.8-4.8) 06/16/22 18:50 [place] # (Auto) 0.7 10^3/uL (0.2-0.9) 06/16/22 18:50 Eos # (Auto) 0.2 10^3/uL (0.0-0.8) 06/16/22 18:50 Baso # (Auto) 0.1 10^3/uL (0.0-0.1) 06/16/22 18:50 Nucleated RBC % (auto) 0 % 06/16/22 18:50 Nucleated RBCs # 0.0 /100WBC 06/16/22 18:50 Sodium 135 mmol/L (136-145) L 06/16/22 18:50 Potassium 4.2 mmol/L (3.5-5.1) 06/16/22 18:50 Chloride 96 mmol/L (98-107) L 06/16/22 18:50 Carbon Dioxide 26 mmol/L (22-29) 06/16/22 18:50 Anion Gap 17.2 (5-19) 06/16/22 18:50 BUN 19 mg/dL (8-23) 06/16/22 18:50 Creatinine 0.9 mg/dL (0.5-0.9) 06/16/22 18:50 GFR Calculation Not Reportable 06/16/22 18:50 Glucose 111 mg/dL (65-115) 06/16/22 18:50 Calculated Osmolality 283 mOsm/kg (285-295) L 06/16/22 18:50 Lactate 1.4 mmol/L (0.5-2.2) 06/16/22 18:50 Calcium 10.3 mg/dL (8.5-10.5) 06/16/22 18:50 Total Bilirubin 0.4 mg/dL (0.15-1.2) 06/16/22 18:50 AST 18 U/L (0-32) 06/16/22 18:50 ALT 14 U/L (0-33) 06/16/22 18:50 Alkaline Phosphatase 132 IU/L (35-105) H 06/16/22 18:50 Total Protein 8.1 g/dL (6.6-8.7) 06/16/22 18:50 Albumin 4.0 g/dL (3.5-5.2) 06/16/22 18:50 Globulin 4.1 g/dL (1.3-4.6) 06/16/22 18:50 Lipase 19 U/L (13-60) 06/16/22 18:50 Urine Color Yellow (Yellow) 06/16/22 19:36 Urine Appearance Cloudy (CLEAR) 06/16/22 19:36 Urine pH 9 (5-7) H 06/16/22 19:36 Ur Specific [place] 1.015 (1.005-1.030) 06/16/22 19:36 Urine Protein 1+ (Negative) H 06/16/22 19:36 Urine Glucose (UA) Norm (Normal) 06/16/22 19:36 Urine Ketones 1+ (Negative) H 06/16/22 19:36 Urine Blood 3+ (Negative) H 06/16/22 19:36 Urine Nitrate Positive (Negative) H 06/16/22 19:36 Urine Bilirubin Neg (Negative) 06/16/22 19:36 Prot Sulfosalicylic Acd Positive (Negative) 06/16/22 19:36 Urine Urobilinogen Norm mg/dL (Negative) 06/16/22 19:36 Ur Leukocyte Esterase 2+ (Negative) H 06/16/22 19:36 Urine RBC 5-10 /hpf (0-2) H 06/16/22 19:36 Urine WBC >100 /hpf (0-5) H 06/16/22 19:36 Ur Squamous Epith Cells 0-4 /hpf (0-5) H 06/16/22 19:36 Triple Phos Crystals 25-40 /hpf H 06/16/22 19:36 Amorphous Sediment 1+ /hpf 06/16/22 19:36 Urine Bacteria 1+ /hpf (NONE) H 06/16/22 19:36 Discharge Plan Discharge Patient Disposition: Home Clinical Impression: Abdominal pain, Acute cystitis Condition: Stable Prescriptions: New fentanyl 25 mcg/hr patch 72 hour 1 patch transdermal Q72H Qty: 5 0RF cephalexin 500 mg capsule 500 mg PO TID 7 Days Qty: 21 0RF No Action levothyroxine 50 mcg tablet 50 mcg PO DAILY@07 coenzyme Q10 [Co Q-10] 100 mg capsule 200 mg PO BEDTIME pantoprazole 40 mg tablet,delayed release (DR/EC) 40 mg PO BEDTIME tizanidine 2 mg tablet 2 mg PO BEDTIME aspirin [Adult Aspirin Regimen] 81 mg tablet,delayed release (DR/EC) 81 mg PO BEDTIME fenofibrate 160 mg tablet 160 mg PO BEDTIME cholecalciferol (vitamin D3) 50 mcg (2,000 unit) capsule 100 mcg PO DAILY valsartan 40 mg tablet See Rx Instructions .ROUTE .COMPLEX Qty: 90 1RF Dose Instruction: TAKE 1 TABLET BY MOUTH EVERY DAY, ADD TO 80MG TABLETS TO TOTAL 120MG DAILY Rx Instructions: TAKE 1 TABLET BY MOUTH EVERY DAY, ADD TO 80MG TABLETS TO TOTAL 120MG DAILY Probiotic 3 billion cell Capsule 3,000 mmu cells PO DAILY Qty: 0 acetaminophen [Tylenol Extra Strength] 500 mg Tablet 1,000 mg PO Q4H PRN (Reason: Pain) cyanocobalamin (vitamin B-12) 1,000 mcg/mL solution 1,000 mcg IM Q30D albuterol sulfate 90 mcg/actuation HFA aerosol inhaler 2 puff INHALATION Q6H PRN (Reason: Shortness Of Breath) valsartan 80 mg tablet 80 mg PO BEDTIME Rx Instructions: WITH 40MG TO =120MG Eliquis 5 mg tablet 5 mg PO BID Qty: 120 1RF gabapentin 300 mg Capsule 300 mg PO TID amlodipine 10 mg tablet 10 mg PO DAILY 30 Days Qty: 30 0RF Discharge Orders: Discharge ED (Routine); Ordered 06/16/22 Ordered By: Dwayne Soria Referrals: Brandon Pereira DO [Primary Care Provider] - Discharge Diet: Advance as tolerated Discharge Activity: Resume usual activity Patient Instructions: Abdominal Pain (ED), Opioid Safety Coding Level of Care Code ED Animal Trainer Supervisor for Chg Fwd Exam Comprehensive
[2022-06-16 18:59] LABS: Basophils # 0.1 10^3/uL (0.0-0.1); Basophils % 0.6 %; Eosinophils # 0.2 10^3/uL (0.0-0.8); Eosinophils % 1.7 %; Hematocrit 37.5 % (37.0-47.0); Hemoglobin 12.2 g/dL (11.5-15.3); Lymphocytes # 1.6 10^3/uL (0.8-4.8); Lymphocytes % 18.4 %; Mean Corpuscular HGB Conc 32.5 g/dL (30.0-36.0); Mean Corpuscular Hemoglobin 31.3 pg (28.0-34.0); Mean Corpuscular Volume 96.2 fl (81-99); Mean Platelet Volume 9.2 fL (7.4-10.4); Monocytes # 0.7 10^3/uL (0.2-0.9); Monocytes % 8.3 %; Neutrophils # 6.09 10^3/uL (1.8-7.7); Neutrophils % 70.7 %; Nucleated Red Blood Cells % 0 %; Platelet Count 321 10^3/cmm (130-400); Red Cell Distribution Width 12.6 % (12.1-15.1); White Blood Count 8.6 10^3/uL (4.0-10.0)
[2022-06-16] MEDS: ondansetron 2 mg/ML SDV 2 mL 4 MG IVP (19:06)
[2022-06-16] MEDS: fentaNYL 50 mcg/mL INJ 2mL IVP ×2 (19:07→21:16)
[2022-06-16 19:15] LABS: Lactate (Lactic Acid level) 1.4 mmol/L (0.5-2.2)
[2022-06-16 19:20] LABS: Alanine Aminotransferase 14 U/L (0-33); Alkaline Phosphatase 132 IU/L (35-105); Anion Gap 17.2 (5-19); Aspartate Amino Transferase 18 U/L (0-32); Blood Urea Nitrogen 19 mg/dL (8-23); Calcium 10.3 mg/dL (8.5-10.5); Carbon Dioxide 26 mmol/L (22-29); Chloride 96 mmol/L (98-107); Globulin 4.1 g/dL (1.3-4.6); Glucose 111 mg/dL (65-115); Osmolality Calculated 283 mOsm/kg (285-295); Potassium 4.2 mmol/L (3.5-5.1); Sodium 135 mmol/L (136-145); Total Bilirubin 0.4 mg/dL (0.15-1.2); Total Protein 8.1 g/dL (6.6-8.7)
--- NOTE | 2022-06-16 19:27 | PC.NURSE ---
Received report. 82 yo female presents with abdominal pain and nausea. Has been presents for over a week. Seen on wednesday for same, CT scan showed lesions on pancreas and was to have outpt MRI performed. Pain has persisted as well as nausea.
[2022-06-16 19:29] LABS: Lipase 19 U/L (13-60)
[2022-06-16 20:18] LABS: Add Urine Microscopic? YES; Bilirubin Urine Neg (Negative); Blood Urine 3+ (Negative); Glucose Urine UA Norm (Normal); Ketones Urine 1+ (Negative); Leukocyte Esterase Urine 2+ (Negative); Nitrate Urine Positive (Negative); Protein Urine 1+ (Negative); Specific Gravity, Urine 1.015 (1.005-1.030); Urine Appearance Cloudy (CLEAR); Urine Color Yellow (Yellow); Urobilinogen Urine Norm (Negative); pH Urine 9 (5-7)
[2022-06-16 20:19] LABS: Add Urine Culture? Yes; Amorphous Sediment Urine 1+ /hpf; Bacteria Urine 1+ /hpf; Squamous Epithelial Cell Urine 0-4 /hpf (0-5); Sulfosalicylic Acid Urine Positive (Negative); Triple Phosphate Crystal Urine 25-40 /hpf; WBC Urine >100 /hpf (0-5)
[2022-06-16] MEDS: cefTRIAXone 1,000 MG in sodium chloride 0.9% (plus) 50 ML 100 MG IV (20:30)
[2022-06-17 00:03] VITALS: BP 160/92; PULSE 88; RESP 16; O2SAT 99
== END 2022-06-17 00:06 | disposition home or self-care (01) ==
PROVIDERS: Family Medicine; Emergency Provider Emergency Medicine; PCP Internal Medicine
DX: N30.00 Acute cystitis without hematuria (principal); R10.9 Unspecified abdominal pain; Z79.82 Long term (current) use of aspirin; Z79.01 Long term (current) use of anticoagulants; Z77.22 Contact with and (suspected) exposure to environmental tobacco smoke (acute) (chronic); I10 Essential (primary) hypertension
CPT/HCPCS: 74176; 80053; 81001; 83605; 83690; 85025; 87077; 87086; 87186; 96365; 96375; 96376; 99285; J0696; J2405; J3010

== ENCOUNTER 2022-06-28 20:32 | Emergency (ER) | payer MEDICARE, OTHER, SELFPAY ==
[2022-06-28] VITALS (11 sets, daily range): BP systolic 144–213; BP diastolic 71–139; PULSE 88–97; RESP 16–20; TEMP 36.9; O2SAT 96–98; BMI 22.6
--- NOTE | 2022-06-28 20:59 | XRR_ITS ---
PROCEDURE INFORMATION: Exam: XR Abdomen Exam date and time: 06/28/2022 9:19 PM Age: 82 years old Clinical indication: Abdominal tenderness; Prior surgery; Surgery date: 6+ months; Patient HX: Abd pain. Elevated BP TECHNIQUE: Imaging protocol: Radiologic exam of the abdomen. Views: Frontal supine view of the abdomen. 1 View. COMPARISON: CT abdomen pelvis wo con [id number] 06/16/2022 9:30 PM FINDINGS: Gastrointestinal tract: There is a large amount of stool in the colon and rectum. Impaction cannot be excluded. No ileus or obstruction. Bones/joints: Mild dextroscoliosis and moderate degenerative changes in the spine are noted. XR/XR KUB [id number] IMPRESSION: 1. There is a large amount of stool in the colon and rectum. Impaction cannot be excluded. 2. No ileus or obstruction.
--- NOTE | 2022-06-28 21:10 | ED_ITS ---
HPI - Abdominal Pain General: Chief Complaint: Abdominal Pain Stated Complaint: ABD PAIN Time Seen by Provider: 06/28/22 20:53 Source: patient and EMS Mode of arrival: EMS Limitations: no limitations History of Present Illness: 81-year-old female who has had abdominal pain intermittently for roughly 6 weeks now she states she been told she has a possible pancreatic mass post have an MRI. She also has constipation states she has an indwelling Chapman for over a month they have been having a hard time with getting blocked with sediment and they have been flushing the shelter. States states she had cramping pain to her whole abdomen she rates a 5 out of 10 denies any fever denies any vomiting or diarrhea denies any worsening proving factors. Associated Symptoms: Reports constipation; Denies chills, dysuria and fever(s) Related Data: Date of Last Menstrual Period: 02/06/21 Review of Systems Const: Denies: fever(s), chills, body aches or change in appetite Eyes: Denies: blurry vision or eye discomfort ENMT: Denies: throat pain or dental pain Card: Denies: chest pain Resp: Denies: dyspnea GI: Reports: abdominal pain and constipation : Denies: dysuria Musc: Denies: neck pain or back pain Skin/Breast: Denies: rash Neuro: Denies: headache(s) Psych: Denies: depression Vargas/Lymph: Denies: easy bruising All/Imm: Denies: urticaria PFSH ED PFSH: Medical History Chest pain Chronic cough Discitis of lumbosacral region Fall Feared condition not demonstrated Generalized anxiety disorder Hyperkalemia Hypertension Inflammatory arthritis Joint pain Leukocytosis Lumbar radiculopathy Malfunction of indwelling urinary catheter Restrictive airway disease Shortness of Breath Thyroid disease Surgical History History of appendectomy History of hysterectomy History of repair of rotator cuff Family History Mother , at age 71 Diabetes CAD (coronary artery disease) Stroke Cancer Skin Father , at age 65 Emphysema lung Other Family history of premature coronary artery disease Hyperlipidemia Hypertension Lung disease Denies family history of Rheumatoid arthritis Lupus Dementia Psychiatric illness Chronic kidney disease (CKD) Anesthesia complication Bleeding disorder Social History Smoking and tobacco status: never smoked Second hand smoke exposure: Yes Smoking risk assessment/counseling performed?: Yes Alcohol intake: never Caregiver/support person: Yes Household members: none Housing: [facility]Term Marital status: / service: No Current occupational status: retired Pets and animals: Yes History of recent travel: No Current gender identity: Female Female Reproductive History: Date of last menstrual period: 02/06/21 Physical Exam Const: COMMON NORMALS: no acute distress, patient oriented x3 and healthy appearing HENMT: COMMON NORMALS: normocephalic and atraumatic HEAD & SCALP: normocephalic and atraumatic Eye: COMMON NORMALS: Equal, round and reactive pupils present and EOMs intact bilaterally PUPIL: Yes Equal, round and reactive pupils present Neck/C-Spine: COMMON NORMALS: full ROM and supple Chest: COMMONS NORMALS: normal inspection of the chest and normal palpation of entire chest wall Resp: COMMON NORMALS: normal respiratory effort, No retractions, No use of accessory muscles and clear to auscultation bilaterally AUSCULTATION: clear to auscultation bilaterally Cardio: COMMON NORMALS: regular rate, regular rhythm and No murmurs present (Cardio) RATE: regular rate RHYTHM: regular rhythm GI: COMMON NORMALS: Normal to inspection, nondistended, normoactive bowel sounds present, Soft to palpation, non-tender and no masses PALPATION: Yes Soft to palpation : OTHER: chapman in place Extremity: COMMON NORMALS: normal to inspection and full ROM Neuro: COMMON NORMALS: patient oriented x3, moves all extremities and no focal motor deficits Psych: COMMON NORMALS: mental status grossly normal, Normal thought process present and cooperative THOUGHT PROCESS: Normal thought process present Skin: COMMON NORMALS: no rashes or lesions noted and no wounds GENERAL SKIN EXAM: no rashes or lesions noted Course Vital Signs: Vital signs: Vital Signs Temperature 98.4 F 06/28/22 21:00 Pulse Rate 89 06/28/22 21:24 Respiratory Rate 19 H 06/28/22 21:24 Blood Pressure 213/105 06/28/22 21:24 Pulse Oximetry 96 06/28/22 21:24 Oxygen Delivery Me thod 06/28/22 21:24 MDM - Abdominal Pain Medical Decision Making Patient presents with abdominal pain has been chronic in nature she is very constipated on her x-ray believe this is partially causing her pain her white count here is normal exam is benign she has had 2 CT scans in the last month do not believe she needs another CT at this time we will give her lactulose here and GoLytely at home she does have some irritation to her vagina likely from her Chapman we will place her on clotrimazole she is stable for discharge back to the shelter she is to follow-up with PCP and return if worsening. Lab Data : 06/28/22 21:15 06/28/22 21:15 Labs/Radiology: Radiology Impressions KUB X-Ray 06/28/22 20:59 IMPRESSION: 1. There is a large amount of stool in the colon and rectum. Impaction cannot be excluded. 2. No ileus or obstruction. Laboratory Results WBC 8.8 10^3/uL (4.0-10.0) 06/28/22 21:15 RBC 3.26 10^6/uL (4.1-5.3) L 06/28/22 21:15 Hgb 10.3 g/dL (11.5-15.3) L 06/28/22 21:15 Hct 30.7 % (37.0-47.0) L 06/28/22 21:15 MCV 94.2 fl (81-99) 06/28/22 21:15 MCH 31.6 pg (28.0-34.0) 06/28/22 21:15 MCHC 33.6 g/dL (30.0-36.0) 06/28/22 21:15 RDW 12.2 % (12.1-15.1) 06/28/22 21:15 Plt Count 362 10^3/cmm (130-400) 06/28/22 21:15 MPV 8.6 fL (7.4-10.4) 06/28/22 21:15 Neut % (Auto) 63.0 % 06/28/22 21:15 Lymph % (Auto) 22.9 % 06/28/22 21:15 [place] % (Auto) 10.4 % 06/28/22 21:15 Eos % (Auto) 2.5 % 06/28/22 21:15 Baso % (Auto) 0.6 % 06/28/22 21:15 Neut # (Auto) 5.56 10^3/uL (1.8-7.7) 06/28/22 21:15 Lymph # (Auto) 2.0 10^3/uL (0.8-4.8) 06/28/22 21:15 [place] # (Auto) 0.9 10^3/uL (0.2-0.9) 06/28/22 21:15 Eos # (Auto) 0.2 10^3/uL (0.0-0.8) 06/28/22 21:15 Baso # (Auto) 0.1 10^3/uL (0.0-0.1) 06/28/22 21:15 Nucleated RBC % (auto) 0 % 06/28/22 21:15 Nucleated RBCs # 0.0 /100WBC 06/28/22 21:15 Sodium 136 mmol/L (136-145) 06/28/22 21:15 Potassium 3.2 mmol/L (3.5-5.1) L 06/28/22 21:15 Chloride 100 mmol/L (98-107) 06/28/22 21:15 Carbon Dioxide 27 mmol/L (22-29) 06/28/22 21:15 Anion Gap 12.2 (5-19) 06/28/22 21:15 BUN 14 mg/dL (8-23) 06/28/22 21:15 Creatinine 0.7 mg/dL (0.5-0.9) 06/28/22 21:15 GFR Calculation Not Reportable 06/28/22 21:15 Glucose 140 mg/dL (65-115) H 06/28/22 21:15 Calculated Osmolality 285 mOsm/kg (285-295) 06/28/22 21:15 Lactate 0.9 mmol/L (0.5-2.2) 06/28/22 21:15 Calcium 9.1 mg/dL (8.5-10.5) 06/28/22 21:15 Total Bilirubin 0.2 mg/dL (0.15-1.2) 06/28/22 21:15 AST 13 U/L (0-32) 06/28/22 21:15 ALT 7 U/L (0-33) 06/28/22 21:15 Alkaline Phosphatase 110 IU/L (35-105) H 06/28/22 21:15 Total Protein 6.4 g/dL (6.6-8.7) L 06/28/22 21:15 Albumin 2.9 g/dL (3.5-5.2) L 06/28/22 21:15 Globulin 3.5 g/dL (1.3-4.6) 06/28/22 21:15 Lipase 21 U/L (13-60) 06/28/22 21:15 Discharge Plan Discharge Patient Disposition: Home Clinical Impression: Constipation Abdominal pain Qualifiers: Abdominal location: generalized Qualified Code(s): R10.84 - Generalized abdominal pain Condition: Stable Prescriptions: New [place]ely [id number] -5.86 gram recon soln 240 ml PO Q10M Qty: 4000 0RF Rx Instructions: until fecal effluent is clear clotrimazole 1 % cream 1 appful vaginal BID 14 Days Qty: 45 0RF No Action levothyroxine 50 mcg tablet 50 mcg PO DAILY@07 coenzyme Q10 [Co Q-10] 100 mg capsule 200 mg PO BEDTIME pantoprazole 40 mg tablet,delayed release (DR/EC) 40 mg PO BEDTIME tizanidine 2 mg tablet 2 mg PO BEDTIME aspirin [Adult Aspirin Regimen] 81 mg tablet,delayed release (DR/EC) 81 mg PO BEDTIME fenofibrate 160 mg tablet 160 mg PO BEDTIME cholecalciferol (vitamin D3) 50 mcg (2,000 unit) capsule 100 mcg PO DAILY valsartan 40 mg tablet See Rx Instructions .ROUTE .COMPLEX Qty: 90 1RF Dose Instruction: TAKE 1 TABLET BY MOUTH EVERY DAY, ADD TO 80MG TABLETS TO TOTAL 120MG DAILY Rx Instructions: TAKE 1 TABLET BY MOUTH EVERY DAY, ADD TO 80MG TABLETS TO TOTAL 120MG DAILY Probiotic 3 billion cell Capsule 3,000 mmu cells PO DAILY Qty: 0 acetaminophen [Tylenol Extra Strength] 500 mg Tablet 1,000 mg PO Q4H PRN (Reason: Pain) cyanocobalamin (vitamin B-12) 1,000 mcg/mL solution 1,000 mcg IM Q30D albuterol sulfate 90 mcg/actuation HFA aerosol inhaler 2 puff INHALATION Q6H PRN (Reason: Shortness Of Breath) valsartan 80 mg tablet 80 mg PO BEDTIME Rx Instructions: WITH 40MG TO =120MG Eliquis 5 mg tablet 5 mg PO BID Qty: 120 1RF gabapentin 300 mg Capsule 300 mg PO TID amlodipine 10 mg tablet 10 mg PO DAILY 30 Days Qty: 30 0RF fentanyl 25 mcg/hr patch 72 hour 1 patch transdermal Q72H Qty: 5 0RF Discharge Orders: Discharge ED (Routine); Ordered 06/28/22 Ordered By: Dwayne Soria Referrals: Brandon Pereira DO [Primary Care Provider] - 1-3 days Discharge Diet: Advance as tolerated Discharge Activity: Resume usual activity Patient Instructions: Constipation (ED) Coding Level of Care Code ED Metal Furniture Assembly Supervisor for Chg Fwd Exam Comprehensive
[2022-06-28] MEDS: hyDRALAzine 20 mg/mL INJ 1 mL 10 MG IVP (21:23)
[2022-06-28 21:30] LABS: Basophils # 0.1 10^3/uL (0.0-0.1); Basophils % 0.6 %; Eosinophils # 0.2 10^3/uL (0.0-0.8); Eosinophils % 2.5 %; Hematocrit 30.7 % (37.0-47.0); Hemoglobin 10.3 g/dL (11.5-15.3); Lymphocytes % 22.9 %; Mean Corpuscular HGB Conc 33.6 g/dL (30.0-36.0); Mean Corpuscular Hemoglobin 31.6 pg (28.0-34.0); Mean Corpuscular Volume 94.2 fl (81-99); Mean Platelet Volume 8.6 fL (7.4-10.4); Monocytes # 0.9 10^3/uL (0.2-0.9); Monocytes % 10.4 %; Neutrophils # 5.56 10^3/uL (1.8-7.7); Nucleated Red Blood Cells % 0 %; Platelet Count 362 10^3/cmm (130-400); Red Blood Count 3.26 10^6/uL (4.1-5.3); Red Cell Distribution Width 12.2 % (12.1-15.1); White Blood Count 8.8 10^3/uL (4.0-10.0)
[2022-06-28 21:55] LABS: Alanine Aminotransferase 7 U/L (0-33); Albumin Level 2.9 g/dL (3.5-5.2); Alkaline Phosphatase 110 IU/L (35-105); Anion Gap 12.2 (5-19); Aspartate Amino Transferase 13 U/L (0-32); Blood Urea Nitrogen 14 mg/dL (8-23); Calcium 9.1 mg/dL (8.5-10.5); Carbon Dioxide 27 mmol/L (22-29); Chloride 100 mmol/L (98-107); Creatinine Clr Calc Pharmacy 50.3942; Globulin 3.5 g/dL (1.3-4.6); Glucose 140 mg/dL (65-115); Lipase 21 U/L (13-60); Osmolality Calculated 285 mOsm/kg (285-295); Potassium 3.2 mmol/L (3.5-5.1); Sodium 136 mmol/L (136-145); Total Bilirubin 0.2 mg/dL (0.15-1.2); Total Protein 6.4 g/dL (6.6-8.7)
[2022-06-28 21:57] LABS: Lactate (Lactic Acid level) 0.9 mmol/L (0.5-2.2)
--- NOTE | 2022-06-28 22:00 | PC.NURSE ---
simple chapman catheter present on admission to er removed per policy, 25ml removed from bulb prior to removal of chapman. tolerated well.
[2022-06-28] MEDS: lactulose oral liq 20 gm/30 mL UDC 30 GM PO (22:50)
--- NOTE | 2022-06-28 23:11 | PC.NURSE ---
unable to find charges for chapman catheter in the [facility], charted here for billing purposes per facility request
== END 2022-06-28 23:11 | disposition home or self-care (01) ==
PROVIDERS: Emergency Provider Emergency Medicine; PCP Internal Medicine
DX: K59.00 Constipation, unspecified (principal); R10.84 Generalized abdominal pain; Z79.82 Long term (current) use of aspirin; Z79.01 Long term (current) use of anticoagulants; Z77.22 Contact with and (suspected) exposure to environmental tobacco smoke (acute) (chronic); I10 Essential (primary) hypertension
CPT/HCPCS: 51702; 74018; 80053; 83605; 83690; 85025; 96374; 99284; J0360

== ENCOUNTER 2022-07-07 11:24 | Outpatient (CLI) | payer MEDICARE, OTHER, SELFPAY ==
--- NOTE | 2022-07-07 11:33 | MR_ITS ---
WS: [id number] MRI ABDOMEN with and without CONTRAST. COMPARISON: 02/06/2021 and 06/05/2022 Multiplanar, multisequence imaging is performed with and without contrast. Sagittal and axial T1 fat sat sequences post-MultiHance 12 cc IV. Pancreas is atrophied throughout. No evidence for pancreatitis. In the very distal pancreatic tail th ere is a lobulated cystic mass or several small adjacent cystic duct dilatations. Entire complex samreen ures 19 x 11 mm. No enhancement. The remaining pancreatic duct is not dilated. No mass at the pancrea tic head. Very similar in appearance to the CT of 06/05/2022. Visualized liver is normal. No duct dilatation. Mildly hydropic gallbladder. No common bile duct dila tation. Normal pancreas. No adrenal mass. No renal obstruction. Normal size aorta. Gastrostomy tube i s noted. There is no ascites or adenopathy. No pleural effusion. MR/MR abdomen wo/w con* [id number] IMPRESSION: 1. Lobulated cystic mass involving the very distal pancreatic tail measures 19 x 11 mm. 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 No enhancement at this time. Additional differential is serous cystic neop lasm. Recommend serial follow-up evaluation. Recommend follow-up MRI with and w ithout contrast in 6 months. 2. No additional abnormality.
[2022-07-07] MEDS: gadobenate dimeglumine 20 mL vial IV (13:36)
== END 2022-07-07 11:25 | disposition home or self-care (01) ==
LOC: RAD 11:26
PROVIDERS: PCP Internal Medicine; Visit Provider Internal Medicine
DX: R93.3 Abnormal findings on diagnostic imaging of other parts of digestive tract (principal)
CPT/HCPCS: 74183